=== PATIENT | male | born 1990 | race Caucasian/White ===

== ENCOUNTER 2018-10-11 08:44 | Emergency (ER) | payer SELFPAY ==
[2018-10-11] MEDS ORDERED: IBUPROFEN 400 MG TAB ONE (09:34)
[2018-10-11 09:42] LABS: Absolute Lymphocytes (CBC) 1.1 K/uL (0.7-4.9); Basophils % 0.8 % (0-1.3); Hematocrit 43.2 % (39.6-49.0); Lymphocytes % 25.7 % (15.3-44.8); MPV 8.7 fL (7.6-11.3); RBC Red Blood Cell Count 4.98 M/uL (4.33-5.43)
[2018-10-11 09:57] LABS: Potassium 3.8 mmol/L (3.5-5.1)
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
[2018-10-11] MEDS ORDERED: TETANUS & DIPHTHERIA TOX,ADULT 0.5 ML VIAL ONE (10:55)
== END 2018-10-11 10:58 | disposition home or self-care (01) ==
LOC: ER 08:44
DX: S00.91XA Abrasion of unspecified part of head, initial encounter (principal); S00.93XA Contusion of unspecified part of head, initial encounter; V43.52XA Car driver injured in collision with other type car in traffic accident, initial encounter; M79.602 Pain in left arm; Z23 Encounter for immunization
CPT/HCPCS: 36415; 70450; 71260; 72125; 74177; 80048; 85025; 86850; 86900; 86901; 90471; 90714; 99285; Q9967

== ENCOUNTER 2019-02-11 08:46 | Emergency (ER) | payer SELFPAY ==
--- NOTE | 2019-02-11 09:31 | ER ---
Nurse's Notes [facility] Name: Heriberto Duke Age: 29 yrs Sex: Male : 1990 Arrival Date: 02/11/2019 Time: 08:48 Bed 5 Private MD: None, None Diagnosis: Schizophrenia Presentation: 02/11 09:03 Presenting complaint: Patient states: "I woke up to two law enforcement officers at my ss door when I was asleep. My mom is taking prescription Xanax and she has been a little erratic . The supersonic engineer asked if I would come down to talk to the mental health deputy." Pt denies SI/HI. Transition of care: patient was not received from another setting of care. Onset of symptoms is unknown. Risk Assessment: Do you want to hurt yourself or someone else? Patient reports no desire to harm self or others. Initial Sepsis Screen: Does the patient meet any 2 criteria? HR > 90 bpm. Does the patient have a suspected source of infection? No. Patient's initial sepsis screen is negative. Care prior to arrival: None. 09:03 Method Of Arrival: Ambulatory ss 09:03 Acuity: JOSEFA 4 ss 10:13 Acuity: JOSEFA 2 ss Triage Assessment: 09:35 General: Appears in no apparent distress. Behavior is calm, cooperative, appropriate tw2 for age. Pain: Denies pain. EENT: No signs and/or symptoms were reported regarding the EENT system. Neuro: Level of Consciousness is awake, alert, obeys commands, Oriented to person, place, time, situation. Cardiovascular: Denies chest pain, shortness of breath, Patient's skin is warm and dry. Respiratory: Airway is patent Respiratory effort is even, unlabored, Respiratory pattern is regular, symmetrical. GI: No signs and/or symptoms were reported involving the gastrointestinal system. : No signs and/or symptoms were reported regarding the genitourinary system. Derm: No signs and/or symptoms reported regarding the dermatologic system. Musculoskeletal: No signs and/or symptoms reported regarding the musculoskeletal system. Musculoskeletal: Range of motion: intact in all extremities. Historical: - Allergies: 09:09 No Known Allergies; ss - Home Meds: 09:09 None [Active]; ss - PMHx: 09: None; ss - PSHx: 09:09 L forearm; ss - Immunization history:: Adult Immunizations up to date. - Social history:: Smoking status: Patient/guardian denies using tobacco, Patient/guardian denies using street drugs. - Ebola Screening: : Patient denies exposure to infectious person Patient denies travel to an Ebola-affected area in the 21 days before illness onset. Screenin:14 Abuse screen: Denies threats or abuse. Nutritional screening: No deficits noted. tw2 Tuberculosis screening: No symptoms or risk factors identified. Fall Risk None identified. Assessment: 09:13 Reassessment: provider at bedside at this time. tw2 09:15 Reassessment: see triage assessment. tw2 09:54 Reassessment: mother at bedside at this time, refusing discharge, requesting provider tw speak to Dr. Mckeon prior to discharge. 09:54 Reassessment: attempted to dc patient at this time. Mother is requesting to speak with FREDDIE Cisse prior to discharge. FREDDIE Morrison notified. 10:05 Reassessment: FREDDIE Morrison spoke with Dr. Mckeon. Now awaiting for psychiatrist, Dr. leigh Melara for consult. 11:34 Reassessment: Patient appears in no apparent distress at this time. No changes from tw2 previously documented assessment. Patient and/or family updated on plan of care and expected duration. Pain level reassessed. Patient is alert, oriented x 3, equal unlabored respirations, skin warm/dry/pink. 12:45 Reassessment: Patient appears in no apparent distress at this time. No changes from tw2 previously documented assessment. Patient and/or family updated on plan of care and expected duration. Pain level reassessed. Patient is alert, oriented x 3, equal unlabored respirations, skin warm/dry/pink. psychiatrist at bedside at this time. 13:44 Reassessment: Patient appears in no apparent distress at this time. No changes from tw2 previously documented assessment. Patient and/or family updated on plan of care and expected duration. Pain level reassessed. Patient is alert, oriented x 3, equal unlabored respirations, skin warm/dry/pink. 14:53 Reassessment: Patient appears in no apparent distress at this time. No changes from tw2 previously documented assessment. Patient and/or family updated on plan of care and expected duration. Pain level reassessed. Patient is alert, oriented x 3, equal unlabored respirations, skin warm/dry/pink. 15:53 Reassessment: Patient appears in no apparent distress at this time. No changes from tw2 previously documented assessment. Patient and/or family updated on plan of care and expected duration. Pain level reassessed. Patient is alert, oriented x 3, equal unlabored respirations, skin warm/dry/pink. 18:46 Reassessment: Patient appears in no apparent distress at this time. Patient and/or rv family updated on plan of care and expected duration. Pain level reassessed. Patient is alert, oriented x 3, equal unlabored respirations, skin warm/dry/pink. TALKED TO TRENTON AND GAVE REPORT. AWAITING ACCEPTANCE. 19:00 Reassessment: Mom reports pt is confused thinking the psychiatrist said that he is good jl7 and nothing is wrong with him. 19:09 Reassessment: Charge nurse notified pt is confused and wanting to go home and not be jl7 transferred. Charge nurse to call pt's mother. pt seen and assessed by [facility] and local Psychiatrist with both stating pt needs inpatient care. Vital Signs: 09:02 BP 145 / 97; Pulse 102; Resp 18; Temp 98.3(TE); Pulse Ox 98% on R/A; Weight 81.65 kg; ss Height 5 ft. 10 in. (177.80 cm); Pain 0/10; 10:16 BP 123 / 87; Pulse 87; Resp 17; Pulse Ox 95% on R/A; tw2 11:34 BP 124 / 86; Pulse 90; Resp 16; Pulse Ox 95% on R/A; tw2 12:45 BP 115 / 88; Pulse 89; Resp 17; Pulse Ox 100% on R/A; tw2 13:44 BP 118 / 88; Pulse 89; Resp 17; Pulse Ox 96% on R/A; tw2 14:53 BP 114 / 78; Pulse 87; Resp 17; Pulse Ox 95% on R/A; tw2 15:53 BP 114 / 93; Pulse 104; Resp 17; Pulse Ox 96% on R/A; tw2 16:30 BP 164 / 116; Pulse 100; Resp 17; Pulse Ox 100% on R/A; rv 17:00 BP 122 / 94; Pulse 97; Resp 16; Pulse Ox 96% on R/A; rv 18:00 BP 126 / 95; Pulse 93; Resp 16; Pulse Ox 97% on R/A; rv 18:30 BP 130 / 89; Pulse 97; Resp 17; Pulse Ox 97% on R/A; rv 09:02 Body Mass Index 25.83 (81.65 kg, 177.80 cm) ED Course: 08:48 Patient arrived in ED. ag5 08:48 None, None is Private Physician. ag5 09:08 Triage completed. ss 09:09 Arm band placed on left wrist. ss 09:12 Pedrito Castañeda PA is PHCP. jr8 09:12 Lance Hager MD is Attending Physician. jr8 09:14 Lida Higuera, ALYSSA is Primary Nurse. tw2 09:14 Bed in low position. Call light in reach. tw2 09:35 No provider procedures requiring assistance completed. Patient did not have IV access tw2 during this emergency room visit. 11:00 Initial lab(s) drawn, by me, sent to lab. Inserted saline lock: 20 gauge in right jl7 antecubital area, using aseptic technique. Blood collected. 11:11 Urine collected: clean catch specimen, clear. ms 11:16 EKG done, by inventory technician. reviewed by Pedrito FRAZIER. 3 14:21 contacted [facility] crisis line. screener will come evaluate pt. bd 16:02 faxed chart to [facility] psych, [facility], [facility], [facility], [facility]. 16:03 pt denied at [facility] due to no beds at this time, pt will be put on wait list. bd 16:17 Report given to ALYSSA Fish. tw2 17:49 refaxed copy of physician notes as requested by [facility]. bd 19:39 IV discontinued, intact, bleeding controlled, Pressure dressing applied. ds4 Administered Medications: No medications were administered Outcome: 09:30 Discharge ordered by . nancy 18:51 ER care complete, transfer ordered by . jr8 19:44 Patient left the ED. ak1 Signatures: Lachelle Alberto Maria ms Smirch, Shelby, ALYSSA SHAH Pedrito Castañeda PA PA jr8 Marlon Land ds4 Lea Davis RN RN ak1 Lida Higuera RN RN tw2 Polina Rhodes, RN RN jl7 Raiza Wells 3 Krzysztof Delarosa, RN RN Edilberto Anderson 5 Corrections: (The following items were deleted from the chart) 09:35 Discharge instructions given to patient, Instructed on discharge instructions, tw follow up and referral plans. Demonstrated understanding of instructions, follow-up care, 09:35 Condition: stable 09:35 Discharged to home ambulatory,
--- NOTE | 2019-02-11 09:31 | EDPHYS ---
Physician Documentation [facility] Name: Heriberto Duke Age: 29 yrs Sex: Male : 1990 Arrival Date: 02/11/2019 Time: 08:48 Bed 5 Private MD: None, None ED Physician Lance Hager HPI: 02/11 09:23 This 29 yrs old Male presents to ER via Ambulatory with complaints of Mental jr8 Health Evaluation. 09:23 Patient brought in by SARAH for mental health evaluation. Patient stated that his mother nancy has been on xanax and thought that he was hallucinating. LE wanted him to be evaluated to make sure he was ok. Patient denies SI/HI, hallucinations, flight of ideas, paranoia. Severity of symptoms: At their worst the symptoms were very mild in the emergency department the symptoms are unchanged. It is unknown whether or not the patient has had similar symptoms in the past. The patient has not recently seen a physician. Historical: - Allergies: 09:09 No Known Allergies; ss - Home Meds: 09:09 None [Active]; ss - PMHx: 09: None; ss - PSHx: 09:09 L forearm; ss - Immunization history:: Adult Immunizations up to date. - Social history:: Smoking status: Patient/guardian denies using tobacco, Patient/guardian denies using street drugs. - Ebola Screening: : Patient denies exposure to infectious person Patient denies travel to an Ebola-affected area in the 21 days before illness onset. ROS: 09:23 Eyes: Negative for injury, pain, redness, and discharge, ENT: Negative for injury, jr8 pain, and discharge, Neck: Negative for injury, pain, and swelling, Cardiovascular: Negative for chest pain, palpitations, and edema, Respiratory: Negative for shortness of breath, cough, wheezing, and pleuritic chest pain, Abdomen/GI: Negative for abdominal pain, nausea, vomiting, diarrhea, and constipation, Back: Negative for injury and pain, MS/Extremity: Negative for injury and deformity, Skin: Negative for injury, rash, and discoloration, Neuro: Negative for headache, weakness, numbness, tingling, and seizure, Psych: Negative for depression, anxiety, suicide ideation, homicidal ideation, and hallucinations. Exam: 09:23 Constitutional: This is a well developed, well nourished patient who is awake, alert, jr8 and in no acute distress. Eyes: Pupils equal round and reactive to light, extra-ocular motions intact. Lids and lashes normal. Conjunctiva and sclera are non-icteric and not injected. Cornea within normal limits. Periorbital areas with no swelling, redness, or edema. ENT: Nares patent. No nasal discharge, no septal abnormalities noted. Tympanic membranes are normal and external auditory canals are clear. Oropharynx with no redness, swelling, or masses, exudates, or evidence of obstruction, uvula midline. Mucous membranes moist. Neck: Trachea midline, no thyromegaly or masses palpated, and no cervical lymphadenopathy. Supple, full range of motion without nuchal rigidity, or vertebral point tenderness. No Meningismus. Cardiovascular: Regular rate and rhythm with a normal S1 and S2. No gallops, murmurs, or rubs. Normal PMI, no JVD. No pulse deficits. Respiratory: Lungs have equal breath sounds bilaterally, clear to auscultation and percussion. No rales, rhonchi or wheezes noted. No increased work of breathing, no retractions or nasal flaring. Abdomen/GI: Soft, non-tender, with normal bowel sounds. No distension or tympany. No guarding or rebound. No evidence of tenderness throughout. Back: No spinal tenderness. No costovertebral tenderness. Full range of motion. Skin: Warm, dry with normal turgor. Normal color with no rashes, no lesions, and no evidence of cellulitis. MS/ Extremity: Pulses equal, no cyanosis. Neurovascular intact. Full, normal range of motion. Neuro: Awake and alert, GCS 15, oriented to person, place, time, and situation. Cranial nerves II-XII grossly intact. Motor strength 5/5 in all extremities. Sensory grossly intact. Cerebellar exam normal. Normal gait. Psych: Awake, alert, with orientation to person, place and time. Behavior, mood, and affect are within normal limits. Vital Signs: 09:02 BP 145 / 97; Pulse 102; Resp 18; Temp 98.3(TE); Pulse Ox 98% on R/A; Weight 81.65 kg; ss Height 5 ft. 10 in. (177.80 cm); Pain 0/10; 10:16 BP 123 / 87; Pulse 87; Resp 17; Pulse Ox 95% on R/A; tw2 11:34 BP 124 / 86; Pulse 90; Resp 16; Pulse Ox 95% on R/A; tw2 12:45 BP 115 / 88; Pulse 89; Resp 17; Pulse Ox 100% on R/A; tw2 13:44 BP 118 / 88; Pulse 89; Resp 17; Pulse Ox 96% on R/A; tw2 14:53 BP 114 / 78; Pulse 87; Resp 17; Pulse Ox 95% on R/A; tw2 15:53 BP 114 / 93; Pulse 104; Resp 17; Pulse Ox 96% on R/A; tw2 16:30 BP 164 / 116; Pulse 100; Resp 17; Pulse Ox 100% on R/A; rv 17:00 BP 122 / 94; Pulse 97; Resp 16; Pulse Ox 96% on R/A; rv 18:00 BP 126 / 95; Pulse 93; Resp 16; Pulse Ox 97% on R/A; rv 18:30 BP 130 / 89; Pulse 97; Resp 17; Pulse Ox 97% on R/A; rv 09:02 Body Mass Index 25.83 (81.65 kg, 177.80 cm) ss MDM: 09:12 Patient medically screened. jr8 09:23 Data reviewed: vital signs, nurses notes, and as a result, I will discharge patient. jr8 Data interpreted: Pulse oximetry: on room air is 98 %. Interpretation: normal. Counseling: I had a detailed discussion with the patient and/or guardian regarding: the historical points, exam findings, and any diagnostic results supporting the discharge/admit diagnosis, the need for outpatient follow up, a family practitioner, to return to the emergency department if symptoms worsen or persist or if there are any questions or concerns that arise at home. ED course: Mother arrived shortly after talking with patient. Long discussion with mother about patient denies HI/SI or psychotic ideations. Mother stated that he has been manipulating the system. Stated that he has been having hallucinations for some time. Walks around talking to people that are not there. Starring over her in the middle of the night. Stated that he randomly prays for hours in one position. Hysterically laughs out of normal context. Stated that his younger brother had the same problems and had schizophrenia. Eventually led to his . Stated that the patient knows that he is having the same problems but denies it because he is afraid that he could go down same path as brother. We had psychiatrist on site see patient and agrees patient needs to be admitted to inpatient psych . 02/11 10:47 Order name: Acetaminophen; Complete Time: 11:38 ss 02/11 10:47 Order name: Basic Metabolic Panel; Complete Time: 11:38 ss 02/11 10:47 Order name: CBC with Diff; Complete Time: 11:10 ss 02/11 10:47 Order name: ETOH Level; Complete Time: 11:38 ss 02/11 10:47 Order name: Hepatic Function; Complete Time: 11:38 ss 02/11 10:47 Order name: PT-INR; Complete Time: 11:38 ss 02/11 10:47 Order name: Ptt, Activated; Complete Time: 11:38 ss 02/11 10:47 Order name: Salicylate; Complete Time: 12:01 ss 02/11 10:47 Order name: Urine Drug Screen; Complete Time: 12:20 ss 02/11 10:47 Order name: EKG; Complete Time: 10:49 ss 02/11 10:47 Order name: EKG - Nurse/Tech; Complete Time: 10:58 ss 02/11 10:47 Order name: IV Saline Lock; Complete Time: 10:57 ss 02/11 11:10 Order name: Urine Dipstick--Ancillary (enter results); Complete Time: 11:38 bd 02/11 14:27 Order name: Diet Regular; Complete Time: 14:27 tw2 02/11 10:47 Order name: Labs collected and sent; Complete Time: 10:58 ss 02/11 10:47 Order name: Urine Dipstick-Ancillary (obtain specimen); Complete Time: 11:09 ss Administered Medications: No medications were administered Disposition: 18:40 Co-signature as Attending Physician, Lance Hager MD I agree with the assessment and mauro plan of care. Disposition: 02/11/19 18:51 Transfer ordered to Psych Facility. Diagnosis is Schizophrenia. - Reason for transfer: Higher level of care. - Accepting physician is Psych. - Condition is Stable. - Problem is new. - Symptoms have improved. Signatures: Dispatcher [employer] Romel Rees MD MD cha Smirch, Shelby, RN RN Pedrito Motley PA PA jr8 Lea Davis, RN RN ak1 Corrections: (The following items were deleted from the chart) 09:59 09:30 02/11/2019 09:30 Discharged to Home. Impression: Encounter for general adult jr8 medical examination without abnormal findings. Condition is Stable. Forms are Medication Reconciliation Form, Thank You Letter, Antibiotic Education, Prescription Opioid Use. Follow up: Private Physician; When: As needed; Reason: Recheck today's complaints, Continuance of care, Re-evaluation by your physician. Problem is new. Symptoms have improved. jr8 15:56 09:23 ED course: Patient with no apparent acute psychiatric complaint or findings. Will jr8 d/c home. jr8 19:44 18:51 02/11/2019 18:51 Transfer ordered to Psych Facility. Diagnosis is Schizophrenia. ak1 Reason for transfer: Higher level of care. Accepting physician is Psych. Condition is Stable. Problem is new. Symptoms have improved. jr8
[2019-02-11 11:07] LABS: Absolute Lymphocytes (CBC) 1.4 K/uL (0.7-4.9); Basophils % 0.6 % (0-1.3); Hematocrit 47.1 % (39.6-49.0); Lymphocytes % 18.2 % (15.3-44.8); MPV 8.4 fL (7.6-11.3); RBC Red Blood Cell Count 5.35 M/uL (4.33-5.43)
[2019-02-11 11:13] LABS: Protime INR 1.02
[2019-02-11 11:31] LABS: ALT/SGPT 38 U/L (12-78); AST/SGOT 22 U/L (15-37); Albumin 4.6 g/dL (3.4-5.0); Alkaline Phosphatase 126 U/L (45-117); BUN Blood Urea Nitrogen 17 mg/dL (7-18); Bicarbonate 26 mmol/L (21-32); Bilirubin Direct 0.2 mg/dL (0-0.2); Glucose Level 84 mg/dL (74-106); Potassium 3.7 mmol/L (3.5-5.1); Protein, Total 8.1 g/dL (6.4-8.2); Sodium Level 139 mmol/L (136-145)
[2019-02-11 11:33] LABS: Urine Blood NEGATIVE (NEG); Urine Glucose NEGATIVE (NEG); Urine Protein TRACE (NEG); Urine Specific Gravity 1.025 (1.005-1.030); Urine pH 5.5 (5.0-7.0)
--- NOTE | 2019-02-11 11:58 | EKG ---
Test Date: 2019-02-11 Test Time: 11:04:41 Electrical Panel Builder: ADELINA MEASUREMENT RESULTS: Intervals: Rate: 77 LA: 138 QRSD: 86 QT: 364 QTc: 411 [place]: P: 50 LA: 138 QRS: 89 T: 19 INTERPRETIVE STATEMENTS: Sinus rhythm with marked sinus arrhythmia Otherwise normal ECG Compared to ECG 10/05/2013 20:15:49 Sinus bradycardia no longer present Electronically Signed On 02-11-19 11:57:48 FORESTRY TREE PRUNER by Korey Acosta
[2019-02-11 12:07] LABS: Barbiturates NEGATIVE (NEGATIVE); Benzodiazepines NEGATIVE (NEGATIVE); Cocaine NEGATIVE (NEGATIVE); METHAMPHETAM NEGATIVE (NEGATIVE); Methadone NEGATIVE (NEGATIVE); Opiates NEGATIVE (NEGATIVE); Phencyclidine NEGATIVE (NEGATIVE); THC Cannibis NEGATIVE (NEGATIVE)
[2019-02-11 19:51] VITALS: TEMP 98.3
[2019-02-11 20:02] VITALS: O2SAT 97
[2019-02-11 20:03] VITALS: BP 130/89
== END 2019-02-11 19:44 ==
LOC: ER 08:46
DX: F20.9 Schizophrenia, unspecified (principal)
CPT/HCPCS: 36415; 80048; 80076; 80307; 80320; 80329; 81003; 85025; 85610; 85730; 93005; 99284

== ENCOUNTER 2019-06-14 23:08 | Emergency (ER) | payer SELFPAY ==
--- OUTSIDE RECORDS SUMMARY | 2019-06-14 23:11 | XMS REPORT ---
:1990 [facility] Address [address] [place] [address] Care Team Providers Name Role Phone Unavailable Unavailable Unavailable Problems This patient has no known problems. Allergies, Adverse Reactions, Alerts This patient has no known allergies or adverse reactions. Medications This patient has no known medications. Results Test Description Test Time Test Comments Text Results Atomic Results Result Comments RPR Qualitative 2019-02-12 13:47:36 Test Item Value Reference Range Comments RPR Qual (test code=RPR Qual) Non-Reactive Non-Reactive Reactive Control (test code=Reactive Control) Reactive Weak Reactive Control (test code=Weak Reactive Control) Weak Reactive Non-Reactive Control (test code=Non-Reactive Control) Non-Reactive Lot # (test code=Lot #) [id number] Expiration Dt (test code=Expiration Dt) 01-18-20 Thyroid Stimulating [id number] 08:21:50 Test Item Value Reference Range Comments TSH (test code=TSH) 2.100 mIU/mL 0.270-4.200 Lipid [id number] 07:23:30 Test Item Value Reference Range Comments Cholesterol Total (test 179 mg/dL 0-200 RISK OF HEART DISEASEPublished code=Cholesterol Total) by [place] [employer] Analyte Optimal Borderline Increased RiskCHOL <200 200-239 >240TRIG <150 150-199 >200HDL Male >60 <40HDL Female >60 <50LDL <100 130-159 >160LDL Near optimal is 100-129 Triglycerides (test 108 mg/dL 9-200 code=Triglycerides) HDL (test code=HDL) 41 mg/dL 40-60 LDL (test code=LDL) 117 mg/dL 0-130 The equation being used in this calculation is LDL=(Chol - HDL) - (Trig / 5) VLDL (test code=VLDL) 22 mg/dL 5-40 The equation being used in this calculation is VLDL=Trig / 5 Chol/HDL (test 4.4 ratio 0.0-5.0 code=Chol/HDL) LDL/HDL Ratio (test 3 The equation being used in this code=LDL/HDL Ratio) calculation is LDL/HDL Ratio=LDL Calc/HDL Chol Comprehensive Metabolic [id number] 07:00:35 Test Item Value Reference Range Comments Sodium Level (test code=Sodium Level) 142.0 mmol/L 135.0-145.0 Potassium Level (test code=Potassium Level) 4.3 mmol/L 3.5-5.1 Chloride Level (test code=Chloride Level) 101 mmol/L 98-105 CO2 (test code=CO2) 28 mmol/L 22-29 Anion Gap (test code=Anion Gap) 13 mmol/L 7-16 BUN (test code=BUN) 19.30 mg/dL 6.00-20.00 Creatinine Level (test code=Creatinine Level) 0.90 mg/dL 0.70-1.20 BUN/Creat Ratio (test code=BUN/Creat Ratio) 21 Glucose Level (test code=Glucose Level) 89 mg/dL 70-115 Calcium Level (test code=Calcium Level) 10.4 mg/dL 8.3-10.5 Alk Phos (test code=Alk Phos) 124 U/L 40-129 Bilirubin Total (test code=Bilirubin Total) 1.1 mg/dL 0.1-0.9 Albumin Level (test code=Albumin Level) 5.1 g/dL 3.5-5.2 Protein Total (test code=Protein Total) 7.9 g/dL 6.4-8.3 ALT (test code=ALT) 25 U/L 1-41 AST (test code=AST) 23 U/L 1-40 Globulin (test code=Globulin) 2.8 g/dL 2.9-3.1 A/G Ratio (test code=A/G Ratio) 1.8 ratio Comprehensive Metabolic [id number] 07:00:35 Test Item Value Reference Range Comments Sodium Level (test 142.0 mmol/L 135.0-145.0 code=Sodium Level) Potassium Level (test 4.3 mmol/L 3.5-5.1 code=Potassium Level) Chloride Level (test 101 mmol/L 98-105 code=Chloride Level) CO2 (test code=CO2) 28 mmol/L 22-29 Anion Gap (test 13 mmol/L 7-16 code=Anion Gap) BUN (test code=BUN) 19.30 mg/dL 6.00-20.00 Creatinine Level (test 0.90 mg/dL 0.70-1.20 code=Creatinine Level) BUN/Creat Ratio (test 21 code=BUN/Creat Ratio) Glucose Level (test 89 mg/dL 70-115 code=Glucose Level) Calcium Level (test 10.4 mg/dL 8.3-10.5 code=Calcium Level) Alk Phos (test code=Alk 124 U/L 40-129 Phos) Bilirubin Total (test 1.1 mg/dL 0.1-0.9 code=Bilirubin Total) Albumin Level (test 5.1 g/dL 3.5-5.2 code=Albumin Level) Protein Total (test 7.9 g/dL 6.4-8.3 code=Protein Total) ALT (test code=ALT) 25 U/L 1-41 AST (test code=AST) 23 U/L 1-40 Globulin (test 2.8 g/dL 2.9-3.1 code=Globulin) A/G Ratio (test code=A/G 1.8 ratio Ratio) eGFR AA (test code=eGFR >60 mL/min/1.73 m2 eGFR (estimated AA) Glomerular Filtration Rate) is an estimated value, calculated from the patient's serum creatinine using the MDRD equation. It is NOT the patient's actual GFR. The eGFR provides a more clinically useful measure of kidney disease than serum creatinine alone.This calculation takes sex and race into account, if the information is provided. If the race is not provided, and the patient is -[place], multiply by 1.212. If sex is not provided, and the patient is female, multiply by 0.742. Results for patients <18 years of age have not been validated by the MDRD study and should be interpreted with caution. eGFR Result Interpretation:eGFR > or=60 is in the Normal RangeeGFR < 60 may mean kidney diseaseeGFR < 15 may mean kidney failure Ranges recommended by the National Kidney Foundation, http://nkdep.nih.gov Comprehensive Metabolic [id number] 07:00:35 Test Item Value Reference Range Comments Sodium Level (test 142.0 mmol/L 135.0-145.0 code=Sodium Level) Potassium Level (test 4.3 mmol/L 3.5-5.1 code=Potassium Level) Chloride Level (test 101 mmol/L 98-105 code=Chloride Level) CO2 (test code=CO2) 28 mmol/L 22-29 Anion Gap (test 13 mmol/L 7-16 code=Anion Gap) BUN (test code=BUN) 19.30 mg/dL 6.00-20.00 Creatinine Level (test 0.90 mg/dL 0.70-1.20 code=Creatinine Level) BUN/Creat Ratio (test 21 code=BUN/Creat Ratio) Glucose Level (test 89 mg/dL 70-115 code=Glucose Level) Calcium Level (test 10.4 mg/dL 8.3-10.5 code=Calcium Level) Alk Phos (test code=Alk 124 U/L 40-129 Phos) Bilirubin Total (test 1.1 mg/dL 0.1-0.9 code=Bilirubin Total) Albumin Level (test 5.1 g/dL 3.5-5.2 code=Albumin Level) Protein Total (test 7.9 g/dL 6.4-8.3 code=Protein Total) ALT (test code=ALT) 25 U/L 1-41 AST (test code=AST) 23 U/L 1-40 Globulin (test 2.8 g/dL 2.9-3.1 code=Globulin) A/G Ratio (test code=A/G 1.8 ratio Ratio) eGFR AA (test code=eGFR >60 mL/min/1.73 m2 eGFR (estimated AA) Glomerular Filtration Rate) is an estimated value, calculated from the patient's serum creatinine using the MDRD equation. It is NOT the patient's actual GFR. The eGFR provides a more clinically useful measure of kidney disease than serum creatinine alone.This calculation takes sex and race into account, if the information is provided. If the race is not provided, and the patient is -[place], multiply by 1.212. If sex is not provided, and the patient is female, multiply by 0.742. Results for patients <18 years of age have not been validated by the MDRD study and should be interpreted with caution. eGFR Result Interpretation:eGFR > or=60 is in the Normal RangeeGFR < 60 may mean kidney diseaseeGFR < 15 may mean kidney failure Ranges recommended by the National Kidney Foundation, http://nkdep.nih.gov eGFR Non-AA (test >60.00 mL/min/1.73 eGFR (estimated code=eGFR Non-AA) m2 Glomerular Filtration Rate) is an estimated value, calculated from the patient's serum creatinine using the MDRD equation. It is NOT the patient's actual GFR. The eGFR provides a more clinically useful measure of kidney disease than serum creatinine alone.This calculation takes sex and race into account, if the information is provided. If the race is not provided, and the patient is -[place], multiply by 1.212. If sex is not provided, and the patient is female, multiply by 0.742. Results for patients <18 years of age have not been validated by the MDRD study and should be interpreted with caution. eGFR Result Interpretation:eGFR > or=60 is in the Normal RangeeGFR < 60 may mean kidney diseaseeGFR < 15 may mean kidney failure Ranges recommended by the National Kidney Foundation, http://nkdep.nih.gov Complete Blood Count with [id number] 06:45:37 Test Item Value Reference Range Comments WBC (test code=WBC) 5.9 x10 4.4-10.5 RBC (test code=RBC) 5.58 x10 4.10-5.70 Hgb (test code=Hgb) 17.0 g/dL 13.4-17.4 Hct (test code=Hct) 49.1 % 38.7-52.0 MCV (test code=MCV) 88.00 fL 80.00-100.00 MCHC (test code=MCHC) 34.60 g/dL 32.00-37.50 RDW CV (test code=RDW CV) 12.2 % 11.5-14.5 MCH (test code=MCH) 30.5 pg 27.0-32.5 Platelets (test 292.0 x10 140.0-440.0 code=Platelets) MPV (test code=MPV) 9.9 fL Slide Review (test code=Slide Auto Auto Result created by Review) [id number]_[id number]_AUTO nRBC (test code=nRBC) 0 NRBC Abs (test code=NRBC Abs) 0.00 x10 IPF (test code=IPF) 0 % Automated [id number] 06:45:37 Test Item Value Reference Range Comments Neutro Auto (test code=Neutro Auto) 55.6 % 36.0-70.0 Lymph Auto (test code=Lymph Auto) 29.0 % 12.0-44.0 [place] Auto (test code=[place] Auto) 11.8 % 0.0-11.0 Eos, Auto (test code=Eos, Auto) 2.7 % 0.0-7.0 Basophil Auto (test code=Basophil Auto) 0.7 % 0.0-2.0 Neutro Absolute (test code=Neutro Absolute) 3.3 x10 1.6-7.4 Lymph Absolute (test code=Lymph Absolute) 1.70 x10 .50-4.60 [place] Absolute (test code=[place] Absolute) .69 x10 .00-1.20 Eos Absolute (test code=Eos Absolute) 0.16 x10 0.00-0.74 Baso Absolute (test code=Baso Absolute) 0.04 x10 0.00-0.21 IG [id number] 06:45:37 Test Item Value Reference Range Comments IG (test code=IG) 0.2 % 0.0-5.0 IG Abs (test code=IG Abs) 0 x10
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
[2019-06-15 00:56] VITALS: BP 134/99; O2SAT 96
[2019-06-15 00:59] VITALS: TEMP 98.8
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
== END 2019-06-15 00:17 | disposition home or self-care (01) ==
LOC: ER 23:08
DX: S00.90XA Unspecified superficial injury of unspecified part of head, initial encounter (principal); Y04.2XXA Assault by strike against or bumped into by another person, initial encounter; Y93.9 Activity, unspecified; Y92.89 Other specified places as the place of occurrence of the external cause; F20.9 Schizophrenia, unspecified
CPT/HCPCS: 70450; 99284

== ENCOUNTER 2019-07-23 20:35 | Emergency (ER) | payer SELFPAY ==
--- OUTSIDE RECORDS SUMMARY | 2019-07-23 20:37 | XMS REPORT ---
:1990 Author Organization [facility] t Address [facility] [place] [address] Care Team Providers Name Role Phone Unavailable Unavailable Unavailable Problems This patient has no known problems. Allergies, Adverse Reactions, Alerts This patient has no known allergies or adverse reactions. Medications This patient has no known medications. Results Test Description Test Time Test Comments Text Results Atomic Results Result Comments RPR Qualitative 2019-02-12 13:47:36 Test Item Value Reference Range Comments RPR Qual (test code = RPR Qual) Non-Reactive Non-Reactive Reactive Control (test code = Reactive Control) Reactive Weak Reactive Control (test code = Weak Reactive Weak Reactive Control) Non-Reactive Control (test code = Non-Reactive Control) Non-Reac tive Lot # (test code = Lot #) [id number] Expiration Dt (test code = Expiration Dt) 01-18-20 Thyroid Stimulating [id number] 08:21:50 Test Item Value Reference Range Comments TSH (test code = TSH) 2.100 mIU/mL 0.270-4.200 Lipid [id number] 07:23:30 Test Item Value Reference Range Comments Cholesterol Total (test code 179 mg/dL 0-200 RIS K OF HEART DISEASEPublished = Cholesterol Total) by [employer] Analyte Optimal Borderline Increased RiskCH OL <200 200-239 >240TRIG <150 150-199 >200HDL Male >6 0 <40HDL Female >60 <50 LDL <100 130-159 >160LDL Near optimal is 100-129 Triglycerides (test code = 108 mg/dL 9-200 Triglycerides) HDL (test code = HDL) 41 mg/dL 40-60 LDL (test code = LDL) 117 mg/dL 0-130 The equati on being used in this calculation is LDL = (Chol - HDL) - (Trig / 5 ) VLDL (test code = VLDL) 22 mg/dL 5-40 The equa tion being used in this calculation is VLDL = Trig / 5 Chol/HDL (test code = 4.4 ratio 0.0-5.0 Chol/HDL) LDL/HDL Ratio (test code = 3 The e quation being used in this LDL/HDL Ratio) calculation is LDL/HDL Ratio=LDL Calc/H DL Chol Comprehensive Metabolic [id number] 07:00:35 Test Item Value Reference Range Comments Sodium Level (test code = Sodium Level) 142.0 mmol/L 135.0-14 5.0 Potassium Level (test code = Potassium Level) 4.3 mmol/L 3. 5-5.1 Chloride Level (test code = Chloride Level) 101 mmol/L 98-1 05 CO2 (test code = CO2) 28 mmol/L 22-29 Anion Gap (test code = Anion Gap) 13 mmol/L 7-16 BUN (test code = BUN) 19.30 mg/dL 6.00-20.00 Creatinine Level (test code = Creatinine Level) 0.90 mg/dL 0.70-1.20 BUN/Creat Ratio (test code = BUN/Creat Ratio) 21 Glucose Level (test code = Glucose Level) 89 mg/dL 70-115 Calcium Level (test code = Calcium Level) 10.4 mg/dL 8.3-10 .5 Alk Phos (test code = Alk Phos) 124 U/L 40-129 Bilirubin Total (test code = Bilirubin Total) 1.1 mg/dL 0. 1-0.9 Albumin Level (test code = Albumin Level) 5.1 g/dL 3.5-5. 2 Protein Total (test code = Protein Total) 7.9 g/dL 6.4-8. 3 ALT (test code = ALT) 25 U/L 1-41 AST (test code = AST) 23 U/L 1-40 Globulin (test code = Globulin) 2.8 g/dL 2.9-3.1 A/G Ratio (test code = A/G Ratio) 1.8 ratio Comprehensive Metabolic [id number] 07:00:35 Test Item Value Reference Range Comments Sodium Level (test code = 142.0 mmol/L 135.0-145.0 Sodium Level) Potassium Level (test 4.3 mmol/L 3.5-5.1 code = Potassium Level) Chloride Level (test code 101 mmol/L 98-105 = Chloride Level) CO2 (test code = CO2) 28 mmol/L 22-29 Anion Gap (test code = 13 mmol/L 7-16 Anion Gap) BUN (test code = BUN) 19.30 mg/dL 6.00-20.00 Creatinine Level (test 0.90 mg/dL 0.70-1.20 code = Creatinine Level) BUN/Creat Ratio (test 21 code = BUN/Creat Ratio) Glucose Level (test code 89 mg/dL 70-115 = Glucose Level) Calcium Level (test code 10.4 mg/dL 8.3-10.5 = Calcium Level) Alk Phos (test code = Alk 124 U/L 40-129 Phos) Bilirubin Total (test 1.1 mg/dL 0.1-0.9 code = Bilirubin Total) Albumin Level (test code 5.1 g/dL 3.5-5.2 = Albumin Level) Protein Total (test code 7.9 g/dL 6.4-8.3 = Protein Total) ALT (test code = ALT) 25 U/L 1-41 AST (test code = AST) 23 U/L 1-40 Globulin (test code = 2.8 g/dL 2.9-3.1 Globulin) A/G Ratio (test code = 1.8 ratio A/G Ratio) eGFR AA (test code = eGFR >60 mL/min/1.73 m2 eGF R (estimated AA) Glomerular Filtr ation Rate) is an margie mated value, calculate d from the patient's se rum creatinine using the MDRD equation. It is NOT the patient's actual GFR. The eGFR provides a more clinically usefu l measure of kidney diseas e than serum creatinine alone.This ca lculation takes sex and ra ce into account, if the information is p rovided. If the race is n ot provided, and th e patient is -Ameri can, multiply by 1.21 2. If sex is not provided, and the patient is femal e, multiply by 0.74 2. Results for ian ents <18 years of age hav e not been validated b y the MDRD study and velia trejo be interpreted with caution. eGFR Result Interpretation:e GFR > or = 60 is in the N ormal RangeeGFR < 60 m ay mean kidney diseaseeG FR < 15 may mean kidney failure Range s recommended by tracy castillo [employer], http://nkdep.nih .gov Comprehensive Metabolic [id number] 07:00:35 Test Item Value Reference Range Comments Sodium Level (test code = 142.0 mmol/L 135.0-145.0 Sodium Level) Potassium Level (test 4.3 mmol/L 3.5-5.1 code = Potassium Level) Chloride Level (test code 101 mmol/L 98-105 = Chloride Level) CO2 (test code = CO2) 28 mmol/L 22-29 Anion Gap (test code = 13 mmol/L 7-16 Anion Gap) BUN (test code = BUN) 19.30 mg/dL 6.00-20.00 Creatinine Level (test 0.90 mg/dL 0.70-1.20 code = Creatinine Level) BUN/Creat Ratio (test 21 code = BUN/Creat Ratio) Glucose Level (test code 89 mg/dL 70-115 = Glucose Level) Calcium Level (test code 10.4 mg/dL 8.3-10.5 = Calcium Level) Alk Phos (test code = Alk 124 U/L 40-129 Phos) Bilirubin Total (test 1.1 mg/dL 0.1-0.9 code = Bilirubin Total) Albumin Level (test code 5.1 g/dL 3.5-5.2 = Albumin Level) Protein Total (test code 7.9 g/dL 6.4-8.3 = Protein Total) ALT (test code = ALT) 25 U/L 1-41 AST (test code = AST) 23 U/L 1-40 Globulin (test code = 2.8 g/dL 2.9-3.1 Globulin) A/G Ratio (test code = 1.8 ratio A/G Ratio) eGFR AA (test code = eGFR >60 mL/min/1.73 m2 eGF R (estimated AA) Glomerular Filtr ation Rate) is an margie mated value, calculate d from the patient's se rum creatinine using the MDRD equation. It is NOT the patient's actual GFR. The eGFR provides a more clinically usefu l measure of kidney diseas e than serum creatinine alone.This ca lculation takes sex and ra ce into account, if the information is p rovided. If the race is n ot provided, and th e patient is -Ameri can, multiply by 1.21 2. If sex is not provided, and the patient is femal e, multiply by 0.74 2. Results for ian ents <18 years of age hav e not been validated b y the MDRD study and velia trejo be interpreted with caution. eGFR Result Interpretation:e GFR > or = 60 is in the N ormal RangeeGFR < 60 m ay mean kidney diseaseeG FR < 15 may mean kidney failure Range s recommended by t [employer] Foundation, http://nkdep.nih .gov eGFR Non-AA (test code = >60.00 mL/min/1.73 eGFR (estimated eGFR Non-AA) m2 Glomerular Filtr ation Rate) is an mragie mated value, calculate d from the patient's se rum creatinine using the MDRD equation. It is NOT the patient's actual GFR. The eGFR provides a more clinically usefu l measure of kidney diseas e than serum creatinine alone.This ca lculation takes sex and ra ce into account, if the information is p rovided. If the race is n ot provided, and th e patient is -Ameri can, multiply by 1.21 2. If sex is not provided, and the patient is femal e, multiply by 0.74 2. Results for ian ents <18 years of age hav e not been validated b y the MDRD study and velia trejo be interpreted with caution. eGFR Result Interpretation:e GFR > or = 60 is in the N ormal RangeeGFR < 60 m ay mean kidney diseaseeG FR < 15 may mean kidney failure Range s recommended by t National [employer] Foundation, http://nkdep.nih .gov Complete Blood Count with [id number] 06:45:37 Test Item Value Reference Range Comments WBC (test code = WBC) 5.9 x10 4.4-10.5 RBC (test code = RBC) 5.58 x10 4.10-5.70 Hgb (test code = Hgb) 17.0 g/dL 13.4-17.4 Hct (test code = Hct) 49.1 % 38.7-52.0 MCV (test code = MCV) 88.00 fL 80.00-100.00 MCHC (test code = MCHC) 34.60 g/dL 32.00-37.50 RDW CV (test code = RDW CV) 12.2 % 11.5-14.5 MCH (test code = MCH) 30.5 pg 27.0-32.5 Platelets (test code = 292.0 x10 140.0-440.0 Platelets) MPV (test code = MPV) 9.9 fL Slide Review (test code = Auto Auto Result created by Slide Review) [id number] _AUTO nRBC (test code = nRBC) 0 NRBC Abs (test code = NRBC 0.00 x10 Abs) IPF (test code = IPF) 0 % Automated [id number] 06:45:37 Test Item Value Reference Range Comments Neutro Auto (test code = Neutro Auto) 55.6 % 36.0-70.0 Lymph Auto (test code = Lymph Auto) 29.0 % 12.0-44.0 Gentry Auto (test code = Gentry Auto) 11.8 % 0.0-11.0 Eos, Auto (test code = Eos, Auto) 2.7 % 0.0-7.0 Basophil Auto (test code = Basophil Auto) 0.7 % 0.0-2. 0 Neutro Absolute (test code = Neutro Absolute) 3.3 x10 1. 6-7.4 Lymph Absolute (test code = Lymph Absolute) 1.70 x10 .50- 4.60 Gentry Absolute (test code = Gentry Absolute) .69 x10 .00-1. 20 Eos Absolute (test code = Eos Absolute) 0.16 x10 0.00-0.7 4 Baso Absolute (test code = Baso Absolute) 0.04 x10 0.00-0 .21 IG [id number] 06:45:37 Test Item Value Reference Range Comments IG (test code = IG) 0.2 % 0.0-5.0 IG Abs (test code = IG Abs) 0 x10
[2019-07-23 21:39] LABS: Absolute Lymphocytes (CBC) 2.4 K/uL (0.7-4.9); Basophils % 1.3 % (0-1.3); Hematocrit 45.8 % (39.6-49.0); Lymphocytes % 41.6 % (15.3-44.8); MPV 8.8 fL (7.6-11.3); RBC Red Blood Cell Count 5.29 M/uL (4.33-5.43)
[2019-07-23 21:45] LABS: Protime INR 1.13
[2019-07-23 22:05] LABS: ALT/SGPT 22 U/L (12-78); AST/SGOT 19 U/L (15-37); Albumin 4.7 g/dL (3.4-5.0); Alkaline Phosphatase 99 U/L (45-117); BUN Blood Urea Nitrogen 10 mg/dL (7-18); Bicarbonate 24 mmol/L (21-32); Bilirubin Direct 0.4 mg/dL (0-0.2); Bilirubin Total 1.9 mg/dL (0.2-1.0); Glucose Level 70 mg/dL (74-106); Potassium 3.7 mmol/L (3.5-5.1); Protein, Total 7.9 g/dL (6.4-8.2); Sodium Level 135 mmol/L (136-145)
[2019-07-23] MEDS ORDERED: Ringers Lactate 1,000 ML IV ONE (22:19)
[2019-07-23 23:31] LABS: Barbiturates NEGATIVE (NEGATIVE); Benzodiazepines NEGATIVE (NEGATIVE); Cocaine NEGATIVE (NEGATIVE); METHAMPHETAM NEGATIVE (NEGATIVE); Methadone NEGATIVE (NEGATIVE); Opiates NEGATIVE (NEGATIVE); Phencyclidine NEGATIVE (NEGATIVE); THC Cannibis NEGATIVE (NEGATIVE)
[2019-07-23 23:52] LABS: Urine Blood NEGATIVE (NEG); Urine Glucose NEGATIVE (NEG); Urine Protein NEGATIVE (NEG); Urine Specific Gravity <1.005 (1.005-1.030)
--- NOTE | 2019-07-24 00:53 | ER ---
Nurse's Notes [facility] Name: Heriberto Duke Age: 29 yrs Sex: Male : 1990 Arrival Date: 07/23/2019 Time: 20:38 Bed 17 Private MD: Diagnosis: Unspecified psychosis not due to a substance or known physiological condition Presentation: 07/22 21:01 Chief complaint: Parent and/or Guardian states: Psychosis for 1 year. Talks to himself, ll1 hits himself, bangs head on rodrigues. Has been here 2 times in the past 3 months. Coronavirus screen: Proceed with normal triage. Patient denies a cough. Patient denies shortness of breath or difficulty breathing. Patient denies measured and/or subjective temperature greater than 100.4F prior to today's visit. Patient denies travel on a cruise ship or to a country the [facility] currently lists as an affected area. Patient denies contact with known and/or suspected case of COVID-19. Ebola Screen: Patient denies travel to an Ebola-affected area in the 21 days before illness onset. Initial Sepsis Screen: Does the patient meet any 2 criteria? HR > 90 bpm. No. Patient's initial sepsis screen is negative. Does the patient have a suspected source of infection? No. Patient's initial sepsis screen is negative. Risk Assessment: Do you want to hurt yourself or someone else? Patient reports desire/thoughts of hurting themselves or someone else. Provider notified. Onset of symptoms is unknown. 21:01 Method Of Arrival: Wheelchair ll1 21:01 Acuity: JOSEFA 2 ll1 Historical: - Allergies: 21:05 No Known Allergies; ll1 - PMHx: 21:05 Schizophrenia; ll1 - PSHx: 21:05 Tonsillectomy; Adenoids; ORIF left arm; ll1 - Immunization history:: Flu vaccine status is unknown. - Social history:: Smoking status: Patient/guardian denies using tobacco, the patient reports quitting approximately 1 years ago, Patient/guardian denies using alcohol, street drugs. Screenin:47 Abuse screen: Denies threats or abuse. Denies injuries from another. Nutritional mg2 screening: loss of appetite. Tuberculosis screening: No symptoms or risk factors identified. Fall Risk IV access (20 points). Assessment: 21:44 General: Appears in no apparent distress. comfortable, Behavior is flat. Pain: Denies mg2 pain. Neuro: Level of Consciousness is awake, alert, Oriented to person. Cardiovascular: Capillary refill < 3 seconds Patient's skin is warm and dry. Respiratory: Airway is patent Respiratory effort is even, unlabored, Respiratory pattern is regular, symmetrical. GI: Parent/caregiver reports the patient having loss of appetite. : No signs and/or symptoms were reported regarding the genitourinary system. EENT: No signs and/or symptoms were reported regarding the EENT system. Derm: Skin is intact, is healthy with good turgor, Skin is pink, warm \\T\\ dry. normal. Musculoskeletal: Circulation, motion, and sensation intact. Capillary refill < 3 seconds. 23:10 Reassessment: Patient appears in no apparent distress at this time. Patient and/or mg2 family updated on plan of care and expected duration. Pain level reassessed. sitter at bedside. 23:50 Reassessment: belongings forwarded to [facility] on duty. mg2 07/23 00:04 Reassessment: sitter at bedside. mother updated about the patient- Elaine Jamil- mg2 [phone]. 02:19 Reassessment: [facility] called and asked to forward covid mg2 screening and exclusionary doc. 03:15 General: Appears in no apparent distress. comfortable, Behavior is flat, quiet. Pain: jd3 Denies pain. Neuro: Level of Consciousness is awake, alert, Oriented to person. Cardiovascular: Capillary refill < 3 seconds Patient's skin is warm and dry. Respiratory: Airway is patent Respiratory effort is even, unlabored, Respiratory pattern is regular, symmetrical. GI: Parent/caregiver reports the patient having having loss of appetite. : No signs and/or symptoms were reported regarding the genitourinary system. EENT: No signs and/or symptoms were reported regarding the EENT system. Derm: Skin is intact, Skin is dry, Skin is normal, Skin temperature is warm. Musculoskeletal: Circulation, motion, and sensation intact. Range of motion: intact in all extremities. 04:00 Reassessment: Patient and/or family updated on plan of care and expected duration. Pain jd3 level reassessed. pt resting with eyes closed in bed, even and unlabored respirations. sitter at bedside. awaiting disposition. 05:00 Reassessment: Patient appears in no apparent distress at this time. No changes from jd3 previously documented assessment. Patient and/or family updated on plan of care and expected duration. Pain level reassessed. 06:00 Reassessment: Patient appears in no apparent distress at this time. No changes from jd3 previously documented assessment. Patient and/or family updated on plan of care and expected duration. Pain level reassessed. 08:25 General: Appears in no apparent distress. comfortable, Behavior is cooperative, sv appropriate for age, flat, quiet. Pain: Denies pain. Neuro: Level of Consciousness is awake, alert, obeys commands, Oriented to person, place, Moves all extremities. Full function. Respiratory: Airway is patent Respiratory effort is even, unlabored, Respiratory pattern is regular, symmetrical. Derm: Skin is normal. 08:25 Reassessment: Pt given breakfast tray but refuses to eat at this time. Offered fluids sv but refused.Pt noted to have his hands in the praying position, looking up at the ceiling at times and moving his lips but unsure of what he is saying. 11:32 Reassessment: Patient appears in no apparent distress at this time. No changes from sv previously documented assessment. Patient and/or family updated on plan of care and expected duration. Pain level reassessed. Patient is alert, oriented x 3, equal unlabored respirations, skin warm/dry/pink. 12:39 Reassessment: Patient appears in no apparent distress at this time. No changes from sv previously documented assessment. Pt offered lunch tray but refuses to eat at this time. 14:00 Reassessment: Patient appears in no apparent distress at this time. No changes from sv previously documented assessment. Patient and/or family updated on plan of care and expected duration. Pain level reassessed. 15:25 Reassessment: Facetime screening done with [facility]). They recommend inpatient sv care. He spoke with Dr Guallpa as well. 17:28 Reassessment: Patient appears in no apparent distress at this time. No changes from sv previously documented assessment. Patient and/or family updated on plan of care and expected duration. Pain level reassessed. 18:20 Reassessment: Patient appears in no apparent distress at this time. No changes from sv previously documented assessment. Patient and/or family updated on plan of care and expected duration. Pain level reassessed. Patient is alert, oriented x 3, equal unlabored respirations, skin warm/dry/pink. 19:30 General: Appears in no apparent distress. comfortable, Behavior is calm, cooperative, wh appropriate for age, flat, quiet. Pain: Denies pain. Neuro: Level of Consciousness is awake, alert, obeys commands, Oriented to person, place. Cardiovascular: Capillary refill < 3 seconds Patient's skin is warm and dry. Respiratory: Airway is patent Respiratory effort is even, unlabored, Respiratory pattern is regular, symmetrical. GI: Abdomen is flat, non-distended. : No signs and/or symptoms were reported regarding the genitourinary system. EENT: No signs and/or symptoms were reported regarding the EENT system. Derm: Skin is intact, is healthy with good turgor, Skin is pink, warm \\T\\ dry. normal. Musculoskeletal: Circulation, motion, and sensation intact. 21:00 Reassessment: Patient appears in no apparent distress at this time. No changes from previously documented assessment. Patient and/or family updated on plan of care and expected duration. Pain level reassessed. Sitter at bedside. 22:30 Reassessment: Patient appears in no apparent distress at this time. No changes from wh previously documented assessment. Patient and/or family updated on plan of care and expected duration. Pain level reassessed. Sitter at bedside. 07/24 00:00 Reassessment: Patient appears in no apparent distress at this time. No changes from wh previously documented assessment. Patient and/or family updated on plan of care and expected duration. Pain level reassessed. Sitter at bedside. 01:30 Reassessment: Patient appears in no apparent distress at this time. No changes from wh previously documented assessment. Patient and/or family updated on plan of care and expected duration. Pain level reassessed. Sitter at bedside. 04:58 Reassessment: Patient appears in no apparent distress at this time. Patient sleeping ao with no SS of distress. Sitter at bedside. 07:10 General: Appears in no apparent distress. comfortable, Pt. is resting with eyes closed, rb1 respirations even, unlabored. Sitter at the bedside.. 08:10 Reassessment: Patient appears in no apparent distress at this time. No changes from [facility] previously documented assessment. 09:05 Reassessment: Pt refused his breakfast tray. rb1 09:11 Reassessment: Dr. Guallpa is at the bedside. rb1 09:36 Reassessment: I tried to call [phone] but it is not a working number. MAKENNA Winston rb1 and Dr. Guallpa notified. 09:38 Reassessment: Spoke with the pt to see if he knew any other numbers. Pt. stated, "I rb1 don't know any numbers and I don't have my phone." I asked if he brought a phone with him to the hospital and he shook his head No. Dr. Guallpa notified that we do not have a contact number for the pt. 10:30 Reassessment: Patient appears in no apparent distress at this time. pt. is kneeling on rb1 the floor praying. 11:28 Reassessment: Patient appears in no apparent distress at this time. Patient and/or rb1 family updated on plan of care and expected duration. Pain level reassessed. Patient is alert, oriented x 3, equal unlabored respirations, skin warm/dry/pink. Pt. is sitting at the foot of his bed. Patient denies pain at this time. 12:30 Reassessment: Patient appears in no apparent distress at this time. Patient and/or rb1 family updated on plan of care and expected duration. Pain level reassessed. Patient is alert, oriented x 3, equal unlabored respirations, skin warm/dry/pink. Patient denies pain at this time. 13:30 Reassessment: Patient appears in no apparent distress at this time. No changes from rb1 previously documented assessment. Pt. refuses to eat. 14:30 Reassessment: Patient appears in no apparent distress at this time. Patient and/or rb1 family updated on plan of care and expected duration. Pain level reassessed. Patient is alert, oriented x 3, equal unlabored respirations, skin warm/dry/pink. 15:35 Reassessment: Spoke with pt. mother Elaine via telephone, updated her on the POC. Pt. rb1 refused to speak with her at this time. She is going to deliver food here for him to see if he will eat any of it, because the pt. refuses to eat the hospital food. Elaine can be reached at [phone]. 16:30 Reassessment: Patient appears in no apparent distress at this time. No changes from rb1 previously documented assessment. Pt. continues to eat or drink anything. Dr. Guallpa notified. 17:30 Reassessment: Patient appears in no apparent distress at this time. Pt. is on the floor rb1 praying. Continues to refuse to eat. 18:30 Reassessment: Patient appears in no apparent distress at this time. Patient and/or rb1 family updated on plan of care and expected duration. Pain level reassessed. Patient is alert, oriented x 3, equal unlabored respirations, skin warm/dry/pink. Pt. does not want anything to eat or drink at this time. Patient denies pain at this time. 19:30 General: Appears in no apparent distress. Behavior is calm, cooperative, flat, quiet. wh Pain: Denies pain. Neuro: Level of Consciousness is awake, alert, obeys commands, Oriented to person, place. Cardiovascular: Capillary refill < 3 seconds. Respiratory: Airway is patent Respiratory effort is even, unlabored, Respiratory pattern is regular, symmetrical. GI: Abdomen is flat, non-distended. : No signs and/or symptoms were reported regarding the genitourinary system. EENT: No signs and/or symptoms were reported regarding the EENT system. Derm: Skin is intact, is healthy with good turgor, Skin is dry, Skin is pink, warm \\T\\ dry. normal. 21:00 Reassessment: Patient appears in no apparent distress at this time. No changes from previously documented assessment. Patient and/or family updated on plan of care and expected duration. Pain level reassessed. Sitter at bedside, was notified Pt hasn't ate all day and that Mother is planning on getting him pizza so he can eat, tried to persuade Pt to eat something with negative result. 22:27 Reassessment: Spoke with patient's mother, Elaine, updated on plan of care; Aware of lp1 waiting for approval to facility; Mother states to call if patient needs anything. 22:30 Reassessment: Patient appears in no apparent distress at this time. No changes from previously documented assessment. Patient and/or family updated on plan of care and expected duration. Pain level reassessed. Sitter at bedside, still awaiting food from mother, pt still not eating. 07/25 00:00 Reassessment: Patient appears in no apparent distress at this time. No changes from previously documented assessment. Patient and/or family updated on plan of care and expected duration. Pain level reassessed. Pt still not eating, charge nurse and provider notified. 00:57 Reassessment: BS check is at 58 notified Provider with orders made and carried out. wh 03:42 Reassessment: patient sleeping. sitter at bedside. mg2 04:35 Reassessment: patient sleeping. sitter at bedside. mg2 05:30 Reassessment: Patient appears in no apparent distress at this time. mg2 06:15 Reassessment: Patient appears in no apparent distress at this time. patient's blood mg2 sugar was checked after completing the ivfluid. 08:30 Reassessment: pt denies SI/HI at this time, also denies auditory/visual hallucinations. em 08:45 Reassessment: Patient appears in no apparent distress at this time. pt states he does em not want to eat, breakfast tray at bedside. 09:44 Reassessment: Patient appears in no apparent distress at this time. Patient and/or em family updated on plan of care and expected duration. Pain level reassessed. Patient is alert, oriented x 3, equal unlabored respirations, skin warm/dry/pink. 11:00 Reassessment: Patient appears in no apparent distress at this time. Patient and/or em family updated on plan of care and expected duration. Pain level reassessed. Patient is alert, oriented x 3, equal unlabored respirations, skin warm/dry/pink. 12:50 Reassessment: pt given lunch tray, currently states he does not want to eat. em 13:12 Reassessment: Patient appears in no apparent distress at this time. report given to em EMS, belongings given to EMS. Psych: 07/22 21:30 Subjective: Patient's mood is flat. Objective: Patient is using poor eye contact, mg2 Speech is normal, Affect is flat, Patient has mutilated themselves by banging his head on the wall as reported by the mother. Safety Checks: Personal items have been removed. Door is open. No visitors are present at this time. 21:30 Interventions: Removed personal items and placed in bag. Patient placed in hospital mg2 gown. Urine collected and sent for urine drug test. Belonging list filled out. Suicide Risk Assessment: Sad Person Scale: Sex of patient: Male: Score 1 point. Age of patient: Score 1 point if patient 15-34. Depression: Score 1 point if signs of depression are present. Previous Attempt: Score 1 point if patient has previously attempted suicide. Substance Abuse: Score 0 point if patient does not abuse alcohol or drugs. Rational Thinking: Score 1 point if patient is lacking rational thinking. Social Support: Score 0 if social support is present/available. Chronic Sickness: Score 1 point if patient has illness, chronic, debilitating, or severe. mother denies. Vital Signs: 21:01 BP 126 / 83; Pulse 99; Resp 16; Temp 98.0; Pulse Ox 100% ; Pain 0/10; ll1 07/23 02:13 BP 137 / 72; Pulse 82; Resp 18; Temp 98; Pulse Ox 99% on R/A; mg2 08:38 BP 106 / 74; Pulse 76; Resp 16; Temp 97.5; Pulse Ox 100% on R/A; sv 11:27 BP 113 / 64; Pulse 66; Resp 16; Temp 97.8; Pulse Ox 100% ; sv 16:08 BP 128 / 78; Pulse 65; Resp 18; Temp 97.6; Pulse Ox 100% ; sv 22:06 BP 116 / 76; Pulse 68; Resp 16; Temp 98.2; Pulse Ox 100% ; sg 05/07 06:25 BP 131 / 73; Pulse 72; Resp 16; Pulse Ox 97% ; ds4 23:01 BP 113 / 78; Pulse 89; Resp 16; Temp 97.9(TE); Pulse Ox 98% ; lt1 07/25 11:11 BP 116 / 75; Pulse 77; Resp 16; Temp 97.7(O); Pulse Ox 100% on R/A; dh3 ED Course: 07/22 20:38 Patient arrived in ED. cl3 20:56 Ben Brand, ALYSSA is Primary Nurse. mg2 21:02 Radames Orellana PA is PHCP. jmm 21:02 Chito Gatica MD is Attending Physician. jmm 21:04 Triage completed. ll1 21:06 Arm band placed on Patient placed in an exam room, on a stretcher. ll1 21:09 EKG done, by ED staff, reviewed by Radames FRAZIER. sg 21:25 Inserted saline lock: 20 gauge in right antecubital area, using aseptic technique. mg2 Blood collected. 21:47 No provider procedures requiring assistance completed. mg2 21:48 Patient has correct armband on for positive identification. mg2 23:15 Urine collected: clean catch specimen, clear, alexey colored, Legal drug screen obtained jp3 per protocol. 07/23 03:00 Report received from Ben SHAH. jd3 07:30 Report given to Tish SHAH. jd3 08:02 Attending Physician role handed off by Chito Gatica MD kdr 08:02 Stone Guallpa MD is Attending Physician. kdr 08:07 Primary Nurse role handed off by Ben Brand RN bd 08:14 Mable Yepez RN is Primary Nurse. sv 10:40 refaxed chart to [facility], talked to [facility] beds at this time,pt will be bd put on waiting list for a [facility] bed. 14:36 talked to [facility] at [phone]. screener will be notified. bd 18:57 Attending Physician role handed off by Stone Guallpa MD rn 18:57 Adonis De Paz MD is Attending Physician. rn 19:04 Primary Nurse role handed off by Mable Yepez RN sv 19:07 Report given to Jace SHAH. sv 19:41 Jace Pal is Primary Nurse. 07/24 07:20 Attending Physician role handed off by Adonis De Paz MD kdr 07:20 Stone Guallpa MD is Attending Physician. kdr 19:09 Attending Physician role handed off by Stone Guallpa MD rn 19:09 Adonis De Paz MD is Attending Physician. rn 07/25 10:43 Primary Nurse role handed off by Jace Pal eb 11:04 Repeat lab(s) drawn. by or, sent to lab. by venipuncture 23G to left ac. dh3 11:05 Christopher Morrissey RN is Primary Nurse. em 11:13 BMP Sent. dh3 11:48 Attending Physician role handed off by Adonis De Paz MD mauro 11:48 Romel Castro MD is Attending Physician. mauro 11:[address] Kerline Zuniga from [facility] with Dr. Castro for patient transfer eb consultation. 12:13 administrative approval givjonh by Alecia Cox from [facility]. eb 12:49 IV discontinued, intact, bleeding controlled, No redness/swelling at site. Pressure em dressing applied. Administered Medications: 07/22 22:17 Drug: Lactated Ringers Solution 1000 ml Route: IV; Rate: bolus; Site: right antecubital;mg2 23:52 Follow up: Response: No adverse reaction; IV Status: Completed infusion; IV Intake: sg 1000ml 07/25 00:55 Drug: D5-LR 1000 ml Route: IV; Rate: 150 ml/hr; Site: right antecubital; wh 06:30 Follow up: Response: No adverse reaction; IV Status: Completed infusion; IV Intake: mg2 1000ml 07:24 CANCELLED (Duplicate Order): Lactated Ringers Solution 1000 ml IV at [address] [facility] continuous Intake: 07/22 23:52 IV: 1000ml; Total: 1000ml. sg 07/25 06:30 IV: 1000ml; Total: 2000ml. mg2 Outcome: 07/23 00:53 ER care complete, transfer ordered by . [facility] 07/25 13:13 Transferred by ground EMS Transfer form completed. Note: [facility] em Condition: good Instructed on the need for transfer, Demonstrated understanding of instructions. 13:14 Patient left the ED. em Signatures: Lachelle Alberto Stephanie, RN Nate Nolasco RN RN sg Anderson, Corey, MD MD cha Rittger, Kevin, MD MD kdr Mickail, Joel, FREDDIE PA [facility] Christopher Morrissey RN RN em Adonis De Paz MD MD rn Pena, Laura, RN RN lp1 Marlon Land ds4 Meme Cabello, RN RN rb1 Ariel Jackson RN Maci Garcia 3 Jace Pal Jonathon, RN RN taed3 Paulina Cole Michele, ALYSSA RN mg2 Angelo Reed jp3 Mary Jane Donohue lt1 Eliseo Razo cl3 Lisa Razo RN RN ll1 Corrections: (The following items were deleted from the chart) 07/23 04:10 04:08 Reassessment: Patient and/or family updated on plan of care and expected jd3 duration. Pain level reassessed. pt resting with eyes closed in bed, even and unlabored respirations. sitter at bedside. awaiting disposition. jd3 16:02 08:25 Reassessment: Pt given breakfast tray but refuses to eat at this time. Offered sv fluids but refused. sv 18:20 15:25 Reassessment: Facetime screening done with [facility]. They recommend inpatient sv care. sv 23:43 22:06 BP 116 / 76; Pulse 68bpm; Resp 6bpm; Pulse Ox 100%; Temp 98.2F; ds4 sg 07/24 09:13 09:00 Reassessment: Patient appears in no apparent distress at this time. Patient rb1 and/or family updated on plan of care and expected duration. Pain level reassessed. Patient is alert, oriented x 3, equal unlabored respirations, skin warm/dry/pink. Pt. is currently watching TV rb1 08:10 Reassessment: Pt. is watching TV. No complaints at this time rb1 rb1 19:12 15:35 Reassessment: Spoke with pt. mother Elaine via telephone, updated her on the POC. rb1 Pt. refused to speak with her at this time. She is going to deliver food here for him to see if he will eat any of it, because the pt. refuses to eat the hospital food. Elaine can be reached at [phone]. rb1 07/25 00:57 00:00 Reassessment: Patient appears in no apparent distress at this time. No changes wh from previously documented assessment. Patient and/or family updated on plan of care and expected duration. Pain level reassessed. wh
--- NOTE | 2019-07-24 00:54 | EDPHYS ---
Physician Documentation [facility] Name: Heriberto Duke Age: 29 yrs Sex: Male : 1990 Arrival Date: 07/23/2019 Time: 20:38 Bed 17 Private MD: ED Physician Romel Castro HPI: 07/22 21:00 This 29 yrs old Male presents to ER via Wheelchair with complaints of jmm Suicidal Ideation. 21:00 The patient presents to the emergency department with psychosis. Onset: The jmm symptoms/episode began/occurred acutely, 1 day(s) ago. Past psychiatric history: the patient has had a prior suicide gesture. Associated signs and symptoms: Pertinent positives; substance abuse, Pertinent negatives: fever, shortness of breath. This is a 29 year old male with a history of schizophrenia that presents to the ED with self harm beginning yesterday. Mother states the patient was screaming at himself all night long while hitting his head against the wall. Mother states the patient is unable to perform ADL. Mother states they found the patient in the bathtub with running water. Patient defecates on himself. Younger brother 2 years prior with similar episodes. . Historical: - Allergies: 21:05 No Known Allergies; ll1 - PMHx: 21:05 Schizophrenia; ll1 - PSHx: 21:05 Tonsillectomy; Adenoids; ORIF left arm; ll1 - Immunization history:: Flu vaccine status is unknown. - Social history:: Smoking status: Patient/guardian denies using tobacco, the patient reports quitting approximately 1 years ago, Patient/guardian denies using alcohol, street drugs. ROS: 21:00 Constitutional: Negative for fever, chills, and weight loss, Cardiovascular: Negative jmm for chest pain, palpitations, and edema, Respiratory: Negative for shortness of breath, cough, wheezing, and pleuritic chest pain. 21:00 Psych: Positive for 21:00 All other systems are negative. Exam: 21:00 Eyes: EOMI, no conjunctival erythema appreciated jmm 21:00 Neck: Trachea midline, Supple Chest/axilla: Normal chest wall appearance and motion. Cardiovascular: Regular rate and rhythm. No edema appreciated Respiratory: Normal respirations, no respiratory distress appreciated Abdomen/GI: Non distended, soft Back: Normal ROM 21:00 Constitutional: The patient appears alert, awake. 21:00 Head/face: abrasions noted to the frontal scalp. 21:00 Skin: abrasions noted to the frontal scalp. 21:00 Psych: Affect is flat, Judgement / Insight is impaired. Vital Signs: 21:01 BP 126 / 83; Pulse 99; Resp 16; Temp 98.0; Pulse Ox 100% ; Pain 0/10; ll1 07/23 02:13 BP 137 / 72; Pulse 82; Resp 18; Temp 98; Pulse Ox 99% on R/A; mg2 08:38 BP 106 / 74; Pulse 76; Resp 16; Temp 97.5; Pulse Ox 100% on R/A; sv 11:27 BP 113 / 64; Pulse 66; Resp 16; Temp 97.8; Pulse Ox 100% ; sv 16:08 BP 128 / 78; Pulse 65; Resp 18; Temp 97.6; Pulse Ox 100% ; sv 22:06 BP 116 / 76; Pulse 68; Resp 16; Temp 98.2; Pulse Ox 100% ; sg 07/24 06:25 BP 131 / 73; Pulse 72; Resp 16; Pulse Ox 97% ; ds4 23:01 BP 113 / 78; Pulse 89; Resp 16; Temp 97.9(TE); Pulse Ox 98% ; lt1 07/25 11:11 BP 116 / 75; Pulse 77; Resp 16; Temp 97.7(O); Pulse Ox 100% on R/A; dh3 MDM: 07/22 21:25 Patient medically screened. [facility] 07/23 19:16 ED course: Patient reevaluated. Appears non toxic and in no distress.. Will greet me [facility] pleasantly but when asked other questions will stare forward and bow his head. . 07/24 09:21 Data reviewed: vital signs, nurses notes. Counseling: I had a detailed discussion with kdr the patient and/or guardian regarding: the historical points, exam findings, and any diagnostic results supporting the discharge/admit diagnosis. ED course: The patient has been stable in the ED since admission. He has not required any medical intervention/medication. He denies taking any medications at home(gabapentin/mitrazine). He also denies hearing voices at this time (no audio/visual hallucinations). 07/25 11:50 Differential diagnosis: drug withdrawal. acute psychotic break, depression, psychosis mauro secondary to non-compliance. 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 Pulse oximetry: on room air is 100 %. Test interpretation: by ED physician or midlevel provider: ECG. ED course: [facility] pt stable and remains voluntary. 07/22 21:02 Order name: Acetaminophen; Complete Time: 22:42 [facility] 07/22 21:02 Order name: Basic Metabolic Panel; Complete Time: 22:42 [facility] 07/22 21:02 Order name: CBC with Diff; Complete Time: 22:03 [facility] 07/22 21:02 Order name: ETOH Level; Complete Time: 22:03 [facility] 07/22 21:02 Order name: Hepatic Function; Complete Time: 22:42 [facility] 07/22 21:02 Order name: PT-INR; Complete Time: 22:03 [facility] 07/22 21:02 Order name: Ptt, Activated; Complete Time: 22:03 [facility] 07/22 21:02 Order name: Salicylate; Complete Time: 22:03 [facility] 07/22 21:02 Order name: Urine Drug Screen; Complete Time: 23:41 [facility] 07/22 21:41 Order name: Glucose, Ancillary Testing; Complete Time: 22:03 [facility] 07/22 23:25 Order name: Urine Dipstick--Ancillary (enter results); Complete Time: 23:54 [facility] 07/25 00:59 Order name: Glucose, Ancillary Testing; Complete Time: 07:04 [facility] 07/25 06:04 Order name: Glucose, Ancillary Testing; Complete Time: 07:04 [facility] 07/25 10:49 Order name: BMP; Complete Time: 11:25 [facility] 07/22 21:02 Order name: EKG; Complete Time: 21:03 [facility] 07/22 21:02 Order name: EKG - Nurse/Tech; Complete Time: 21:09 [facility] 07/22 21:02 Order name: IV Saline Lock; Complete Time: 21:43 [facility] 07/22 21:02 Order name: Labs collected and sent; Complete Time: 21:43 [facility] 07/22 21:02 Order name: Urine Dipstick-Ancillary (obtain specimen); Complete Time: 23:10 [facility] 07/23 07:51 Order name: Diet Finger Food; Complete Time: 07:51 bd 07/23 11:42 Order name: Diet Finger Food; Complete Time: 11:42 bd 07/23 16:07 Order name: Diet Finger Food; Complete Time: 03:51 sv 07/24 07:10 Order name: Diet Finger Food; Complete Time: 07:11 3 07/24 08:56 Order name: Diet Finger Food; Complete Time: 08:56 rb1 07/25 07:14 Order name: Diet Finger Food; Complete Time: 07:14 3 07/25 11:13 Order name: Diet Finger Food; Complete Time: 11:14 dh3 Administered Medications: 07/22 22:17 Drug: Lactated Ringers Solution 1000 ml Route: IV; Rate: bolus; Site: right antecubital;mg2 23:52 Follow up: Response: No adverse reaction; IV Status: Completed infusion; IV Intake: sg 1000ml 07/25 00:55 Drug: D5-LR 1000 ml Route: IV; Rate: 150 ml/hr; Site: right antecubital; wh 06:30 Follow up: Response: No adverse reaction; IV Status: Completed infusion; IV Intake: mg2 1000ml 07:24 CANCELLED (Duplicate Order): Lactated Ringers Solution 1000 ml IV at 1000 bolus [facility] continuous Disposition: 16:05 Co-signature as Attending Physician, Romel Castro MD I agree with the assessment and [facility] plan of care. Disposition: 07/24/19 00:53 Transfer ordered to Psych Facility. Diagnosis is Unspecified psychosis not due to a substance or known physiological condition. - Reason for transfer: Higher level of care. - Accepting physician is Psychiatry. - Condition is Stable. - Problem is an acute exacerbation. - Symptoms are unchanged. Signatures: Dispatcher [employer] Romel Rees MD MD cha Rittger, Kevin, MD MD kdr Mickail, Joel, PA PA Christopher Cristina, RN RN Adonis Morrell MD MD rn Habalo, Winsy Ben Brand RN RN mg2 Lisa Razo RN RN ll1 Nate Ridley RN sg Corrections: (The following items were deleted from the chart) 07:24 07:23 Lactated Ringers Solution 1000 ml IV at 1000 bolus continuous ordered. jg gregorio 13:14 07/23 00:53 07/24/2019 00:53 Transfer ordered to Psych Facility. Diagnosis is em Unspecified psychosis not due to a substance or known physiological condition. Reason for transfer: Higher level of care. Accepting physician is Psychiatry. Condition is Stable. Problem is an acute exacerbation. Symptoms are unchanged. jg
--- NOTE | 2019-07-24 16:19 | EKG ---
Test Date: 2019-07-23 Test Time: 21:08:29 [employer]: SWG MEASUREMENT RESULTS: Intervals: Rate: 102 HI: 130 QRSD: 80 QT: 324 QTc: 422 [employer]: P: 71 HI: 130 QRS: 75 T: 46 INTERPRETIVE STATEMENTS: Sinus tachycardia Otherwise normal ECG Compared to ECG 02/11/2019 11:04:41 Sinus rhythm no longer present Sinus arrhythmia no longer present Electronically Signed On 07-24-19 16:17:05 CDT by Devin Hui
--- NOTE | 2019-07-25 18:06 | P.CNS ---
Date of Consult: 07/23/19 CHIEF COMPLAINT: Acute psychosis HISTORY OF PRESENT ILLNESS: Patient is a 29-year-old gentleman who presented to the hospital with psychosis. He was brought to the emergency room for evaluation by his mother. He has been soiling his pants and not caring for himself. He has been banging his head on the wall repetitively. He has episodes of catatonia. Patient does not leave his room. He talks to himself, and he eats in his room. His room is very messy, and he is no longer able to care for himself. Patient is medically stable for inpatient psychiatric care. Will start him on antipsychotics. PAST MEDICAL HISTORY: Psychosis PAST SURGICAL HISTORY: arm injury FAMILY HISTORY: Brother with schizophrenia SOCIAL HISTORY: No alcohol, tobacco or drug use. ALLERGIES: NKDA MEDICATIONS: none PHYSICAL EXAMINATION: VITAL SIGNS: reviewed GENERAL: No acute distress. HEENT: WNL HEART: Regular rate and rhythm. No murmurs, rubs or gallops. LUNGS: Clear to auscultation bilaterally. ABDOMEN: Soft, nontender and nondistended. Positive bowel sounds times four. EXTREMITIES: No significant edema. NEURO: Acute psychosis LABORATORY DATA: reviewed ASSESSMENT: 1. Acute psychosis PLAN: 1. Transfer to inpatient psychiatry
[2019-07-26] MEDS ORDERED: D50W 25 GM/50 ML SYRINGE/VIAL IV ONE (00:56)
[2019-07-26] MEDS ORDERED: D5LR 1,000 ML IV ONE (00:58)
[2019-07-26 11:24] LABS: BUN Blood Urea Nitrogen 11 mg/dL (7-18); Bicarbonate 24 mmol/L (21-32); Glucose Level 79 mg/dL (74-106); Potassium 4.3 mmol/L (3.5-5.1); Sodium Level 140 mmol/L (136-145)
[2019-07-26 13:39] VITALS: BP 116/75; TEMP 97.7; O2SAT 100
== END 2019-07-26 13:14 ==
LOC: ER 20:35
DX: F29 Unspecified psychosis not due to a substance or known physiological condition (principal); F20.9 Schizophrenia, unspecified
CPT/HCPCS: 36415; 80048; 80076; 80307; 80320; 80329; 81003; 82947; 85025; 85610; 85730; 93005; 96360; 96361; 99285; J7120; J7121

== ENCOUNTER 2019-09-14 11:45 | Emergency (ER) | payer SELFPAY ==
--- OUTSIDE RECORDS SUMMARY | 2019-09-14 11:48 | XMS REPORT | Continuity of Care Document ---
:1990 Author Organization [facility] t Address [address] [place] [address] [address] [place] [address] Care Team Providers Name Role Phone Unavailable Unavailable Unavailable Problems This patient has no known problems. Allergies, Adverse Reactions, Alerts This patient has no known allergies or adverse reactions. Medications This patient has no known medications. Procedures This patient has no known procedures. Results Test Description Test Time Test Comments Results Result Comments Source RPR Qualitative 2019-02-12 13:47:36 Test Item Value Reference Range Interpretation Comme nts RPR Qual (test code = RPR Qual) Non-Reactive Non-Reactive Reactive Control (test code = Reactive Control) Reactive Weak Reactive Control (test code = Weak Reactive Weak Reactive Control) Non-Reactive Control (test code = Non-Reactive Non-Reactive Control) Lot # (test code = Lot #) [id number] Expiration Dt (test code = Expiration Dt) 01-18-20 N Thyroid Stimulating [id number] 08:21:50 Test Item Value Reference Range Interpretation Comments TSH (test code = TSH) 2.100 mIU/mL 0.270-4.200 Lipid [id number] 07:23:30 Test Item Value Reference Range Interpretation Comments Cholesterol Total 179 mg/dL 0-200 RISK OF HE ART (test code = DISEASEPublishe d by Cholesterol Total) [place] [employer] Jacqueline lyte Optimal Borderl ine Increased RiskC HOL <200 200-239 >2 40TRIG <150 150-199 >2 00HDL Male >60 <40H DL Female >60 <5 0LDL <100 130-159 >1 60LDL Near optimal is 100-129 Triglycerides (test 108 mg/dL 9-200 code = Triglycerides) HDL (test code = HDL) 41 mg/dL 40-60 LDL (test code = LDL) 117 mg/dL 0-130 The eq uation being used in this calcula tion is LDL = (Chol - H DL) - (Trig / 5) VLDL (test code = 22 mg/dL 5-40 The equati on being used VLDL) in this calcula tion is VLDL = Trig / 5 Chol/HDL (test code = 4.4 ratio 0.0-5.0 Chol/HDL) LDL/HDL Ratio (test 3 N The equa tion being used code = LDL/HDL Ratio) in thi s calculation is LDL/HDL Ratio=L DL Calc/HDL Chol Comprehensive Metabolic [id number] 07:00:35 Test Item Value Reference Range Interpretation Comments Sodium Level (test code = Sodium 142.0 mmol/L 135.0-145.0 Level) Potassium Level (test code = 4.3 mmol/L 3.5-5.1 Potassium Level) Chloride Level (test code = 101 mmol/L 98-105 Chloride Level) CO2 (test code = CO2) 28 mmol/L 22-29 Anion Gap (test code = Anion 13 mmol/L 7-16 Gap) BUN (test code = BUN) 19.30 mg/dL 6.00-20.00 Creatinine Level (test code = 0.90 mg/dL 0.70-1.20 Creatinine Level) BUN/Creat Ratio (test code = 21 N BUN/Creat Ratio) Glucose Level (test code = 89 mg/dL 70-115 Glucose Level) Calcium Level (test code = 10.4 mg/dL 8.3-10.5 Calcium Level) Alk Phos (test code = Alk Phos) 124 U/L 40-129 Bilirubin Total (test code = 1.1 mg/dL 0.1-0.9 H Bilirubin Total) Albumin Level (test code = 5.1 g/dL 3.5-5.2 Albumin Level) Protein Total (test code = 7.9 g/dL 6.4-8.3 Protein Total) ALT (test code = ALT) 25 U/L 1-41 AST (test code = AST) 23 U/L 1-40 Globulin (test code = Globulin) 2.8 g/dL 2.9-3.1 L A/G Ratio (test code = A/G 1.8 ratio N Ratio) Comprehensive Metabolic [id number] 07:00:35 Test Item Value Reference Range Interpretation Comments Sodium Level (test 142.0 mmol/L 135.0-145.0 code = Sodium Level) Potassium Level 4.3 mmol/L 3.5-5.1 (test code = Potassium Level) Chloride Level (test 101 mmol/L 98-105 code = Chloride Level) CO2 (test code = 28 mmol/L 22-29 CO2) Anion Gap (test code 13 mmol/L 7-16 = Anion Gap) BUN (test code = 19.30 mg/dL 6.00-20.00 BUN) Creatinine Level 0.90 mg/dL 0.70-1.20 (test code = Creatinine Level) BUN/Creat Ratio 21 N (test code = BUN/Creat Ratio) Glucose Level (test 89 mg/dL 70-115 code = Glucose Level) Calcium Level (test 10.4 mg/dL 8.3-10.5 code = Calcium Level) Alk Phos (test code 124 U/L 40-129 = Alk Phos) Bilirubin Total 1.1 mg/dL 0.1-0.9 H (test code = Bilirubin Total) Albumin Level (test 5.1 g/dL 3.5-5.2 code = Albumin Level) Protein Total (test 7.9 g/dL 6.4-8.3 code = Protein Total) ALT (test code = 25 U/L 1-41 ALT) AST (test code = 23 U/L 1-40 AST) Globulin (test code 2.8 g/dL 2.9-3.1 L = Globulin) A/G Ratio (test code 1.8 ratio N = A/G Ratio) eGFR AA (test code = >60 N eGFR (e stimated eGFR AA) mL/min/1.73 m2 Glomerular Filtration Rate ) is an estimated va lue, calculated from the patient's serum creatinine usin g the MDRD equation. It is NOT the patient 's actual GFR. The eGFR provides a more clinically usef ul measure of kidn ey disease than se rum creatinine alone.This calculation eulogio es sex and race in to account, if the information is provided. If th e race is not provided, and t he patient is -Keira n, multiply by 1.2 12. If sex is not provided, and t he patient is fema le, multiply by 0.7 42. Results for pat ients <18 years of ag e have not been validated by th e MDRD study and should be interpreted wit h caution. eGFR R esult Interpretation: eGFR > or = 60 is in the Normal RangeeGF R < 60 may mean kid zach diseaseeGFR < 1 5 may mean kidney failure Rang es recommended by the National Kidney Foundation, http://nkdep.ni h.gov Comprehensive Metabolic [id number] 07:00:35 Test Item Value Reference Range Interpretation Comments Sodium Level (test 142.0 mmol/L 135.0-145.0 code = Sodium Level) Potassium Level 4.3 mmol/L 3.5-5.1 (test code = Potassium Level) Chloride Level (test 101 mmol/L 98-105 code = Chloride Level) CO2 (test code = 28 mmol/L 22-29 CO2) Anion Gap (test code 13 mmol/L 7-16 = Anion Gap) BUN (test code = 19.30 mg/dL 6.00-20.00 BUN) Creatinine Level 0.90 mg/dL 0.70-1.20 (test code = Creatinine Level) BUN/Creat Ratio 21 N (test code = BUN/Creat Ratio) Glucose Level (test 89 mg/dL 70-115 code = Glucose Level) Calcium Level (test 10.4 mg/dL 8.3-10.5 code = Calcium Level) Alk Phos (test code 124 U/L 40-129 = Alk Phos) Bilirubin Total 1.1 mg/dL 0.1-0.9 H (test code = Bilirubin Total) Albumin Level (test 5.1 g/dL 3.5-5.2 code = Albumin Level) Protein Total (test 7.9 g/dL 6.4-8.3 code = Protein Total) ALT (test code = 25 U/L 1-41 ALT) AST (test code = 23 U/L 1-40 AST) Globulin (test code 2.8 g/dL 2.9-3.1 L = Globulin) A/G Ratio (test code 1.8 ratio N = A/G Ratio) eGFR AA (test code = >60 N eGFR (e stimated eGFR AA) mL/min/1.73 m2 Glomerular Filtration Rate ) is an estimated va lue, calculated from the patient's serum creatinine usin g the MDRD equation. It is NOT the patient 's actual GFR. The eGFR provides a more clinically usef ul measure of kidn ey disease than se rum creatinine alone.This calculation eulogio es sex and race in to account, if the information is provided. If th e race is not provided, and t he patient is -Keira n, multiply by 1.2 12. If sex is not provided, and t he patient is fema le, multiply by 0.7 42. Results for pat ients <18 years of ag e have not been validated by [facility] MDRD study and should be interpreted wit h caution. eGFR R esult Interpretation: eGFR > or = 60 is in the Normal RangeeGF R < 60 may mean kid zach diseaseeGFR < 1 5 may mean kidney failure Rang es recommended by the National Kidney Foundation, http://nkdep.ni h.gov eGFR Non-AA (test >60.00 N eGFR (margie mated code = eGFR Non-AA) mL/min/1.73 m2 Glomer ular Filtration Rate ) is an estimated va lue, calculated from the patient's serum creatinine usin g the MDRD equation. It is NOT the patient 's actual GFR. The eGFR provides a more clinically usef ul measure of kidn ey disease than se rum creatinine alone.This calculation eulogio es sex and race in to account, if the information is provided. If th e race is not provided, and t he patient is -Keira n, multiply by 1.2 12. If sex is not provided, and t he patient is fema le, multiply by 0.7 42. Results for pat ients <18 years of ag e have not been validated by [facility] MDRD study and should be interpreted wit h caution. eGFR R esult Interpretation: eGFR > or = 60 is in the Normal RangeeGF R < 60 may mean kid zach diseaseeGFR < 1 5 may mean kidney failure Rang es recommended by the National Kidney Foundation, http://nkdep.ni h.gov Complete Blood Count with [id number] 06:45:37 Test Item Value Reference Range Interpretation Comments WBC (test code = WBC) 5.9 x10 4.4-10.5 RBC (test code = RBC) 5.58 x10 4.10-5.70 Hgb (test code = Hgb) 17.0 g/dL 13.4-17.4 Hct (test code = Hct) 49.1 % 38.7-52.0 MCV (test code = MCV) 88.00 fL 80.00-100.00 MCHC (test code = 34.60 g/dL 32.00-37.50 MCHC) RDW CV (test code = 12.2 % 11.5-14.5 RDW CV) MCH (test code = MCH) 30.5 pg 27.0-32.5 Platelets (test code = 292.0 x10 140.0-440.0 Platelets) MPV (test code = MPV) 9.9 fL N Slide Review (test Auto Auto Result cr eated by code = Slide Review) GL_SJM_ SLIDE_REV_AUTO nRBC (test code = 0 N nRBC) NRBC Abs (test code = 0.00 x10 N NRBC Abs) IPF (test code = IPF) 0 % N Automated [id number] 06:45:37 Test Item Value Reference Range Interpretation Comments Neutro Auto (test code = Neutro 55.6 % 36.0-70.0 Auto) Lymph Auto (test code = Lymph Auto) 29.0 % 12.0-44.0 Nobles Auto (test code = Nobles Auto) 11.8 % 0.0-11.0 H Eos, Auto (test code = Eos, Auto) 2.7 % 0.0-7.0 Basophil Auto (test code = Basophil 0.7 % 0.0-2.0 Auto) Neutro Absolute (test code = Neutro 3.3 x10 1.6-7.4 Absolute) Lymph Absolute (test code = Lymph 1.70 x10 .50-4.60 Absolute) Nobles Absolute (test code = Nobles .69 x10 .00-1.20 Absolute) Eos Absolute (test code = Eos 0.16 x10 0.00-0.74 Absolute) Baso Absolute (test code = Baso 0.04 x10 0.00-0.21 Absolute) IG [id number] 06:45:37 Test Item Value Reference Range Interpretation Comments IG (test code = IG) 0.2 % 0.0-5.0 IG Abs (test code = IG Abs) 0 x10 N
== END 2019-09-14 11:56 | disposition left against medical advice (07) ==
LOC: ER 11:45
DX: Z02.9 Encounter for administrative examinations, unspecified (principal)

== ENCOUNTER 2019-09-15 09:02 | Emergency (ER) | payer SELFPAY ==
--- OUTSIDE RECORDS SUMMARY | 2019-09-15 09:05 | XMS REPORT | Continuity of Care Document ---
:1990 Author Organization [facility] t Address [facility] [place] [address] Care Team Providers Name Role Phone Unavailable [...] = Expiration Dt) 01-18-20 N Thyroid Stimulating [id number] 08:21:50 Test Item Value Reference Range Interpretation Comments TSH (test code = TSH) 2.100 mIU/mL 0.270-4.200 Lipid [id number] 07:23:30 Test Item Value Reference Range Interpretation Comments Cholesterol Total 179 mg/dL 0-200 RISK OF HE ART (test code = DISEASEPublishe d by Cholesterol Total) [place] [employer] Jacqueline lyte Optimal Borderl ine [...] LDL/HDL Ratio=L DL Calc/HDL Chol Comprehensive Metabolic [id number] 07:00:35 Test Item Value Reference Range Interpretation [...] A/G 1.8 ratio N Ratio) Comprehensive Metabolic [id number] 07:00:35 Test Item Value Reference Range Interpretation [...] National Kidney Foundation, http://nkdep.ni h.gov Comprehensive Metabolic [id number] 07:00:35 Test Item Value Reference Range Interpretation [...] ag e have not been validated by [facility] MDRD study and should be interpreted wit [...] ag e have not been validated by [facility] MDRD study and should be interpreted wit h caution. eGFR R esult Interpretation: eGFR > or = 60 is in the Normal RangeeGF R < 60 may mean kid zach diseaseeGFR < 1 5 may mean kidney failure Rang es recommended by the National Kidney Foundation, http://nkdep.ni h.gov Complete Blood Count with [id number] 06:45:37 Test Item Value Reference Range Interpretation [...] code = IPF) 0 % N Automated [id number] 06:45:37 Test Item Value Reference Range Interpretation Comments Neutro Auto (test code = Neutro 55.6 % 36.0-70.0 Auto) Lymph Auto (test code = Lymph Auto) 29.0 % 12.0-44.0 [place] Auto (test code = [place] Auto) 11.8 % 0.0-11.0 H Eos, Auto (test code = Eos, Auto) 2.7 % 0.0-7.0 Basophil Auto (test code = Basophil 0.7 % 0.0-2.0 Auto) Neutro Absolute (test code = Neutro 3.3 x10 1.6-7.4 Absolute) Lymph Absolute (test code = Lymph 1.70 x10 .50-4.60 Absolute) [place] Absolute (test code = [place] .69 x10 .00-1.20 Absolute) Eos Absolute (test code = Eos 0.16 x10 0.00-0.74 Absolute) Baso Absolute (test code = Baso 0.04 x10 0.00-0.21 Absolute) IG [id number] 06:45:37 Test Item Value Reference Range Interpretation Comments IG (test code = IG) 0.2 % 0.0-5.0 IG Abs (test code = IG Abs) 0 x10 N
--- NOTE | 2019-09-15 09:16 | EDPHYS ---
Physician Documentation [facility] Name: Heriberto Duke Age: 29 yrs Sex: Male : 1990 Arrival Date: 09/15/2019 Time: 09:03 Bed 7 Private MD: ED Physician Adonis De Paz HPI: 09/14 09:10 This 29 yrs old Male presents to ER via EMS with complaints of restless legs. rn 09:10 Reports restless legs, feels like has to constantly be walking around. Denies suicidal rn or homicidal ideation. No hallucinations. Reports shot of haldol has helped before. No medical complaints today. . Onset: The symptoms/episode began/occurred at an unknown time. Severity of symptoms: At their worst the symptoms were mild in the emergency department the symptoms are unchanged. The patient has experienced similar episodes in the past. The patient has not recently seen a physician. Historical: - Allergies: 09:06 No Known Allergies; bp - Home Meds: 09:06 HALDOL IM MONTHLY [Active]; bp - PMHx: 09:06 Schizophrenia; bp - Immunization history:: Adult Immunizations unknown. - Social history:: Smoking status: unknown. - Family history:: not pertinent. - Hospitalizations: : No recent hospitalization is reported. ROS: 09:10 Constitutional: Negative for fever, chills, and weight loss, Eyes: Negative for injury, rn pain, redness, and discharge, Neck: Negative for injury, pain, and swelling, Cardiovascular: Negative for chest pain, palpitations, and edema, Respiratory: Negative for shortness of breath, cough, wheezing, and pleuritic chest pain, Abdomen/GI: Negative for abdominal pain, nausea, vomiting, diarrhea, and constipation, MS/Extremity: Negative for injury and deformity, Skin: Negative for injury, rash, and discoloration, Neuro: Negative for headache, weakness, numbness, tingling, and seizure, Psych: Negative for suicide ideation, homicidal ideation, and hallucinations. Exam: 09:10 Constitutional: This is a well developed, well nourished patient who is awake, alert, rn and in no acute distress. Head/Face: Normocephalic, atraumatic. Cardiovascular: Regular rate and rhythm. No pulse deficits. Respiratory: No increased work of breathing, no retractions or nasal flaring. Skin: Warm, dry MS/ Extremity: Pulses equal, no cyanosis. Neurovascular intact. Full, normal range of motion. Equal circumference. Neuro: Awake and alert, GCS 15, oriented to person, place, time, and situation. Cranial nerves II-XII grossly intact. Motor strength 5/5 in all extremities. Sensory grossly intact. Cerebellar exam normal. Normal gait. Psych: Awake, alert, with orientation to person, place and time. Behavior, mood, and affect are within normal limits. Vital Signs: 09:03 BP 144 / 86; Pulse 100; Resp 16; Temp 98; Pulse Ox 100% ; bp MDM: 09:03 Patient medically screened. rn 09:10 Differential Diagnosis undiagnosed psychiatric problem, psychomotor agitation, anxiety. rn Data reviewed: vital signs, nurses notes, and as a result, I will discharge patient. Counseling: I had a detailed discussion with the patient and/or guardian regarding: the historical points, exam findings, and any diagnostic results supporting the discharge/admit diagnosis, the need for outpatient follow up, to return to the emergency department if symptoms worsen or persist or if there are any questions or concerns that arise at home. Special discussion: I discussed with the patient/guardian in detail that at this point there is no indication for admission to the hospital. It is understood, however, that if the symptoms persist or worsen the patient needs to return immediately for re-evaluation. Based on the history and exam findings, there is no indication for further emergent testing or inpatient evaluation. I discussed with the patient/guardian the need to see the psychiatrist for further evaluation of the symptoms. ED course: Pt called mom to pick him up. No suicidal/homicidal ideation. Pt declines haldol medication here. . Administered Medications: No medications were administered Disposition: 09/15/19 09:15 Discharged to Home. Impression: Psychomotor deficit. - Condition is Stable. - Medication Reconciliation Form, Thank You Letter, Antibiotic Education, Prescription Opioid Use form. - Follow up: Private Physician; When: As needed; Reason: Recheck today's complaints, Re-evaluation by your physician. - Problem is an ongoing problem. - Symptoms are unchanged. Signatures: Adonis De Paz MD MD rn CaseWayne RN RN bp Corrections: (The following items were deleted from the chart) 09:25 09:15 09/15/2019 09:15 Discharged to Home. Impression: Psychomotor deficit. Condition bp is Stable. Forms are Medication Reconciliation Form, Thank You Letter, Antibiotic Education, Prescription Opioid Use. Follow up: Private Physician; When: As needed; Reason: Recheck today's complaints, Re-evaluation by your physician. Problem is an ongoing problem. Symptoms are unchanged. rn
--- NOTE | 2019-09-15 09:16 | ER ---
Nurse's Notes [facility] Name: Heriberto Duke Age: 29 yrs Sex: Male : 1990 Arrival Date: 09/15/2019 Time: 09:03 Bed 7 Private MD: Diagnosis: Psychomotor deficit Presentation: 09/14 09:03 Chief complaint: EMS states: TRANSFER TO PSYCH FACILITY. Coronavirus screen: Proceed bp with normal triage. Ebola Screen: No symptoms or risks identified at this time. Initial Sepsis Screen: Does the patient meet any 2 criteria? HR > 90 bpm. No. Patient's initial sepsis screen is negative. Does the patient have a suspected source of infection? No. Patient's initial sepsis screen is negative. Risk Assessment: Do you want to hurt yourself or someone else? Patient reports no desire to harm self or others. Onset of symptoms was September 15, 2019. 09:03 Method Of Arrival: EMS: [facility] bp 09:03 Acuity: JOSEFA 3 bp Triage Assessment: 09:06 General: Appears in no apparent distress. comfortable, Behavior is cooperative, bp anxious. Pain: Denies pain. EENT: No deficits noted. Neuro: Level of Consciousness is awake, alert, obeys commands, Oriented to person, place, time, situation, Appropriate for age. Cardiovascular: No deficits noted. Respiratory: No deficits noted. GI: No signs and/or symptoms were reported involving the gastrointestinal system. : No signs and/or symptoms were reported regarding the genitourinary system. Derm: No deficits noted. Musculoskeletal: No deficits noted. Historical: - Allergies: 09:06 No Known Allergies; bp - Home Meds: 09:06 HALDOL IM MONTHLY [Active]; bp - PMHx: 09:06 Schizophrenia; bp - Immunization history:: Adult Immunizations unknown. - Social history:: Smoking status: unknown. - Family history:: not pertinent. - Hospitalizations: : No recent hospitalization is reported. Screenin:07 Abuse screen: Denies threats or abuse. Denies injuries from another. Nutritional bp screening: No deficits noted. Tuberculosis screening: No symptoms or risk factors identified. Fall Risk None identified. Assessment: 09:07 General: SEE TRIAGE NOTE. 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 CONTINUES TO DENY SI/HI. Vital Signs: 09:03 BP 144 / 86; Pulse 100; Resp 16; Temp 98; Pulse Ox 100% ; bp ED Course: : Patient arrived in ED. rb1 09:03 Wayne Willoughby, RN is Primary Nurse. bp 09:03 Adonis De Paz MD is Attending Physician. rn 09:05 Triage completed. bp 09:06 Arm band placed on. bp 09:07 Patient has correct armband on for positive identification. Bed in low position. Call bp light in reach. Side rails up X2. 09:23 No provider procedures requiring assistance completed. Patient did not have IV access bp during this emergency room visit. Administered Medications: No medications were administered Outcome: :15 Discharge ordered by . rn : Discharged to home ambulatory. bp : Condition: stable :23 Discharge instructions given to patient, Instructed on discharge instructions, follow up and referral plans. Demonstrated understanding of instructions, follow-up care. 09:25 Patient left the ED. bp Signatures: Adonis De Paz MD MD rn Barber, Rebecca RN RN rb1 Wayne Willoughby, RN RN bp
[2019-09-15 09:31] VITALS: BP 144/86; TEMP 98; O2SAT 100
== END 2019-09-15 09:25 | disposition home or self-care (01) ==
LOC: ER 09:02
DX: R41.843 Psychomotor deficit (principal); F20.9 Schizophrenia, unspecified
CPT/HCPCS: 99283

== ENCOUNTER 2019-09-16 10:49 | Emergency (ER) | payer SELFPAY ==
[2019-09-16] MEDS ORDERED: NA CHLORIDE 0.9% 1,000 ML ONE (11:33)
--- NOTE | 2019-09-16 11:36 | ER ---
Nurse's Notes [facility] Name: Heriberto Duke Age: 29 yrs Sex: Male : 1990 Arrival Date: 09/16/2019 Time: 10:51 Bed 17 Private MD: Diagnosis: Depression, Suidical Ideation Presentation: 09/15 10:50 Chief complaint: EMS states: patient was lying on sidewalk and someone called EMS, he states that he has left knee pain and is currently having suicidal thoughts. Pt denies attempt. Coronavirus screen: Proceed with normal triage. Ebola Screen: No symptoms or risks identified at this time. Initial Sepsis Screen: Does the patient meet any 2 criteria? No. Patient's initial sepsis screen is negative. Does the patient have a suspected source of infection? No. Patient's initial sepsis screen is negative. Risk Assessment: Do you want to hurt yourself or someone else? Patient reports desire/thoughts of hurting themselves or someone else. Provider notified. Onset of symptoms was September 16, 2019. 10:50 Method Of Arrival: EMS: [facility] 10:50 Acuity: JOSEFA 2 09/16 04:45 Coronavirus screen: Proceed with normal triage. Patient denies a cough. Patient denies wh shortness of breath or difficulty breathing. Patient denies measured and/or subjective temperature greater than 100.4F prior to today's visit. Patient denies travel on a cruise ship or to a country the [facility] currently lists as an affected area. Patient denies contact with known and/or suspected case of COVID-19. Historical: - Allergies: 09/15 11:07 No Known Allergies; - PMHx: 11:07 Schizophrenia; - PSHx: 11:07 left arm surgery; - Immunization history:: Adult Immunizations up to date. - Social history:: Smoking status: Patient denies any tobacco usage or history of. Patient/guardian denies using alcohol, street drugs. - Family history:: not pertinent. Screenin:07 Abuse screen: Denies threats or abuse. Nutritional screening: No deficits noted. Tuberculosis screening: No symptoms or risk factors identified. Fall Risk None identified. Assessment: 11:07 General: Appears in no apparent distress. Behavior is cooperative, anxious. Pain: Denies pain. Neuro: Level of Consciousness is awake, alert, obeys commands, Oriented to person, place, time, situation. Cardiovascular: Heart tones S1 S2 present Capillary refill < 3 seconds Patient's skin is warm and dry. Cardiovascular: Rhythm is sinus rhythm. Respiratory: Airway is patent Respiratory effort is even, unlabored. Derm: Skin is intact, is healthy with good turgor. 12:35 Reassessment: Peggy mcconnell) [phone]. 12:35 Reassessment: Mom called and updated on current status Per Pt consent. 12:37 Reassessment: Mom states that she gave him one of her xanax and hydrocodone yesterday. 13:00 Reassessment: Pt tolerated medications well with no adverse side effects. 14:40 Reassessment: [facility] recommends inpatient treatment. 14:44 Reassessment: Pt currently lying on left side in bed resting. No needs voiced at this ah time. Pt has sitter outside of door. 15:32 Reassessment: Pt laying on right side in room. No needs voiced at this time. Awaiting transfer. 16:30 Reassessment: Patient and/or family updated on plan of care and expected duration. Pain ah level reassessed. Patient is alert, oriented x 3, equal unlabored respirations, skin warm/dry/pink. No needs voiced. 17:30 Reassessment: Patient and/or family updated on plan of care and expected duration. Pain ah level reassessed. Patient is alert, oriented x 3, equal unlabored respirations, skin warm/dry/pink. 18:15 Reassessment: Pt sitting up in bed eating dinner. No needs voiced. 19:15 Reassessment: Patient and/or family updated on plan of care and expected duration. Pain ah level reassessed. Patient is alert, oriented x 3, equal unlabored respirations, skin warm/dry/pink. 20:32 Reassessment: Patient and/or family updated on plan of care and expected duration. Pain ah level reassessed. Patient is alert, oriented x 3, equal unlabored respirations, skin warm/dry/pink. No needs voiced at this time. 21:30 Reassessment: Patient and/or family updated on plan of care and expected duration. Pain ah level reassessed. Patient is alert, oriented x 3, equal unlabored respirations, skin warm/dry/pink. NO needs voiced at this time. 22:15 General: Appears in no apparent distress. Behavior is cooperative. Pain: Denies pain. Neuro: Level of Consciousness is awake, alert, obeys commands, Oriented to person, place, time, situation. Cardiovascular: Capillary refill < 3 seconds. Respiratory: Airway is patent Respiratory effort is even, unlabored, Respiratory pattern is regular, symmetrical. GI: Abdomen is flat, non-distended. : No signs and/or symptoms were reported regarding the genitourinary system. EENT: No signs and/or symptoms were reported regarding the EENT system. Derm: Skin is intact, is healthy with good turgor, Skin is pink, warm \\T\\ dry. normal. Musculoskeletal: Circulation, motion, and sensation intact. 09/16 01:00 Reassessment: Patient appears in no apparent distress at this time. No changes from previously documented assessment. Patient and/or family updated on plan of care and expected duration. Pain level reassessed. Pt sleeping well no signs of distress noted, sitter at bedside. 03:00 Reassessment: Patient appears in no apparent distress at this time. No changes from previously documented assessment. Patient and/or family updated on plan of care and expected duration. Pain level reassessed. Pt sleeping well no signs of distress noted, sitter at bedside. 05:00 Reassessment: Patient appears in no apparent distress at this time. No changes from previously documented assessment. Patient and/or family updated on plan of care and expected duration. Pain level reassessed. Pt sleeping well no signs of distress noted, sitter at bedside. 06:30 Reassessment: Patient appears in no apparent distress at this time. No changes from previously documented assessment. Patient and/or family updated on plan of care and expected duration. Pain level reassessed. 07:00 Reassessment: RECD REPORT FROM NORIS SHAH. 29YO WM P/W PSYCH D/O AND SI. TRANSFER TO PSYCH INPATIENT RECOMMENDED BY [facility] AND [facility], NO AVAILABLE PLACEMENT AT THIS TIME. PT SLEEPING QUIETLY AT THIS TIME. 09:30 Reassessment: PT STATING HE DOES NOT WISH TO WAIT FOR PSYCH TRANSFER AND DESIRES TO LEAVE. DENIES SI AT THIS TIME. AT B/S FOR RE-EVAL. 09:49 Reassessment: Spoke with [facility] rep who states that the patient is set up to have ss the soonest outpatient appointment available at [facility], September [address] Guallpa notified and states okay to continue with discharge. 09:54 Reassessment: D/C IN PROCESS. PT CONTINUES TO DENY SI. [facility] APPOINTMENT SET FOR bp 10. 10:14 Reassessment: BELONGINGS RETURNED TO PT. PT D/C HOME AMBULATORY, CONTINUES TO DENY SI, bp DX WITH DEPRESSION. Vital Signs: 09/15 10:50 BP 141 / 87; Pulse 98; Resp 17; Temp 97.5; Pulse Ox 98% ; Weight 79.38 kg; Height 5 ft. ah 10 in. (177.80 cm); Pain 0/10; 19:15 BP 125 / 92; Pulse 72; Resp 18; Pulse Ox 100% ; ah 09/16 08:32 BP 134 / 85; Pulse 72; Resp 17; Temp 98.0(O); Pulse Ox 100% on R/A; mh5 09/15 10:50 Body Mass Index 25.11 (79.38 kg, 177.80 cm) ED Course: 09/15 10:51 Patient arrived in ED. mauro 10:51 Romel Castro MD is Attending Physician. [facility] 10:54 Theresa Acosta, RN is Primary Nurse. 11:05 Triage completed. 11:32 Initial lab(s) drawn, by nd, sent to lab. Inserted saline lock: 20 gauge in right dh3 antecubital area, using aseptic technique. Blood collected. 12:14 Patient has correct armband on for positive identification. Bed in low position. 12:38 Patient notified of wait time. 13:19 called the [facility] Crisis line at [phone]/ Jackelyn will give the information eb to the screener irrigation tax assessor collector and someone will call us back. 13:20 Diet tray ordered. jp3 13:50 Diet tray given. jp3 14:15 Patient had teleconference with [facility] rep. jp3 15:49 faxed the patient records to [facility] and [facility] in the attempt eb to transfer. 17:45 per Denita from [facility] they have no adult male beds at this time. eb 18:05 per intake at [facility] they are still reviewing the chart. eb 18:10 initiated a transfer with Kristin from the [facility] transfer center/ faxed over hospital eb exclusionary's and patient record as requested. 22:04 Followed up with Tomasz at [facility] regarding pt transfer. Waiting for the tt3 physician at [facility] to review the chart. 23:33 [facility] called to do Doc to Doc with [facility] regarding pt transfer. Pt was handed tt3 to Garry from [facility]. 23:58 [facility] declined pt transfer stating that "the patient does not meet the criteria.". tt3 09/16 00:03 Followed up with [facility] and they stated they never received any information on tt3 the pt so I faxed info over. 02:00 Followed up with Denzel at [facility]. He stated that the patients information tt3 regarding transfer was in review. 03:09 Faxed patient info to the following facilities: [address], [facility], [facility]. 03:46 Swetha at [facility] called and requested a covid screening on the pt. Will fax the results to tt3 per her directions. 07:12 Attending Physician role handed off by Romel Castro MD kdr 07:12 Stone Guallpa MD is Attending Physician. kdr 08:35 Primary Nurse role handed off by Theresa Acosta, RN bp 08:35 Wayne Willoughby, RN is Primary Nurse. bp 08:35 Diet: Patient given a regular meal tray. mh5 09:54 No provider procedures requiring assistance completed. IV discontinued, intact, bp bleeding controlled, No redness/swelling at site. Pressure dressing applied. Administered Medications: 09/15 11:30 Drug: NS 0.9% 1000 ml Route: IV; Rate: 1 bolus; Site: right antecubital; 22:24 Follow up: Response: No adverse reaction; IV Status: Completed infusion 12:00 Drug: Ativan 2 mg Route: IVP; Site: right antecubital; ah 14:45 Follow up: Response: No adverse reaction 12:05 Drug: Geodon 20 mg Route: IM; Site: right ventrogluteal; 14:45 Follow up: Response: No adverse reaction 09/16 08:35 Drug: Ativan 1 mg Route: PO; bp 09:53 Follow up: Response: Anxiety decreased bp Outcome: 09/15 11:36 ER care complete, transfer ordered by . [facility] 09/16 10:01 Discharge ordered by . kdr 10:14 Discharged to home ambulatory. bp 10:14 Condition: stable 10:14 Discharge instructions given to patient, Instructed on discharge instructions, follow up and referral plans. medication usage, Demonstrated understanding of instructions, follow-up care, medications, Prescriptions given X 1. 10:16 Patient left the ED. bp Signatures: Romel Castro MD MD cha Rittger, Kevin, MD MD kdr Smirch, Shelby, RN RN Grace Lund Vivi Moffett, Maci 3 Noris Pal Brian, RN RN Paulina Cole Jacob jp3 Theresa Acosta RN RN Red Salas tt3 Corrections: (The following items were deleted from the chart) 03:47 03:46 [facility] called and requested a covid screening on the pt. tt3 tt3 09:58 09:54 Discharged to home ambulatory, with family, bp bp 09:58 09:54 Condition: stable bp bp 09:58 09:54 Discharge instructions given to patient, Instructed on discharge instructions, bp follow up and referral plans. medication usage, Demonstrated understanding of instructions, follow-up care, medications, Prescriptions given X 1, bp
--- NOTE | 2019-09-16 11:37 | EDPHYS ---
Physician Documentation [facility] Name: Heriberto Duke Age: 29 yrs Sex: Male : 1990 Arrival Date: 09/16/2019 Time: 10:51 Bed 17 Private MD: ED Physician Stone Guallpa HPI: 09/15 11:29 This 29 yrs old Male presents to ER via EMS with complaints of suicidal mauro ideation. 11:29 The patient presents to the emergency department with depression, suicide ideation. mauro Onset: The symptoms/episode began/occurred 2 day(s) ago. Past psychiatric history: Prior diagnosis: schizophrenia. Associated signs and symptoms: The patient has no apparent associated signs or symptoms. Severity of symptoms: At their worst the symptoms were mild moderate in the emergency department the symptoms are unchanged. The patient has not experienced similar symptoms in the past. Historical: - Allergies: 11:07 No Known Allergies; ah - PMHx: 11:07 Schizophrenia; ah - PSHx: 11:07 left arm surgery; ah - Immunization history:: Adult Immunizations up to date. - Social history:: Smoking status: Patient denies any tobacco usage or history of. Patient/guardian denies using alcohol, street drugs. - Family history:: not pertinent. ROS: 11:29 Constitutional: Negative for fever, chills, and weight loss, Eyes: Negative for injury, mauro pain, redness, and discharge, ENT: Negative for injury, pain, and discharge, Neck: Negative for injury, pain, and swelling, Cardiovascular: Negative for chest pain, palpitations, and edema, Respiratory: Negative for shortness of breath, cough, wheezing, and pleuritic chest pain, Abdomen/GI: Negative for abdominal pain, nausea, vomiting, diarrhea, and constipation, Back: Negative for injury and pain, : Negative for injury, bleeding, discharge, and swelling, MS/Extremity: Negative for injury and deformity, Skin: Negative for injury, rash, and discoloration, Neuro: Negative for headache, weakness, numbness, tingling, and seizure, Allergy/Immunology: Negative for hives, rash, and allergies, Endocrine: Negative for neck swelling, polydipsia, polyuria, polyphagia, and marked weight changes, Hematologic/Lymphatic: Negative for swollen nodes, abnormal bleeding, and unusual bruising. 11:29 Psych: Positive for depression, suicidal ideation. Exam: 11:29 Constitutional: This is a well developed, well nourished patient who is awake, alert, mauro and in no acute distress. Head/Face: Normocephalic, atraumatic. Eyes: Pupils equal round and reactive to light, extra-ocular motions intact. Lids and lashes normal. Conjunctiva and sclera are non-icteric and not injected. Cornea within normal limits. Periorbital areas with no swelling, redness, or edema. ENT: Nares patent. No nasal discharge, no septal abnormalities noted. Tympanic membranes are normal and external auditory canals are clear. Oropharynx with no redness, swelling, or masses, exudates, or evidence of obstruction, uvula midline. Mucous membranes moist. Neck: Trachea midline, no thyromegaly or masses palpated, and no cervical lymphadenopathy. Supple, full range of motion without nuchal rigidity, or vertebral point tenderness. No Meningismus. Chest/axilla: Normal chest wall appearance and motion. Nontender with no deformity. No lesions are appreciated. Cardiovascular: Regular rate and rhythm with a normal S1 and S2. No gallops, murmurs, or rubs. Normal PMI, no JVD. No pulse deficits. Respiratory: Lungs have equal breath sounds bilaterally, clear to auscultation and percussion. No rales, rhonchi or wheezes noted. No increased work of breathing, no retractions or nasal flaring. Abdomen/GI: Soft, non-tender, with normal bowel sounds. No distension or tympany. No guarding or rebound. No evidence of tenderness throughout. Back: No spinal tenderness. No costovertebral tenderness. Full range of motion. Male : Normal genitalia with no discharge or lesions. Skin: Warm, dry with normal turgor. Normal color with no rashes, no lesions, and no evidence of cellulitis. MS/ Extremity: Pulses equal, no cyanosis. Neurovascular intact. Full, normal range of motion. Neuro: Awake and alert, GCS 15, oriented to person, place, time, and situation. Cranial nerves II-XII grossly intact. Motor strength 5/5 in all extremities. Sensory grossly intact. Cerebellar exam normal. Normal gait. 11:29 Psych: Behavior/mood is pleasant, Affect is calm, Oriented to Patient has no thoughts/intents to harm self or others. Judgement / Insight is normal. Delusions/hallucinations are not present. 11:39 ECG was reviewed by the Attending Physician. [facility] Vital Signs: 10:50 BP 141 / 87; Pulse 98; Resp 17; Temp 97.5; Pulse Ox 98% ; Weight 79.38 kg; Height 5 ft. 10 in. (177.80 cm); Pain 0/10; 19:15 BP 125 / 92; Pulse 72; Resp 18; Pulse Ox 100% ; 09/16 08:32 BP 134 / 85; Pulse 72; Resp 17; Temp 98.0(O); Pulse Ox 100% on R/A; mh5 09/15 10:50 Body Mass Index 25.11 (79.38 kg, 177.80 cm) MDM: 09/15 10:51 Patient medically screened. [facility] 11:32 Differential diagnosis: drug withdrawal. acute psychotic break, depression, psychosis mauro secondary to non-compliance. Data reviewed: vital signs, nurses notes, lab test result(s), EKG. Data interpreted: telemetry monitor: not applicable for this patient encounter. rate is 98 beats/min, rhythm is normal sinus rhythm, Pulse oximetry: on room air is 98 %. Test interpretation: by ED physician or midlevel provider: ECG. Counseling: I had a detailed discussion with the patient and/or guardian regarding: the historical points, exam findings, and any diagnostic results supporting the discharge/admit diagnosis, lab results. 15:53 Medication response: geodon and ativan good results, pt voluntary wants to be mauro transfered. 23:52 ED course: Tenriism declined because he was given geodon and ativan within 24 hours . jr8 09/16 09:48 ED course: The patient remains pleasant and cooperative. He is not currently suicidal kdr and denies being overtly suicidal at the time of admission . 10:01 ED course: Re-evaluated patient. He denies SI/HI and is awake and appropriate and kdr wanting to leave. He states that the Ativan helps with his anxiety and feels that it is the anxiety that make him SI. We called [facility] and arranged for a September 26 apppointment.. 09/15 11:22 Order name: Acetaminophen; Complete Time: 13:16 mauro 09/15 11:22 Order name: Basic Metabolic Panel; Complete Time: 13:16 [facility] 09/15 11:22 Order name: CBC with Diff; Complete Time: 13:16 [facility] 09/15 11:22 Order name: ETOH Level; Complete Time: 13:16 [facility] 09/15 11:22 Order name: Hepatic Function; Complete Time: 13:16 [facility] 09/15 11:22 Order name: PT-INR; Complete Time: 13:16 [facility] 09/15 11:22 Order name: Ptt, Activated; Complete Time: 13:16 [facility] 09/15 11:22 Order name: Salicylate; Complete Time: 13:16 [facility] 09/15 11:22 Order name: Urine Drug Screen; Complete Time: 13:16 [facility] 09/15 11:33 Order name: Urine Dipstick--Ancillary (enter results); Complete Time: 13:16 09/15 11:22 Order name: EKG; Complete Time: 11:23 [facility] 09/15 11:22 Order name: EKG - Nurse/Tech; Complete Time: 11:37 [facility] 09/15 11:22 Order name: IV Saline Lock; Complete Time: 11:37 [facility] 09/15 11:22 Order name: Labs collected and sent; Complete Time: 11:37 [facility] 09/15 11:22 Order name: Urine Dipstick-Ancillary (obtain specimen); Complete Time: 11:33 [facility] 09/15 13:17 Order name: Diet Regular; Complete Time: 13:18 09/15 17:24 Order name: Diet Finger Food; Complete Time: 17:25 [facility] 09/16 07:25 Order name: Diet Finger Food; Complete Time: 07:26 mh5 EC/29 11:39 Rate is 77 beats/min. Rhythm is regular. QRS [place] is Normal. MN interval is normal. QRS mauro interval is normal. QT interval is normal. No Q waves. T waves are Normal. No ST changes noted. Clinical impression: Normal ECG and No evidence of ischemia. Interpreted by me. Reviewed by me. Administered Medications: 11:30 Drug: NS 0.9% 1000 ml Route: IV; Rate: 1 bolus; Site: right antecubital; 22:24 Follow up: Response: No adverse reaction; IV Status: Completed infusion 12:00 Drug: Ativan 2 mg Route: IVP; Site: right antecubital; 14:45 Follow up: Response: No adverse reaction 12:05 Drug: Geodon 20 mg Route: IM; Site: right ventrogluteal; 14:45 Follow up: Response: No adverse reaction 09/16 08:35 Drug: Ativan 1 mg Route: PO; bp 09:53 Follow up: Response: Anxiety decreased bp Disposition: 12:36 Co-signature as Attending Physician, Stone Guallpa MD I agree with the assessment and kdr plan of care. Disposition: 09/17/19 10:01 Discharged to Home. Impression: Depression, Suidical Ideation. - Condition is Stable. - Discharge Instructions: Suicidal Feelings: How to Help Yourself, Major Depressive Disorder, [id number]. - Prescriptions for Ativan 1 mg Oral Tablet - take 1 tablet by ORAL route every 8 hours As needed; 10 tablet. - Medication Reconciliation Form, Thank You Letter form. - Follow up: Private Physician; When: 2 - 3 days; Reason: If symptoms return, Further diagnostic work-up, Recheck today's complaints, Continuance of care, Re-evaluation by your physician. - Problem is an acute exacerbation. - Symptoms have improved. - Notes: We have scheduled an appointment for you on September 26 with [facility] please call to confirm this appointment date and times Signatures: Dispatcher [employer] EDRomel Dickson MD MD cha Rittger, Kevin, MD MD kdr Roszak, Josh, PA PA jr8 Wayne Willoughby, Theresa Thomas RN, RN RN Corrections: (The following items were deleted from the chart) 09:59 09/15 11:36 09/16/2019 11:36 Transfer ordered to Psych Facility. Diagnosis is Suicidal kdr ideations; Schizophrenia. Reason for transfer: Higher level of care. Accepting physician is to psych. Condition is Stable. Problem is new. Symptoms have improved. [facility] 09/16 10:16 10:01 09/17/2019 10:01 Discharged to Home. Impression: Depression, Suidical Ideation. bp Condition is Stable. Forms are Medication Reconciliation Form, Thank You Letter, Antibiotic Education, Prescription Opioid Use. Follow up: Private Physician; When: 2 - 3 days; Reason: If symptoms return, Further diagnostic work-up, Recheck today's complaints, Continuance of care, Re-evaluation by your physician. Problem is an acute exacerbation. Symptoms have improved. kdr
[2019-09-16 11:47] LABS: Urine Blood NEGATIVE (NEG); Urine Glucose NEGATIVE (NEG); Urine Protein NEGATIVE (NEG)
[2019-09-16 11:47] LABS: Absolute Lymphocytes (CBC) 1.2 K/uL (0.7-4.9); Basophils % 1.3 % (0-1.3); Hematocrit 42.1 % (39.6-49.0); Lymphocytes % 23.9 % (15.3-44.8); MPV 8.4 fL (7.6-11.3); RBC Red Blood Cell Count 4.83 M/uL (4.33-5.43)
[2019-09-16 11:53] LABS: Barbiturates NEGATIVE (NEGATIVE); Benzodiazepines NEGATIVE (NEGATIVE); Cocaine NEGATIVE (NEGATIVE); METHAMPHETAM NEGATIVE (NEGATIVE); Methadone NEGATIVE (NEGATIVE); Opiates POSITIVE (NEGATIVE); Phencyclidine NEGATIVE (NEGATIVE); THC Cannibis NEGATIVE (NEGATIVE)
[2019-09-16 11:53] LABS: Protime INR 0.97
[2019-09-16] MEDS ORDERED: ZIPRASIDONE MESYLA 20 MG/VIAL IM ONE (12:05)
[2019-09-16] MEDS ORDERED: LORazepam 2 MG/ML VIAL ONE (12:05)
[2019-09-16] MEDS ORDERED: WATER FOR INJ,STERILE 10 ML ONE (12:06)
[2019-09-16 12:30] LABS: ALT/SGPT 57 U/L (12-78); AST/SGOT 21 U/L (15-37); Albumin 4.4 g/dL (3.4-5.0); Alkaline Phosphatase 138 U/L (45-117); BUN Blood Urea Nitrogen 7 mg/dL (7-18); Bicarbonate 28 mmol/L (21-32); Bilirubin Direct 0.1 mg/dL (0-0.2); Bilirubin Total 0.5 mg/dL (0.2-1.0); Glucose Level 100 mg/dL (74-106); Protein, Total 7.9 g/dL (6.4-8.2); Sodium Level 139 mmol/L (136-145)
--- OUTSIDE RECORDS SUMMARY | 2019-09-16 14:12 | XMS REPORT | Continuity of Care Document ---
:1990 Author Organization [facility] t Address [address] [place] [address] [address] [place] [address] Care Team Providers Name Role Phone Unavailable [...] = Expiration Dt) 01-18-20 N Thyroid Stimulating [id number] 08:21:50 Test Item Value Reference Range Interpretation Comments TSH (test code = TSH) 2.100 mIU/mL 0.270-4.200 Lipid [id number] 07:23:30 Test Item Value Reference Range Interpretation Comments Cholesterol Total 179 mg/dL 0-200 RISK OF HE ART (test code = DISEASEPublishe d by Cholesterol Total) [place] [employer] Jacqueline lyte Optimal Borderl ine [...] LDL/HDL Ratio=L DL Calc/HDL Chol Comprehensive Metabolic [id number] 07:00:35 Test Item Value Reference Range Interpretation [...] A/G 1.8 ratio N Ratio) Comprehensive Metabolic [id number] 07:00:35 Test Item Value Reference Range Interpretation [...] National Kidney Foundation, http://nkdep.ni h.gov Comprehensive Metabolic [id number] 07:00:35 Test Item Value Reference Range Interpretation [...] ag e have not been validated by [facility] MDRD study and should be interpreted [...] ag e have not been validated by [facility] MDRD study and should be interpreted wit h caution. eGFR R esult Interpretation: eGFR > or = 60 is in the Normal RangeeGF R < 60 may mean kid zach diseaseeGFR < 1 5 may mean kidney failure Rang es recommended by the National Kidney Foundation, http://nkdep.ni h.gov Complete Blood Count with [id number] 06:45:37 Test Item Value Reference Range Interpretation [...] code = IPF) 0 % N Automated [id number] 06:45:37 Test Item Value Reference Range Interpretation Comments Neutro Auto (test code = Neutro 55.6 % 36.0-70.0 Auto) Lymph Auto (test code = Lymph Auto) 29.0 % 12.0-44.0 Elmore Auto (test code = Elmore Auto) 11.8 % 0.0-11.0 H Eos, Auto (test code = Eos, Auto) 2.7 % 0.0-7.0 Basophil Auto (test code = Basophil 0.7 % 0.0-2.0 Auto) Neutro Absolute (test code = Neutro 3.3 x10 1.6-7.4 Absolute) Lymph Absolute (test code = Lymph 1.70 x10 .50-4.60 Absolute) Elmore Absolute (test code = Elmore .69 x10 .00-1.20 Absolute) Eos Absolute (test code = Eos 0.16 x10 0.00-0.74 Absolute) Baso Absolute (test code = Baso 0.04 x10 0.00-0.21 Absolute) IG [id number] 06:45:37 Test Item Value Reference Range Interpretation Comments IG (test code = IG) 0.2 % 0.0-5.0 IG Abs (test code = IG Abs) 0 x10 N
[2019-09-17] MEDS ORDERED: LORAZEPAM 1 MG TABLET ONE (08:43)
[2019-09-17 10:24] VITALS: O2SAT 100
[2019-09-17 10:25] VITALS: BP 134/85; TEMP 98
== END 2019-09-17 10:16 | disposition home or self-care (01) ==
LOC: ER 10:49
DX: R45.851 Suicidal ideations (principal); F20.9 Schizophrenia, unspecified
CPT/HCPCS: 36415; 80048; 80076; 80307; 80320; 80329; 81003; 85025; 85610; 85730; 93005; 96361; 96372; 96374; 99284; J3486; J7030

== ENCOUNTER 2019-09-23 11:49 | Emergency (ER) | payer SELFPAY ==
[2019-09-23 13:53] LABS: Absolute Lymphocytes (CBC) 1.5 K/uL (0.7-4.9); Basophils % 1.1 % (0-1.3); Hematocrit 43.3 % (39.6-49.0); Lymphocytes % 20.9 % (15.3-44.8); MPV 8.1 fL (7.6-11.3); RBC Red Blood Cell Count 4.89 M/uL (4.33-5.43)
[2019-09-23 13:54] LABS: Urine Blood NEGATIVE (NEG); Urine Glucose NEGATIVE (NEG); Urine Protein NEGATIVE (NEG); Urine Specific Gravity 1.015 (1.005-1.030)
[2019-09-23 13:58] LABS: Protime INR 0.93
[2019-09-23 14:06] LABS: Barbiturates NEGATIVE (NEGATIVE); Benzodiazepines NEGATIVE (NEGATIVE); Cocaine NEGATIVE (NEGATIVE); METHAMPHETAM NEGATIVE (NEGATIVE); Methadone NEGATIVE (NEGATIVE); Opiates NEGATIVE (NEGATIVE); Phencyclidine NEGATIVE (NEGATIVE); THC Cannibis NEGATIVE (NEGATIVE)
[2019-09-23] MEDS ORDERED: LORazepam 2 MG/ML VIAL ONE (14:07)
--- OUTSIDE RECORDS SUMMARY | 2019-09-23 14:16 | XMS REPORT | Continuity of Care Document ---
:1990 Author Organization [facility] t Address [address] [place] [address] [address]. [address] [place] [address] Care Team Providers Name Role Phone Unavailable [...] = Expiration Dt) 01-18-20 N Thyroid Stimulating [id number] 08:21:50 Test Item Value Reference Range Interpretation Comments TSH (test code = TSH) 2.100 mIU/mL 0.270-4.200 Lipid [id number] 07:23:30 Test Item Value Reference Range Interpretation Comments Cholesterol Total 179 mg/dL 0-200 RISK OF HE ART (test code = DISEASEPublishe d by Cholesterol Total) [place] [employer] Jacqueline lyte Optimal Borderl ine [...] LDL/HDL Ratio=L DL Calc/HDL Chol Comprehensive Metabolic [id number] 07:00:35 Test Item Value Reference Range Interpretation [...] A/G 1.8 ratio N Ratio) Comprehensive Metabolic [id number] 07:00:35 Test Item Value Reference Range Interpretation [...] National Kidney Foundation, http://nkdep.ni h.gov Comprehensive Metabolic [id number] 07:00:35 Test Item Value Reference Range Interpretation [...] ag e have not been validated by [facility] MDRD study and should be interpreted [...] ag e have not been validated by [facility] MDRD study and should be interpreted wit h caution. eGFR R esult Interpretation: eGFR > or = 60 is in the Normal RangeeGF R < 60 may mean kid zach diseaseeGFR < 1 5 may mean kidney failure Rang es recommended by the National Kidney Foundation, http://nkdep.ni h.gov Complete Blood Count with [id number] 06:45:37 Test Item Value Reference Range Interpretation [...] code = IPF) 0 % N Automated [id number] 06:45:37 Test Item Value Reference Range Interpretation Comments Neutro Auto (test code = Neutro 55.6 % 36.0-70.0 Auto) Lymph Auto (test code = Lymph Auto) 29.0 % 12.0-44.0 Edmonson Auto (test code = Edmonson Auto) 11.8 % 0.0-11.0 H Eos, Auto (test code = Eos, Auto) 2.7 % 0.0-7.0 Basophil Auto (test code = Basophil 0.7 % 0.0-2.0 Auto) Neutro Absolute (test code = Neutro 3.3 x10 1.6-7.4 Absolute) Lymph Absolute (test code = Lymph 1.70 x10 .50-4.60 Absolute) Edmonson Absolute (test code = Edmonson .69 x10 .00-1.20 Absolute) Eos Absolute (test code = Eos 0.16 x10 0.00-0.74 Absolute) Baso Absolute (test code = Baso 0.04 x10 0.00-0.21 Absolute) IG [id number] 06:45:37 Test Item Value Reference Range Interpretation Comments IG (test code = IG) 0.2 % 0.0-5.0 IG Abs (test code = IG Abs) 0 x10 N
[2019-09-23 14:46] LABS: ALT/SGPT 90 U/L (12-78); AST/SGOT 47 U/L (15-37); Albumin 4.3 g/dL (3.4-5.0); Alkaline Phosphatase 135 U/L (45-117); BUN Blood Urea Nitrogen 5 mg/dL (7-18); Bicarbonate 30 mmol/L (21-32); Bilirubin Direct < 0.1 mg/dL (0-0.2); Bilirubin Total 0.4 mg/dL (0.2-1.0); Glucose Level 101 mg/dL (74-106); Potassium 4.1 mmol/L (3.5-5.1); Sodium Level 142 mmol/L (136-145)
--- NOTE | 2019-09-23 21:54 | EDPHYS ---
Physician Documentation [facility] Name: Heriberto Duke Age: 29 yrs Sex: Male : 1990 Arrival Date: 09/23/2019 Time: 12:10 Bed 13 Private MD: ED Physician Romel Castro HPI: 09/22 16:42 This 29 yrs old Male presents to ER via Law [employer] with complaints of pm1 Psych Problem. 16:42 The patient presents to the emergency department with suicide ideation, but the patient pm1 has no formulated plan. Onset: The symptoms/episode began/occurred 3 day(s) ago. Past psychiatric history: Prior diagnosis: schizophrenia. 16:42 Past psychiatric history: Psychiatric medications include: none, Primary psychiatric pm1 physician: the patient does not have a primary psychiatric physician, the patient has not had a prior suicide gesture, the patient has a previous inpatient psychiatric history, at [facility] 1 month ago for the same complaint. Associated signs and symptoms: Pertinent positives; anxiety, depression, Pertinent negatives: chest pain, hallucinations, homicidal ideation, paranoia, shortness of breath, substance abuse. Severity of symptoms: Pain is currently a 0 / 10. The patient has experienced similar episodes in the past, multiple times. The patient has been recently seen at the [facility] Emergency Department, last week, for similar complaints Was given an appointment for follow up with Fely Schultz on September 26 . Historical: - Allergies: 12:12 No Known Allergies; dm5 - Home Meds: 12:12 HALDOL IM MONTHLY [Active]; dm5 - PMHx: 12:12 Schizophrenia; dm5 - Immunization history:: Adult Immunizations unknown. - Social history:: Smoking status: unknown. ROS: 16:42 Constitutional: Negative for fever, chills, and weight loss. pm1 16:42 Eyes: Negative for injury, pain, redness, and discharge, ENT: Negative for injury, pm1 pain, and discharge, Neck: Negative for injury, pain, and swelling, Cardiovascular: Negative for chest pain, palpitations, and edema. 16:42 Respiratory: Negative for shortness of breath, cough, wheezing, and pleuritic chest pm1 pain, Abdomen/GI: Negative for abdominal pain, nausea, vomiting, diarrhea, and constipation, Back: Negative for injury and pain, : Negative for injury, bleeding, discharge, and swelling, MS/Extremity: Negative for injury and deformity, Skin: Negative for injury, rash, and discoloration, Neuro: Negative for headache, weakness, numbness, tingling, and seizure. 16:42 Psych: Positive for anxiety, depression, suicidal ideation, Negative for drug dependence, alcohol dependence, auditory hallucinations, visual hallucinations, homicidal ideation. Exam: 16:42 Constitutional: This is a well developed, well nourished patient who is awake, alert, pm1 and in no acute distress. Head/Face: Normocephalic, atraumatic. Neck: Trachea midline, no thyromegaly or masses palpated, and no cervical lymphadenopathy. Supple, full range of motion without nuchal rigidity, or vertebral point tenderness. No Meningismus. Chest/axilla: Normal chest wall appearance and motion. Nontender with no deformity. No lesions are appreciated. 16:42 Back: No spinal tenderness. No costovertebral tenderness. Full range of motion. Skin: Warm, dry with normal turgor. Normal color with no rashes, no lesions, and no evidence of cellulitis. MS/ Extremity: Pulses equal, no cyanosis. Neurovascular intact. Full, normal range of motion. 16:42 Cardiovascular: Exam negative for acute changes, Rate: normal, Rhythm: regular, Pulses: no pulse deficits are appreciated. 16:42 Respiratory: Exam negative for acute changes, respiratory distress, shortness of breath. 16:42 Abdomen/GI: Exam negative for acute changes, Inspection: abdomen appears normal, Palpation: abdomen is soft and non-tender, in all quadrants. 16:42 Neuro: Exam negative for acute changes, Orientation: is normal, Mentation: is normal, Motor: is normal, moves all fours, Gait: is steady, at a normal pace, without difficulty. 16:42 Psych: Behavior/mood is cooperative, anxious, Affect is calm, Oriented to person, place, time, Delusions/hallucinations are not present. Vital Signs: 14:20 BP 144 / 87; Pulse 67; Resp 18 S; Temp 98.1(TE); Pulse Ox 100% on R/A; Weight 79.38 kg ca1 (R); Height 5 ft. 10 in. (177.80 cm) (R); Pain 0/10; 16:36 BP 142 / 76; Pulse 76; Resp 18; Temp 98.0; Pulse Ox 98% on R/A; dh4 19:53 BP 149 / 85; Pulse 86; Resp 17 S; Pulse Ox 100% on R/A; ca1 21:59 BP 128 / 62; Pulse 68; Resp 16; Temp 98; Pulse Ox 100% on R/A; rv 14:20 Body Mass Index 25.11 (79.38 kg, 177.80 cm) ca1 MDM: 12:12 Patient medically screened. pm1 16:35 ED course: Pending [facility] evalution. pm1 18:19 Data reviewed: vital signs. Data interpreted: Pulse oximetry: on room air is 98 %. pm1 Interpretation: normal. 21:52 Counseling: I had a detailed discussion with the patient and/or guardian regarding: the jr8 historical points, exam findings, and any diagnostic results supporting the discharge/admit diagnosis, lab results, the need for outpatient follow up, a psychiatrist, to return to the emergency department if symptoms worsen or persist or if there are any questions or concerns that arise at home. ED course: Fely Schultz and I have talked to patient. Both in agreement that he can f/u with [facility] for outpatient therapy. Knows to come back if worse . 09/22 12:14 Order name: Acetaminophen; Complete Time: 14:57 pm09/22 12:14 Order name: Basic Metabolic Panel; Complete Time: 14:57 pm09/22 12:14 Order name: CBC with Diff; Complete Time: 13:59 pm09/22 12:14 Order name: ETOH Level; Complete Time: 14:11 pm09/22 12:14 Order name: Hepatic Function; Complete Time: 14:57 pm09/22 12:14 Order name: PT-INR; Complete Time: 14:11 pm09/22 12:14 Order name: Ptt, Activated; Complete Time: 14:11 pm09/22 12:14 Order name: Salicylate; Complete Time: 14:32 pm09/22 12:14 Order name: Urine Drug Screen; Complete Time: 14:11 pm09/22 12:14 Order name: EKG; Complete Time: 12:15 pm09/22 12:14 Order name: EKG - Nurse/Tech; Complete Time: 13:56 pm09/22 12:14 Order name: IV Saline Lock; Complete Time: 13:52 pm1 09/22 13:52 Order name: Urine Dipstick--Ancillary (enter results) mt 09/22 12:14 Order name: Labs collected and sent; Complete Time: 13:52 pm1 09/22 12:14 Order name: Urine Dipstick-Ancillary (obtain specimen); Complete Time: 13:52 pm1 Administered Medications: 14:04 Drug: Ativan 1 mg Route: IVP; Site: right antecubital; ca1 16:24 Follow up: Response: No adverse reaction; Marked relief of symptoms; Anxiety decreased ca1 Disposition: 09/23/19 21:53 Discharged to Home. Impression: Schizophrenia. - Condition is Stable. - Discharge Instructions: Schizophrenia. - Medication Reconciliation Form, Thank You Letter, Antibiotic Education, Prescription Opioid Use form. - Follow up: Private Physician; When: 1 - 2 days; Reason: Recheck today's complaints, Continuance of care, Re-evaluation by your physician. - Problem is new. - Symptoms have improved. Addendum: 09/26/2019 06:01 Co-signature as Attending Physician, Romel Castro MD I agree with the assessment and c purcell plan of care. Signatures: Dispatcher [employer] Edith Pimentel, RN RN dm5 Romel Castro MD MD cha Roszak, Josh, PA PA jr8 Marito Yin, HEARING SCREEN COORDINATOR HEARING SCREEN COORDINATOR pm1 Krzysztof Delarosa RN RN rv Acob, Fallon RN RN ca1 Corrections: (The following items were deleted from the chart) 09/22 22:00 21:53 09/23/2019 21:53 Discharged to Home. Impression: Schizophrenia. Condition is rv Stable. Forms are Medication Reconciliation Form, Thank You Letter, Antibiotic Education, Prescription Opioid Use. Follow up: Private Physician; When: 1 - 2 days; Reason: Recheck today's complaints, Continuance of care, Re-evaluation by your physician. Problem is new. Symptoms have improved. jr8
--- NOTE | 2019-09-23 21:54 | ER ---
Nurse's Notes [facility] Name: Heriberto Duke Age: 29 yrs Sex: Male : 1990 Arrival Date: 09/23/2019 Time: 12:10 Bed 13 Private MD: Diagnosis: Schizophrenia Presentation: 09/22 12:11 Chief complaint: [facility] PD: CALLED TO HOME FOR PSYCH DISTURBANCE. FREQUENT H/O SAME. dm5 Coronavirus screen: Proceed with normal triage. Ebola Screen: No symptoms or risks identified at this time. Initial Sepsis Screen: Does the patient meet any 2 criteria? No. Patient's initial sepsis screen is negative. Does the patient have a suspected source of infection? No. Patient's initial sepsis screen is negative. Risk Assessment:. Onset of symptoms is unknown. 12:11 Method Of Arrival: Law Enforcement: [facility] dm5 12:11 Acuity: JOSEFA 2 dm5 12:20 Risk Assessment: Do you want to hurt yourself or someone else? Patient reports ca1 desire/thoughts of hurting themselves or someone else. Provider notified. Triage Assessment: 12:12 General: Appears in no apparent distress. comfortable, Behavior is cooperative, dm5 appropriate for age, anxious. Pain: Denies pain. EENT: No deficits noted. Neuro: Level of Consciousness is awake, alert, obeys commands, Oriented to person, place, time, situation, Appropriate for age. Cardiovascular: No deficits noted. Respiratory: No deficits noted. GI: No signs and/or symptoms were reported involving the gastrointestinal system. : No signs and/or symptoms were reported regarding the genitourinary system. Derm: No deficits noted. Musculoskeletal: No deficits noted. Historical: - Allergies: 12:12 No Known Allergies; dm5 - Home Meds: 12:12 HALDOL IM MONTHLY [Active]; dm5 - PMHx: 12:12 Schizophrenia; dm5 - Immunization history:: Adult Immunizations unknown. - Social history:: Smoking status: unknown. Screenin:20 Abuse screen: Denies threats or abuse. Denies injuries from another. Nutritional ca1 screening: No deficits noted. Tuberculosis screening: No symptoms or risk factors identified. Fall Risk IV access (20 points). Assessment: 12:20 General: Appears in no apparent distress. comfortable, Behavior is cooperative, ca1 appropriate for age, anxious. Pain: Denies pain. Neuro: Level of Consciousness is awake, alert, obeys commands, Oriented to person, place, time, situation, Appropriate for age. Cardiovascular: Heart tones S1 S2 present Capillary refill < 3 seconds Patient's skin is warm and dry. Pulses are all present. Rhythm is sinus rhythm. Respiratory: Airway is patent Respiratory effort is even, unlabored, Respiratory pattern is regular, symmetrical, Breath sounds are clear bilaterally. GI: Abdomen is flat, non-distended, Bowel sounds present X 4 quads. Abd is soft and non tender X 4 quads. : No signs and/or symptoms were reported regarding the genitourinary system. EENT: No signs and/or symptoms were reported regarding the EENT system. Derm: Skin is intact, is healthy with good turgor, Skin is pink, warm \\T\\ dry. Musculoskeletal: Circulation, motion, and sensation intact. Capillary refill < 3 seconds. 13:30 Reassessment: Patient appears in no apparent distress at this time. No changes from ca1 previously documented assessment. Patient and/or family updated on plan of care and expected duration. Pain level reassessed. Patient is alert, oriented x 3, equal unlabored respirations, skin warm/dry/pink. 14:15 Reassessment: Patient appears in no apparent distress at this time. No changes from ca1 previously documented assessment. Patient and/or family updated on plan of care and expected duration. Pain level reassessed. Patient is alert, oriented x 3, equal unlabored respirations, skin warm/dry/pink. 15:15 Reassessment: Patient appears in no apparent distress at this time. Patient is alert, ca1 oriented x 3, equal unlabored respirations, skin warm/dry/pink. Sitter at bedside. 16:23 Reassessment: Patient appears in no apparent distress at this time. Patient is alert, ca1 oriented x 3, equal unlabored respirations, skin warm/dry/pink. Sitter at bedside. 17:32 Reassessment: Patient appears in no apparent distress at this time. Patient is alert, ca1 oriented x 3, equal unlabored respirations, skin warm/dry/pink. 18:30 Reassessment: Patient appears in no apparent distress at this time. Patient is alert, ca1 oriented x 3, equal unlabored respirations, skin warm/dry/pink. 19:33 Reassessment: Patient appears in no apparent distress at this time. Patient is alert, ca1 oriented x 3, equal unlabored respirations, skin warm/dry/pink. 21:13 Reassessment: Patient appears in no apparent distress at this time. Patient is alert, ca1 oriented x 3, equal unlabored respirations, skin warm/dry/pink. Pt talked with Martha Birmingham of [facility]. Martha states, "I recommend out pt treatment". Notified CN. 21:25 Reassessment: spoke with Martha Lane, [facility]- via facetime per hospital protocol, sg Martha has emailed me her recommendations of discharge for outpatient follow up with the [facility], Pedrito FRAZIER notified and shown a printout of her recommendations. 21:59 Reassessment: [facility] recommends out patient consultation. FREDDIE Castañeda talked to the rv patient and explained the plan of care. 22:00 General: Appears comfortable, Behavior is calm, cooperative. Neuro: Level of Consciousness is awake, alert, obeys commands, Oriented to person, place, time, situation. Psych: 12:20 Safety Checks: Personal items have been removed. Door is open. No visitors are present ca1 at this time. 12:20 Subjective: Patient's mood is elevated, Delusions are denied, Hallucinations are denied ca1 Having thoughts of suicide. Denies suicidal plan. Objective: Patient is cooperative, Speech is normal, Affect is appropriate, Patient has mutilated themselves by denied. Interventions: Removed personal items and placed in bag. Patient placed in hospital gown. Searched person for dangerous items. Urine collected and sent for urine drug test. Belonging list filled out. Suicide Risk Assessment: Sad Person Scale: Sex of patient: Male: Score 1 point. Age of patient: Score 1 point if patient 15-34. Depression: Score 0 point if signs of depression are not present. Previous Attempt: Score 0 point if patient has not previously attempted suicide. Substance Abuse: Score 0 point if patient does not abuse alcohol or drugs. Rational Thinking: Score 0 point if patient has rational thinking. Social Support: Score 0 if social support is present/available. Organized Plan: Score 0 if patient did not have an organized plan in place. Relationship: Score 1 point if patient is , , , or for a single male Chronic Sickness: Score 0 point if patient does not have a chronic illness, debilitating, or severe disorder. TOTAL POINTS: If total points are 3-4, proposed clinical action is close follow-up/consider hospitalization. Pt denies substance abuse. 22:00 Commitment:. rv Vital Signs: 14:20 BP 144 / 87; Pulse 67; Resp 18 S; Temp 98.1(TE); Pulse Ox 100% on R/A; Weight 79.38 kg ca1 (R); Height 5 ft. 10 in. (177.80 cm) (R); Pain 0/10; 16:36 BP 142 / 76; Pulse 76; Resp 18; Temp 98.0; Pulse Ox 98% on R/A; dh4 19:53 BP 149 / 85; Pulse 86; Resp 17 S; Pulse Ox 100% on R/A; ca1 21:59 BP 128 / 62; Pulse 68; Resp 16; Temp 98; Pulse Ox 100% on R/A; rv 14:20 Body Mass Index 25.11 (79.38 kg, 177.80 cm) ca1 ED Course: 12:10 Patient arrived in ED. iw 12:11 Marito Yin NP is PHCP. pm1 12:11 Romel Castro MD is Attending Physician. pm1 12:12 Triage completed. dm5 12:12 Arm band placed on. dm5 12:20 Patient has correct armband on for positive identification. Placed in gown. Bed in low ca1 position. Call light in reach. Side rails up X 1. Valuables inventory done. Left with patient. See valuables checklist. Sitter at bedside. Patient is placed in psych hold. 12:48 Fallon Fry, ALYSSA is Primary Nurse. ca1 13:44 No provider procedures requiring assistance completed. Initial lab(s) drawn, by oh, ca1 sent to lab. Inserted saline lock: 20 gauge in right antecubital area, using aseptic technique. Blood collected. 16:24 IV discontinued, intact, bleeding controlled, No redness/swelling at site. Pressure ca1 dressing applied. 20:50 Called [facility] to get update about screener calling us. ar5 21:00 [facility] screener called to speak with pt. ar5 21:52 PHCP role handed off by Marito Yin NP jr8 21:52 Pedrito Castañeda PA is PHCP. jr8 21:53 Report given to ALYSSA Ayers. ca1 Administered Medications: 14:04 Drug: Ativan 1 mg Route: IVP; Site: right antecubital; ca1 16:24 Follow up: Response: No adverse reaction; Marked relief of symptoms; Anxiety decreased ca1 Outcome: :53 Discharge ordered by MD. cruz 22:00 Discharged to home ambulatory. rv 22:00 Condition: good 22:00 Discharge instructions given to patient, Instructed on discharge instructions, follow up and referral plans. Demonstrated understanding of instructions, follow-up care. 22:00 Patient left the ED. rv Signatures: Edith Travis, RN RN dm5 Nate Ridley RN RN sg Tish Monet RN Pedrito Wang PA PA jr8 Marito Yin, COSMETIC MANAGER COSMETIC MANAGER pm1 Krzysztof Delarosa, RN RN rv Aby Rayo ar5 Fallon Fry RN RN ca1 Estrada Brooks 4 Corrections: (The following items were deleted from the chart) 14:16 14:15 Safety Checks: Personal items have been removed. ca1 ca1 21:54 21:13 Reassessment: Patient appears in no apparent distress at this time. Patient is ca1 alert, oriented x 3, equal unlabored respirations, skin warm/dry/pink. Pt talked with Martha Birmingham of [facility]. Martha states, "I recommend out pt treatment" ca1
[2019-09-23 22:34] VITALS: O2SAT 100
[2019-09-23 22:35] VITALS: BP 128/62; TEMP 98
--- NOTE | 2019-09-24 06:40 | EKG ---
Test Date: 2019-09-23 Test Time: 14:00:41 Report Analyst: GARY MEASUREMENT RESULTS: Intervals: Rate: 66 FL: 150 QRSD: 86 QT: 388 QTc: 406 [place]: P: 35 FL: 150 QRS: 60 T: 37 INTERPRETIVE STATEMENTS: Normal sinus rhythm Normal ECG Compared to ECG 09/16/2019 11:34:05 No significant changes Electronically Signed On 09-24-19 06:39:30 CDT by Devin Hui
== END 2019-09-23 22:00 | disposition home or self-care (01) ==
LOC: ER 11:49
DX: F20.9 Schizophrenia, unspecified (principal)
CPT/HCPCS: 36415; 80048; 80076; 80307; 80320; 80329; 81003; 85025; 85610; 85730; 93005; 96374; 99285

== ENCOUNTER 2019-09-25 12:34 | Emergency (ER) | payer SELFPAY ==
--- OUTSIDE RECORDS SUMMARY | 2019-09-25 13:05 | XMS REPORT | Continuity of Care Document ---
:1990 Author Organization [facility] t Address [facility] [place] [address] Care Team Providers Name Role Phone Unavailable [...] = Expiration Dt) 01-18-20 N Thyroid Stimulating [id number] 08:21:50 Test Item Value Reference Range Interpretation Comments TSH (test code = TSH) 2.100 mIU/mL 0.270-4.200 Lipid [id number] 07:23:30 Test Item Value Reference Range Interpretation Comments Cholesterol Total 179 mg/dL 0-200 RISK OF HE ART (test code = DISEASEPublishe d by Cholesterol Total) [place] [employer] Jacqueline lyte Optimal Borderl ine [...] LDL/HDL Ratio=L DL Calc/HDL Chol Comprehensive Metabolic [id number] 07:00:35 Test Item Value Reference Range Interpretation [...] A/G 1.8 ratio N Ratio) Comprehensive Metabolic [id number] 07:00:35 Test Item Value Reference Range Interpretation [...] National Kidney Foundation, http://nkdep.ni h.gov Comprehensive Metabolic [id number] 07:00:35 Test Item Value Reference Range Interpretation [...] ag e have not been validated by [facility] MDRD study and should be interpreted [...] ag e have not been validated by [facility] MDRD study and should be interpreted wit h caution. eGFR R esult Interpretation: eGFR > or = 60 is in the Normal RangeeGF R < 60 may mean kid zach diseaseeGFR < 1 5 may mean kidney failure Rang es recommended by the National Kidney Foundation, http://nkdep.ni h.gov Complete Blood Count with [id number] 06:45:37 Test Item Value Reference Range Interpretation [...] code = IPF) 0 % N Automated [id number] 06:45:37 Test Item Value Reference Range Interpretation Comments Neutro Auto (test code = Neutro 55.6 % 36.0-70.0 Auto) Lymph Auto (test code = Lymph Auto) 29.0 % 12.0-44.0 [place] Auto (test code = [place] Auto) 11.8 % 0.0-11.0 H Eos, Auto (test code = Eos, Auto) 2.7 % 0.0-7.0 Basophil Auto (test code = Basophil 0.7 % 0.0-2.0 Auto) Neutro Absolute (test code = Neutro 3.3 x10 1.6-7.4 Absolute) Lymph Absolute (test code = Lymph 1.70 x10 .50-4.60 Absolute) [place] Absolute (test code = [place] .69 x10 .00-1.20 Absolute) Eos Absolute (test code = Eos 0.16 x10 0.00-0.74 Absolute) Baso Absolute (test code = Baso 0.04 x10 0.00-0.21 Absolute) IG [id number] 06:45:37 Test Item Value Reference Range Interpretation Comments IG (test code = IG) 0.2 % 0.0-5.0 IG Abs (test code = IG Abs) 0 x10 N
[2019-09-25 13:27] LABS: Absolute Lymphocytes (CBC) 1.6 K/uL (0.7-4.9); Basophils % 1.2 % (0-1.3); Hematocrit 45.5 % (39.6-49.0); Lymphocytes % 18.2 % (15.3-44.8); MPV 8.5 fL (7.6-11.3); RBC Red Blood Cell Count 5.18 M/uL (4.33-5.43)
[2019-09-25 13:35] LABS: Protime INR 0.98
[2019-09-25 13:36] LABS: Barbiturates NEGATIVE (NEGATIVE); Benzodiazepines NEGATIVE (NEGATIVE); Cocaine NEGATIVE (NEGATIVE); METHAMPHETAM NEGATIVE (NEGATIVE); Methadone NEGATIVE (NEGATIVE); Opiates NEGATIVE (NEGATIVE); Phencyclidine NEGATIVE (NEGATIVE); THC Cannibis NEGATIVE (NEGATIVE)
[2019-09-25 13:52] LABS: Urine Blood NEGATIVE (NEG); Urine Glucose NEGATIVE (NEG); Urine Protein NEGATIVE (NEG)
[2019-09-25 14:04] LABS: ALT/SGPT 74 U/L (12-78); AST/SGOT 32 U/L (15-37); Albumin 4.2 g/dL (3.4-5.0); Alkaline Phosphatase 150 U/L (45-117); BUN Blood Urea Nitrogen 16 mg/dL (7-18); Bicarbonate 28 mmol/L (21-32); Bilirubin Direct 0.1 mg/dL (0-0.2); Bilirubin Total 0.6 mg/dL (0.2-1.0); Glucose Level 88 mg/dL (74-106); Potassium 4.2 mmol/L (3.5-5.1); Protein, Total 8.1 g/dL (6.4-8.2); Sodium Level 139 mmol/L (136-145)
[2019-09-25] MEDS ORDERED: LORAZEPAM 1 MG TABLET ONE (14:12)
--- NOTE | 2019-09-25 16:08 | ER ---
Nurse's Notes [facility] Name: Heriberto Duke Age: 29 yrs Sex: Male : 1990 Arrival Date: 09/25/2019 Time: 12:39 Bed 25 Private MD: Diagnosis: Anxiety disorder, unspecified;Depression;Suicidal ideations Presentation: 09/24 12:43 Chief complaint: EMS states: Pt called EMS for SOB, upon arrival pt reported chest ph tightness and anxiety, also stated that he was having suicidal thoughts, denies plan or previous attempt, has been to a mental health facility before and dx w/ schizophrenia, does not take medications, VSS, no cough or fever reported. Coronavirus screen: Proceed with normal triage. Patient denies a cough. Patient reports shortness of breath or difficulty breathing. Patient denies measured and/or subjective temperature greater than 100.4F prior to today's visit. Patient denies travel on a cruise ship or to a country the [facility] currently lists as an affected area. Patient denies contact with known and/or suspected case of COVID-19. Ebola Screen: No symptoms or risks identified at this time. Initial Sepsis Screen: Does the patient meet any 2 criteria?. Initial Sepsis Screen: Does the patient have a suspected source of infection? No. Patient's initial sepsis screen is negative. Risk Assessment: Do you want to hurt yourself or someone else? Patient reports desire/thoughts of hurting themselves or someone else. Provider notified. Onset of symptoms was September 25, 2019. 12:43 Method Of Arrival: EMS: [facility] ph 12:43 Acuity: JOSEFA 2 ph Historical: - Allergies: 12:47 No Known Allergies; ph - Home Meds: 12:47 HALDOL IM MONTHLY [Active]; ph - PMHx: 12:47 Schizophrenia; ph - Immunization history:: Adult Immunizations unknown. - Social history:: Smoking status: Patient reports the use of cigarette tobacco products, denies chronic smoking, but will smoke occasionally, Patient uses street drugs, marijuana, reports smoking on 09/20, denies using since that time, Patient/guardian denies using alcohol. Screenin:48 Abuse screen: Denies threats or abuse. Denies injuries from another. Nutritional ph screening: No deficits noted. Tuberculosis screening: No symptoms or risk factors identified. Fall Risk None identified. Assessment: 13:40 General: Appears in no apparent distress. comfortable, well groomed, Behavior is calm, ph cooperative, appropriate for age, Denies fever, feeling ill. Pain: Complains of pain in chest Pain does not radiate. Quality of pain is described as pressure, sharp. Neuro: Level of Consciousness is awake, alert, obeys commands, Oriented to person, place, time, situation. Cardiovascular: Reports chest pain, shortness of breath, Denies nausea, palpitations, shortness of breath, vomiting, Capillary refill < 3 seconds in bilateral fingers Patient's skin is warm and dry. Chest pain quality is pressure, sharp, is located in substernal area. Respiratory: Airway is patent Respiratory effort is even, unlabored, Respiratory pattern is regular, symmetrical, Denies cough. GI: No signs and/or symptoms were reported involving the gastrointestinal system. Patient currently denies abdominal pain, diarrhea, nausea, vomiting. Derm: Skin is intact, is healthy with good turgor, Skin is pink, warm \T\ dry. Musculoskeletal: Circulation, motion, and sensation intact. Range of motion: intact in all extremities. 14:05 Reassessment: Patient appears in no apparent distress at this time. Patient and/or vc family updated on plan of care and expected duration. Pain level reassessed. Patient is alert, oriented x 3, equal unlabored respirations, skin warm/dry/pink. Patient laying in bed with eyes closed, chest rising and falling equally. Patient denies pain at this time. 16:45 Reassessment: hSerry palomino called to request demographics sheet on patient, unit vc voucher clerk to send. 09/25 10:59 Reassessment: Patient and/or family updated on plan of care and expected duration. Pain dm5 level reassessed. pt is video chatting with Mable with [facility] to discuss a plan of care. Psych: 09/24 13:43 Subjective: Patient's mood is hopeless, Delusions are denied, Hallucinations are denied ph Having thoughts of suicide. Denies suicidal plan. Objective: Patient is cooperative, Speech is normal, Affect is appropriate. Interventions: Removed personal items and placed in bag. Patient placed in hospital gown. Searched person for dangerous items. Belonging list filled out. Suicide Risk Assessment: Sad Person Scale: Sex of patient: Male: Score 1 point. Age of patient: Score 1 point if patient 15-34. Depression: Score 1 point if signs of depression are present. Previous Attempt: Score 0 point if patient has not previously attempted suicide. Substance Abuse: Score 0 point if patient does not abuse alcohol or drugs. Rational Thinking: Score 0 point if patient has rational thinking. Social Support: Score 0 if social support is present/available. Organized Plan: Score 0 if patient did not have an organized plan in place. Relationship: Score 1 point if patient is , , , or for a single male Chronic Sickness: Score 0 point if patient does not have a chronic illness, debilitating, or severe disorder. TOTAL POINTS: If total points are 3-4, proposed clinical action is close follow-up/consider hospitalization. Safety Checks: Personal items have been removed. Door is open. No visitors are present at this time. Patient uses marijuana Last use was 09/20. Commitment: Patient will be a voluntary commitment. Vital Signs: 12:43 BP 125 / 84; Pulse 87; Resp 18; Temp 98.2; Pulse Ox 99% on R/A; Weight 74.84 kg; Height ph 5 ft. 9 in. (175.26 cm); 09/25 08:30 BP 114 / 71; Pulse 86; Resp 18; Temp 97.7; Pulse Ox 98% on R/A; kj1 09/24 12:43 Body Mass Index 24.37 (74.84 kg, 175.26 cm) ph ED Course: 09/24 12:39 Patient arrived in ED. em1 12:43 Hamida Corral, RN is Primary Nurse. ph 12:47 Triage completed. ph 12:48 Arm band placed on Patient placed in an exam room, on a stretcher, on pulse oximetry. ph 12:59 Stone Guallpa MD is Attending Physician. kdr 13:00 Sitter at bedside. jp3 13:00 Safety checks: Items removed: yes. Door open/sign placed on door: yes. Family/friend jp3 present: no. Sitter present: Yes. Placed in gown. Bed in low position. Valuables inventory done. Locked in safe. Warm blanket given. Verbal reassurance given. 13:00 Urine collected: clean catch specimen, clear, alexey colored, Legal drug screen obtained jp3 per protocol. Patient maintains SpO2 saturation greater than 95% on room air. 13:05 Initial lab(s) drawn, by me, sent to lab. Inserted saline lock: 20 gauge in right jp3 antecubital area, using aseptic technique. Blood collected. 13:06 EKG done, by charge preparation technician. reviewed by Stone Guallpa MD. at1 13:13 Diet tray ordered. hb 13:45 Diet tray given. jp3 14:55 Diet tray ordered. jp3 16:00 pt clinical information and demographics sent to [facility], [place] [address] [place] [address], [facility], [facility], [facility], [facility] and [facility]. 16:42 [facility] called for Nurse to Nurse conference. em1 17:17 Diet tray given. jp3 17:20 [facility] Patient Intake called to advise that pt will be place on their wait list em1 for a bed. 19:13 Attending Physician role handed off by Stone Guallpa MD mauro 19:13 Romel Castro MD is Attending Physician. mauro 19:25 Spoke with Gina Albarran\ Humberto. They are at capacity for psych beds. ar5 09/25 07:00 Report received from Abigail Prieto RN. dm5 07:10 Attending Physician role handed off by Romel Castro MD kdr 07:10 Stone Guallpa MD is Attending Physician. kdr 07:14 faxed patient records to the following facilities in the attempt to transfer/ [facility], [facility], [facility], [facility], [facility], [facility], [facility], [facility], [facility], [facility], [facility], [facility], and [facility]. 08:45 Diet: Patient given a regular meal tray. kj1 10:11 called the [facility] crisis line to page out a screener for an evaluation. eb 11:13 Social work SPOKE WITH [facility] COUNSELOR ON IPAD 11AM. kj1 Administered Medications: 09/24 14:04 Drug: Ativan 1 mg Route: PO; vc 09/25 08:15 Drug: Ativan 1 mg Route: PO; dm5 Outcome: 09/24 16:07 ER care complete, transfer ordered by MD. kdr 07/09 11:20 Discharge ordered by . kdr 11:50 Patient left the ED. dm5 Signatures: Edith Travis, RN RN dm5 Romel Castro MD MD cha Rittger, Kevin, MD MD kdr Martinez, Eric em1 Teresa Poole, research laboratory technician EKG Tat1 Hamida Corral, RN ALYSSA Mattie De La Torre, RN RN Paulina Gibson Jacob jp3 Aby Rayo ar5 Maria Dolores Gama kj1 Lyssa Hdez RN RN vc
--- NOTE | 2019-09-25 16:08 | EDPHYS ---
Physician Documentation [facility] Name: Heriberto Duke Age: 29 yrs Sex: Male : 1990 Arrival Date: 09/25/2019 Time: 12:39 Bed 25 Private MD: ED Physician Stone Guallpa HPI: 09/24 14:35 This 29 yrs old Male presents to ER via EMS with complaints of Suicidal kdr Ideation. 14:35 The patient presents to the emergency department with anxiety, depression, States that kdr he can not "function" he denies specific plan but thinks he needs an inpatient stay to get stabilized back on his medications. Onset: The symptoms/episode began/occurred gradually, This is a chronic problem that is not becoming better and states that he needs inpatient therapy and monitoring or he may harm himself.. Past psychiatric history: Prior diagnosis: depression, schizophrenia, Psychiatric medications include: none, Primary psychiatric physician: the patient does not have a primary psychiatric physician, Has an appointment with [facility] on the . Associated signs and symptoms: The patient has no apparent associated signs or symptoms. Severity of symptoms: At their worst the symptoms were moderate in the emergency department the symptoms are unchanged. The patient has experienced similar episodes in the past, chronically. The patient has been recently seen by a physician: The patient has been recently seen at the [facility] Emergency Department, a couple of weeks ago. Historical: - Allergies: 12:47 No Known Allergies; ph - Home Meds: 12:47 HALDOL IM MONTHLY [Active]; ph - PMHx: 12:47 Schizophrenia; ph - Immunization history:: Adult Immunizations unknown. - Social history:: Smoking status: Patient reports the use of cigarette tobacco products, denies chronic smoking, but will smoke occasionally, Patient uses street drugs, marijuana, reports smoking on 09/20, denies using since that time, Patient/guardian denies using alcohol. ROS: 14:35 Constitutional: Negative for fever, chills, and weight loss, Eyes: Negative for injury, kdr pain, redness, and discharge, ENT: Negative for injury, pain, and discharge, Neck: Negative for injury, pain, and swelling, Cardiovascular: Negative for chest pain, palpitations, and edema, Respiratory: Negative for shortness of breath, cough, wheezing, and pleuritic chest pain, Abdomen/GI: Negative for abdominal pain, nausea, vomiting, diarrhea, and constipation, Back: Negative for injury and pain, : Negative for injury, bleeding, discharge, and swelling, MS/Extremity: Negative for injury and deformity, Skin: Negative for injury, rash, and discoloration, Neuro: Negative for headache, weakness, numbness, tingling, and seizure activity. Allergy/Immunology: Negative for hives, rash, and allergies, Endocrine: Negative for neck swelling, polydipsia, polyuria, polyphagia, and marked weight changes, Hematologic/Lymphatic: Negative for swollen nodes, abnormal bleeding, and unusual bruising. 14:35 Psych: Positive for anxiety, depression, suicidal ideation. Exam: 14:35 Constitutional: This is a well developed, well nourished patient who is awake, alert, kdr and in no acute distress. Head/Face: Normocephalic, atraumatic. Eyes: Pupils equal round and reactive to light, extra-ocular motions intact. Lids and lashes normal. Conjunctiva and sclera are non-icteric and not injected. Cornea within normal limits. Periorbital areas with no swelling, redness, or edema. Neck: Trachea midline, no thyromegaly or masses palpated, and no cervical lymphadenopathy. Supple, full range of motion without nuchal rigidity, or vertebral point tenderness. No Meningismus. Chest/axilla: Normal chest wall appearance and motion. Nontender with no deformity. No lesions are appreciated. Cardiovascular: Regular rate and rhythm with a normal S1 and S2. No gallops, murmurs, or rubs. Normal PMI, no JVD. No pulse deficits. Respiratory: Lungs have equal breath sounds bilaterally, clear to auscultation and percussion. No rales, rhonchi or wheezes noted. No increased work of breathing, no retractions or nasal flaring. Abdomen/GI: Soft, non-tender, with normal bowel sounds. No distension or tympany. No guarding or rebound. No evidence of tenderness throughout. Back: No spinal tenderness. No costovertebral tenderness. Full range of motion. Skin: Warm, dry with normal turgor. Normal color with no rashes, no lesions, and no evidence of cellulitis. MS/ Extremity: Pulses equal, no cyanosis. Neurovascular intact. Full, normal range of motion. Neuro: Awake and alert, GCS 15, oriented to person, place, time, and situation. Cranial nerves II-XII grossly intact. Motor strength 5/5 in all extremities. Sensory grossly intact. Cerebellar exam normal. Normal gait. 14:35 Psych: Behavior/mood is pleasant, cooperative, anxious, depressed, Affect is animated, Oriented to person, place, time, Patient having thoughts of suicide. Denies suicidal plan. Delusions/hallucinations are not present. 18:49 ECG was reviewed by the Attending Physician. kdr Vital Signs: 12:43 BP 125 / 84; Pulse 87; Resp 18; Temp 98.2; Pulse Ox 99% on R/A; Weight 74.84 kg; Height ph 5 ft. 9 in. (175.26 cm); 09/25 08:30 BP 114 / 71; Pulse 86; Resp 18; Temp 97.7; Pulse Ox 98% on R/A; kj1 09/24 12:43 Body Mass Index 24.37 (74.84 kg, 175.26 cm) ph MDM: 09/24 14:35 Data reviewed: vital signs, nurses notes, lab test result(s). Counseling: I had a kdr detailed discussion with the patient and/or guardian regarding: the historical points, exam findings, and any diagnostic results supporting the discharge/admit diagnosis, lab results, the need to transfer to another facility. 16:07 Patient medically screened. kdr 19:13 Patient medically screened. mauro 19:14 Differential diagnosis: drug withdrawal. acute psychotic break, depression, psychosis mauro secondary to non-compliance. Data interpreted: monitoring analyst: not applicable for this patient encounter. rate is 87 beats/min, rhythm is normal sinus rhythm, Pulse oximetry: is not applicable for this patient encounter. Test interpretation: by ED physician or midlevel provider: ECG. 09/25 07:22 ED course: The patient is resting quietly over the evening without need for any kdr intervention. He was updated on the likelihood of transfer. Will call at 8:00 to see if there is any other options at this time.. 09/24 12:53 Order name: Acetaminophen; Complete Time: 16: ph 09/24 12:53 Order name: Basic Metabolic Panel; Complete Time: 16: ph 09/24 12:53 Order name: CBC with Diff; Complete Time: 16: ph 09/24 12:53 Order name: ETOH Level; Complete Time: 16:06 ph 09/24 12:53 Order name: Hepatic Function; Complete Time: 16:06 ph 09/24 12:53 Order name: PT-INR; Complete Time: 16:06 ph 09/24 12:53 Order name: Ptt, Activated; Complete Time: 16:06 ph 09/24 12:53 Order name: Salicylate; Complete Time: 16:06 ph 09/24 12:53 Order name: Urine Drug Screen; Complete Time: 16:06 ph 09/24 12:53 Order name: EKG; Complete Time: 12:54 ph 09/24 13:16 Order name: Glucose, Ancillary Testing; Complete Time: 16:06 EDMS 09/24 13:30 Order name: Urine Dipstick--Ancillary (enter results); Complete Time: 16:06 em1 09/24 12:53 Order name: EKG - Nurse/Tech; Complete Time: 13:23 ph 09/24 12:53 Order name: IV Saline Lock; Complete Time: 13:13 ph 09/24 12:53 Order name: Labs collected and sent; Complete Time: 13:13 ph 09/24 12:53 Order name: Urine Dipstick-Ancillary (obtain specimen); Complete Time: 13:23 ph 09/24 13:12 Order name: Diet Regular; Complete Time: 13:12 hb 09/24 16:58 Order name: Diet Finger Food; Complete Time: 16:59 em1 09/24 17:02 Order name: Diet Regular; Complete Time: 17:03 hb EC/08 18:49 Rate is 92 beats/min. Rhythm is regular, Normal Sinus Rhythm with No ectopy. QRS [place] kdr is Normal. NM interval is normal. QRS interval is normal. QT interval is normal. No Q waves. T waves are Normal. Clinical impression: Normal ECG and NSR w/ Non-specific ST/T Changes. Administered Medications: 14:04 Drug: Ativan 1 mg Route: PO; vc 09/25 08:15 Drug: Ativan 1 mg Route: PO; dm5 Disposition: 09/26/19 11:20 Discharged to Home. Impression: Anxiety disorder, unspecified, Depression, Suicidal ideations. - Condition is Stable. - Discharge Instructions: Suicidal Feelings: How to Help Yourself, Stress and Stress Management, Panic Attacks, [id number], Generalized Anxiety Disorder. - Prescriptions for Ativan 1 mg Oral Tablet - take 1 tablet by ORAL route every 8 hours As needed; 2 tablet. - Medication Reconciliation Form, Thank You Letter form. - Follow up: Private Physician; When: Tomorrow; Reason: If symptoms return, Further diagnostic work-up, Recheck today's complaints, Continuance of care, Re-evaluation by your physician. - Problem is an acute exacerbation. - Symptoms have improved. - Notes: Please keep your appointment tomorrow at 12:30 Signatures: Dispatcher [employer] Edith Pimentel, RN RN dm5 Romel Castro MD MD cha Rittger, Kevin, MD MD kdr Hall, Patricia, RN RN Lyssa Hdez RN RN vc Corrections: (The following items were deleted from the chart) 11:19 0708 16:07 09/25/2019 16:07 Transfer ordered to Psych Facility. Diagnosis is Anxiety kdr disorder, unspecified; Major depressive disorder, recurrent, mild; Suicidal ideations. Reason for transfer: Higher level of care. Accepting physician is Psych MD. Condition is Stable. Problem is an ongoing problem. Symptoms have improved. kdr 09/25 11:50 11:20 09/26/2019 11:20 Discharged to Home. Impression: Anxiety disorder, unspecified; dm5 Depression; Suicidal ideations. Condition is Stable. Forms are Medication Reconciliation Form, Thank You Letter, Antibiotic Education, Prescription Opioid Use. Follow up: Private Physician; When: Tomorrow; Reason: If symptoms return, Further diagnostic work-up, Recheck today's complaints, Continuance of care, Re-evaluation by your physician. Problem is an acute exacerbation. Symptoms have improved. kdr
[2019-09-26] MEDS ORDERED: LORAZEPAM 1 MG TABLET ONE (08:18)
[2019-09-26 12:00] VITALS: BP 114/71; TEMP 97.7; O2SAT 98
== END 2019-09-26 11:50 | disposition home or self-care (01) ==
LOC: ER 12:34
DX: R45.851 Suicidal ideations (principal); F41.8 Other specified anxiety disorders; F17.210 Nicotine dependence, cigarettes, uncomplicated; F12.90 Cannabis use, unspecified, uncomplicated
CPT/HCPCS: 36415; 80048; 80076; 80307; 80320; 80329; 81003; 82947; 85025; 85610; 85730; 93005; 99285

== ENCOUNTER 2019-09-27 16:01 | Emergency (ER) | payer SELFPAY ==
--- OUTSIDE RECORDS SUMMARY | 2019-09-27 16:04 | XMS REPORT | Continuity of Care Document ---
:1990 Author Organization [facility] t Address [facility] [place] [address] Care Team Providers Name Role Phone Unavailable [...] = Expiration Dt) 01-18-20 N Thyroid Stimulating [id number] 08:21:50 Test Item Value Reference Range Interpretation Comments TSH (test code = TSH) 2.100 mIU/mL 0.270-4.200 Lipid [id number] 07:23:30 Test Item Value Reference Range Interpretation Comments Cholesterol Total 179 mg/dL 0-200 RISK OF HE ART (test code = DISEASEPublishe d by Cholesterol Total) [place] [employer] Jacqueline lyte Optimal Borderl ine [...] LDL/HDL Ratio=L DL Calc/HDL Chol Comprehensive Metabolic [id number] 07:00:35 Test Item Value Reference Range Interpretation [...] A/G 1.8 ratio N Ratio) Comprehensive Metabolic [id number] 07:00:35 Test Item Value Reference Range Interpretation [...] National Kidney Foundation, http://nkdep.ni h.gov Comprehensive Metabolic [id number] 07:00:35 Test Item Value Reference Range Interpretation [...] ag e have not been validated by [facility] MDRD study and should be interpreted [...] ag e have not been validated by [facility] MDRD study and should be interpreted wit h caution. eGFR R esult Interpretation: eGFR > or = 60 is in the Normal RangeeGF R < 60 may mean kid zach diseaseeGFR < 1 5 may mean kidney failure Rang es recommended by the National Kidney Foundation, http://nkdep.ni h.gov Complete Blood Count with [id number] 06:45:37 Test Item Value Reference Range Interpretation [...] code = IPF) 0 % N Automated [id number] 06:45:37 Test Item Value Reference Range Interpretation Comments Neutro Auto (test code = Neutro 55.6 % 36.0-70.0 Auto) Lymph Auto (test code = Lymph Auto) 29.0 % 12.0-44.0 Dewey Auto (test code = Dewey Auto) 11.8 % 0.0-11.0 H Eos, Auto (test code = Eos, Auto) 2.7 % 0.0-7.0 Basophil Auto (test code = Basophil 0.7 % 0.0-2.0 Auto) Neutro Absolute (test code = Neutro 3.3 x10 1.6-7.4 Absolute) Lymph Absolute (test code = Lymph 1.70 x10 .50-4.60 Absolute) Dewey Absolute (test code = Dewey .69 x10 .00-1.20 Absolute) Eos Absolute (test code = Eos 0.16 x10 0.00-0.74 Absolute) Baso Absolute (test code = Baso 0.04 x10 0.00-0.21 Absolute) IG [id number] 06:45:37 Test Item Value Reference Range Interpretation Comments IG (test code = IG) 0.2 % 0.0-5.0 IG Abs (test code = IG Abs) 0 x10 N
[2019-09-27 17:39] LABS: Absolute Lymphocytes (CBC) 2.2 K/uL (0.7-4.9); Basophils % 0.9 % (0-1.3); Hematocrit 41.9 % (39.6-49.0); Lymphocytes % 25.6 % (15.3-44.8); MPV 8.3 fL (7.6-11.3); RBC Red Blood Cell Count 4.77 M/uL (4.33-5.43)
[2019-09-27 18:14] LABS: BUN Blood Urea Nitrogen 16 mg/dL (7-18); Bicarbonate 27 mmol/L (21-32); Glucose Level 100 mg/dL (74-106); Potassium 3.8 mmol/L (3.5-5.1); Sodium Level 137 mmol/L (136-145)
--- NOTE | 2019-09-27 18:42 | EDPHYS ---
Physician Documentation [facility] Name: Heriberto Duke Age: 29 yrs Sex: Male : 1990 Arrival Date: 09/27/2019 Time: 16:06 Bed 14 Private MD: ED Physician Stone Guallpa HPI: 09/26 18:43 This 29 yrs old Male presents to ER via Law [employer] with complaints of kdr Psych Problem. 18:43 The patient presents to the emergency department with anxiety, over unknown kdr circumstances. Onset: The symptoms/episode began/occurred at an unknown time. Past psychiatric history: Prior diagnosis: depression, Anxiety. Associated signs and symptoms: The patient has no apparent associated signs or symptoms. Severity of symptoms: At their worst the symptoms were mild in the emergency department the symptoms are unchanged. The patient has experienced similar episodes in the past, chronically. The patient has been recently seen at the [facility] Emergency Department, yesterday. The patient has been here multiple times for the same issue and was seen for an approximate three conference call/counseling session today with Fely Schultz. Shortly after that session, he called 911 stating he "couldn't handle it." He continues to have no specific plan to harm himself and has been seen here for psych issues since January of last year. I discussed the case with Martha Lane from ([phone]). It was agreed the the patient could be safely discharged and follow-up as prior scheduled. He will be able to pick up man his medications from on Monday. Mom indicated in conversation with the nursing staff that if she had his Haldol, 20 mg PO BID, that she would give it to him and she felt she would be able to keep him out of the ED until his other medications were available . Historical: - Allergies: 16:21 No Known Allergies; bp - PMHx: 16:10 Schizophrenia; ss - Immunization history:: Adult Immunizations up to date. - Social history:: Smoking status: Patient denies any tobacco usage or history of. ROS: 18:43 Constitutional: Negative for fever, chills, and weight loss, Eyes: Negative for injury, kdr pain, redness, and discharge, ENT: Negative for injury, pain, and discharge, Neck: Negative for injury, pain, and swelling, Cardiovascular: Negative for chest pain, palpitations, and edema, Respiratory: Negative for shortness of breath, cough, wheezing, and pleuritic chest pain, Abdomen/GI: Negative for abdominal pain, nausea, vomiting, diarrhea, and constipation, Back: Negative for injury and pain, : Negative for injury, bleeding, discharge, and swelling, MS/Extremity: Negative for injury and deformity, Skin: Negative for injury, rash, and discoloration, Neuro: Negative for headache, weakness, numbness, tingling, and seizure activity. Allergy/Immunology: Negative for hives, rash, and allergies, Endocrine: Negative for neck swelling, polydipsia, polyuria, polyphagia, and marked weight changes, Hematologic/Lymphatic: Negative for swollen nodes, abnormal bleeding, and unusual bruising. 18:43 Psych: Positive for anxiety, Negative for depression, drug dependence, alcohol dependence, auditory hallucinations, visual hallucinations, homicidal ideation, insomnia, suicide gesture, suicidal ideation, acute changes. Exam: 18:43 Constitutional: This is a well developed, well nourished patient who is awake, alert, kdr and in no acute distress. 18:43 Psych: Behavior/mood is pleasant, cooperative, anxious, appropriate for age. Vital Signs: 16:21 BP 137 / 85; Pulse 89; Resp 19; Temp 97.9; Pulse Ox 99% ; bp MDM: 18:40 Patient medically screened. kdr 18:43 Data reviewed: vital signs, nurses notes. Counseling: I had a detailed discussion with kdr the patient and/or guardian regarding: the historical points, exam findings, and any diagnostic results supporting the discharge/admit diagnosis, the need for outpatient follow up. 09/26 16:14 Order name: Acetaminophen [facility] 09/26 16:14 Order name: Basic Metabolic Panel [facility] 09/26 16:14 Order name: CBC with Diff; Complete Time: 18:00 [facility] 09/26 16:14 Order name: ETOH Level [facility] 09/26 16:14 Order name: Salicylate [facility] 09/26 16:14 Order name: Urine Drug Screen [facility] 09/26 16:14 Order name: IV Saline Lock; Complete Time: 17:35 [facility] 09/26 16:14 Order name: Labs collected and sent; Complete Time: 17:35 kdr Administered Medications: No medications were administered Disposition: 09/27/19 18:40 Discharged to Home. Impression: Anxiety disorder, unspecified. - Condition is Stable. - Discharge Instructions: Panic Attacks, Wryi-wh-Rudd, Generalized Anxiety Disorder. - Prescriptions for Haloperidol 5 mg Oral Tablet - take 1 tablet by ORAL route every 12 hours; 6 tablet. - Medication Reconciliation Form, Thank You Letter form. - Follow up: Private Physician; When: 2 - 3 days; Reason: If symptoms return, Further diagnostic work-up, Recheck today's complaints, Continuance of care, Re-evaluation by your physician. - Problem is an ongoing problem. - Symptoms are unchanged. - Notes: Follow-up directly with the psychiatry facilities on the list we have given you. Signatures: Dispatcher [employer] EDDC Stone Guallpa MD MD [facility] Sherrill Schmidt RN RN Wayne Willoughby RN RN bp Corrections: (The following items were deleted from the chart) 19:00 18:40 09/27/2019 18:40 Discharged to Home. Impression: Anxiety disorder, unspecified. bp Condition is Stable. Forms are Medication Reconciliation Form, Thank You Letter, Antibiotic Education, Prescription Opioid Use. Follow up: Private Physician; When: 2 - 3 days; Reason: If symptoms return, Further diagnostic work-up, Recheck today's complaints, Continuance of care, Re-evaluation by your physician. Problem is an ongoing problem. Symptoms are unchanged. kdr
--- NOTE | 2019-09-27 18:42 | ER ---
Nurse's Notes [facility] Name: Heriberto Duke Age: 29 yrs Sex: Male : 1990 Arrival Date: 09/27/2019 Time: 16:06 Bed 14 Private MD: Diagnosis: Anxiety disorder, unspecified Presentation: 09/26 16:07 Chief complaint: Patient states: "I just want some Geodon. I don't know what's going ss on." Pt reports he went to his [facility] appointment today with [facility] which they got his medication squared away, but has not picked it up from the pharmacy yet. Pt reports his Mom may have gone to get pick it up. Coronavirus screen: Proceed with normal triage. Patient denies a cough. Patient denies shortness of breath or difficulty breathing. Patient denies measured and/or subjective temperature greater than 100.4F prior to today's visit. Patient denies travel on a cruise ship or to a country the [facility] currently lists as an affected area. Patient denies contact with known and/or suspected case of COVID-19. Ebola Screen: Patient denies exposure to infectious person. Patient denies travel to an Ebola-affected area in the 21 days before illness onset. 16:07 Acuity: JOSEFA 3 ss 16:21 Initial Sepsis Screen: Does the patient meet any 2 criteria? No. Patient's initial bp sepsis screen is negative. Does the patient have a suspected source of infection? No. Patient's initial sepsis screen is negative. Risk Assessment: Do you want to hurt yourself or someone else? Patient reports no desire to harm self or others. Onset of symptoms is unknown. 16:21 Method Of Arrival: [employer] bp Triage Assessment: 16:10 General: Appears in no apparent distress. comfortable, Behavior is cooperative, bp appropriate for age, anxious. Pain: Denies pain. EENT: No deficits noted. Neuro: Level of Consciousness is awake, alert, obeys commands, Oriented to person, place, time, situation, Appropriate for age. Cardiovascular: No deficits noted. Respiratory: No deficits noted. GI: No signs and/or symptoms were reported involving the gastrointestinal system. : No signs and/or symptoms were reported regarding the genitourinary system. Derm: No deficits noted. Musculoskeletal: No deficits noted. Historical: - Allergies: 16:21 No Known Allergies; bp - PMHx: 16:10 Schizophrenia; ss - Immunization history:: Adult Immunizations up to date. - Social history:: Smoking status: Patient denies any tobacco usage or history of. Screenin:17 Abuse screen: Denies threats or abuse. Denies injuries from another. Nutritional bp screening: No deficits noted. Tuberculosis screening: No symptoms or risk factors identified. Fall Risk None identified. Assessment: 16:10 General: SEE TRIAGE NOTE. bp 17:34 Reassessment: BLOOD DRAWN AND SENT, PT GIVEN URINAL FOR UOP. bp 18:28 General: AWAITING RESPONSE FROM [facility]. bp 18:58 Reassessment: PT D/C HOME AMBULATORY, DX WITH ANXIETY D/O. bp Psych: 18:59 Subjective:. Commitment: NO COMMITMENT. bp Vital Signs: 16:21 BP 137 / 85; Pulse 89; Resp 19; Temp 97.9; Pulse Ox 99% ; bp ED Course: 16:06 Patient arrived in ED. ss 16:10 Triage completed. ss 16:10 Arm band placed on right wrist. ss 16:14 Stone Guallpa MD is Attending Physician. kdr 16:16 Wayne Willoughby, ALYSSA is Primary Nurse. bp 16:17 Patient has correct armband on for positive identification. Bed in low position. Call bp light in reach. Side rails up X2. 17:32 Inserted saline lock: 20 gauge in right antecubital area, using aseptic technique. dh4 18:12 called the [facility] Crisis line and spoke with Phani/ He will page the production machine operator eb screener to give up a call back. 18:[address] Guallpa with the screener from [facility] for patient consultation. eb 18:58 No provider procedures requiring assistance completed. IV discontinued, intact, bp bleeding controlled, No redness/swelling at site. Pressure dressing applied. Administered Medications: No medications were administered Outcome: 18:40 Discharge ordered by . kdr 18:58 Discharged to home ambulatory. bp 18:58 Condition: stable 18:58 Discharge instructions given to patient, Instructed on discharge instructions, follow up and referral plans. medication usage, Demonstrated understanding of instructions, follow-up care, medications, Prescriptions given X 1. 19:00 Patient left the ED. bp Signatures: Stone Guallpa MD MD kdr Sherrill Schmidt RN RN Wayne Willoughby RN RN bp Paulina Cole Donald [facility]
[2019-09-27 19:20] LABS: Barbiturates NEGATIVE (NEGATIVE); Benzodiazepines NEGATIVE (NEGATIVE); Cocaine NEGATIVE (NEGATIVE); METHAMPHETAM NEGATIVE (NEGATIVE); Methadone NEGATIVE (NEGATIVE); Opiates POSITIVE (NEGATIVE); Phencyclidine NEGATIVE (NEGATIVE); THC Cannibis NEGATIVE (NEGATIVE)
[2019-09-27 19:22] VITALS: BP 137/85; TEMP 97.9; O2SAT 99
== END 2019-09-27 19:00 | disposition home or self-care (01) ==
LOC: ER 16:01
DX: F41.9 Anxiety disorder, unspecified (principal)
CPT/HCPCS: 36415; 80048; 80307; 80320; 80329; 85025; 99283

== ENCOUNTER 2021-03-29 16:41 | Emergency (ER) | payer OTHER ==
--- OUTSIDE RECORDS SUMMARY | 2021-03-29 16:45 | XMS REPORT | Continuity of Care Document ---
:1990 Author Organization [facility] t Address [address] [place] [address] Care Team Providers Name Role Phone Manfred Lewis Attending Clinician Unavailable Manfred Lewis Attending Clinician Unavailable Manfred Lewis Admitting Clinician Unavailable Problems This patient has no known problems. Allergies, Adverse Reactions, Alerts Allergy Allergy Status Severity Reaction(s) Onset Inactive Treating Comm ents Source Name Type Date Date Clinician No Known DA Active U 2019-03 [facility] Drug 05-16 Allergie 00:00: s 00 Medications This patient has no known medications. Vital Signs Vital Name Observation Time Observation Value Comments Source 02 Sat by Pulse Oximetry 2020-03-16 16:15:27 96 /min Body Mass Index 2020-03-16 16:15:27 26.5 Height 2020-03-16 16:15:27 177.8\\S\\70 Pulse Rate 2020-03-16 16:15:27 85 /min Respiratory Rate 2020-03-16 16:15:27 18 /min Temperature 2020-03-16 16:15:27 36.8\\S\\98.2 Weight 2020-03-16 16:15:27 25335.588\\S\\2960 Weight Measurement Method 2020-03-16 16:15:27 Estimated by Patient Respiratory 2020-03-16 16:15:27 No respiratory distress /min Respiratory 2020-03-16 16:09:15 No respiratory distress /min 02 Sat by Pulse Oximetry 2020-03-16 16:09:15 96 /min Body Mass Index 2020-03-16 16:09:15 26.5 Height 2020-03-16 16:09:15 177.8\\S\\70 Pulse Rate 2020-03-16 16:09:15 85 /min Respiratory Rate 2020-03-16 16:09:15 18 /min Temperature 2020-03-16 16:09:15 36.8\\S\\98.2 Weight 2020-03-16 16:09:15 82657.588\\S\\2960 Weight Measurement Method 2020-03-16 16:09:15 Estimated by Patient Respiratory 2020-03-16 16:09:14 No respiratory distress /min 02 Sat by Pulse Oximetry 2020-03-16 16:09:14 96 /min Body Mass Index 2020-03-16 16:09:14 26.5 Height 2020-03-16 16:09:14 177.8\\S\\70 Pulse Rate 2020-03-16 16:09:14 85 /min Respiratory Rate 2020-03-16 16:09:14 18 /min Temperature 2020-03-16 16:09:14 36.8\\S\\98.2 Weight 2020-03-16 16:09:14 26445.588\\S\\2960 Weight Measurement Method 2020-03-16 16:09:14 Estimated by Patient Respiratory 2020-03-16 14:02:46 No respiratory distress /min 02 Sat by Pulse Oximetry 2020-03-16 14:02:46 96 /min Body Mass Index 2020-03-16 14:02:46 26.5 Height 2020-03-16 14:02:46 177.8\\S\\70 Pulse Rate 2020-03-16 14:02:46 85 /min Respiratory Rate 2020-03-16 14:02:46 18 /min Temperature 2020-03-16 14:02:46 36.8\\S\\98.2 Weight 2020-03-16 14:02:46 63390.588\\S\\2960 Weight Measurement Method 2020-03-16 14:02:46 Estimated by Patient Respiratory 2020-03-16 14:02:15 No respiratory distress /min 02 Sat by Pulse Oximetry 2020-03-16 14:02:15 96 /min Body Mass Index 2020-03-16 14:02:15 26.5 Height 2020-03-16 14:02:15 177.8\\S\\70 Pulse Rate 2020-03-16 14:02:15 85 /min Respiratory Rate 2020-03-16 14:02:15 18 /min Temperature 2020-03-16 14:02:15 36.8\\S\\98.2 Weight 2020-03-16 14:02:15 80640.588\\S\\2960 Weight Measurement Method 2020-03-16 14:02:15 Estimated by Patient 02 Sat by Pulse Oximetry 2020-03-16 14:01:43 96 /min Body Mass Index 2020-03-16 14:01:43 26.5 Height 2020-03-16 14:01:43 177.8\\S\\70 Pulse Rate 2020-03-16 14:01:43 85 /min Respiratory Rate 2020-03-16 14:01:43 18 /min Temperature 2020-03-16 14:01:43 36.8\\S\\98.2 Weight 2020-03-16 14:01:43 97254.588\\S\\2960 Weight Measurement Method 2020-03-16 14:01:43 Estimated by Patient Respiratory 2020-03-16 14:01:43 No respiratory distress /min Respiratory 2020-03-16 14:01:12 No respiratory distress /min 02 Sat by Pulse Oximetry 2020-03-16 14:01:12 96 /min Body Mass Index 2020-03-16 14:01:12 26.5 Height 2020-03-16 14:01:12 177.8\\S\\70 Pulse Rate 2020-03-16 14:01:12 85 /min Respiratory Rate 2020-03-16 14:01:12 18 /min Temperature 2020-03-16 14:01:12 36.8\\S\\98.2 Weight 2020-03-16 14:01:12 92318.588\\S\\2960 Weight Measurement Method 2020-03-16 14:01:12 Estimated by Patient Respiratory 2020-03-15 16:13:25 No respiratory distress /min 02 Sat by Pulse Oximetry 2020-03-15 16:13:25 98 /min Body Mass Index 2020-03-15 16:13:25 26.5 Height 2020-03-15 16:13:25 177.8\\S\\70 Pulse Rate 2020-03-15 16:13:25 87 /min Respiratory Rate 2020-03-15 16:13:25 18 /min Temperature 2020-03-15 16:13:25 36.5\\S\\97.7 Weight 2020-03-15 16:13:25 97638.588\\S\\2960 Weight Measurement Method 2020-03-15 16:13:25 Estimated by Patient Respiratory 2020-03-15 15:57:27 No respiratory distress /min 02 Sat by Pulse Oximetry 2020-03-15 15:57:27 98 /min Body Mass Index 2020-03-15 15:57:27 26.5 Height 2020-03-15 15:57:27 177.8\\S\\70 Pulse Rate 2020-03-15 15:57:27 87 /min Respiratory Rate 2020-03-15 15:57:27 18 /min Temperature 2020-03-15 15:57:27 36.5\\S\\97.7 Weight 2020-03-15 15:57:27 79906.588\\S\\2960 Weight Measurement Method 2020-03-15 15:57:27 Estimated by Patient Respiratory 2020-03-15 14:35:13 No respiratory distress /min 02 Sat by Pulse Oximetry 2020-03-15 14:35:13 98 /min Body Mass Index 2020-03-15 14:35:13 26.5 Height 2020-03-15 14:35:13 177.8\\S\\70 Pulse Rate 2020-03-15 14:35:13 87 /min Respiratory Rate 2020-03-15 14:35:13 18 /min Temperature 2020-03-15 14:35:13 36.5\\S\\97.7 Weight 2020-03-15 14:35:13 99291.588\\S\\2960 Weight Measurement Method 2020-03-15 14:35:13 Estimated by Patient Respiratory 2020-03-15 14:28:03 No respiratory distress /min 02 Sat by Pulse Oximetry 2020-03-15 14:28:03 98 /min Body Mass Index 2020-03-15 14:28:03 26.5 Height 2020-03-15 14:28:03 177.8\\S\\70 Pulse Rate 2020-03-15 14:28:03 87 /min Respiratory Rate 2020-03-15 14:28:03 18 /min Temperature 2020-03-15 14:28:03 36.5\\S\\97.7 Weight 2020-03-15 14:28:03 61493.588\\S\\2960 Weight Measurement Method 2020-03-15 14:28:03 Estimated by Patient Respiratory 2020-03-15 14:27:02 No respiratory distress /min 02 Sat by Pulse Oximetry 2020-03-15 14:27:02 98 /min Body Mass Index 2020-03-15 14:27:02 26.5 Height 2020-03-15 14:27:02 177.8\\S\\70 Pulse Rate 2020-03-15 14:27:02 87 /min Respiratory Rate 2020-03-15 14:27:02 18 /min Temperature 2020-03-15 14:27:02 36.5\\S\\97.7 Weight 2020-03-15 14:27:02 33721.588\\S\\2960 Weight Measurement Method 2020-03-15 14:27:02 Estimated by Patient Respiratory 2020-03-15 10:42:59 No respiratory distress /min 02 Sat by Pulse Oximetry 2020-03-15 10:42:59 100 /min Body Mass Index 2020-03-15 10:42:59 26.5 Height 2020-03-15 10:42:59 177.8\\S\\70 Pulse Rate 2020-03-15 10:42:59 92 /min Respiratory Rate 2020-03-15 10:42:59 18 /min Temperature 2020-03-15 10:42:59 36.8\\S\\98.2 Weight 2020-03-15 10:42:59 70929.588\\S\\2960 Weight Measurement Method 2020-03-15 10:42:59 Estimated by Patient 02 Sat by Pulse Oximetry 2020-03-15 10:16:27 100 /min Body Mass Index 2020-03-15 10:16:27 26.5 Height 2020-03-15 10:16:27 177.8\\S\\70 Pulse Rate 2020-03-15 10:16:27 92 /min Respiratory Rate 2020-03-15 10:16:27 18 /min Temperature 2020-03-15 10:16:27 36.8\\S\\98.2 Weight 2020-03-15 10:16:27 82736.588\\S\\2960 Weight Measurement Method 2020-03-15 10:16:27 Estimated by Patient 02 Sat by Pulse Oximetry 2020-03-15 10:14:24 100 /min Body Mass Index 2020-03-15 10:14:24 26.5 Height 2020-03-15 10:14:24 177.8\\S\\70 Pulse Rate 2020-03-15 10:14:24 92 /min Respiratory Rate 2020-03-15 10:14:24 18 /min Temperature 2020-03-15 10:14:24 36.8\\S\\98.2 Weight 2020-03-15 10:14:24 39038.588\\S\\2960 Weight Measurement Method 2020-03-15 10:14:24 Estimated by Patient 02 Sat by Pulse Oximetry 2020-03-15 10:13:53 100 /min Body Mass Index 2020-03-15 10:13:53 26.5 Height 2020-03-15 10:13:53 177.8\\S\\70 Pulse Rate 2020-03-15 10:13:53 92 /min Respiratory Rate 2020-03-15 10:13:53 18 /min Temperature 2020-03-15 10:13:53 36.8\\S\\98.2 Weight 2020-03-15 10:13:53 38385.588\\S\\2960 Weight Measurement Method 2020-03-15 10:13:53 Estimated by Patient WEIGHT 2020-03-15 10:08:00 83.246045 kg HEIGHT 2020-03-15 10:08:00 177.8 cm Procedures This patient has no known procedures. Encounters Start End Encounter Admission Attending Care Care Encounter Source Date/Time Date/Time Type Type Clinicians Facility Department ID 2019-09-28 2019-10-30 Inpatient 1 Wellington Lewis [facility] [id number] 09:54:00 13:45:00 Wellington Lewis [facility] Results Test Description Test Time Test Comments Results Result Comments Source Novel Coronavirus SARS-CoV-2, PCR 2019-10-08 23:02:04 Test Item Value Reference Range Interpretation Comme nts SARS-CoV-2 PCR (test code = NEGATIVE Negative Test performed by Baker SARS-CoV-2 PCR) Yazidism.Po sitive results are indicative of a ctive infection with SARS-CoV-2; cli nical correlation with patient hi story and other diagnostic info rmation is necessary to determine pa tient infection status.Presumpt ajit positive results -INTERPRET WITH CAUTION: Result may not reflect if patient is actually positi ve. Patient should be treated based o n clinical suspicions. Neg ative results do not preclude SARS-C oV-2 infection and should not be u sed as the sole basis for treatment o r other patient management deci sions. Negative results must be combined with clinical observ ations, patient history, and ep idemiological information.The Xpert Xpress SARS-CoV-2 test is only for use under the Food and Drug Administration s Emergency Use Authorization." RPR [id number] 13:55:26 Test Item Value Reference Range Interpretation Comments RPR Qual (test code = RPR Qual) Non-Reactive Non-Reactive Reactive Control (test code = Reactive Reactive Control) Weak Reactive Control (test Weak Reactive code = Weak Reactive Control) Non-Reactive Control (test code Non-Reactive = Non-Reactive Control) Lot # (test code = Lot #) [id number] Expiration Dt (test code = 9.30.21 N Expiration Dt) Hemoglobin [id number] 11:44:22 Test Item Value Reference Range Interpretation Comments Hemoglobin A1c (test code 4.9 % 4.0-5.8 Di abetic >=6.5 = Hemoglobin A1c) %Prediabet es 5.7-6.4 %Normal <5.7 % Lipid [id number] 11:38:42 Test Item Value Reference Range Interpretation Comments Cholesterol Total 199 mg/dL N Low-risk l evel (test code = (desirable) - < 200 Cholesterol Total) mg/dlMode rate-risk level (borderli ne) - 200-239 mg/dlHigh-risk level - ?240 mg/dl Triglycerides (test 154 mg/dL N Normal - <150 code = Triglycerides) mg/dlB orderline high - 150-199 mg/dl High - 200-499 mg/dl Very high - ?500 mg/ dl HDL (test code = HDL) 40.90 mg/dL N Low-ri sk level (desirable) - ? 60 mg/dlHigh-risk level (undesirable) - <40 mg/dl LDL (test code = LDL) 127 mg/dL N The eq uation being used in this calculation is LDL = (Chol - HDL) - (Trig / 5) VLDL (test code = 31 mg/dL 5-40 The equati on being VLDL) used in this calculation is VLDL = Trig / 5 Chol/HDL (test code = 4.9 ratio <=5.0 Chol/HDL) LDL/HDL Ratio (test 5 N The equa tion being code = LDL/HDL Ratio) used i n this calculation is LDL/HDL Ratio=L DL Calc/HDL Chol Thyroid Stimulating [id number] 11:38:42 Test Item Value Reference Range Interpretation Comments TSH (test code = TSH) 2.039 mcIU/mL 0.550-4.780 Urine DOA [id number] 14:30:34 Test Item Value Reference Range Interpretation Comments Amphetamine Screen Ur Negative Negative The sp ecimen is (test code = presumptive pos itive Amphetamine Screen Ur) if th e analyte concentration i s equal to or greater t urias 1000 ng/ml.If confirmation of positive result is desired, please order Amphetamine Confirmation, U rine within 7 days. Barbiturate Screen Ur Negative Negative The sp ecimen is (test code = presumptive pos itive Barbiturate Screen Ur) if th e analyte concentration i s equal to or greater t urias 200 ng/ml.If confir mation of positive res ult is desired, please order Barbiturate Confirmation, U rine within 7 days. Benzodiazepines Ur Negative Negative The speci men is (test code = presumptive pos itive Benzodiazepines Ur) if the a nalyte concentration i s equal to or greater t urias 200 ng/ml.If confir mation of positive res ult is desired, please order Benzodiazephine Confirmation, U rine within 7 days. Cocaine Screen Ur (test Negative Negative The specimen is code = Cocaine Screen presum ptive positive Ur) if the analyte concentration i s equal to or greater t urias 300 ng/ml.If confir mation of positive res ult is desired, please order Cocaine Metabol ite Confirmation, U rine within 7 days. Opiate Screen Ur (test Positive Negative A The s pecimen is code = Opiate Screen presump tive positive Ur) if the analyte concentration i s equal to or greater t urias 2000 ng/ml.If confirmation of positive result is desired, please order Opiate Confirm ation, Urine within 7 days. U PCP Scrn (test code = Negative Negative The specimen is U PCP Scrn) presumptive pos itive if the analyte concentration i s equal to or greater t urias 25 ng/ml.If confir mation of positive res ult is desired, please order Phencyclidine Confirmation, U rine within 7 days. Cannabinoid Screen Ur Negative Negative The sp ecimen is (test code = presumptive pos itive Cannabinoid Screen Ur) if th e analyte concentration i s equal to or greater t urias 50 ng/ml.If confir mation of positive res ult is desired, please order Cannabinoid (TH C) Confirmation, U rine within 7 days. U Methadone Scr (test Negative Negative The sp ecimen is code = U Methadone Scr) pres umptive positive if the analyte concentration i s equal to or greater t urias 300 ng/ml.If confir mation of positive res ult is desired, please order Methadone Confirmation, U rine within 7 days. U Propoxyphene (test Negative Negative The spe cimen is code = U Propoxyphene) presu mptive positive if the analyte concentration i s equal to or greater t urias 300 ng/ml.If confir mation of positive res ult is desired, please order Propoxyphene Confirmation wi thin 7 days. Comprehensive Metabolic [id number] 11:37:31 Test Item Value Reference Range Interpretation Comments Sodium Level (test code = Sodium 139.0 mmol/L 136.0-145.0 Level) Potassium Level (test code = 4.90 mmol/L 3.50-5.10 Potassium Level) Chloride Level (test code = 103.0 mmol/L 98.0-107.0 Chloride Level) CO2 (test code = CO2) 27 mmol/L 20-31 Anion Gap (test code = Anion 8.9 mmol/L 5.0-15.0 Gap) BUN (test code = BUN) 13 mg/dL 9-23 Creatinine Level (test code = 0.85 mg/dL 0.70-1.30 Creatinine Level) BUN/Creat Ratio (test code = 15.3 ratio 10.0-20.0 BUN/Creat Ratio) Glucose Level (test code = 88 mg/dL 74-106 Glucose Level) Calcium Level (test code = 9.7 mg/dL 8.3-10.6 Calcium Level) Alk Phos (test code = Alk Phos) 159 U/L 46-116 H Bilirubin Total (test code = 0.6 mg/dL 0.2-1.1 Bilirubin Total) Albumin Level (test code = 5.5 g/dL 3.2-4.8 H Albumin Level) Protein Total (test code = 7.9 g/dL 5.7-8.2 Protein Total) ALT (test code = ALT) 41 U/L 10-49 AST (test code = AST) 24 U/L <=34 Globulin (test code = Globulin) 2.4 g/dL 2.3-3.5 A/G Ratio (test code = A/G 2.3 g/dL 0.8-2.0 H Ratio) Hemolysis (test code = 0 g/dL 1-2 H Hemolysis) Icterus (test code = Icterus) 0 g/dL 1-2 H Lipemia (test code = Lipemia) 0 g/dL 1-2 H Alcohol [id number] 11:37:31 Test Item Value Reference Range Interpretation Comments Ethanol Level 3.8 mg/dL N The pharmacolo gical (test code = response to blo od alcohol Ethanol Level) levels may va ry from individual to i ndividual. The fatal kashif ntration has been report ed to be >400 mg/dl. Comprehensive Metabolic [id number] 11:37:31 Test Item Value Reference Range Interpretation Comments Sodium Level (test 139.0 mmol/L 136.0-145.0 code = Sodium Level) Potassium Level 4.90 mmol/L 3.50-5.10 (test code = Potassium Level) Chloride Level (test 103.0 mmol/L 98.0-107.0 code = Chloride Level) CO2 (test code = 27 mmol/L 20-31 CO2) Anion Gap (test code 8.9 mmol/L 5.0-15.0 = Anion Gap) BUN (test code = 13 mg/dL 9-23 BUN) Creatinine Level 0.85 mg/dL 0.70-1.30 (test code = Creatinine Level) BUN/Creat Ratio 15.3 ratio 10.0-20.0 (test code = BUN/Creat Ratio) Glucose Level (test 88 mg/dL 74-106 code = Glucose Level) Calcium Level (test 9.7 mg/dL 8.3-10.6 code = Calcium Level) Alk Phos (test code 159 U/L 46-116 H = Alk Phos) Bilirubin Total 0.6 mg/dL 0.2-1.1 (test code = Bilirubin Total) Albumin Level (test 5.5 g/dL 3.2-4.8 H code = Albumin Level) Protein Total (test 7.9 g/dL 5.7-8.2 code = Protein Total) ALT (test code = 41 U/L 10-49 ALT) AST (test code = 24 U/L <=34 AST) Globulin (test code 2.4 g/dL 2.3-3.5 = Globulin) A/G Ratio (test code 2.3 g/dL 0.8-2.0 H = A/G Ratio) eGFR AA (test code = >60 >=60 eGFR (e stimated eGFR AA) mL/min/1.73 m2 [...] by the National Kid[employer] Foundation, http://nkdep.ni h.gov Hemolysis (test code 0 g/dL 1-2 H = Hemolysis) Icterus (test code = 0 g/dL 1-2 H Icterus) Lipemia (test code = 0 g/dL 1-2 H Lipemia) Comprehensive Metabolic [id number] 11:37:31 Test Item Value Reference Range Interpretation Comments Sodium Level (test 139.0 mmol/L 136.0-145.0 code = Sodium Level) Potassium Level 4.90 mmol/L 3.50-5.10 (test code = Potassium Level) Chloride Level (test 103.0 mmol/L 98.0-107.0 code = Chloride Level) CO2 (test code = 27 mmol/L 20-31 CO2) Anion Gap (test code 8.9 mmol/L 5.0-15.0 = Anion Gap) BUN (test code = 13 mg/dL 9-23 BUN) Creatinine Level 0.85 mg/dL 0.70-1.30 (test code = Creatinine Level) BUN/Creat Ratio 15.3 ratio 10.0-20.0 (test code = BUN/Creat Ratio) Glucose Level (test 88 mg/dL 74-106 code = Glucose Level) Calcium Level (test 9.7 mg/dL 8.3-10.6 code = Calcium Level) Alk Phos (test code 159 U/L 46-116 H = Alk Phos) Bilirubin Total 0.6 mg/dL 0.2-1.1 (test code = Bilirubin Total) Albumin Level (test 5.5 g/dL 3.2-4.8 H code = Albumin Level) Protein Total (test 7.9 g/dL 5.7-8.2 code = Protein Total) ALT (test code = 41 U/L 10-49 ALT) AST (test code = 24 U/L <=34 AST) Globulin (test code 2.4 g/dL 2.3-3.5 = Globulin) A/G Ratio (test code 2.3 g/dL 0.8-2.0 H = A/G Ratio) eGFR AA (test code = >60 >=60 eGFR (e stimated eGFR AA) mL/min/1.73 m2 [...] Foundation, http://nkdep.ni h.gov eGFR Non-AA (test >60.00 >=60.00 eGFR (mragie mated code = eGFR Non-AA) mL/min/1.73 m2 [...] by the National Kid[employer] Foundation, http://nkdep.ni h.gov Hemolysis (test code 0 g/dL 1-2 H = Hemolysis) Icterus (test code = 0 g/dL 1-2 H Icterus) Lipemia (test code = 0 g/dL 1-2 H Lipemia) Urinalysis with Culture, if [id number] 11:23:08 Test Item Value Reference Range Interpretation Comments UA Color (test code = UA Color) YELLO Yellow UA Appear (test code = UA CLEAR Clear Appear) UA pH (test code = UA pH) 6.0 UA Spec Grav (test code = UA 1.010 1.001-1.035 Spec Grav) UA Glucose (test code = UA NEG Negative Glucose) UA Bili (test code = UA Bili) NEG Negative UA Ketones (test code = UA NEG Negative Ketones) UA Blood (test code = UA Blood) NEG Negative UA Protein (test code = UA NEG Negative Protein) UA Urobilinogen (test code = UA .2 mg/dL >0.2 Urobilinogen) UA Nitrite (test code = UA NEG Negative Nitrite) UA Leuk Est (test code = UA NEG Negative Leuk Est) UA Micro Ind? (test code = UA Not Indicated Not Indicated Micro Ind?) Automated [id number] 11:14:51 Test Item Value Reference Range Interpretation Comments Neutro Auto (test code = Neutro 59.5 % 36.0-70.0 Auto) Lymph Auto (test code = Lymph Auto) 26.2 % 12.0-44.0 Cherry Auto (test code = Cherry Auto) 10.2 % 0.0-11.0 Eos, Auto (test code = Eos, Auto) 2.6 % 0.0-7.0 Basophil Auto (test code = Basophil 1.0 % 0.0-2.0 Auto) Neutro Absolute (test code = Neutro 4.5 x10 1.6-7.4 Absolute) Lymph Absolute (test code = Lymph 2.00 x10 .50-4.60 Absolute) Cherry Absolute (test code = Cherry .78 x10 .00-1.20 Absolute) Eos Absolute (test code = Eos 0.20 x10 0.00-0.74 Absolute) Baso Absolute (test code = Baso 0.08 x10 0.00-0.21 Absolute) IG [id number] 11:14:51 Test Item Value Reference Range Interpretation Comments IG (test code = IG) 0.5 % 0.0-5.0 IG Abs (test code = IG Abs) 0 x10 N Complete Blood Count with [id number] 11:14:50 Test Item Value Reference Range Interpretation Comments WBC (test code = WBC) 7.6 x10 4.4-10.5 RBC (test code = RBC) 5.18 x10 4.10-5.70 Hgb (test code = Hgb) 14.8 g/dL 13.4-17.4 Hct (test code = Hct) 48.1 % 38.7-52.0 MCV (test code = MCV) 92.90 fL 80.00-100.00 MCHC (test code = 30.80 g/dL 32.00-37.50 L MCHC) RDW CV (test code = 13.3 % 11.5-14.5 RDW CV) MCH (test code = MCH) 28.6 pg 27.0-32.5 Platelets (test code = 363.0 x10 140.0-440.0 Platelets) MPV (test code = MPV) 10.2 fL N Slide Review (test Auto Auto Result cr eated by code = Slide Review) GL_SJM_ SLIDE_REV_AUTO nRBC (test code = 0 N nRBC) NRBC Abs (test code = 0.00 x10 N NRBC Abs) IPF (test code = IPF) 0 % N RPR [id number] 13:47:36 Test Item Value Reference Range Interpretation Comments RPR Qual (test code = RPR Qual) Non-Reactive Non-Reactive Reactive Control (test code = Reactive Reactive Control) Weak Reactive Control (test Weak Reactive code = Weak Reactive Control) Non-Reactive Control (test code Non-Reactive = Non-Reactive Control) Lot # (test code = Lot #) [id number] N Expiration Dt (test code = 01-18-20 N Expiration Dt) Thyroid Stimulating [id number] 08:21:50 Test Item Value Reference Range Interpretation Comments TSH (test code = TSH) 2.100 mIU/mL 0.270-4.200 Lipid [id number] 07:23:30 Test Item Value Reference Range Interpretation [...] LDL/HDL Ratio=L DL Calc/HDL Chol Comprehensive Metabolic [id number] 07:00:35 Test Item Value Reference Range Interpretation [...] A/G 1.8 ratio N Ratio) Comprehensive Metabolic [id number] 07:00:35 Test Item Value Reference Range Interpretation [...] National Kidney Foundation, [email or web address].ni h.gov Comprehensive Metabolic [id number] 07:00:35 Test Item Value Reference Range Interpretation [...] Foundation, [email or web address].ni h.gov Complete Blood Count with [id number] 06:45:37 Test Item Value Reference Range Interpretation [...] code = IPF) 0 % N Automated [id number] 06:45:37 Test Item Value Reference Range Interpretation Comments Neutro Auto (test code = Neutro 55.6 % 36.0-70.0 Auto) Lymph Auto (test code = Lymph Auto) 29.0 % 12.0-44.0 Cherry Auto (test code = Cherry Auto) 11.8 % 0.0-11.0 H Eos, Auto (test code = Eos, Auto) 2.7 % 0.0-7.0 Basophil Auto (test code = Basophil 0.7 % 0.0-2.0 Auto) Neutro Absolute (test code = Neutro 3.3 x10 1.6-7.4 Absolute) Lymph Absolute (test code = Lymph 1.70 x10 .50-4.60 Absolute) Cherry Absolute (test code = Cherry .69 x10 .00-1.20 Absolute) Eos Absolute (test code = Eos 0.16 x10 0.00-0.74 Absolute) Baso Absolute (test code = Baso 0.04 x10 0.00-0.21 Absolute) IG [id number] 06:45:37 Test Item Value Reference Range Interpretation Comments IG (test code = IG) 0.2 % 0.0-5.0 IG Abs (test code = IG Abs) 0 x10 N
[2021-03-29 18:34] LABS: Hematocrit 41.9 % (39.6-49.0); Lymphocytes % 33.5 % (15.3-44.8); RBC Red Blood Cell Count 5.11 M/uL (4.33-5.43)
[2021-03-29 18:49] LABS: ALT/SGPT 25 U/L (12-78); AST/SGOT 16 U/L (15-37); Albumin 3.6 g/dL (3.4-5.0); Alkaline Phosphatase 173 U/L (45-117); BUN Blood Urea Nitrogen 7 mg/dL (7-18); Bicarbonate 24 mmol/L (21-32); Bilirubin Direct < 0.1 mg/dL (0-0.2); Bilirubin Total 0.3 mg/dL (0.2-1.0); Glucose Level 86 mg/dL (74-106); Potassium 3.5 mmol/L (3.5-5.1); Protein, Total 7.3 g/dL (6.4-8.2); Sodium Level 141 mmol/L (136-145)
[2021-03-29 18:54] LABS: Protime INR 0.95
[2021-03-29 19:08] LABS: Urine Blood Negative (Negative); Urine Glucose Negative (Negative); Urine Protein 1+ (Negative); Urine Specific Gravity >=1.030 (1.005-1.030)
[2021-03-29 19:52] LABS: Barbiturates NEGATIVE (NEGATIVE); Benzodiazepines NEGATIVE (NEGATIVE); Cocaine NEGATIVE (NEGATIVE); METHAMPHETAM POSITIVE (NEGATIVE); Methadone NEGATIVE (NEGATIVE); Opiates NEGATIVE (NEGATIVE); Phencyclidine NEGATIVE (NEGATIVE); THC Cannibis POSITIVE (NEGATIVE)
--- NOTE | 2021-03-29 23:06 | ER ---
Nurse's Notes [facility] Name: Heriberto Duke Age: 31 yrs Sex: Male : 1990 Arrival Date: 03/29/2021 Time: 16:43 Bed 15 Private MD: Diagnosis: Suicidal ideations Presentation: 03/29 17:09 Chief complaint: Patient states: SI for 2 days. Was going to take prescription pills to ll1 OD. Wants to go to a psych facility. Coronavirus screen: Vaccine status: Patient reports being unvaccinated. Client denies travel out of the [place] in the last 14 days. At this time, the client does not indicate any symptoms associated with coronavirus-19. Ebola Screen: Patient denies travel to an Ebola-affected area in the 21 days before illness onset. Initial Sepsis Screen: Does the patient meet any 2 criteria? No. Patient's initial sepsis screen is negative. Does the patient have a suspected source of infection? No. Patient's initial sepsis screen is negative. Risk Assessment: Do you want to hurt yourself or someone else? Patient reports no desire to harm self or others. Onset of symptoms was March 28, 2021. 17:09 Method Of Arrival: Ambulatory ll1 17:09 Acuity: JOSEFA 3 ll1 Triage Assessment: 17:10 General: Appears in no apparent distress. Behavior is calm, cooperative, appropriate ll1 for age. Pain: Denies pain. Historical: - Allergies: 17:10 No Known Allergies; ll1 - PMHx: 17:10 Schizophrenia; suicidal thoughts; ll1 - PSHx: 17:10 L arm SX; ll1 - Immunization history:: Client reports having NOT received the Covid vaccine. Flu vaccine status is unknown. - Social history:: Smoking status: Patient reports the use of cigarette tobacco products, smokes one pack cigarettes per day. Screenin:35 Abuse screen: Denies threats or abuse. Denies injuries from another. Nutritional kd3 screening: No deficits noted. Tuberculosis screening: No symptoms or risk factors identified. Fall Risk IV access (20 points). Vital Signs: 17:09 BP 131 / 86; Pulse 64; Resp 17; Temp 96.6; Pulse Ox 100% ; Weight 96.62 kg; Height 5 ll1 ft. 10 in. (177.80 cm); Pain 0/10; 17:09 Body Mass Index 30.56 (96.62 kg, 177.80 cm) ll1 ED Course: 16:43 Patient arrived in ED. mr 17:10 Triage completed. ll1 17:11 Arm band placed on. ll1 17:14 Helen Gama FNP-C is PHCP. kb 17:14 Adonis De Paz MD is Attending Physician. kb 20:32 Jazmin Cleaning, RN is Primary Nurse. kd3 20:51 PHCP role handed off by Helen Gama FNP-C pm1 20:51 Marito Yin, EVAN is PHCP. pm1 22:28 faxed patient clinicals to all available psych facilities. mw2 22:43 nurse to nurse from [facility]. mw2 22:53 nurse to nurse from [facility]. mw2 23:03 administrative approval given by Isaac Cruz/ patient has been accepted to [address]/ Dr. Morrison accepted the patient in transfer. 23:35 No provider procedures requiring assistance completed. IV discontinued, intact, kd3 bleeding controlled, No redness/swelling at site. 23:37 Patient has correct armband on for positive identification. Bed in low position. Call kd3 light in reach. Side rails up X 1. Administered Medications: No medications were administered Outcome: 23:06 ER care complete, transfer ordered by . pm1 23:36 Condition: stable kd3 23:36 Discharge instructions given to EMS, Instructed on discharge instructions, follow up and referral plans. transfer Demonstrated understanding of instructions, follow-up care. 23:36 Discharged to psych facility kd3 23:37 Patient left the ED. kd3 Signatures: Helen Gama FNP-C FNP-Diego Altagracia Galindo Marito Yin, EVAN MEDICAL SCREENER pm1 Elian Rodriugez mw2 Lisa Razo RN RN ll1 Jazmin Cleaning, ALYSSA RN kd3
--- NOTE | 2021-03-29 23:07 | EDPHYS ---
Physician Documentation [facility] Name: Heriberto Duke Age: 31 yrs Sex: Male : 1990 Arrival Date: 03/29/2021 Time: 16:43 Bed 15 Private MD: ED Physician Adonis De Paz HPI: 03/29 18:49 This 31 yrs old Male presents to ER via Ambulatory with complaints of Mental Evaluation.kb 18:49 The patient presents to the emergency department with depression, over unknown kb circumstances, suicide ideation, and the patient has a plan, to overdose with medications. Onset: The symptoms/episode began/occurred 2 day(s) ago. Past psychiatric history: Prior diagnosis: depression, schizophrenia. Associated signs and symptoms: Pertinent positives; depression, suicide ideation. Severity of symptoms: At their worst the symptoms were moderate in the emergency department the symptoms are unchanged. The patient has experienced similar episodes in the past. The patient has not recently seen a physician. Pt states he has been depressed all week and having suicidal thoughts for 2 days. States he normally gets monthly haldol injections, but missed this month. Pt's plan is to overdose on medication. Pt states he wants to be transferred to an inpatient facility for help. Has been to [facility] in the past . Historical: - Allergies: 17:10 No Known Allergies; ll1 - PMHx: 17:10 Schizophrenia; suicidal thoughts; ll1 - PSHx: 17:10 L arm SX; ll1 - Immunization history:: Client reports having NOT received the Covid vaccine. Flu vaccine status is unknown. - Social history:: Smoking status: Patient reports the use of cigarette tobacco products, smokes one pack cigarettes per day. ROS: 18:49 Constitutional: Negative for fever, chills, and weight loss. kb 18:49 Psych: Positive for depression, suicidal ideation. 18:49 All other systems are negative. Exam: 18:49 Constitutional: This is a well developed, well nourished patient who is awake, alert, kb and in no acute distress. Head/Face: Normocephalic, atraumatic. ENT: Moist Mucous membranes Cardiovascular: Regular rate and rhythm with a normal S1 and S2. No gallops, murmurs, or rubs. No pulse deficits. Respiratory: Respirations even and unlabored. No increased work of breathing. Talking in full sentences Skin: Warm, dry with normal turgor. Normal color. MS/ Extremity: Pulses equal, no cyanosis. Neurovascular intact. Full, normal range of motion. Neuro: Awake and alert, GCS 15, oriented to person, place, time, and situation. Moves all extremities. Normal gait. 18:49 Psych: Behavior/mood is pleasant, cooperative, Affect is calm, Oriented to person, place, time, Patient having thoughts of suicide. Plan for suicide is overdose Judgement / Insight is normal. Memory is normal. Delusions/hallucinations are not present. Vital Signs: 17:09 BP 131 / 86; Pulse 64; Resp 17; Temp 96.6; Pulse Ox 100% ; Weight 96.62 kg; Height 5 ll1 ft. 10 in. (177.80 cm); Pain 0/10; 17:09 Body Mass Index 30.56 (96.62 kg, 177.80 cm) ll1 MDM: 17:44 Patient medically screened. kb 18:48 Data reviewed: vital signs, nurses notes. Data interpreted: Pulse oximetry: on room air kb is 100 %. Interpretation: normal. 23:04 Physician consultation: MD Morrison Accepted without MD to MD report. pm1 03/29 17:15 Order name: Acetaminophen kb 03/29 17:15 Order name: Basic Metabolic Panel kb 03/29 17:15 Order name: CBC with Diff; Complete Time: 18:51 kb 03/29 17:15 Order name: ETOH Level; Complete Time: 18:48 kb 03/29 17:15 Order name: Hepatic Function; Complete Time: 18:51 kb 03/29 17:15 Order name: PT-INR; Complete Time: 18:55 kb 03/29 17:15 Order name: Ptt, Activated; Complete Time: 18:55 kb 03/29 17:15 Order name: Salicylate; Complete Time: 18:48 kb 03/29 17:15 Order name: Urine Drug Screen; Complete Time: 19:55 kb 03/29 17:15 Order name: Acetaminophen Level; Complete Time: 18:51 EDMS 03/29 17:15 Order name: Basic Metabolic Panel; Complete Time: 18:51 EDMS 03/29 17:25 Order name: COVID-19 (Coronavirus) Document "Date of Onset" if Symptomatic kb 03/29 19:08 Order name: Urine Dipstick-Ancillary EDMS 03/29 17:15 Order name: EKG - Nurse/Tech; Complete Time: 17:49 kb 03/29 17:15 Order name: IV Saline Lock; Complete Time: 21:10 kb 03/29 17:15 Order name: Labs collected and sent; Complete Time: 17:50 kb 03/29 17:15 Order name: Suicide Precautions; Complete Time: 17:50 kb 03/29 17:15 Order name: Suicide Screening ([place]) kb 03/29 17:15 Order name: Urine Dipstick-Ancillary (obtain specimen); Complete Time: 19:16 kb 03/29 19:08 Order name: Urine Dipstick-Ancillary; Complete Time: 19:09 EDMS 03/29 19:58 Order name: SARS-COV-2 RT PCR; Complete Time: 21:06 EDMS Administered Medications: No medications were administered Disposition: 03/30 07:09 Co-signature as Attending Physician, Adonis De Paz MD I agree with the assessment and rn plan of care. Attestation: The patient's history, exam findings, diagnostics, and a summary of any interventions or procedures was reviewed in detail with Marito Yin NP. Disposition Summary: 03/29/21 23:06 Transfer [facility] pm1 Reason: Higher level of care pm1 Condition: Stable pm1 Problem: new pm1 Symptoms: are unchanged pm1 Accepting Physician: Prince(03/29/21 23:37) kd3 Diagnosis - Suicidal ideations pm1 Forms: - Medication Reconciliation Form pm1 - SBAR form pm1 Signatures: Dispatcher [employer] EDAZ Helen Gama, RFID SYSTEMS ENGINEER-C RFID SYSTEMS ENGINEER-Ckb Adonis De Paz MD MD rn Marinas, Patrick, NP MEDICAL EDUCATION MANAGER pm1 Lisa Razo RN RN ll1 Jazmin Cleaning RN RN kd3 Corrections: (The following items were deleted from the chart) 03/29 19:58 17:26 CORONAVIRUS ordered. EDMS EDMS 20:49 18:49 Pt states he has been depressed all week and having suicidal thoughts for 2 days. kb States he normally gets monthly haldol injections, but missed this month. Pt's plan is to overdose on medication. kb 23:37 23:06 Prince pm1 kd3
[2021-03-29 23:48] VITALS: BP 131/86; TEMP 96.6; O2SAT 100
--- NOTE | 2021-03-31 07:51 | EKG ---
Test Date: 2021-03-29 Test Time: 17:49:56 Mechanical Adjuster: NELLIE MEASUREMENT RESULTS: Intervals: Rate: 64 IN: 140 QRSD: 94 QT: 404 QTc: 416 [place]: P: 19 IN: 140 QRS: 79 T: 47 INTERPRETIVE STATEMENTS: Normal sinus rhythm with sinus arrhythmia Normal ECG Compared to ECG 09/25/2019 13:03:12 ST (T wave) deviation no longer present Electronically Signed On 03-31-21 07:46:03 SCRAP HOIST OPERATOR by Devin Hui
== END 2021-03-29 23:37 ==
LOC: ER 16:41
DX: R45.851 Suicidal ideations (principal); Z20.822 Contact with and (suspected) exposure to COVID-19
CPT/HCPCS: 93005; 85025; 80048; 36415; 80320; 80329 ×2; 85610; 80076; 85730; 81003; 80307; 99281; U0003

== ENCOUNTER 2021-08-03 18:55 | Emergency (ER) | payer OTHER ==
--- OUTSIDE RECORDS SUMMARY | 2021-08-03 18:59 | XMS REPORT | Continuity of Care Document ---
:1990 Author Organization [facility] t Address [address] [phone] Care Team Providers Name Role Phone Manfred Lewis Attending Clinician Unavailable Manfred Lewis Attending Clinician Unavailable Carlos Horowitz Attending Clinician Unavailable Carlos Horowitz Attending Clinician Unavailable Manfred Lewis Admitting Clinician Unavailable Problems This patient has no known problems. Allergies, Adverse Reactions, Alerts Allergy Allergy Status Severity Reaction(s) Onset Inactive Treating Comm ents Source Name Type Date Date Clinician No Known DA Active U 2019-03 [facility] Drug 05-16 Allergie 00:00: s 00 No Known Drug [facility] No Known Drug [facility] No [facility] No Known Drug [facility] Medications This patient has no known medications. Vital Signs Vital Name Observation Time Observation Value Comments Source Height/Length Measured 2021-04-06 11:57:37 180.3 cm Weight Dosing 2021-04-06 11:57:37 79.40 kg Height/Length Measured 2021-04-06 11:49:50 180.3 cm Weight Dosing 2021-04-06 11:49:50 79.40 kg Height/Length Measured 2021-04-06 11:44:48 180.3 cm Weight Dosing 2021-04-06 11:44:48 79.40 kg Height/Length Measured 2021-04-06 11:34:15 180.3 cm Weight Dosing 2021-04-06 11:34:15 79.40 kg Height/Length Measured 2021-04-06 11:20:47 180.3 cm Weight Dosing 2021-04-06 11:20:47 79.40 kg Height/Length Measured 2021-04-06 11:20:21 180.3 cm Weight Dosing 2021-04-06 11:20:21 79.40 kg Height/Length Measured 2021-04-06 11:20:20 180.3 cm Weight Dosing 2021-04-06 11:20:20 79.40 kg Height/Length Measured 2021-04-06 11:20:06 180.3 cm Weight Dosing 2021-04-06 11:20:06 79.40 kg Height/Length Measured 2021-04-06 11:18:42 180.3 cm Weight Dosing 2021-04-06 11:18:42 79.40 kg Height/Length Measured 2019-09-28 14:32:57 Respiratory 2020-03-16 16:15:27 No respiratory distress /min 02 Sat by Pulse Oximetry 2020-03-16 16:15:27 96 /min Body Mass Index 2020-03-16 16:15:27 26.5 Height 2020-03-16 16:15:27 177.8\\S\\70 Pulse Rate 2020-03-16 16:15:27 85 /min Respiratory Rate 2020-03-16 16:15:27 18 /min Temperature 2020-03-16 16:15:27 36.8\\S\\98.2 Weight 2020-03-16 16:15:27 40423.588\\S\\2960 Weight Measurement Method 2020-03-16 16:15:27 Estimated by Patient Respiratory 2020-03-16 16:09:15 No respiratory distress /min 02 Sat by Pulse Oximetry 2020-03-16 16:09:15 96 /min Body Mass Index 2020-03-16 16:09:15 26.5 Height 2020-03-16 16:09:15 177.8\\S\\70 Pulse Rate 2020-03-16 16:09:15 85 /min Respiratory Rate 2020-03-16 16:09:15 18 /min Temperature 2020-03-16 16:09:15 36.8\\S\\98.2 Weight 2020-03-16 16:09:15 00472.588\\S\\2960 Weight Measurement Method 2020-03-16 16:09:15 Estimated by Patient 02 Sat by Pulse Oximetry 2020-03-16 16:09:14 96 /min Body Mass Index 2020-03-16 16:09:14 26.5 Height 2020-03-16 16:09:14 177.8\\S\\70 Pulse Rate 2020-03-16 16:09:14 85 /min Respiratory Rate 2020-03-16 16:09:14 18 /min Temperature 2020-03-16 16:09:14 36.8\\S\\98.2 Weight 2020-03-16 16:09:14 83491.588\\S\\2960 Weight Measurement Method 2020-03-16 16:09:14 Estimated by Patient Respiratory 2020-03-16 16:09:14 No respiratory distress /min Respiratory 2020-03-16 14:02:46 No respiratory distress /min 02 Sat by Pulse Oximetry 2020-03-16 14:02:46 96 /min Body Mass Index 2020-03-16 14:02:46 26.5 Height 2020-03-16 14:02:46 177.8\\S\\70 Pulse Rate 2020-03-16 14:02:46 85 /min Respiratory Rate 2020-03-16 14:02:46 18 /min Temperature 2020-03-16 14:02:46 36.8\\S\\98.2 Weight 2020-03-16 14:02:46 38305.588\\S\\2960 Weight Measurement Method 2020-03-16 14:02:46 Estimated by Patient Respiratory 2020-03-16 14:02:15 No respiratory distress /min 02 Sat by Pulse Oximetry 2020-03-16 14:02:15 96 /min Body Mass Index 2020-03-16 14:02:15 26.5 Height 2020-03-16 14:02:15 177.8\\S\\70 Pulse Rate 2020-03-16 14:02:15 85 /min Respiratory Rate 2020-03-16 14:02:15 18 /min Temperature 2020-03-16 14:02:15 36.8\\S\\98.2 Weight 2020-03-16 14:02:15 53366.588\\S\\2960 Weight Measurement Method 2020-03-16 14:02:15 Estimated by Patient Respiratory 2020-03-16 14:01:43 No respiratory distress /min 02 Sat by Pulse Oximetry 2020-03-16 14:01:43 96 /min Body Mass Index 2020-03-16 14:01:43 26.5 Height 2020-03-16 14:01:43 177.8\\S\\70 Pulse Rate 2020-03-16 14:01:43 85 /min Respiratory Rate 2020-03-16 14:01:43 18 /min Temperature 2020-03-16 14:01:43 36.8\\S\\98.2 Weight 2020-03-16 14:01:43 13035.588\\S\\2960 Weight Measurement Method 2020-03-16 14:01:43 Estimated by Patient Respiratory 2020-03-16 14:01:12 No respiratory distress /min 02 Sat by Pulse Oximetry 2020-03-16 14:01:12 96 /min Body Mass Index 2020-03-16 14:01:12 26.5 Height 2020-03-16 14:01:12 177.8\\S\\70 Pulse Rate 2020-03-16 14:01:12 85 /min Respiratory Rate 2020-03-16 14:01:12 18 /min Temperature 2020-03-16 14:01:12 36.8\\S\\98.2 Weight 2020-03-16 14:01:12 54043.588\\S\\2960 Weight Measurement Method 2020-03-16 14:01:12 Estimated by Patient Respiratory 2020-03-15 16:13:25 No respiratory distress /min 02 Sat by Pulse Oximetry 2020-03-15 16:13:25 98 /min Body Mass Index 2020-03-15 16:13:25 26.5 Height 2020-03-15 16:13:25 177.8\\S\\70 Pulse Rate 2020-03-15 16:13:25 87 /min Respiratory Rate 2020-03-15 16:13:25 18 /min Temperature 2020-03-15 16:13:25 36.5\\S\\97.7 Weight 2020-03-15 16:13:25 58339.588\\S\\2960 Weight Measurement Method 2020-03-15 16:13:25 Estimated by Patient Respiratory 2020-03-15 15:57:27 No respiratory distress /min 02 Sat by Pulse Oximetry 2020-03-15 15:57:27 98 /min Body Mass Index 2020-03-15 15:57:27 26.5 Height 2020-03-15 15:57:27 177.8\\S\\70 Pulse Rate 2020-03-15 15:57:27 87 /min Respiratory Rate 2020-03-15 15:57:27 18 /min Temperature 2020-03-15 15:57:27 36.5\\S\\97.7 Weight 2020-03-15 15:57:27 95591.588\\S\\2960 Weight Measurement Method 2020-03-15 15:57:27 Estimated by Patient Respiratory 2020-03-15 14:35:13 No respiratory distress /min 02 Sat by Pulse Oximetry 2020-03-15 14:35:13 98 /min Body Mass Index 2020-03-15 14:35:13 26.5 Height 2020-03-15 14:35:13 177.8\\S\\70 Pulse Rate 2020-03-15 14:35:13 87 /min Respiratory Rate 2020-03-15 14:35:13 18 /min Temperature 2020-03-15 14:35:13 36.5\\S\\97.7 Weight 2020-03-15 14:35:13 59155.588\\S\\2960 Weight Measurement Method 2020-03-15 14:35:13 Estimated by Patient Respiratory 2020-03-15 14:28:03 No respiratory distress /min 02 Sat by Pulse Oximetry 2020-03-15 14:28:03 98 /min Body Mass Index 2020-03-15 14:28:03 26.5 Height 2020-03-15 14:28:03 177.8\\S\\70 Pulse Rate 2020-03-15 14:28:03 87 /min Respiratory Rate 2020-03-15 14:28:03 18 /min Temperature 2020-03-15 14:28:03 36.5\\S\\97.7 Weight 2020-03-15 14:28:03 77689.588\\S\\2960 Weight Measurement Method 2020-03-15 14:28:03 Estimated by Patient Respiratory 2020-03-15 14:27:02 No respiratory distress /min 02 Sat by Pulse Oximetry 2020-03-15 14:27:02 98 /min Body Mass Index 2020-03-15 14:27:02 26.5 Height 2020-03-15 14:27:02 177.8\\S\\70 Pulse Rate 2020-03-15 14:27:02 87 /min Respiratory Rate 2020-03-15 14:27:02 18 /min Temperature 2020-03-15 14:27:02 36.5\\S\\97.7 Weight 2020-03-15 14:27:02 01824.588\\S\\2960 Weight Measurement Method 2020-03-15 14:27:02 Estimated by Patient Respiratory 2020-03-15 10:42:59 No respiratory distress /min 02 Sat by Pulse Oximetry 2020-03-15 10:42:59 100 /min Body Mass Index 2020-03-15 10:42:59 26.5 Height 2020-03-15 10:42:59 177.8\\S\\70 Pulse Rate 2020-03-15 10:42:59 92 /min Respiratory Rate 2020-03-15 10:42:59 18 /min Temperature 2020-03-15 10:42:59 36.8\\S\\98.2 Weight 2020-03-15 10:42:59 53627.588\\S\\2960 Weight Measurement Method 2020-03-15 10:42:59 Estimated by Patient 02 Sat by Pulse Oximetry 2020-03-15 10:16:27 100 /min Body Mass Index 2020-03-15 10:16:27 26.5 Height 2020-03-15 10:16:27 177.8\\S\\70 Pulse Rate 2020-03-15 10:16:27 92 /min Respiratory Rate 2020-03-15 10:16:27 18 /min Temperature 2020-03-15 10:16:27 36.8\\S\\98.2 Weight 2020-03-15 10:16:27 50337.588\\S\\2960 Weight Measurement Method 2020-03-15 10:16:27 Estimated by Patient 02 Sat by Pulse Oximetry 2020-03-15 10:14:24 100 /min Body Mass Index 2020-03-15 10:14:24 26.5 Height 2020-03-15 10:14:24 177.8\\S\\70 Pulse Rate 2020-03-15 10:14:24 92 /min Respiratory Rate 2020-03-15 10:14:24 18 /min Temperature 2020-03-15 10:14:24 36.8\\S\\98.2 Weight 2020-03-15 10:14:24 72497.588\\S\\2960 Weight Measurement Method 2020-03-15 10:14:24 Estimated by Patient 02 Sat by Pulse Oximetry 2020-03-15 10:13:53 100 /min Body Mass Index 2020-03-15 10:13:53 26.5 Height 2020-03-15 10:13:53 177.8\\S\\70 Pulse Rate 2020-03-15 10:13:53 92 /min Respiratory Rate 2020-03-15 10:13:53 18 /min Temperature 2020-03-15 10:13:53 36.8\\S\\98.2 Weight 2020-03-15 10:13:53 68771.588\\S\\2960 Weight Measurement Method 2020-03-15 10:13:53 Estimated by Patient WEIGHT 2020-03-15 10:08:00 83.434115 kg HEIGHT 2020-03-15 10:08:00 177.8 cm Procedures This patient has no known procedures. Encounters Start End Encounter Admission Attending Care Care Encounter Source Date/Time Date/Time Type Type Clinicians Facility Department ID 2019-09-28 2019-10-30 Inpatient 1 Wellington Lewis [facility] PSY [id number] 09:54:00 13:45:00 Joshua Wellington [facility] 2019-09-28 2019-09-28 Emergency 1 Ron Horowitz [facility] [id number] 09:54:00 09:54:00 Ron Horowitz -[id number] [facility] Results Test Description Test Time Test Comments Results Result Comments Source Novel Coronavirus SARS-CoV-2, PCR 2019-10-08 23:02:04 Test Item Value Reference Range Interpretation Comme nts SARS-CoV-2 PCR (test code = NEGATIVE Negative Test performed by [place] SARS-CoV-2 PCR) Jewish.Po sitive results are indicative of a ctive [...] Drug Administration s Emergency Use Authorization." RPR [id number] 13:55:26 Test Item Value Reference Range Interpretation Comments RPR Qual (test code = RPR Qual) Non-Reactive Non-Reactive Reactive Control (test code = Reactive Reactive Control) Weak Reactive Control (test Weak Reactive code = Weak Reactive Control) Non-Reactive Control (test code Non-Reactive = Non-Reactive Control) Lot # (test code = Lot #) [id number] N Expiration Dt (test code = 9.30.21 N Expiration Dt) Hemoglobin [id number] 11:44:22 Test Item Value Reference Range Interpretation Comments Hemoglobin A1c (test code 4.9 % 4.0-5.8 Di abetic >=6.5 = Hemoglobin A1c) %Prediabet es 5.7-6.4 %Normal <5.7 % Lipid [id number] 11:38:42 Test Item Value Reference Range Interpretation [...] LDL/HDL Ratio=L DL Calc/HDL Chol Thyroid Stimulating [id number] 11:38:42 Test Item Value Reference Range Interpretation Comments TSH (test code = TSH) 2.039 mcIU/mL 0.550-4.780 Urine [id number] 14:30:34 Test Item Value Reference Range Interpretation [...] Confirmation wi thin 7 days. Comprehensive Metabolic [id number] 11:37:31 Test Item Value Reference Range Interpretation [...] = Lipemia) 0 g/dL 1-2 H Alcohol [id number] 11:37:31 Test Item Value Reference Range Interpretation Comments Ethanol Level 3.8 mg/dL N The pharmacolo gical (test code = response to blo od alcohol Ethanol Level) levels may va ry from individual to i ndividual. The fatal kashif ntration has been report ed to be >400 mg/dl. Comprehensive Metabolic [id number] 11:37:31 Test Item Value Reference Range Interpretation [...] 0 g/dL 1-2 H Lipemia) Comprehensive Metabolic [id number] 11:37:31 Test Item Value Reference Range Interpretation [...] ag e have not been validated by [facility] MDRD study and should be interpreted wit h caution. eGFR R esult Interpretation: eGFR > or = 60 is in the Normal RangeeGF R < 60 may mean kid zach diseaseeGFR < 1 5 may mean kidney failure Rang es recommended by the National Kidney Foundation, http://nkdep.ni h.gov eGFR Non-AA (test >60.00 >=60.00 eGFR (margie mated code = eGFR Non-AA) [...] ag e have not been validated by [facility] MDRD study and should be [...] 1-2 H Lipemia) Urinalysis with Culture, if [id number] 11:23:08 Test Item Value Reference Range Interpretation [...] Not Indicated Not Indicated Micro Ind?) Automated [id number] 11:14:51 Test Item Value Reference Range Interpretation Comments Neutro Auto (test code = Neutro 59.5 % 36.0-70.0 Auto) Lymph Auto (test code = Lymph Auto) 26.2 % 12.0-44.0 Coryell Auto (test code = Coryell Auto) 10.2 % 0.0-11.0 Eos, Auto (test code = Eos, Auto) 2.6 % 0.0-7.0 Basophil Auto (test code = Basophil 1.0 % 0.0-2.0 Auto) Neutro Absolute (test code = Neutro 4.5 x10 1.6-7.4 Absolute) Lymph Absolute (test code = Lymph 2.00 x10 .50-4.60 Absolute) Coryell Absolute (test code = Coryell .78 x10 .00-1.20 Absolute) Eos Absolute (test code = Eos 0.20 x10 0.00-0.74 Absolute) Baso Absolute (test code = Baso 0.08 x10 0.00-0.21 Absolute) IG [id number] 11:14:51 Test Item Value Reference Range Interpretation Comments IG (test code = IG) 0.5 % 0.0-5.0 IG Abs (test code = IG Abs) 0 x10 N Complete Blood Count with [id number] 11:14:50 Test Item Value Reference Range Interpretation [...] code = IPF) 0 % N RPR [id number] 13:47:36 Test Item Value Reference Range Interpretation [...] = 01-18-20 N Expiration Dt) Thyroid Stimulating [id number] 08:21:50 Test Item Value Reference Range Interpretation Comments TSH (test code = TSH) 2.100 mIU/mL 0.270-4.200 Lipid [id number] 07:23:30 Test Item Value Reference Range Interpretation Comments Cholesterol Total 179 mg/dL 0-200 RISK OF HE ART (test code = DISEASEPublishe d by Cholesterol Total) [place] [employer] Jacqueline lyte Optimal Borderl ine [...] LDL/HDL Ratio=L DL Calc/HDL Chol Comprehensive Metabolic [id number] 07:00:35 Test Item Value Reference Range Interpretation [...] A/G 1.8 ratio N Ratio) Comprehensive Metabolic [id number] 07:00:35 Test Item Value Reference Range Interpretation [...] ag e have not been validated by [facility] MDRD study and should be interpreted wit h caution. eGFR R esult Interpretation: eGFR > or = 60 is in the Normal RangeeGF R < 60 may mean kid zach diseaseeGFR < 1 5 may mean kidney failure Rang es recommended by the National Kidney Foundation, http://nkdep.ni h.gov Comprehensive Metabolic [id number] 07:00:35 Test Item Value Reference Range Interpretation [...] ag e have not been validated by [facility] MDRD study and should be [...] ag e have not been validated by [facility] MDRD study and should be interpreted wit h caution. eGFR R esult Interpretation: eGFR > or = 60 is in the Normal RangeeGF R < 60 may mean kid zach diseaseeGFR < 1 5 may mean kidney failure Rang es recommended by the National Kidney Foundation, http://nkdep.ni h.gov Complete Blood Count with [id number] 06:45:37 Test Item Value Reference Range Interpretation [...] code = IPF) 0 % N Automated [id number] 06:45:37 Test Item Value Reference Range Interpretation Comments Neutro Auto (test code = Neutro 55.6 % 36.0-70.0 Auto) Lymph Auto (test code = Lymph Auto) 29.0 % 12.0-44.0 Coryell Auto (test code = Coryell Auto) 11.8 % 0.0-11.0 H Eos, Auto (test code = Eos, Auto) 2.7 % 0.0-7.0 Basophil Auto (test code = Basophil 0.7 % 0.0-2.0 Auto) Neutro Absolute (test code = Neutro 3.3 x10 1.6-7.4 Absolute) Lymph Absolute (test code = Lymph 1.70 x10 .50-4.60 Absolute) Coryell Absolute (test code = Coryell .69 x10 .00-1.20 Absolute) Eos Absolute (test code = Eos 0.16 x10 0.00-0.74 Absolute) Baso Absolute (test code = Baso 0.04 x10 0.00-0.21 Absolute) IG [id number] 06:45:37 Test Item Value Reference Range Interpretation Comments IG (test code = IG) 0.2 % 0.0-5.0 IG Abs (test code = IG Abs) 0 x10 N
[2021-08-03 21:00] LABS: Urine Blood Negative (Negative); Urine Glucose Negative (Negative); Urine Protein 1+ (Negative); Urine Specific Gravity 1.025 (1.005-1.030)
[2021-08-03 21:06] LABS: Absolute Lymphocytes (CBC) 3.4 K/uL (0.7-4.9); Hematocrit 42.8 % (39.6-49.0); Lymphocytes % 33.8 % (15.3-44.8); MPV 7.9 fL (7.6-11.3); RBC Red Blood Cell Count 5.41 M/uL (4.33-5.43)
[2021-08-03 21:34] LABS: ALT/SGPT 30 U/L (12-78); AST/SGOT 18 U/L (15-37); Albumin 3.9 g/dL (3.4-5.0); Alkaline Phosphatase 182 U/L (45-117); BUN Blood Urea Nitrogen 6 mg/dL (7-18); Bicarbonate 28 mmol/L (21-32); Bilirubin Direct 0.1 mg/dL (0-0.2); Bilirubin Total 0.4 mg/dL (0.2-1.0); Glomerular Filtration Rate 111 ml/min (=/>90); Glucose Level 76 mg/dL (74-106); Potassium 3.2 mmol/L (3.5-5.1); Protein, Total 7.7 g/dL (6.4-8.2); Protime INR 1.02; Sodium Level 139 mmol/L (136-145)
[2021-08-03] MEDS ORDERED: LORazepam 2 MG/ML VIAL ONE (22:00)
[2021-08-03 22:29] LABS: Barbiturates NEGATIVE (NEGATIVE); Benzodiazepines NEGATIVE (NEGATIVE); Cocaine NEGATIVE (NEGATIVE); METHAMPHETAM POSITIVE (NEGATIVE); Methadone NEGATIVE (NEGATIVE); Opiates NEGATIVE (NEGATIVE); Phencyclidine NEGATIVE (NEGATIVE); THC Cannibis POSITIVE (NEGATIVE)
--- NOTE | 2021-08-03 23:42 | EDPHYS ---
Physician Documentation [facility] Name: Heriberto Duke Age: 31 yrs Sex: Male : 1990 Arrival Date: 08/03/2021 Time: 18:58 Bed 15 Private MD: ED Physician Greyson Teran HPI: 08/03 20:14 This 31 yrs old Male presents to ER via Ambulatory with complaints of Suicidal Ideation.jmm 20:14 The patient presents to the emergency department with suicide ideation, and the patient jmm has a plan, to cut oneself and bleed, to overdose with medications. Onset: The symptoms/episode began/occurred 1 week(s) ago. Associated signs and symptoms: Pertinent negatives: abdominal pain, chest pain. Is a 31-year-old male with history of schizophrenia the presents emerged department with complaints of suicidal ideations beginning approximately a week ago. Patient has had similar episodes in the past and needed inpatient psychiatry. Patient states his plan would be to either overdose on pills or to cut his wrist. Patient denies homicidal ideation.. Historical: - Allergies: 19:16 No Known Allergies; ld1 - Home Meds: 19:16 Haldol Oral [Active]; ld1 22:20 gabapentin oral [Active]; Effexor Oral [Active]; Propranolol Oral [Active]; ke1 - PMHx: 19:16 Schizophrenia; suicidal thoughts; ld1 - PSHx: 19:16 L arm SX; ld1 - Immunization history:: Adult Immunizations up to date, Client reports receiving the 2nd dose of the Covid vaccine. - Social history:: Smoking status: Patient reports the use of cigarette tobacco products, smokes one pack cigarettes per day. Patient/guardian denies using alcohol. ROS: 20:14 Constitutional: Negative for fever, chills, and weight loss, Cardiovascular: Negative jmm for chest pain, palpitations, and edema, Respiratory: Negative for shortness of breath, cough, wheezing, and pleuritic chest pain. 20:14 Psych: Positive for suicidal ideation. 20:14 All other systems are negative. Exam: 20:14 Head/Face: atraumatic. Eyes: EOMI, no conjunctival erythema appreciated ENT: Moist jmm Mucus Membranes Neck: Trachea midline, Supple Chest/axilla: Normal chest wall appearance and motion. Cardiovascular: Regular rate and rhythm. No edema appreciated Respiratory: Normal respirations, no respiratory distress appreciated Abdomen/GI: Non distended, soft Back: Normal ROM Skin: General appearance color normal MS/ Extremity: Moves all extremities, no obvious deformities appreciated, no edema noted to the lower extremities Neuro: Awake and alert 20:14 Constitutional: The patient appears alert, awake, anxious. 20:14 Psych: Behavior/mood is pleasant, cooperative, anxious, Affect is Patient having thoughts of suicide. Plan for suicide is Cut his wrists or overdose on pills Vital Signs: 19:15 BP 154 / 92; Pulse 111; Resp 18; Temp 97.9(O); Pulse Ox 97% on R/A; Weight 95.25 kg; ld1 Height 5 ft. 10 in. (177.80 cm); Pain 0/10; 20:14 BP 141 / 81; Pulse 85; Resp 18; Temp 97.3; Pulse Ox 98% ; Weight 95.25 kg; Height 5 ft. ke1 10 in. (177.80 cm); 08/04 04:54 BP 142 / 88; Pulse 95; Resp 16; Pulse Ox 98% on R/A; ke1 08/03 20:14 Body Mass Index 30.13 (95.25 kg, 177.80 cm) ke1 MDM: 08/03 20:14 Patient medically screened. [facility] 23:40 Data reviewed: vital signs, nurses notes. Counseling: I had a detailed discussion with jg the patient and/or guardian regarding: the historical points, exam findings, and any diagnostic results supporting the discharge/admit diagnosis, lab results. ED course: I discussed the patient with Psychiatry at [facility] whom accepted the patient. . 08/03 20:15 Order name: Acetaminophen; Complete Time: 22:03 [facility] 08/03 20:15 Order name: Basic Metabolic Panel; Complete Time: 22:03 [facility] 08/03 20:15 Order name: CBC with Diff; Complete Time: 21:11 [facility] 08/03 20:15 Order name: ETOH Level; Complete Time: 22:03 [facility] 08/03 20:15 Order name: Hepatic Function; Complete Time: 22:03 [facility] 08/03 20:15 Order name: PT-INR; Complete Time: 21:40 [facility] 08/03 20:15 Order name: Ptt, Activated; Complete Time: 21:40 [facility] 08/03 20:15 Order name: Salicylate; Complete Time: 22:03 [facility] 08/03 20:15 Order name: Urine Drug Screen; Complete Time: 22:31 [facility] 08/03 20:37 Order name: SARS-COV-2 RT PCR (Document "Date of Onset" if Symptomatic); Complete Time: [facility] 22:26 08/03 21:00 Order name: Urine Dipstick-Ancillary; Complete Time: 21:11 [facility] 08/03 20:15 Order name: EKG; Complete Time: 20:15 [facility] 08/03 20:15 Order name: EKG - Nurse/Tech; Complete Time: 22:17 [facility] 08/03 20:15 Order name: IV Saline Lock; Complete Time: 20:51 [facility] 08/03 20:15 Order name: Labs collected and sent; Complete Time: 20:51 [facility] 08/03 20:15 Order name: Suicide Screening ([place]); Complete Time: 21:46 [facility] 08/03 20:15 Order name: Urine Dipstick-Ancillary (obtain specimen); Complete Time: 20:51 [facility] Administered Medications: 22:00 Drug: Ativan (LORazepam) 1 mg Route: IVP; Site: right antecubital; ke1 22:30 Follow up: Response: No adverse reaction; Marked relief of symptoms ke1 08/04 00:26 Drug: K-Lyte (potassium) Effervescent Tablet 50 mEq Route: PO; ke1 03:00 Follow up: Response: No adverse reaction ke1 00:34 Drug: Ativan (LORazepam) 1 mg Route: IVP; Site: right antecubital; ke1 01:00 Follow up: Response: Marked relief of symptoms ke1 02:23 Drug: Pepcid (famotidine) 20 mg Route: IVP; Site: right antecubital; ke1 03:00 Follow up: Response: Marked relief of symptoms ke1 Disposition: 08:19 Co-signature as Attending Physician, Greyson Teran MD. [email or web address] Disposition Summary: 08/03/21 23:42 Transfer Ordered Transfer Location: Psych Facility [facility] Reason: Higher level of care jm Condition: Stable jmm Problem: new jmm Symptoms: are unchanged jm Accepting Physician: Psychiatry(08/04/21 04:55) ke1 Diagnosis - Suicidal ideations [facility] Forms: - Medication Reconciliation Form [facility] - SBAR form [facility] Signatures: Dispatcher [employer] EDRadames Ariza PA PA jmm Holmes, Maurice, MD MD [id number] Nita Valerio RN RN ld1 Liz Campbell RN RN ke1 Corrections: (The following items were deleted from the chart) 04:55 08/03 23:42 Psychiatry jg ke1
--- NOTE | 2021-08-03 23:42 | ER ---
Nurse's Notes [facility] Name: Heriberto Duke Age: 31 yrs Sex: Male : 1990 Arrival Date: 08/03/2021 Time: 18:58 Bed 15 Private MD: Diagnosis: Suicidal ideations Presentation: 08/03 19:15 Chief complaint: Patient states: "I am feeling very suicidal and depressed. It has ld1 gotten worse over the past five days." Pt reports severe depression - requesting to speak to a psychiatrist. Coronavirus screen: At this time, the client does not indicate any symptoms associated with coronavirus-19. Ebola Screen: No symptoms or risks identified at this time. Initial Sepsis Screen: Does the patient meet any 2 criteria? No. Patient's initial sepsis screen is negative. Does the patient have a suspected source of infection? No. Patient's initial sepsis screen is negative. Risk Assessment: Do you want to hurt yourself or someone else? Patient reports no desire to harm self or others. Onset of symptoms was August 03, 2021. 19:15 Method Of Arrival: Ambulatory ld1 19:15 Acuity: JOSEFA 2 ld1 Triage Assessment: 19:16 General: Appears in no apparent distress. comfortable, Behavior is cooperative, ld1 anxious. Pain: Denies pain. EENT: No signs and/or symptoms were reported regarding the EENT system. Neuro: Level of Consciousness is awake, alert, obeys commands, Oriented to person, place, time, situation, Appropriate for age. Cardiovascular: Capillary refill < 3 seconds Patient's skin is warm and dry. Rhythm is sinus tachycardia. Respiratory: Airway is patent Respiratory effort is even, unlabored. GI: Abdomen is round non-distended. : No signs and/or symptoms were reported regarding the genitourinary system. Derm: No signs and/or symptoms reported regarding the dermatologic system. Musculoskeletal: No signs and/or symptoms reported regarding the musculoskeletal system. Historical: - Allergies: 19:16 No Known Allergies; ld1 - Home Meds: 19:16 Haldol Oral [Active]; ld1 22:20 gabapentin oral [Active]; Effexor Oral [Active]; Propranolol Oral [Active]; ke1 - PMHx: 19:16 Schizophrenia; suicidal thoughts; ld1 - PSHx: 19:16 L arm SX; ld1 - Immunization history:: Adult Immunizations up to date, Client reports receiving the 2nd dose of the Covid vaccine. - Social history:: Smoking status: Patient reports the use of cigarette tobacco products, smokes one pack cigarettes per day. Patient/guardian denies using alcohol. Screenin:15 Abuse screen: Denies threats or abuse. Nutritional screening: No deficits noted. ke1 Tuberculosis screening: No symptoms or risk factors identified. Fall Risk None identified. Assessment: 20:16 Reassessment: Patient mother contact: [phone]. ke1 Psych: 20:25 [facility] Suicide Severity Screening: In the past month, have you wished you were ke1 or wished you could go to sleep and not wake up? Patient responds "yes." "In the past month, have you actually had any thoughts of killing yourself?" Patient responds "yes." "In your lifetime, have you ever done anything, started to do anything, or prepared to do anything to end your life?" Patient responds "no.". Subjective: Having thoughts of suicide. Plan for suicide is taking pills. Objective: Patient is cooperative, Speech is normal, Affect is appropriate. Interventions: Removed personal items and placed in bag. Belonging list filled out. Safety Checks: Personal items have been removed. Pt denies substance abuse. Commitment: Patient will be a voluntary commitment. Vital Signs: 19:15 BP 154 / 92; Pulse 111; Resp 18; Temp 97.9(O); Pulse Ox 97% on R/A; Weight 95.25 kg; ld1 Height 5 ft. 10 in. (177.80 cm); Pain 0/10; 20:14 BP 141 / 81; Pulse 85; Resp 18; Temp 97.3; Pulse Ox 98% ; Weight 95.25 kg; Height 5 ft. ke1 10 in. (177.80 cm); 08/04 04:54 BP 142 / 88; Pulse 95; Resp 16; Pulse Ox 98% on R/A; ke1 08/03 20:14 Body Mass Index 30.13 (95.25 kg, 177.80 cm) ke1 ED Course: 08/03 18:58 Patient arrived in ED. kz 19:16 Triage completed. ld1 19:16 Arm band placed on right wrist. ld1 19:42 Mickail, Radames, PA is PHCP. [facility] 19:42 Greyson Teran MD is Attending Physician. [facility] 20:14 Liz Campbell, ALYSSA is Primary Nurse. ke1 20:15 Safety Checks: Personal items have been removed. The door is open or patient has been ke1 placed in a hallway bed/chair. Sitter present at this time. 20:15 Bed in low position. sitter to monitor patient. Suicide risk precautions. ke1 20:50 Inserted saline lock: 20 gauge in right antecubital area, using aseptic technique. zm Blood collected. 20:51 Acetaminophen Sent. zm 20:51 Basic Metabolic Panel Sent. zm 20:51 CBC with Diff Sent. zm 20:51 ETOH Level Sent. zm 20:51 Hepatic Function Sent. zm 20:51 PT-INR Sent. zm 20:51 Ptt, Activated Sent. zm 20:51 Salicylate Sent. zm 20:51 Urine Drug Screen Sent. zm 21:05 SARS-COV-2 RT PCR (Document "Date of Onset" if Symptomatic) Sent. zm 22:52 Nurse to Nurse from [facility]. mw2 23:17 Nurse [address] Nurse from [facility]. mw2 23:48 administrative approval given by Alecia Razo/ patient has been accepted to [address]/ Dr. Renate Calhoun accepted the patient in transfer. 08/04 00:33 [facility] ETA 3 hours. mw2 03:41 [facility] upable to transport patient. [facility] ETA 45 minutes to 1 hour. mw2 04:52 No provider procedures requiring assistance completed. IV discontinued. ke1 Administered Medications: 08/03 22:00 Drug: Ativan (LORazepam) 1 mg Route: IVP; Site: right antecubital; ke1 22:30 Follow up: Response: No adverse reaction; Marked relief of symptoms ke1 08/04 00:26 Drug: K-Lyte (potassium) Effervescent Tablet 50 mEq Route: PO; ke1 03:00 Follow up: Response: No adverse reaction ke1 00:34 Drug: Ativan (LORazepam) 1 mg Route: IVP; Site: right antecubital; ke1 01:00 Follow up: Response: Marked relief of symptoms ke1 02:23 Drug: Pepcid (famotidine) 20 mg Route: IVP; Site: right antecubital; ke1 03:00 Follow up: Response: Marked relief of symptoms ke1 Medication: 08/03 23:25 VIS not applicable for this client. ke1 Outcome: 23:42 ER care complete, transfer ordered by MD. gregorio 08/04 04:53 Transferred Note: [facility] ke1 Condition: stable Instructed on the need for transfer. 04:55 Patient left the ED. ke1 Signatures: Radames Orellana PA PA jmm [place]brook, MyKena 2 Nita Valerio RN RN ld1 Liz Campbell RN RN ke1 Gilma Campos Zaina zm
[2021-08-04] MEDS ORDERED: LORazepam 2 MG/ML VIAL ONE (00:37)
[2021-08-04] MEDS ORDERED: FAMOTIDINE 20 MG/2 ML VIAL IV ONE (02:23)
[2021-08-04 05:04] VITALS: TEMP 97.3; O2SAT 98
[2021-08-04 05:06] VITALS: BP 142/88
--- NOTE | 2021-08-05 07:42 | EKG ---
Test Date: 2021-08-03 Test Time: 22:11:16 [place]: JOCELYNE MEASUREMENT RESULTS: Intervals: Rate: 97 OH: 142 QRSD: 90 QT: 382 QTc: 485 [place]: P: 33 OH: 142 QRS: 62 T: 50 INTERPRETIVE STATEMENTS: Normal sinus rhythm Prolonged QT Abnormal ECG Compared to ECG 03/29/2021 17:49:56 Prolonged QT interval now present Sinus arrhythmia no longer present Electronically Signed On 08-05-21 07:37:33 CDT by Devin Hui
== END 2021-08-04 04:55 ==
LOC: ER 18:55
DX: R45.851 Suicidal ideations (principal); F20.9 Schizophrenia, unspecified; F17.210 Nicotine dependence, cigarettes, uncomplicated; Z20.822 Contact with and (suspected) exposure to COVID-19
CPT/HCPCS: 93005; 85025; 80048; 36415; 80320; 80329 ×2; 85610; 80076; 85730; 81003; 80307; 96375; 96374; 99285; U0003; J3490

== ENCOUNTER 2021-09-30 18:53 | Emergency (ER) | payer OTHER ==
[2021-09-30 19:56] LABS: Urine Blood Negative (Negative); Urine Glucose Negative (Negative); Urine Protein 1+ (Negative); Urine Specific Gravity >=1.030 (1.005-1.030)
[2021-09-30 20:06] LABS: Absolute Lymphocytes (CBC) 2.4 K/uL (0.7-4.9); Hematocrit 41.9 % (39.6-49.0); Lymphocytes % 25.4 % (15.3-44.8); MCV 81.6 fL (80-100); MPV 7.6 fL (7.6-11.3); RBC Red Blood Cell Count 5.13 M/uL (4.33-5.43)
[2021-09-30 20:14] LABS: Protime INR 0.96
[2021-09-30 20:16] LABS: Barbiturates NEGATIVE (NEGATIVE); Benzodiazepines NEGATIVE (NEGATIVE); Cocaine NEGATIVE (NEGATIVE); METHAMPHETAM POSITIVE (NEGATIVE); Methadone NEGATIVE (NEGATIVE); Opiates NEGATIVE (NEGATIVE); Phencyclidine NEGATIVE (NEGATIVE); THC Cannibis POSITIVE (NEGATIVE)
[2021-09-30 20:39] LABS: ALT/SGPT 29 U/L (12-78); AST/SGOT 15 U/L (15-37); Alkaline Phosphatase 173 U/L (45-117); BUN Blood Urea Nitrogen 9 mg/dL (7-18); Bicarbonate 25 mmol/L (21-32); Bilirubin Total 0.3 mg/dL (0.2-1.0); Glomerular Filtration Rate 89 ml/min (=/>90); Glucose Level 105 mg/dL (74-106); Potassium 3.3 mmol/L (3.5-5.1); Protein, Total 7.3 g/dL (6.4-8.2); Sodium Level 139 mmol/L (136-145)
[2021-09-30 20:40] LABS: Bilirubin Direct < 0.1 mg/dL (0-0.2)
--- NOTE | 2021-09-30 20:46 | RAD REPORT ---
EXAM DESCRIPTION: RAD - Forearm Left - 09/30/2021 8:40 pm CLINICAL HISTORY: trauma Pain, trauma COMPARISON: Forearm Left dated 07/24/2013 FINDINGS: Hardware plates are present in the distal shaft of the radius and ulna. No hardware loosen ing or infection findings. No acute fracture.
[2021-09-30] MEDS ORDERED: IBUPROFEN 400 MG TAB ONE (21:41)
--- NOTE | 2021-09-30 23:29 | ER ---
Nurse's Notes [facility] Name: Heriberto Duke Age: 31 yrs Sex: Male : 1990 Arrival Date: 09/30/2021 Time: 18:55 Bed 18 Private MD: Diagnosis: Suicidal ideations;Psychosis Presentation: 09/30 19:19 Chief complaint: Patient states: I have been having suicidal thoughts for the last few lg3 days and it is getting worse. I planned on swallowing an entire bottle of pills tonight to kill myself once my mom went to sleep. denies homicidal thoughts/tendencies. Coronavirus screen: Client denies travel out of the [place] in the last 14 days. At this time, the client does not indicate any symptoms associated with coronavirus-19. Ebola Screen: No symptoms or risks identified at this time. Initial Sepsis Screen: Does the patient meet any 2 criteria? No. Patient's initial sepsis screen is negative. Does the patient have a suspected source of infection? No. Patient's initial sepsis screen is negative. Risk Assessment: Do you want to hurt yourself or someone else? Patient reports desire/thoughts of hurting themselves or someone else. Provider notified. Onset of symptoms is unknown. 19:19 Method Of Arrival: Law Enforcement: [place] [employer] lg3 19:19 Acuity: JOSEFA 3 lg3 Triage Assessment: 19:23 General: Appears in no apparent distress. comfortable, Behavior is calm, cooperative. lg3 Pain: Complains of pain in left arm. EENT: No deficits noted. No signs and/or symptoms were reported regarding the EENT system. Neuro: No deficits noted. Level of Consciousness is awake, alert, obeys commands, Oriented to person, place, time, situation. Cardiovascular: No deficits noted. Denies chest pain, shortness of breath, Capillary refill < 3 seconds Clubbing of nail beds is absent JVD is absent Patient's skin is warm and dry. Respiratory: No deficits noted. Airway is patent Trachea midline Respiratory effort is even, unlabored, Respiratory pattern is regular, symmetrical, Breath sounds are clear bilaterally. GI: No deficits noted. Abdomen is round non-distended, Bowel sounds present X 4 quads. Abd is soft and non tender X 4 quads. : No deficits noted. No signs and/or symptoms were reported regarding the genitourinary system. Derm: No deficits noted. No signs and/or symptoms reported regarding the dermatologic system. Skin is intact, is healthy with good turgor, Skin is dry, Skin temperature is warm. Musculoskeletal: No deficits noted. No signs and/or symptoms reported regarding the musculoskeletal system. Circulation, motion, and sensation intact. Capillary refill < 3 seconds, Range of motion: intact in all extremities. Historical: - Allergies: 19:23 No Known Allergies; lg3 - Home Meds: 19:23 Effexor Oral [Active]; gabapentin Oral [Active]; Haldol Oral [Active]; Propranolol Oral lg3 [Active]; - PMHx: 19:23 Schizophrenia; suicidal thoughts; depression; lg3 - PSHx: 19:23 L arm SX; lg3 - Immunization history:: Adult Immunizations up to date, Client reports receiving the 2nd dose of the Covid vaccine. - Social history:: Smoking status: Patient reports the use of cigarette tobacco products, smokes one-half pack cigarettes per day, Patient/guardian denies using alcohol, street drugs. Screenin:27 Abuse screen: Denies threats or abuse. Denies injuries from another. Nutritional lg3 screening: No deficits noted. Tuberculosis screening: No symptoms or risk factors identified. Fall Risk None identified. Assessment: 19:27 General: see triage assessment . lg3 20:37 Reassessment: Patient appears in no apparent distress at this time. No changes from lg3 previously documented assessment. Patient and/or family updated on plan of care and expected duration. Pain level reassessed. Patient is alert, oriented x 3, equal unlabored respirations, skin warm/dry/pink. 21:36 Reassessment: Patient appears in no apparent distress at this time. No changes from lg3 previously documented assessment. Patient and/or family updated on plan of care and expected duration. Pain level reassessed. Patient is alert, oriented x 3, equal unlabored respirations, skin warm/dry/pink. 22:31 General: [facility] pattern and chain maker at bedside . lg3 23:00 General: Patient requested [facility] . tw5 23:41 General: nurse to nurse report given to Maliha Cortez RN with [facility]. lg3 23:53 General: nurse to nurse report given to ALYSSA Wong with [facility] . lg3 10/01 03:34 Reassessment: Patient appears in no apparent distress at this time. No changes from lg3 previously documented assessment. Patient and/or family updated on plan of care and expected duration. Pain level reassessed. Patient is alert, oriented x 3, equal unlabored respirations, skin warm/dry/pink. Psych: 09/30 19:28 [place] Suicide Severity Screening: In the past month, have you wished you were lg3 or wished you could go to sleep and not wake up? Patient responds "yes." Based off the client's responses additional C-SSRS screening is required. "In the past month, have you actually had any thoughts of killing yourself?" Patient responds "yes." Based off the client's response additional [place] suicide severity screening questions to be further documented on paper forms. "In your lifetime, have you ever done anything, started to do anything, or prepared to do anything to end your life?" Patient responds "yes." Patient reports suicidal intent within 3 past months. Subjective: Patient's mood is elevated, Delusions are denied, Hallucinations are auditory, Having thoughts of suicide. Plan for suicide is taking an entire bottle of pills. Objective: Patient is cooperative, Speech is normal, Affect is appropriate. Interventions: Removed personal items and placed in bag. Patient placed in hospital gown. Urine collected and sent for urine drug test. Belonging list filled out. Safety Checks: Personal items have been removed. Pt has been placed in a hallway bed/chair. Pt denies substance abuse. Commitment: Patient will be an involuntary commitment. Commitment papers completed. Vital Signs: 19:19 BP 147 / 100; Pulse 95; Resp 17; Temp 98.3(O); Pulse Ox 98% on R/A; Weight 95.25 kg lg3 (R); Height 5 ft. 10 in. (177.80 cm) (R); 10/01 06:02 BP 134 / 80; Pulse 68; Resp 17 S; Pulse Ox 98% on R/A; lg3 09/30 19:19 Body Mass Index 30.13 (95.25 kg, 177.80 cm) lg3 ED Course: 09/30 18:55 Patient arrived in ED. bp 19:00 Greyson Teran MD is Attending Physician. 7 19:18 Lynda Sweet, RN is Primary Nurse. lg3 19:23 Triage completed. lg3 19:23 Arm band placed on right wrist. lg3 19:27 Patient has correct armband on for positive identification. Placed in gown. Bed in low lg3 position. Side rails up X 1. Valuables inventory done. Locked in safe. See valuables checklist. Warm blanket given. Patient is placed in psych hold. 19:52 COVID-19 SARS RT PCR (Document "Date of Onset" if Symptomatic) Sent. lg3 19:52 Acetaminophen Sent. lg3 19:52 Basic Metabolic Panel Sent. lg3 19:52 CBC with Diff Sent. lg3 19:52 ETOH Level Sent. lg3 19:52 Hepatic Function Sent. lg3 19:52 PT-INR Sent. lg3 19:52 Ptt, Activated Sent. lg3 19:52 Salicylate Sent. lg3 19:52 Urine Drug Screen Sent. lg3 20:42 Forearm Left XRAY In Process Unspecified. [facility] 10/01 07:20 Attending Physician role handed off by Greyson Teran MD [facility] 07:20 Romel Castro MD is Attending Physician. [facility] 08:30 No provider procedures requiring assistance completed. IV discontinued, intact, [place] Pressure dressing applied. Administered Medications: 09/30 21:36 Drug: Ibuprofen 800 mg Route: PO; lg3 21:36 Follow up: Response: No adverse reaction [facility] 10/01 01:15 Drug: Potassium Effervescent Tablet 25 mEq Route: PO; lg3 01:16 Follow up: Response: No adverse reaction 3 07:31 Drug: Tylenol 1000 mg Route: PO; 07:32 Follow up: Response: No adverse reaction [place] Medication: 08:36 VIS not applicable for this client. [place] Outcome: 09/30 23:29 ER care complete, transfer ordered by . [facility] 10/01 08:30 Transferred by ground EMS [place] Condition: good Instructed on the need for transfer. 08:36 Patient left the ED. [place] Signatures: Dispatcher [employer] EDTN Romel Castro MD MD cha Peltier, Brian RN Lynda Akers RN RN 3 Greyson Teran MD MD [facility] Mary Ellen Moreau tw5 Au-StagerMattie RN RN [place] Corrections: (The following items were deleted from the chart) 09/30 23:51 23:50 General: nurse to nurse report given to Maliha Cortez RN with [facility] lg3 [place]. 3
--- NOTE | 2021-09-30 23:29 | EDPHYS ---
Physician Documentation [facility] Name: Heriberto Duke Age: 31 yrs Sex: Male : 1990 Arrival Date: 09/30/2021 Time: 18:55 Bed 18 Private MD: ADRIANA Physician Romel Castro HPI: 09/30 19:14 This 31 yrs old Male presents to ER via Unassigned with complaints of Suicidal thoughts.mh7 19:14 The patient presents to the emergency department with depression, over unknown mh7 circumstances, suicide ideation, and the patient has a plan, to overdose with medications. The patient presents to the emergency department with psychosis, has experienced auditory hallucinations, voices are telling patient to commit sucide. Onset: The symptoms/episode began/occurred 3 day(s) ago. Past psychiatric history: Prior diagnosis: depression, schizophrenia, Psychiatric medications include: Sophia, Primary psychiatric physician: [facility], the patient has had a prior suicide gesture, where the patient took pills/meds, the patient has a previous inpatient psychiatric history, 2 month(s) ago, the patient's last psychiatric treatment was 2 month(s) ago. Associated signs and symptoms: Pertinent positives; hallucinations, Auditory, Pertinent negatives: abdominal pain, anxiety, chest pain, chills, delusions, fever, headache, homicidal ideation, nausea, night sweats, palpitations, paranoia, shortness of breath, substance abuse, tremor, vomiting. Severity of symptoms: At their worst the symptoms were moderate 3 day(s) ago, in the emergency department the symptoms are unchanged. The patient has experienced similar episodes in the past, multiple times. 19:14 Also states that he hit his left forearm area against a wall when he was upset 2 days mh7 ago.. Historical: - Allergies: 19:23 No Known Allergies; lg3 - Home Meds: 19:23 Effexor Oral [Active]; gabapentin Oral [Active]; Haldol Oral [Active]; Propranolol Oral lg3 [Active]; - PMHx: 19:23 Schizophrenia; suicidal thoughts; depression; lg3 - PSHx: 19:23 L arm SX; lg3 - Immunization history:: Adult Immunizations up to date, Client reports receiving the 2nd dose of the Covid vaccine. - Social history:: Smoking status: Patient reports the use of cigarette tobacco products, smokes one-half pack cigarettes per day, Patient/guardian denies using alcohol, street drugs. ROS: 19:14 Constitutional: Negative for fever, chills, and weight loss, Eyes: Negative for injury, mh7 pain, redness, and discharge, ENT: Negative for injury, pain, and discharge, Neck: Negative for injury, pain, and swelling, Cardiovascular: Negative for chest pain, palpitations, and edema, Respiratory: Negative for shortness of breath, cough, wheezing, and pleuritic chest pain, Abdomen/GI: Negative for abdominal pain, nausea, vomiting, diarrhea, and constipation, Back: Negative for injury and pain, : Negative for injury, bleeding, discharge, and swelling, MS/Extremity: Negative for injury and deformity, Skin: Negative for injury, rash, and discoloration, Neuro: Negative for headache, weakness, numbness, tingling, and seizure, Allergy/Immunology: Negative for hives, rash, and allergies, Endocrine: Negative for neck swelling, polydipsia, polyuria, polyphagia, and marked weight changes, Hematologic/Lymphatic: Negative for swollen nodes, abnormal bleeding, and unusual bruising. 19:14 MS/extremity: Positive for injury or acute deformity, hit left forearm against a wall mh7 when angry 2 days ago. Exam: 19:14 Constitutional: This is a well developed, well nourished patient who is awake, alert, mh7 and in no acute distress. Head/Face: Normocephalic, atraumatic. Eyes: Pupils equal round and reactive to light, extra-ocular motions intact. Lids and lashes normal. Conjunctiva and sclera are non-icteric and not injected. Cornea within normal limits. Periorbital areas with no swelling, redness, or edema. Neck: Trachea midline, no thyromegaly or masses palpated, and no cervical lymphadenopathy. Supple, full range of motion without nuchal rigidity, or vertebral point tenderness. No Meningismus. Chest/axilla: Normal chest wall appearance and motion. Nontender with no deformity. No lesions are appreciated. Cardiovascular: Regular rate and rhythm with a normal S1 and S2. No gallops, murmurs, or rubs. Normal PMI, no JVD. No pulse deficits. Respiratory: Lungs have equal breath sounds bilaterally, clear to auscultation and percussion. No rales, rhonchi or wheezes noted. No increased work of breathing, no retractions or nasal flaring. Abdomen/GI: Soft, non-tender, with normal bowel sounds. No distension or tympany. No guarding or rebound. No evidence of tenderness throughout. Back: No spinal tenderness. No costovertebral tenderness. Full range of motion. Skin: Warm, dry with normal turgor. Normal color with no rashes, no lesions, and no evidence of cellulitis. 19:14 Neuro: Awake and alert, GCS 15, oriented to person, place, time, and situation. Cranial nerves II-XII grossly intact. Motor strength 5/5 in all extremities. Sensory grossly intact. Cerebellar exam normal. Normal gait. 19:14 Musculoskeletal/extremity: Extremities: noted in the left forearm: pain, tenderness, ROM: intact in all extremities, Circulation is intact in all extremities. Sensation intact. Compartment Syndrome exam of affected extremity: is normal. no numbness, no tingling, no sensation deficit, no palor, no weak pulses, Joints: All joints appear normal with full range of motion. Weight bearing: able to fully bear weight, without difficulty, Tendon exam: specific tendon testing normal through active and passive range of motion 19:14 Psych: Behavior/mood is cooperative, Affect is calm, Oriented to person, place, time, Patient having thoughts of suicide. Plan for suicide is take pills Judgement / Insight is normal. Memory is normal. Delusions/hallucinations are present and described as hearing voices telling him to kill himself. 19:33 ECG was reviewed by the Attending Physician. health system Vital Signs: 19:19 BP 147 / 100; Pulse 95; Resp 17; Temp 98.3(O); Pulse Ox 98% on R/A; Weight 95.25 kg lg3 (R); Height 5 ft. 10 in. (177.80 cm) (R); 10/01 06:02 BP 134 / 80; Pulse 68; Resp 17 S; Pulse Ox 98% on R/A; lg3 09/30 19:19 Body Mass Index 30.13 (95.25 kg, 177.80 cm) lg3 MDM: 09/30 23:27 Differential diagnosis: drug withdrawal. acute psychotic break, depression, psychosis mh7 secondary to non-compliance. Data reviewed: vital signs, nurses notes, old medical records, lab test result(s), CBC, drug level(s), acetaminophen, alcohol, salicylate, electrolytes, urine drug screen, EKG, radiologic studies, plain films. Data interpreted: Pulse oximetry: on room air is 98 %. Interpretation: normal. Counseling: I had a detailed discussion with the patient and/or guardian regarding: the historical points, exam findings, and any diagnostic results supporting the discharge/admit diagnosis, the presence of at least one elevated blood pressure reading (>120/80) during this emergency department visit, lab results, radiology results, the need to transfer to another facility, [facility] does not immediately have the required specialist. Response to treatment: the patient's symptoms have mildly improved after treatment. 23:29 Patient medically screened. 09/30 19:14 Order name: Acetaminophen; Complete Time: 20:49 health system 09/30 19:14 Order name: Basic Metabolic Panel; Complete Time: 20:49 health system 09/30 19:14 Order name: CBC with Diff; Complete Time: 20:40 health system 09/30 19:14 Order name: ETOH Level; Complete Time: 20:40 09/30 19:14 Order name: Hepatic Function; Complete Time: 20:49 health system 09/30 19:14 Order name: PT-INR; Complete Time: 20:40 09/30 19:14 Order name: Ptt, Activated; Complete Time: 20:40 09/30 19:14 Order name: Salicylate; Complete Time: 20:40 health system 09/30 19:14 Order name: Urine Drug Screen; Complete Time: 20:40 health system 09/30 19:14 Order name: COVID-19 SARS RT PCR (Document "Date of Onset" if Symptomatic); Complete health system Time: 21:25 09/30 19:14 Order name: Forearm Left XRAY; Complete Time: 20:49 health system 09/30 19:57 Order name: Urine Dipstick-Ancillary; Complete Time: 20:06 EDMS 09/30 19:14 Order name: EKG; Complete Time: 19:15 health system 09/30 19:14 Order name: EKG - Nurse/Tech; Complete Time: 19:31 health system 09/30 19:14 Order name: IV Saline Lock; Complete Time: 19:52 health system 09/30 19:14 Order name: Labs collected and sent; Complete Time: 19:52 health system 09/30 19:14 Order name: Suicide Precautions; Complete Time: 19:52 health system 09/30 19:14 Order name: Suicide Screening ([place]); Complete Time: 19:52 health system 09/30 19:14 Order name: Urine Dipstick-Ancillary (obtain specimen); Complete Time: 19:52 health system 09/30 19:50 Order name: Diet Finger Food; Complete Time: 19:50 [facility] 10/01 07:33 Order name: Diet Finger Food; Complete Time: 07:33 [facility] EC:33 Rate is 91 beats/min. Rhythm is regular, Normal Sinus Rhythm with No ectopy. QRS [facility] is Normal. MO interval is normal. QRS interval is normal. QT interval is normal. No Q waves. T waves are Normal. No ST changes noted. Clinical impression: Normal ECG. Administered Medications: 21:36 Drug: Ibuprofen 800 mg Route: PO; 3 21:36 Follow up: Response: No adverse reaction [facility] 10/01 01:15 Drug: Potassium Effervescent Tablet 25 mEq Route: PO; lg3 01:16 Follow up: Response: No adverse reaction 3 07:31 Drug: Tylenol 1000 mg Route: PO; 07:32 Follow up: Response: No adverse reaction [facility] Disposition Summary: 09/30/21 23:29 Transfer Ordered Transfer Location: Psych Facility health system Reason: Higher level of care 7 Condition: Stable mh7 Problem: an acute exacerbation mh7 Symptoms: have improved mh7 Accepting Physician: Dr. Bertha Uriostegui(10/01/21 08:36) [facility] Diagnosis - Suicidal ideations mh7 - Psychosis mh Forms: - Medication Reconciliation Form mh7 - SBAR form 7 Signatures: Dispatcher [employer] Lynda Chandler RN RN lg3 Greyson Teran MD MD 7 Mattie Garnett RN RN [facility] Corrections: (The following items were deleted from the chart) 09/30 23:29 23:29 Psych [email or web address] 10/01 00:33 09/30 23:29 Psych [email or web address] 7 10/01 08:36 00:33 Dr. Bertha Uriostegui Henry [facility]
[2021-10-01] MEDS ORDERED: POTASSIUM 25 MEQ EFFERV TAB ONE (01:19)
[2021-10-01] MEDS ORDERED: ACETAMINOPHEN 500 MG TAB ONE (07:33)
[2021-10-01 08:45] VITALS: TEMP 98.3; O2SAT 98
[2021-10-01 08:46] VITALS: BP 134/80
--- NOTE | 2021-10-02 09:04 | EKG ---
Test Date: 2021-09-30 Test Time: 19:29:07 [place]: SUMAYA MEASUREMENT RESULTS: Intervals: Rate: 91 [place]: 142 QRSD: 82 QT: 342 QTc: 420 [place]: P: 35 [place]: 142 QRS: 71 T: 48 INTERPRETIVE STATEMENTS: Normal sinus rhythm Normal ECG Compared to ECG 08/03/2021 22:11:16 Prolonged QT interval no longer present Electronically Signed On 10-02-21 09:02:56 CDT by Devin Hui
== END 2021-10-01 08:36 ==
LOC: ER 18:53
DX: R45.851 Suicidal ideations (principal); F20.9 Schizophrenia, unspecified; F17.210 Nicotine dependence, cigarettes, uncomplicated; Z20.822 Contact with and (suspected) exposure to COVID-19
CPT/HCPCS: 93005; 85025; 80048; 36415; 80320; 80329 ×2; 85610; 80076; 85730; 81003; 80307; 73090; 99285; U0003

== ENCOUNTER 2021-10-25 17:23 | Emergency (ER) | payer OTHER ==
--- OUTSIDE RECORDS SUMMARY | 2021-10-25 17:27 | XMS REPORT | Continuity of Care Document ---
:1990 Author Organization [facility] t Address [address] [place] [address] Care Team Providers Name Role Phone Yanni Pavon Attending Clinician Unavailable Wellington Lewis Attending Clinician Unavailable Wellington Lewis Attending Clinician Unavailable Ron Horowitz Attending Clinician Unavailable Ron Horowitz Attending Clinician Unavailable Wellington Lewis Admitting Clinician Unavailable Payers Payer Name Policy Type Policy Number Effective Date Expiration Date S ource Problems This patient has no known problems. Allergies, Adverse Reactions, Alerts Allergy Allergy Status Severity Reaction(s) Onset Inactive Treating Comm ents Source Name Type Date Date Clinician No Known DA Active U 2019-03 [facility] 05-16 Allergie 00:00: s [address] No Known Drug [facility] No Known Drug [facility] No Known Drug [facility] No Known Drug [facility] No [facility] No [facility] No [facility] No [facility] No [facility] No Known [facility] No [facility] No [facility] No Known Drug Active [facility] No Known Drug Active . [facility] Medications This patient has no known medications. [...] Temperature 2020-03-16 16:15:27 36.8\\S\\98.2 Weight 2020-03-16 16:15:27 37125.588\\S\\2960 Weight Measurement Method 2020-03-16 16:15:27 Estimated by Patient Respiratory 2020-03-16 16:09:15 No respiratory distress /min 02 Sat by Pulse Oximetry 2020-03-16 16:09:15 96 /min Body Mass Index 2020-03-16 16:09:15 26.5 Height 2020-03-16 16:09:15 177.8\\S\\70 Pulse Rate 2020-03-16 16:09:15 85 /min Respiratory Rate 2020-03-16 16:09:15 18 /min Temperature 2020-03-16 16:09:15 36.8\\S\\98.2 Weight 2020-03-16 16:09:15 37388.588\\S\\2960 Weight Measurement Method 2020-03-16 16:09:15 Estimated by Patient 02 Sat by Pulse Oximetry 2020-03-16 16:09:14 96 /min Body Mass Index 2020-03-16 16:09:14 26.5 Height 2020-03-16 16:09:14 177.8\\S\\70 Pulse Rate 2020-03-16 16:09:14 85 /min Respiratory Rate 2020-03-16 16:09:14 18 /min Temperature 2020-03-16 16:09:14 36.8\\S\\98.2 Weight 2020-03-16 16:09:14 64435.588\\S\\2960 Weight Measurement Method 2020-03-16 16:09:14 Estimated by Patient Respiratory 2020-03-16 16:09:14 No respiratory distress /min Respiratory 2020-03-16 14:02:46 No respiratory distress /min 02 Sat by Pulse Oximetry 2020-03-16 14:02:46 96 /min Body Mass Index 2020-03-16 14:02:46 26.5 Height 2020-03-16 14:02:46 177.8\\S\\70 Pulse Rate 2020-03-16 14:02:46 85 /min Respiratory Rate 2020-03-16 14:02:46 18 /min Temperature 2020-03-16 14:02:46 36.8\\S\\98.2 Weight 2020-03-16 14:02:46 56999.588\\S\\2960 Weight Measurement Method 2020-03-16 14:02:46 Estimated by Patient Respiratory 2020-03-16 14:02:15 No respiratory distress /min 02 Sat by Pulse Oximetry 2020-03-16 14:02:15 96 /min Body Mass Index 2020-03-16 14:02:15 26.5 Height 2020-03-16 14:02:15 177.8\\S\\70 Pulse Rate 2020-03-16 14:02:15 85 /min Respiratory Rate 2020-03-16 14:02:15 18 /min Temperature 2020-03-16 14:02:15 36.8\\S\\98.2 Weight 2020-03-16 14:02:15 31485.588\\S\\2960 Weight Measurement Method 2020-03-16 14:02:15 Estimated by Patient Respiratory 2020-03-16 14:01:43 No respiratory distress /min 02 Sat by Pulse Oximetry 2020-03-16 14:01:43 96 /min Body Mass Index 2020-03-16 14:01:43 26.5 Height 2020-03-16 14:01:43 177.8\\S\\70 Pulse Rate 2020-03-16 14:01:43 85 /min Respiratory Rate 2020-03-16 14:01:43 18 /min Temperature 2020-03-16 14:01:43 36.8\\S\\98.2 Weight 2020-03-16 14:01:43 48854.588\\S\\2960 Weight Measurement Method 2020-03-16 14:01:43 Estimated by Patient Respiratory 2020-03-16 14:01:12 No respiratory distress /min 02 Sat by Pulse Oximetry 2020-03-16 14:01:12 96 /min Body Mass Index 2020-03-16 14:01:12 26.5 Height 2020-03-16 14:01:12 177.8\\S\\70 Pulse Rate 2020-03-16 14:01:12 85 /min Respiratory Rate 2020-03-16 14:01:12 18 /min Temperature 2020-03-16 14:01:12 36.8\\S\\98.2 Weight 2020-03-16 14:01:12 77168.588\\S\\2960 Weight Measurement Method 2020-03-16 14:01:12 Estimated by Patient Respiratory 2020-03-15 16:13:25 No respiratory distress /min 02 Sat by Pulse Oximetry 2020-03-15 16:13:25 98 /min Body Mass Index 2020-03-15 16:13:25 26.5 Height 2020-03-15 16:13:25 177.8\\S\\70 Pulse Rate 2020-03-15 16:13:25 87 /min Respiratory Rate 2020-03-15 16:13:25 18 /min Temperature 2020-03-15 16:13:25 36.5\\S\\97.7 Weight 2020-03-15 16:13:25 58773.588\\S\\2960 Weight Measurement Method 2020-03-15 16:13:25 Estimated by Patient Respiratory 2020-03-15 15:57:27 No respiratory distress /min 02 Sat by Pulse Oximetry 2020-03-15 15:57:27 98 /min Body Mass Index 2020-03-15 15:57:27 26.5 Height 2020-03-15 15:57:27 177.8\\S\\70 Pulse Rate 2020-03-15 15:57:27 87 /min Respiratory Rate 2020-03-15 15:57:27 18 /min Temperature 2020-03-15 15:57:27 36.5\\S\\97.7 Weight 2020-03-15 15:57:27 75333.588\\S\\2960 Weight Measurement Method 2020-03-15 15:57:27 Estimated by Patient Respiratory 2020-03-15 14:35:13 No respiratory distress /min 02 Sat by Pulse Oximetry 2020-03-15 14:35:13 98 /min Body Mass Index 2020-03-15 14:35:13 26.5 Height 2020-03-15 14:35:13 177.8\\S\\70 Pulse Rate 2020-03-15 14:35:13 87 /min Respiratory Rate 2020-03-15 14:35:13 18 /min Temperature 2020-03-15 14:35:13 36.5\\S\\97.7 Weight 2020-03-15 14:35:13 02453.588\\S\\2960 Weight Measurement Method 2020-03-15 14:35:13 Estimated by Patient Respiratory 2020-03-15 14:28:03 No respiratory distress /min 02 Sat by Pulse Oximetry 2020-03-15 14:28:03 98 /min Body Mass Index 2020-03-15 14:28:03 26.5 Height 2020-03-15 14:28:03 177.8\\S\\70 Pulse Rate 2020-03-15 14:28:03 87 /min Respiratory Rate 2020-03-15 14:28:03 18 /min Temperature 2020-03-15 14:28:03 36.5\\S\\97.7 Weight 2020-03-15 14:28:03 18965.588\\S\\2960 Weight Measurement Method 2020-03-15 14:28:03 Estimated by Patient Respiratory 2020-03-15 14:27:02 No respiratory distress /min 02 Sat by Pulse Oximetry 2020-03-15 14:27:02 98 /min Body Mass Index 2020-03-15 14:27:02 26.5 Height 2020-03-15 14:27:02 177.8\\S\\70 Pulse Rate 2020-03-15 14:27:02 87 /min Respiratory Rate 2020-03-15 14:27:02 18 /min Temperature 2020-03-15 14:27:02 36.5\\S\\97.7 Weight 2020-03-15 14:27:02 78221.588\\S\\2960 Weight Measurement Method 2020-03-15 14:27:02 Estimated by Patient Respiratory 2020-03-15 10:42:59 No respiratory distress /min 02 Sat by Pulse Oximetry 2020-03-15 10:42:59 100 /min Body Mass Index 2020-03-15 10:42:59 26.5 Height 2020-03-15 10:42:59 177.8\\S\\70 Pulse Rate 2020-03-15 10:42:59 92 /min Respiratory Rate 2020-03-15 10:42:59 18 /min Temperature 2020-03-15 10:42:59 36.8\\S\\98.2 Weight 2020-03-15 10:42:59 52719.588\\S\\2960 Weight Measurement Method 2020-03-15 10:42:59 Estimated by Patient 02 Sat by Pulse Oximetry 2020-03-15 10:16:27 100 /min Body Mass Index 2020-03-15 10:16:27 26.5 Height 2020-03-15 10:16:27 177.8\\S\\70 Pulse Rate 2020-03-15 10:16:27 92 /min Respiratory Rate 2020-03-15 10:16:27 18 /min Temperature 2020-03-15 10:16:27 36.8\\S\\98.2 Weight 2020-03-15 10:16:27 97142.588\\S\\2960 Weight Measurement Method 2020-03-15 10:16:27 Estimated by Patient 02 Sat by Pulse Oximetry 2020-03-15 10:14:24 100 /min Body Mass Index 2020-03-15 10:14:24 26.5 Height 2020-03-15 10:14:24 177.8\\S\\70 Pulse Rate 2020-03-15 10:14:24 92 /min Respiratory Rate 2020-03-15 10:14:24 18 /min Temperature 2020-03-15 10:14:24 36.8\\S\\98.2 Weight 2020-03-15 10:14:24 95580.588\\S\\2960 Weight Measurement Method 2020-03-15 10:14:24 Estimated by Patient 02 Sat by Pulse Oximetry 2020-03-15 10:13:53 100 /min Body Mass Index 2020-03-15 10:13:53 26.5 Height 2020-03-15 10:13:53 177.8\\S\\70 Pulse Rate 2020-03-15 10:13:53 92 /min Respiratory Rate 2020-03-15 10:13:53 18 /min Temperature 2020-03-15 10:13:53 36.8\\S\\98.2 Weight 2020-03-15 10:13:53 34911.588\\S\\2960 Weight Measurement Method 2020-03-15 10:13:53 Estimated by Patient WEIGHT 2020-03-15 10:08:00 83.464341 kg HEIGHT 2020-03-15 10:08:00 177.8 cm Procedures This patient has no known procedures. Encounters Start End Encounter Admission Attending Care Care Encounter Source Date/Time Date/Time Type Type Clinicians Facility Department ID 2021-10-01 Outpatient [facility] [id number] [place] 00:32:38 [id number] [facility] 2021-08-03 Outpatient [facility] [id number] [place] 23:15:31 [id number] [facility] 2020-03-15 2020-03-15 Emergency Emergency [facility], [facility] [id number] [facility] 09:59:00 09:59:00 Chrystan 80 2019-09-28 2019-10-30 Inpatient 1 Wellington Lewis [facility] PSY [id number] 09:54:00 13:45:00 Wellington Lewis [facility] 2019-09-28 2019-09-28 Emergency 1 Ron Horowitz [facility] [place] [id number] 09:54:00 09:54:00 Ron Horowitz -[id number] [facility] Results Test Description Test Time Test Comments Results Result Comments Source Novel Coronavirus SARS-CoV-2, PCR 2019-10-08 23:02:04 Test Item Value Reference Range Interpretation Comme nts SARS-CoV-2 PCR (test code = NEGATIVE Negative Test performed by [place] SARS-CoV-2 PCR) Sabianism.Po sitive results are indicative of a ctive [...] Drug Administration s Emergency Use Authorization." RPR [id number] 13:55:26 Test Item Value Reference Range Interpretation Comments RPR Qual (test code = RPR Qual) Non-Reactive Non-Reactive Reactive Control (test code = Reactive Reactive Control) Weak Reactive Control (test Weak Reactive code = Weak Reactive Control) Non-Reactive Control (test code Non-Reactive = Non-Reactive Control) Lot # (test code = Lot #) [id number] N Expiration Dt (test code = 9.30.21 N Expiration Dt) Hemoglobin [id number] 11:44:22 Test Item Value Reference Range Interpretation Comments Hemoglobin A1c (test code 4.9 % 4.0-5.8 Di abetic >=6.5 = Hemoglobin A1c) %Prediabet es 5.7-6.4 %Normal <5.7 % Lipid [id number] 11:38:42 Test Item Value Reference Range Interpretation [...] LDL/HDL Ratio=L DL Calc/HDL Chol Thyroid Stimulating [id number] 11:38:42 Test Item Value Reference Range Interpretation Comments TSH (test code = TSH) 2.039 mcIU/mL 0.550-4.780 Urine DOA [id number] 14:30:34 Test Item Value Reference Range Interpretation [...] positive result is desired, please order Opiate Confirma tion, Urine within 7 days. U PCP Scrn [...] Confirmation wi thin 7 days. Comprehensive Metabolic [id number] 11:37:31 Test Item Value Reference Range Interpretation [...] = Lipemia) 0 g/dL 1-2 H Alcohol [id number] 11:37:31 Test Item Value Reference Range Interpretation Comments Ethanol Level 3.8 mg/dL N The pharmacolo gical (test code = response to blo od alcohol Ethanol Level) levels may va ry from individual to i ndividual. The fatal kashif ntration has been report ed to be >400 mg/dl. Comprehensive Metabolic [id number] 11:37:31 Test Item Value Reference Range Interpretation [...] ag e have not been validated by e MDRD study and should be interpreted [...] 0 g/dL 1-2 H Lipemia) Comprehensive Metabolic [id number] 11:37:31 Test Item Value Reference Range Interpretation [...] ag e have not been validated by [facility] MDRD study and should be interpreted [...] ag e have not been validated by [facility] MDRD study and should be interpreted [...] 1-2 H Lipemia) Urinalysis with Culture, if [id number] 11:23:08 Test Item Value Reference Range Interpretation [...] Not Indicated Not Indicated Micro Ind?) Automated [id number] 11:14:51 Test Item Value Reference Range Interpretation Comments Neutro Auto (test code = Neutro 59.5 % 36.0-70.0 Auto) Lymph Auto (test code = Lymph Auto) 26.2 % 12.0-44.0 [place] Auto (test code = [place] Auto) 10.2 % 0.0-11.0 Eos, Auto (test code = Eos, Auto) 2.6 % 0.0-7.0 Basophil Auto (test code = Basophil 1.0 % 0.0-2.0 Auto) Neutro Absolute (test code = Neutro 4.5 x10 1.6-7.4 Absolute) Lymph Absolute (test code = Lymph 2.00 x10 .50-4.60 Absolute) [place] Absolute (test code = [place] .78 x10 .00-1.20 Absolute) Eos Absolute (test code = Eos 0.20 x10 0.00-0.74 Absolute) Baso Absolute (test code = Baso 0.08 x10 0.00-0.21 Absolute) IG [id number] 11:14:51 Test Item Value Reference Range Interpretation Comments IG (test code = IG) 0.5 % 0.0-5.0 IG Abs (test code = IG Abs) 0 x10 N Complete Blood Count with [id number] 11:14:50 Test Item Value Reference Range Interpretation [...] code = IPF) 0 % N RPR [id number] 13:47:36 Test Item Value Reference Range Interpretation [...] = 01-18-20 N Expiration Dt) Thyroid Stimulating [id number] 08:21:50 Test Item Value Reference Range Interpretation Comments TSH (test code = TSH) 2.100 mIU/mL 0.270-4.200 Lipid [id number] 07:23:30 Test Item Value Reference Range Interpretation Comments Cholesterol Total 179 mg/dL 0-200 RISK OF HE ART (test code = DISEASEPublishe d by Cholesterol Total) [employer] Jacqueline lyte Optimal Borderl ine Increased RiskC HOL <200 200-239 >240TRI G <150 150-199 >200HDL Male >60 <40HDL Fema le >60 <50LDL <100 130 -159 >160LDL [facility]129 Triglycerides (test 108 mg/dL 9-200 [...] LDL/HDL Ratio=L DL Calc/HDL Chol Comprehensive Metabolic [id number] 07:00:35 Test Item Value Reference Range Interpretation [...] A/G 1.8 ratio N Ratio) Comprehensive Metabolic [id number] 07:00:35 Test Item Value Reference Range Interpretation [...] National Kidney Foundation, http://nkdep.ni h.gov Comprehensive Metabolic [id number] 07:00:35 Test Item Value Reference Range Interpretation [...] ag e have not been validated by e MDRD study and should be interpreted [...] ag e have not been validated by e MDRD study and should be interpreted wit h caution. eGFR R esult Interpretation: eGFR > or = 60 is in the Normal RangeeGF R < 60 may mean kid zach diseaseeGFR < 1 5 may mean kidney failure Rang es recommended by the National Kidney Foundation, http://nkdep.ni h.gov Complete Blood Count with [id number] 06:45:37 Test Item Value Reference Range Interpretation [...] code = IPF) 0 % N Automated [id number] 06:45:37 Test Item Value Reference Range Interpretation Comments Neutro Auto (test code = Neutro 55.6 % 36.0-70.0 Auto) Lymph Auto (test code = Lymph Auto) 29.0 % 12.0-44.0 [place] Auto (test code = [place] Auto) 11.8 % 0.0-11.0 H Eos, Auto (test code = Eos, Auto) 2.7 % 0.0-7.0 Basophil Auto (test code = Basophil 0.7 % 0.0-2.0 Auto) Neutro Absolute (test code = Neutro 3.3 x10 1.6-7.4 Absolute) Lymph Absolute (test code = Lymph 1.70 x10 .50-4.60 Absolute) [place] Absolute (test code = [place] .69 x10 .00-1.20 Absolute) Eos Absolute (test code = Eos 0.16 x10 0.00-0.74 Absolute) Baso Absolute (test code = Baso 0.04 x10 0.00-0.21 Absolute) IG [id number] 06:45:37 Test Item Value Reference Range Interpretation Comments IG (test code = IG) 0.2 % 0.0-5.0 IG Abs (test code = IG Abs) 0 x10 N
[2021-10-25 18:16] LABS: SARS-CoV-2 Antigen Rapid Res Negative (Negative)
[2021-10-25] MEDS ORDERED: NA CHLORIDE 0.9% 1,000 ML ONE ×2 (18:17→18:46)
[2021-10-25 18:19] LABS: Absolute Lymphocytes (CBC) 2.7 K/uL (0.7-4.9); Hematocrit 38.8 % (39.6-49.0); Lymphocytes % 19.2 % (15.3-44.8); MCV 81.4 fL (80-100); MPV 7.7 fL (7.6-11.3); RBC Red Blood Cell Count 4.76 M/uL (4.33-5.43)
[2021-10-25 18:27] LABS: Protime INR 0.97
[2021-10-25 18:44] LABS: Urine Blood Negative (Negative); Urine Glucose Negative (Negative); Urine Protein 1+ (Negative); Urine Specific Gravity >=1.030 (1.005-1.030)
[2021-10-25] MEDS ORDERED: GLUCAGON 1 MG/VIAL ONE (18:46)
[2021-10-25] MEDS ORDERED: ONDANSETRON 4 MG/2 ML VIAL ONE (18:47)
[2021-10-25 18:48] LABS: ALT/SGPT 32 U/L (12-78); AST/SGOT 24 U/L (15-37); Albumin 3.6 g/dL (3.4-5.0); Alkaline Phosphatase 151 U/L (45-117); BUN Blood Urea Nitrogen 6 mg/dL (7-18); Bicarbonate 26 mmol/L (21-32); Bilirubin Direct < 0.1 mg/dL (0-0.2); Bilirubin Total 0.3 mg/dL (0.2-1.0); Glomerular Filtration Rate 78 ml/min (=/>90); Glucose Level 79 mg/dL (74-106); Potassium 3.6 mmol/L (3.5-5.1); Sodium Level 140 mmol/L (136-145)
[2021-10-25 19:08] LABS: Barbiturates NEGATIVE (NEGATIVE); Benzodiazepines NEGATIVE (NEGATIVE); Cocaine NEGATIVE (NEGATIVE); METHAMPHETAM POSITIVE (NEGATIVE); Methadone NEGATIVE (NEGATIVE); Opiates NEGATIVE (NEGATIVE); Phencyclidine NEGATIVE (NEGATIVE); THC Cannibis POSITIVE (NEGATIVE)
[2021-10-25] MEDS ORDERED: hydrOXYzine HCL 25 MG TAB ONE (23:27)
[2021-10-26] MEDS ORDERED: GABAPENTIN 300 MG CAP ONE ×2 (01:44→10:21)
--- NOTE | 2021-10-26 03:38 | EDPHYS ---
Physician Documentation [facility] Name: Heriberto Duke Age: 31 yrs Sex: Male : 1990 Arrival Date: 10/25/2021 Time: 17:28 Bed 17 Private MD: ED Physician Mable Ceron HPI: 10/25 17:56 This 31 yrs old Male presents to ER via EMS with complaints of Psych Problem. rn 17:56 The patient presents to the emergency department with. Onset: The symptoms/episode rn began/occurred at an unknown time. Severity of symptoms:. EMS reports that this is second time called out to his residence today. First time refused transport, second time police filled out BEATRICE because mother stated he took 20 of her metoprolol pills today as suicidal gesture. Pt with hx of suicidal gestures with pills in past. Patient denies taking any pills. Officer states BEATRICE filed because patient seemed to get more slurred and slower as she continued to talk with him. EMS states that mother not at scene. . Historical: - Allergies: 18:05 No Known Allergies; jl7 - Home Meds: 17:40 Effexor 50 mg oral tab 1 tab 2 times per day [Active]; gabapentin 300 mg oral cap 1 cap purcell 3 times per day [Active]; Haldol Oral [Active]; propranolol 10 mg oral tab 1 tab BID [Active]; - PMHx: 17:40 Depression; Schizophrenia; suicidal thoughts; purcell - PSHx: 17:40 L arm SX; purcell - Immunization history:: Adult Immunizations up to date. - Social history:: Smoking status: Patient reports the use of cigarette tobacco products, smokes one pack cigarettes per day. - Family history:: not pertinent. - Hospitalizations: : No recent hospitalization is reported. ROS: 17:56 Constitutional: Negative for fever, chills, and weight loss, Eyes: Negative for injury, rn pain, redness, and discharge, Neck: Negative for injury, pain, and swelling, Cardiovascular: Negative for chest pain, palpitations, and edema, Respiratory: Negative for shortness of breath, cough, wheezing, and pleuritic chest pain, Abdomen/GI: Negative for abdominal pain, nausea, vomiting, diarrhea, and constipation, Back: Negative for injury and pain, MS/Extremity: Negative for injury and deformity, Skin: Negative for injury, rash, and discoloration, Neuro: Negative for headache, weakness, numbness, tingling, and seizure. Exam: 17:56 Constitutional: This is a well developed, well nourished patient who is awake, alert, rn and in no acute distress. Head/Face: Normocephalic, atraumatic. Eyes: Periorbital areas with no swelling, redness, or edema. Cardiovascular: Regular rate and rhythm. No pulse deficits. Respiratory: No increased work of breathing, no retractions or nasal flaring. Abdomen/GI: Soft, non-tender Skin: Warm, dry MS/ Extremity: Pulses equal, no cyanosis Neuro: Awake and alert, GCS 15, oriented to person, place, time, and situation. Cranial nerves II-XII grossly intact. Motor strength 5/5 in all extremities. Sensory grossly intact. Cerebellar exam normal. Normal gait. 18:09 ECG was reviewed by the Attending Physician. rn Vital Signs: 17:29 BP 95 / 63; Pulse 60; Resp 20; Temp 97.9; Pulse Ox 99% on R/A; Weight 90.72 kg; Height purcell 5 ft. 10 in. (177.80 cm); 18:21 BP 94 / 63; Pulse 66; Resp 17; Pulse Ox 99% on R/A; purcell 18:33 BP 90 / 53; Pulse 70; Resp 17; Pulse Ox 99% on R/A; purcell 18:35 BP 87 / 52; Pulse 71; Resp 16; Pulse Ox 99% on R/A; purcell 18:43 BP 104 / 68; Pulse 68; Resp 17; Pulse Ox 99% on R/A; purcell 19:44 BP 119 / 77; Pulse 80; Resp 17; Pulse Ox 99% on R/A; ll3 21:53 BP 125 / 81; Pulse 65; Resp 18; Pulse Ox 96% on R/A; ll3 22:45 BP 131 / 89; Pulse 72; Resp 19; Pulse Ox 99% on R/A; ll3 23:45 BP 119 / 83; Pulse 62; Resp 19; Pulse Ox 99% on R/A; ll3 08/09 00:35 BP 126 / 76; Pulse 80; Resp 20; Pulse Ox 99% on R/A; ll3 01:42 BP 125 / 92; Pulse 77; Resp 20; Pulse Ox 99% on R/A; ll3 03:30 BP 119 / 65; Pulse 70; Resp 18; Pulse Ox 100% on R/A; ll3 08:55 BP 121 / 78; Pulse 71; Resp 17; Pulse Ox 99% on R/A; purcell 10/25 17:29 Body Mass Index 28.70 (90.72 kg, 177.80 cm) purcell MDM: 10/25 17:29 Patient medically screened. 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 . 18:25 ED course: Pt still denies taking any medication in suicide attempt or gesture.. rn 19:42 Transition of care: Care assumed from Adonis De Paz MD. sd2 10/26 01:05 ED course: Case was discussed with Poison Control. Up to 8 hour observation time sd2 recommended from time of ingestion. Pt has been observed for over 12 hours from time of ingestion at this point. No further episodes of hypotension or bradycardia. Pt resting comfortably with stable VS and can be medically cleared at this point. [facility] will be contacted for mental health evaluation.. 03:36 ED course: Discussed case with [facility] associate sales representative who recommends inpatient sd2 psychiatric facility placement. Pt under BEATRICE and medically cleared pending placement at this time. . 06:36 ED course: Doc to doc report completed for patient at [facility] with Dr. Kuo..sd2 10/25 17:29 Order name: Acetaminophen; Complete Time: 19:41 rn 10/25 17:29 Order name: Basic Metabolic Panel; Complete Time: 19:41 rn 10/25 17:29 Order name: CBC with Diff; Complete Time: 18:37 rn 10/25 17:29 Order name: ETOH Level; Complete Time: 18:37 rn 10/25 17:29 Order name: Hepatic Function; Complete Time: 19:41 rn 10/25 17:29 Order name: PT-INR; Complete Time: 18:37 rn 10/25 17:29 Order name: Ptt, Activated; Complete Time: 18:37 rn 10/25 17:29 Order name: Salicylate; Complete Time: 19:41 rn 10/25 17:29 Order name: Urine Drug Screen; Complete Time: 19:41 rn 10/25 17:29 Order name: SARS-COV-2 Antigen Rapid; Complete Time: 18:19 rn 10/25 18:44 Order name: Urine Dipstick-Ancillary; Complete Time: 19:41 EDMS 10/25 17:29 Order name: EKG; Complete Time: 17:32 rn 10/25 17:29 Order name: EKG - Nurse/Tech; Complete Time: 18:13 rn 10/25 17:29 Order name: IV Saline Lock; Complete Time: 18:13 rn 10/25 17:29 Order name: Labs collected and sent; Complete Time: 18:13 rn 10/25 17:29 Order name: Suicide Precautions; Complete Time: 18:21 rn 10/25 17:29 Order name: Suicide Screening ([place]); Complete Time: 18:21 rn 10/26 07:08 Order name: Diet Finger Food; Complete Time: 07:25 ll3 10/26 11:02 Order name: Diet Finger Food; Complete Time: 11:04 purcell 10/25 17:29 Order name: Urine Dipstick-Ancillary (obtain specimen); Complete Time: 01:41 rn EC/08 18:09 Rate is 61 beats/min. Rhythm is regular. QRS [place] is Normal. IA interval is normal. QRS rn interval is normal. QT interval is normal. No Q waves. T waves are Normal. No ST changes noted. Clinical impression: Normal ECG. Interpreted by me. Reviewed by me. Administered Medications: 18:20 Drug: NS 0.9% 1000 ml Route: IV; Rate: 1000 ml; Site: left wrist; purcell 18:45 Drug: NS 0.9% 1000 ml Route: IV; Rate: 1000 ml; Site: left wrist; purcell 18:45 Drug: Glucagon 2 mg Route: IVP; Site: left wrist; purcell 18:45 Drug: Zofran (Ondansetron) 4 mg Route: IVP; Site: left wrist; purcell 23:35 Drug: hydrOXYzine 50 mg Route: PO; ll3 10/26 01:42 Follow up: Response: No adverse reaction ll3 01:41 Drug: Gabapentin 300 mg Route: PO; ll3 04:33 Follow up: Response: No adverse reaction ll3 10:10 Not Given (errorr): Effient 10 mg PO once purcell 10:11 Not Given (Patient Refused): Effexor XR (venlafaxine) 75 mg PO once purcell 10:16 Drug: Ativan (LORazepam) 1 mg Route: IVP; Site: left wrist; purcell 10:16 Drug: Gabapentin 300 mg Route: PO; purcell Disposition Summary: 10/26/21 03:37 Transfer Ordered Transfer Location: Psych Facility sd2 Reason: Higher level of care sd2 Condition: Stable sd2 Problem: new sd2 Symptoms: are unchanged sd2 Accepting Physician: Inpatient Psychiatric Facility(10/26/21 11:26) purcell Diagnosis - Suicide attempt sd2 Discharge Instructions: - Discharge Summary Sheet wm Forms: - SBAR form wm - Medication Reconciliation Form sd2 Signatures: Dispatcher [employer] EDRomel Dickson MD MD cha Nieto, Roman, MD MD rn Leal, Jahala RN RN jl7 Amarilis Kiran RN RN ll3 Mattie Garnett RN RN purcell Mable Ceron MD MD sd2 Corrections: (The following items were deleted from the chart) 11:26 03:37 Inpatient Psychiatric Facility sd2 purcell
--- NOTE | 2021-10-26 03:38 | ER ---
Nurse's Notes [facility] Name: Heriberot Duke Age: 31 yrs Sex: Male : 1990 Arrival Date: 10/25/2021 Time: 17:28 Bed 17 Private MD: Diagnosis: Suicide attempt Presentation: 10/25 17:29 Chief complaint: police reports being called out that pt need to be evaluate for mental [facility]. police stated that pt presented with slurred speech, mother reports that blood pressure medication had 90 beta blockers, 20 pill are missing. mother reports pt taking about 19 Motrin on 10-24-2021. pt has hx ot os SI and recent d/c [facility] x 2weeks ago. pt BEATRICE for SI/overdose. Coronavirus screen: Vaccine status: Patient reports being unvaccinated. Ebola Screen: Patient denies travel to an Ebola-affected area in the 21 days before illness onset. Initial Sepsis Screen: Does the patient meet any 2 criteria? RR > 20 per min. Does the patient have a suspected source of infection? No. Patient's initial sepsis screen is negative. Risk Assessment: Do you want to hurt yourself or someone else? Patient reports no desire to harm self or others. Onset of symptoms was October 25, 2021. 17:29 Method Of Arrival: EMS: [facility] 17:29 Acuity: JOSEFA 2 [place] Triage Assessment: 17:40 General: Appears in no apparent distress. Behavior is calm, cooperative. Pain: Denies purcell pain. Neuro: No deficits noted. Level of Consciousness is awake, alert, obeys commands, Oriented to person, place, time, situation. Historical: - Allergies: 18:05 No Known Allergies; jl7 - Home Meds: 17:40 Effexor 50 mg oral tab 1 tab 2 times per day [Active]; gabapentin 300 mg oral cap 1 cap purcell 3 times per day [Active]; Haldol Oral [Active]; propranolol 10 mg oral tab 1 tab BID [Active]; - PMHx: 17:40 Depression; Schizophrenia; suicidal thoughts; purcell - PSHx: 17:40 L arm SX; purcell - Immunization history:: Adult Immunizations up to date. - Social history:: Smoking status: Patient reports the use of cigarette tobacco products, smokes one pack cigarettes per day. - Family history:: not pertinent. - Hospitalizations: : No recent hospitalization is reported. Screenin:21 Abuse screen: Denies threats or abuse. Denies injuries from another. Nutritional purcell screening: No deficits noted. Tuberculosis screening: No symptoms or risk factors identified. Fall Risk None identified. Assessment: 18:01 Reassessment: Zaira with poison control reports watch for hypotension and bradycardia; jl7 IV fluids, atropine and vasopressors like dopamine. case # [id number]. 18:22 General: Appears in no apparent distress. Behavior is calm, cooperative. Pain: Denies [place]cell pain. Neuro: No deficits noted. Level of Consciousness is awake, alert, obeys commands, Oriented to person, place, time, situation. 19:44 Reassessment: No changes from previously documented assessment. Patient and/or family ll3 updated on plan of care and expected duration. Pain level reassessed. Patient is alert, oriented x 3, equal unlabored respirations, skin warm/dry/pink. 20:45 Reassessment: No changes from previously documented assessment. Patient and/or family ll3 updated on plan of care and expected duration. Pain level reassessed. Patient is alert, oriented x 3, equal unlabored respirations, skin warm/dry/pink. 21:45 Reassessment: No changes from previously documented assessment. Patient and/or family ll3 updated on plan of care and expected duration. Pain level reassessed. Patient is alert, oriented x 3, equal unlabored respirations, skin warm/dry/pink. 22:45 Reassessment: No changes from previously documented assessment. Patient and/or family ll3 updated on plan of care and expected duration. Pain level reassessed. Patient is alert, oriented x 3, equal unlabored respirations, skin warm/dry/pink. 10/26 00:34 Reassessment: No changes from previously documented assessment. Patient and/or family ll3 updated on plan of care and expected duration. Pain level reassessed. Patient is alert, oriented x 3, equal unlabored respirations, skin warm/dry/pink. 00:58 Reassessment: Pt requests gabapentin, states "I have restless leg syndrome", ERP ll3 notified. 01:07 Reassessment: Poison control recommends 6 hours of observation for regular metoprolol ll3 and 8 hours observation for extended release metoprolol. 01:42 Reassessment: No changes from previously documented assessment. Patient and/or family ll3 updated on plan of care and expected duration. Pain level reassessed. Patient is alert, oriented x 3, equal unlabored respirations, skin warm/dry/pink. 03:08 Reassessment: No changes from previously documented assessment. Patient and/or family ll3 updated on plan of care and expected duration. Pain level reassessed. Patient is alert, oriented x 3, equal unlabored respirations, skin warm/dry/pink. 04:47 Reassessment: Nurse to nurse with ALYSSA Jett at [facility]. ll3 05:25 Reassessment: Nurse to nurse with ALYSSA Liu at [facility]. ll3 Psych: 10/25 18:27 [place] Suicide Severity Screening: In the past month, have you wished you were pur[place] or wished you could go to sleep and not wake up? Patient responds "No." "In the past month, have you actually had any thoughts of killing yourself?" Patient responds "no." "In your lifetime, have you ever done anything, started to do anything, or prepared to do anything to end your life?" Patient responds "yes.". Subjective: Having thoughts of suicide. Plan for suicide is pt stated that he thought about SI by taking a bottle of pills this pass month but not currently. Objective: Patient is cooperative. Interventions: Removed personal items and placed in bag. Patient placed in hospital gown. Safety Checks: Pt denies substance abuse. Commitment: Patient will be an involuntary commitment. Vital Signs: 17:29 BP 95 / 63; Pulse 60; Resp 20; Temp 97.9; Pulse Ox 99% on R/A; Weight 90.72 kg; Height purcell 5 ft. 10 in. (177.80 cm); 18:21 BP 94 / 63; Pulse 66; Resp 17; Pulse Ox 99% on R/A; purcell 18:33 BP 90 / 53; Pulse 70; Resp 17; Pulse Ox 99% on R/A; purcell 18:35 BP 87 / 52; Pulse 71; Resp 16; Pulse Ox 99% on R/A; purcell 18:43 BP 104 / 68; Pulse 68; Resp 17; Pulse Ox 99% on R/A; purcell 19:44 BP 119 / 77; Pulse 80; Resp 17; Pulse Ox 99% on R/A; ll3 21:53 BP 125 / 81; Pulse 65; Resp 18; Pulse Ox 96% on R/A; ll3 22:45 BP 131 / 89; Pulse 72; Resp 19; Pulse Ox 99% on R/A; ll3 23:45 BP 119 / 83; Pulse 62; Resp 19; Pulse Ox 99% on R/A; ll3 08 00:35 BP 126 / 76; Pulse 80; Resp 20; Pulse Ox 99% on R/A; ll3 01:42 BP 125 / 92; Pulse 77; Resp 20; Pulse Ox 99% on R/A; ll3 03:30 BP 119 / 65; Pulse 70; Resp 18; Pulse Ox 100% on R/A; ll3 08:55 BP 121 / 78; Pulse 71; Resp 17; Pulse Ox 99% on R/A; purcell 10/25 17:29 Body Mass Index 28.70 (90.72 kg, 177.80 cm) purcell ED Course: 10/25 17:28 Patient arrived in ED. rn 17:29 Adonis De Paz MD is Attending Physician. rn 17:29 Mattie Garnett, RN is Primary Nurse. purcell 17:39 Triage completed. [facility]cell 17:42 Arm band placed on. purcell 17:50 EKG done, by ED staff, reviewed by Adonis De Paz MD. dh3 18:05 Initial lab(s) drawn, by pr, sent to lab. Inserted saline lock: 20 gauge in left wrist, 3 using aseptic technique. Blood collected. 18:21 Patient has correct armband on for positive identification. Bed in low position. purcell 18:25 No provider procedures requiring assistance completed. Inserted saline lock: 20 gauge hand, using aseptic technique. 10/26 01:05 Attending Physician role handed off by Adonis De Paz MD sd2 01:05 Mable Ceron MD is Attending Physician. sd2 02:30 Contacted [facility] to have Pt. screened, spoke with Kiley. wm 03:00 Dorian with [facility] called to speak with Pt. wm 04:00 Faxed required documents to the following facilities; [facility], [facility], [facility], [facility], [facility], [facility], [facility], [facility], [facility], [facility], [facility], [facility]. 04:32 Appears to be sleeping. ll3 07:25 No apparent distress. transfer. Patient requests food. breakfast ordered. Safety [place]cell Checks: The door is open or patient has been placed in a hallway bed/chair. Sitter present at this time. 08:00 pt accepted in transfer to [facility], admin approval given by scarlet crandall. bd 10:05 Pt. is pacing. Appears restless. purcell 11:26 IV discontinued, intact, Pressure dressing applied. purcell Administered Medications: 10/25 18:20 Drug: NS 0.9% 1000 ml Route: IV; Rate: 1000 ml; Site: left wrist; purcell 18:45 Drug: NS 0.9% 1000 ml Route: IV; Rate: 1000 ml; Site: left wrist; purcell 18:45 Drug: Glucagon 2 mg Route: IVP; Site: left wrist; purcell 18:45 Drug: Zofran (Ondansetron) 4 mg Route: IVP; Site: left wrist; purcell 23:35 Drug: hydrOXYzine 50 mg Route: PO; ll3 10/26 01:42 Follow up: Response: No adverse reaction ll3 01:41 Drug: Gabapentin 300 mg Route: PO; ll3 04:33 Follow up: Response: No adverse reaction ll3 10:10 Not Given (errorr): Effient 10 mg PO once purcell 10:11 Not Given (Patient Refused): Effexor XR (venlafaxine) 75 mg PO once purcell 10:16 Drug: Ativan (LORazepam) 1 mg Route: IVP; Site: left wrist; purcell 10:16 Drug: Gabapentin 300 mg Route: PO; purcell Medication: 10:05 VIS not applicable for this client. purcell Outcome: 03:37 ER care complete, transfer ordered by . sd2 11:25 Transferred Note: [facility] escorting pt to [facility] 11:25 Condition: good 11:25 Instructed on the need for transfer. 11:26 Patient left the ED. [place]cell Signatures: Lachelle Alberto Roman, MD MD rn Leal, Jahala, RN RN jl7 Maci Moffett 3 Angelique Cain Lynsea, RN RN ll3 Au-StagerMattie RN RN ha Dunlop, Stephanie, MD MD sd2 Corrections: (The following items were deleted from the chart) 10/25 21:53 20:45 BP 125 / 81; Pulse 65bpm; Resp 18bpm; Pulse Ox 96% RA; ll3 ll3 23:36 23:35 Reassessment: No changes from previously documented assessment. Patient and/or ll3 family updated on plan of care and expected duration. Pain level reassessed. Patient is alert, oriented x 3, equal unlabored respirations, skin warm/dry/pink. ll3
[2021-10-26] MEDS ORDERED: LORazepam 2 MG/ML VIAL ONE (10:21)
--- NOTE | 2021-10-26 10:39 | EKG ---
Test Date: 2021-10-25 Test Time: 17:48:27 Percher: RONALDO MEASUREMENT RESULTS: Intervals: Rate: 61 DC: 146 QRSD: 90 QT: 408 QTc: 410 [place]: P: 40 DC: 146 QRS: 79 T: 49 INTERPRETIVE STATEMENTS: Normal sinus rhythm Normal ECG Compared to ECG 09/30/2021 19:29:07 No significant changes Electronically Signed On 10-26-21 10:36:09 CDT by Devin Hui
[2021-10-26 11:55] VITALS: TEMP 97.9
[2021-10-26 16:05] VITALS: BP 121/78; O2SAT 99
== END 2021-10-26 11:26 ==
LOC: ER 17:23
DX: T44.7X2A Poisoning by beta-adrenoreceptor antagonists, intentional self-harm, initial encounter (principal); F20.9 Schizophrenia, unspecified; F17.210 Nicotine dependence, cigarettes, uncomplicated; Z20.822 Contact with and (suspected) exposure to COVID-19
CPT/HCPCS: 93005; 85025; 80048; 36415; 80320; 80329 ×2; 85610; 80076; 85730; 81003; 80307; 87811; J1610; J7030 ×2; J2405

== ENCOUNTER 2021-11-03 20:37 | Emergency (ER) | payer OTHER ==
--- OUTSIDE RECORDS SUMMARY | 2021-11-03 20:41 | XMS REPORT | Continuity of Care Document ---
:1990 Author Organization [facility] t Address [address] [place] [address] Care Team Providers Name Role Phone Yanni [...] Clinician No Known DA Active U 2019-03 [facility] Allergie 00:00: s [address] Known Drug [facility] No Known Drug [facility] No Known Drug [facility] No Known Drug [facility] No [facility] No [facility] No [facility] No [facility] No [facility] No [facility] No [facility] No Known Drug Active [facility] No Known Drug Active . [facility] Medications This patient has no known medications. [...] Temperature 2020-03-16 16:15:27 36.8\\S\\98.2 Weight 2020-03-16 16:15:27 21430.588\\S\\2960 Weight Measurement Method 2020-03-16 16:15:27 Estimated by Patient Respiratory 2020-03-16 16:09:15 No respiratory distress /min 02 Sat by Pulse Oximetry 2020-03-16 16:09:15 96 /min Body Mass Index 2020-03-16 16:09:15 26.5 Height 2020-03-16 16:09:15 177.8\\S\\70 Pulse Rate 2020-03-16 16:09:15 85 /min Respiratory Rate 2020-03-16 16:09:15 18 /min Temperature 2020-03-16 16:09:15 36.8\\S\\98.2 Weight 2020-03-16 16:09:15 36206.588\\S\\2960 Weight Measurement Method 2020-03-16 16:09:15 Estimated by Patient 02 Sat by Pulse Oximetry 2020-03-16 16:09:14 96 /min Body Mass Index 2020-03-16 16:09:14 26.5 Height 2020-03-16 16:09:14 177.8\\S\\70 Pulse Rate 2020-03-16 16:09:14 85 /min Respiratory Rate 2020-03-16 16:09:14 18 /min Temperature 2020-03-16 16:09:14 36.8\\S\\98.2 Weight 2020-03-16 16:09:14 70108.588\\S\\2960 Weight Measurement Method 2020-03-16 16:09:14 Estimated by Patient Respiratory 2020-03-16 16:09:14 No respiratory distress /min Respiratory 2020-03-16 14:02:46 No respiratory distress /min 02 Sat by Pulse Oximetry 2020-03-16 14:02:46 96 /min Body Mass Index 2020-03-16 14:02:46 26.5 Height 2020-03-16 14:02:46 177.8\\S\\70 Pulse Rate 2020-03-16 14:02:46 85 /min Respiratory Rate 2020-03-16 14:02:46 18 /min Temperature 2020-03-16 14:02:46 36.8\\S\\98.2 Weight 2020-03-16 14:02:46 03451.588\\S\\2960 Weight Measurement Method 2020-03-16 14:02:46 Estimated by Patient Respiratory 2020-03-16 14:02:15 No respiratory distress /min 02 Sat by Pulse Oximetry 2020-03-16 14:02:15 96 /min Body Mass Index 2020-03-16 14:02:15 26.5 Height 2020-03-16 14:02:15 177.8\\S\\70 Pulse Rate 2020-03-16 14:02:15 85 /min Respiratory Rate 2020-03-16 14:02:15 18 /min Temperature 2020-03-16 14:02:15 36.8\\S\\98.2 Weight 2020-03-16 14:02:15 59125.588\\S\\2960 Weight Measurement Method 2020-03-16 14:02:15 Estimated by Patient Respiratory 2020-03-16 14:01:43 No respiratory distress /min 02 Sat by Pulse Oximetry 2020-03-16 14:01:43 96 /min Body Mass Index 2020-03-16 14:01:43 26.5 Height 2020-03-16 14:01:43 177.8\\S\\70 Pulse Rate 2020-03-16 14:01:43 85 /min Respiratory Rate 2020-03-16 14:01:43 18 /min Temperature 2020-03-16 14:01:43 36.8\\S\\98.2 Weight 2020-03-16 14:01:43 24824.588\\S\\2960 Weight Measurement Method 2020-03-16 14:01:43 Estimated by Patient Respiratory 2020-03-16 14:01:12 No respiratory distress /min 02 Sat by Pulse Oximetry 2020-03-16 14:01:12 96 /min Body Mass Index 2020-03-16 14:01:12 26.5 Height 2020-03-16 14:01:12 177.8\\S\\70 Pulse Rate 2020-03-16 14:01:12 85 /min Respiratory Rate 2020-03-16 14:01:12 18 /min Temperature 2020-03-16 14:01:12 36.8\\S\\98.2 Weight 2020-03-16 14:01:12 50753.588\\S\\2960 Weight Measurement Method 2020-03-16 14:01:12 Estimated by Patient Respiratory 2020-03-15 16:13:25 No respiratory distress /min 02 Sat by Pulse Oximetry 2020-03-15 16:13:25 98 /min Body Mass Index 2020-03-15 16:13:25 26.5 Height 2020-03-15 16:13:25 177.8\\S\\70 Pulse Rate 2020-03-15 16:13:25 87 /min Respiratory Rate 2020-03-15 16:13:25 18 /min Temperature 2020-03-15 16:13:25 36.5\\S\\97.7 Weight 2020-03-15 16:13:25 10358.588\\S\\2960 Weight Measurement Method 2020-03-15 16:13:25 Estimated by Patient Respiratory 2020-03-15 15:57:27 No respiratory distress /min 02 Sat by Pulse Oximetry 2020-03-15 15:57:27 98 /min Body Mass Index 2020-03-15 15:57:27 26.5 Height 2020-03-15 15:57:27 177.8\\S\\70 Pulse Rate 2020-03-15 15:57:27 87 /min Respiratory Rate 2020-03-15 15:57:27 18 /min Temperature 2020-03-15 15:57:27 36.5\\S\\97.7 Weight 2020-03-15 15:57:27 87956.588\\S\\2960 Weight Measurement Method 2020-03-15 15:57:27 Estimated by Patient Respiratory 2020-03-15 14:35:13 No respiratory distress /min 02 Sat by Pulse Oximetry 2020-03-15 14:35:13 98 /min Body Mass Index 2020-03-15 14:35:13 26.5 Height 2020-03-15 14:35:13 177.8\\S\\70 Pulse Rate 2020-03-15 14:35:13 87 /min Respiratory Rate 2020-03-15 14:35:13 18 /min Temperature 2020-03-15 14:35:13 36.5\\S\\97.7 Weight 2020-03-15 14:35:13 58409.588\\S\\2960 Weight Measurement Method 2020-03-15 14:35:13 Estimated by Patient Respiratory 2020-03-15 14:28:03 No respiratory distress /min 02 Sat by Pulse Oximetry 2020-03-15 14:28:03 98 /min Body Mass Index 2020-03-15 14:28:03 26.5 Height 2020-03-15 14:28:03 177.8\\S\\70 Pulse Rate 2020-03-15 14:28:03 87 /min Respiratory Rate 2020-03-15 14:28:03 18 /min Temperature 2020-03-15 14:28:03 36.5\\S\\97.7 Weight 2020-03-15 14:28:03 73788.588\\S\\2960 Weight Measurement Method 2020-03-15 14:28:03 Estimated by Patient Respiratory 2020-03-15 14:27:02 No respiratory distress /min 02 Sat by Pulse Oximetry 2020-03-15 14:27:02 98 /min Body Mass Index 2020-03-15 14:27:02 26.5 Height 2020-03-15 14:27:02 177.8\\S\\70 Pulse Rate 2020-03-15 14:27:02 87 /min Respiratory Rate 2020-03-15 14:27:02 18 /min Temperature 2020-03-15 14:27:02 36.5\\S\\97.7 Weight 2020-03-15 14:27:02 56645.588\\S\\2960 Weight Measurement Method 2020-03-15 14:27:02 Estimated by Patient Respiratory 2020-03-15 10:42:59 No respiratory distress /min 02 Sat by Pulse Oximetry 2020-03-15 10:42:59 100 /min Body Mass Index 2020-03-15 10:42:59 26.5 Height 2020-03-15 10:42:59 177.8\\S\\70 Pulse Rate 2020-03-15 10:42:59 92 /min Respiratory Rate 2020-03-15 10:42:59 18 /min Temperature 2020-03-15 10:42:59 36.8\\S\\98.2 Weight 2020-03-15 10:42:59 85006.588\\S\\2960 Weight Measurement Method 2020-03-15 10:42:59 Estimated by Patient 02 Sat by Pulse Oximetry 2020-03-15 10:16:27 100 /min Body Mass Index 2020-03-15 10:16:27 26.5 Height 2020-03-15 10:16:27 177.8\\S\\70 Pulse Rate 2020-03-15 10:16:27 92 /min Respiratory Rate 2020-03-15 10:16:27 18 /min Temperature 2020-03-15 10:16:27 36.8\\S\\98.2 Weight 2020-03-15 10:16:27 15571.588\\S\\2960 Weight Measurement Method 2020-03-15 10:16:27 Estimated by Patient 02 Sat by Pulse Oximetry 2020-03-15 10:14:24 100 /min Body Mass Index 2020-03-15 10:14:24 26.5 Height 2020-03-15 10:14:24 177.8\\S\\70 Pulse Rate 2020-03-15 10:14:24 92 /min Respiratory Rate 2020-03-15 10:14:24 18 /min Temperature 2020-03-15 10:14:24 36.8\\S\\98.2 Weight 2020-03-15 10:14:24 93150.588\\S\\2960 Weight Measurement Method 2020-03-15 10:14:24 Estimated by Patient 02 Sat by Pulse Oximetry 2020-03-15 10:13:53 100 /min Body Mass Index 2020-03-15 10:13:53 26.5 Height 2020-03-15 10:13:53 177.8\\S\\70 Pulse Rate 2020-03-15 10:13:53 92 /min Respiratory Rate 2020-03-15 10:13:53 18 /min Temperature 2020-03-15 10:13:53 36.8\\S\\98.2 Weight 2020-03-15 10:13:53 68190.588\\S\\2960 Weight Measurement Method 2020-03-15 10:13:53 Estimated by Patient WEIGHT 2020-03-15 10:08:00 83.507338 kg HEIGHT 2020-03-15 10:08:00 177.8 cm Procedures This patient has no known procedures. Encounters Start End Encounter Admission Attending Care Care Encounter Source Date/Time Date/Time Type Type Clinicians Facility Department ID 2021-10-01 Outpatient [facility] [id number] [place] 00:32:38 [id number] [facility] 2021-08-03 Outpatient [facility] [id number] [place] 23:15:31 [id number] [facility] 2020-03-15 2020-03-15 Emergency Emergency [place] [id number] [facility] 09:59:00 09:59:00 Chrystan 80 2019-09-28 2019-10-30 Inpatient 1 Wellington Lewis [facility] PS[facility] [id number] 09:54:00 13:45:00 Wellington Lewis [facility] 2019-09-28 2019-09-28 Emergency 1 Ron Horowitz [facility] [place] [id number] 09:54:00 09:54:00 Ron Horowitz -[id number] [facility] Results Test Description Test Time Test Comments Results Result Comments Source Novel Coronavirus SARS-CoV-2, PCR 2019-10-08 23:02:04 Test Item Value Reference Range Interpretation Comme nts SARS-CoV-2 PCR (test code = NEGATIVE Negative Test performed by [place] SARS-CoV-2 PCR) Yazidism.Po sitive results are indicative [...] Drug Administration s Emergency Use Authorization." RPR [id number] 13:55:26 Test Item Value Reference Range Interpretation Comments RPR Qual (test code = RPR Qual) Non-Reactive Non-Reactive Reactive Control (test code = Reactive Reactive Control) Weak Reactive Control (test Weak Reactive code = Weak Reactive Control) Non-Reactive Control (test code Non-Reactive = Non-Reactive Control) Lot # (test code = Lot #) [id number] N Expiration Dt (test code = 9.30.21 N Expiration Dt) Hemoglobin [id number] 11:44:22 Test Item Value Reference Range Interpretation Comments Hemoglobin A1c (test code 4.9 % 4.0-5.8 Di abetic >=6.5 = Hemoglobin A1c) %Prediabet es 5.7-6.4 %Normal <5.7 % Lipid [id number] 11:38:42 Test Item Value Reference Range Interpretation [...] LDL/HDL Ratio=L DL Calc/HDL Chol Thyroid Stimulating [id number] 11:38:42 Test Item Value Reference Range Interpretation Comments TSH (test code = TSH) 2.039 mcIU/mL 0.550-4.780 Urine [id number] 14:30:34 Test Item Value Reference Range Interpretation [...] Confirmation wi thin 7 days. Comprehensive Metabolic [id number] 11:37:31 Test Item Value Reference Range Interpretation [...] = Lipemia) 0 g/dL 1-2 H Alcohol [id number] 11:37:31 Test Item Value Reference Range Interpretation Comments Ethanol Level 3.8 mg/dL N The pharmacolo gical (test code = response to blo od alcohol Ethanol Level) levels may va ry from individual to i ndividual. The fatal kashif ntration has been report ed to be >400 mg/dl. Comprehensive Metabolic [id number] 11:37:31 Test Item Value Reference Range Interpretation [...] 0 g/dL 1-2 H Lipemia) Comprehensive Metabolic [id number] 11:37:31 Test Item Value Reference Range Interpretation [...] ag e have not been validated by [facility] MDRD study and should be [...] ag e have not been validated by [facility] MDRD study and should be [...] 1-2 H Lipemia) Urinalysis with Culture, if [id number] 11:23:08 Test Item Value Reference Range Interpretation [...] Not Indicated Not Indicated Micro Ind?) Automated [id number] 11:14:51 Test Item Value Reference Range Interpretation Comments Neutro Auto (test code = Neutro 59.5 % 36.0-70.0 Auto) Lymph Auto (test code = Lymph Auto) 26.2 % 12.0-44.0 [place] Auto (test code = [place] Auto) 10.2 % 0.0-11.0 Eos, Auto (test code = Eos, Auto) 2.6 % 0.0-7.0 Basophil Auto (test code = Basophil 1.0 % 0.0-2.0 Auto) Neutro Absolute (test code = Neutro 4.5 x10 1.6-7.4 Absolute) Lymph Absolute (test code = Lymph 2.00 x10 .50-4.60 Absolute) [place] Absolute (test code = [place] .78 x10 .00-1.20 Absolute) Eos Absolute (test code = Eos 0.20 x10 0.00-0.74 Absolute) Baso Absolute (test code = Baso 0.08 x10 0.00-0.21 Absolute) IG [id number] 11:14:51 Test Item Value Reference Range Interpretation Comments IG (test code = IG) 0.5 % 0.0-5.0 IG Abs (test code = IG Abs) 0 x10 N Complete Blood Count with [id number] 11:14:50 Test Item Value Reference Range Interpretation [...] code = IPF) 0 % N RPR [id number] 13:47:36 Test Item Value Reference Range Interpretation [...] = 01-18-20 N Expiration Dt) Thyroid Stimulating [id number] 08:21:50 Test Item Value Reference Range Interpretation Comments TSH (test code = TSH) 2.100 mIU/mL 0.270-4.200 Lipid [id number] 07:23:30 Test Item Value Reference Range Interpretation Comments Cholesterol Total 179 mg/dL 0-200 RISK OF HE ART (test code = DISEASEPublishe d by Cholesterol Total) [place] [employer] Jacqueline lyte Optimal Borderl ine Increased RiskC HOL <200 200-239 >240TRI G <150 150-199 >200HDL Male >60 <40HDL Fema le >60 <50LDL <100 130 -159 >160LDL [facility]-129 Triglycerides (test 108 [...] LDL/HDL Ratio=L DL Calc/HDL Chol Comprehensive Metabolic [id number] 07:00:35 Test Item Value Reference Range Interpretation [...] A/G 1.8 ratio N Ratio) Comprehensive Metabolic [id number] 07:00:35 Test Item Value Reference Range Interpretation [...] National Kidney Foundation, http://nkdep.ni h.gov Comprehensive Metabolic [id number] 07:00:35 Test Item Value Reference Range Interpretation [...] Foundation, http://nkdep.ni h.gov Complete Blood Count with [id number] 06:45:37 Test Item Value Reference Range Interpretation [...] code = IPF) 0 % N Automated [id number] 06:45:37 Test Item Value Reference Range Interpretation Comments Neutro Auto (test code = Neutro 55.6 % 36.0-70.0 Auto) Lymph Auto (test code = Lymph Auto) 29.0 % 12.0-44.0 [place] Auto (test code = [place] Auto) 11.8 % 0.0-11.0 H Eos, Auto (test code = Eos, Auto) 2.7 % 0.0-7.0 Basophil Auto (test code = Basophil 0.7 % 0.0-2.0 Auto) Neutro Absolute (test code = Neutro 3.3 x10 1.6-7.4 Absolute) Lymph Absolute (test code = Lymph 1.70 x10 .50-4.60 Absolute) [place] Absolute (test code = [place] .69 x10 .00-1.20 Absolute) Eos Absolute (test code = Eos 0.16 x10 0.00-0.74 Absolute) Baso Absolute (test code = Baso 0.04 x10 0.00-0.21 Absolute) IG [id number] 06:45:37 Test Item Value Reference Range Interpretation Comments IG (test code = IG) 0.2 % 0.0-5.0 IG Abs (test code = IG Abs) 0 x10 N
--- NOTE | 2021-11-03 21:37 | ER ---
Nurse's Notes [facility] Name: Heriberto Duke Age: 31 yrs Sex: Male : 1990 Arrival Date: 11/03/2021 Time: 20:39 Bed Waiting Private MD: Diagnosis: Anxiety disorder, unspecified Presentation: 11/03 21:25 Chief complaint:. Chief complaint:. Coronavirus screen: Vaccine status: Patient reports kd3 receiving the 2nd dose of the covid vaccine. Ebola Screen: No symptoms or risks identified at this time. Initial Sepsis Screen: Does the patient meet any 2 criteria? No. Patient's initial sepsis screen is negative. Does the patient have a suspected source of infection? No. Patient's initial sepsis screen is negative. Risk Assessment: Do you want to hurt yourself or someone else? Patient reports no desire to harm self or others. Onset of symptoms was November 03, 2021. 21:25 Method Of Arrival: Ambulatory kd3 21:25 Acuity: JOSEFA 3 kd3 21:35 Chief complaint: Patient states: I think i just got a little anxious and i was told to kd3 come here and get checked out. Triage Assessment: 21:28 General: Appears uncomfortable, Behavior is anxious. Pain: Denies pain. kd3 Historical: - Home Meds: 21:28 Effexor 50 mg Oral tab 1 tab 2 times per day [Active]; gabapentin 300 mg Oral cap 1 cap kd3 3 times per day [Active]; Haldol Oral [Active]; propranolol 10 mg Oral tab 1 tab BID [Active]; - PMHx: 21:28 Depression; Schizophrenia; suicidal thoughts; kd3 - PSHx: 21:28 L arm SX; kd3 - Immunization history:: Adult Immunizations up to date. - Social history:: Smoking status: unknown. - Family history:: not pertinent. - Hospitalizations: : Patient was recently seen at. Screenin:29 Abuse screen: Denies threats or abuse. Denies injuries from another. Nutritional kd3 screening: No deficits noted. Tuberculosis screening: No symptoms or risk factors identified. Fall Risk None identified. Psych: 21:29 [place] Suicide Severity Screening: In the past month, have you wished you were kd3 or wished you could go to sleep and not wake up? Patient responds "No." "In the past month, have you actually had any thoughts of killing yourself?" Patient responds "no." "In your lifetime, have you ever done anything, started to do anything, or prepared to do anything to end your life?" Patient responds "no.". Subjective: Patient's mood is elevated, Delusions are denied, Hallucinations are denied. Objective: Patient is cooperative, restless, Speech is normal, Affect is appropriate. Vital Signs: 21:25 BP 119 / 96; Pulse 114; Resp 21; Temp 98.0; Pulse Ox 100% on R/A; kd3 21:30 Weight 92.99 kg; Height 5 ft. 10 in. (177.80 cm); Pain 0/10; kd3 21:30 Body Mass Index 29.41 (92.99 kg, 177.80 cm) kd3 ED Course: 20:39 Patient arrived in ED. ja2 21:18 Adonis De Paz MD is Attending Physician. rn 21:28 Triage completed. kd3 21:28 Arm band placed on right wrist. kd3 21:29 Patient has correct armband on for positive identification. kd3 21:29 No provider procedures requiring assistance completed. Patient did not have IV access kd3 during this emergency room visit. 21:46 Jazmin Cleaning, RN is Primary Nurse. kd3 Administered Medications: No medications were administered Medication: 21:31 VIS not applicable for this client. kd3 Outcome: 21:36 Discharge ordered by . rn 21:46 Discharged to home ambulatory. kd3 21:46 Condition: stable 21:46 Discharge instructions given to patient, Instructed on discharge instructions, follow up and referral plans. Demonstrated understanding of instructions, follow-up care. 21:47 Patient left the ED. kd3 Signatures: Adonis De Paz MD MD rn Chelsea Disla Jazmin Cleaning, RN RN kd3
--- NOTE | 2021-11-03 21:37 | EDPHYS ---
Physician Documentation [facility] Name: Heriberto Duke Age: 31 yrs Sex: Male : 1990 Arrival Date: 11/03/2021 Time: 20:39 Bed Waiting Private MD: ED Physician Adonis De Paz HPI: 11/03 21:31 This 31 yrs old Male presents to ER via Ambulatory with complaints of Psych Problem, rn Difficulty Sleeping. 21:31 The patient presents to the emergency department with anxiety. Onset: The rn symptoms/episode began/occurred at an unknown time. Associated signs and symptoms: Pertinent positives; anxiety, Pertinent negatives: delusions, fever, hallucinations, homicidal ideation, paranoia, suicide ideation. Severity of symptoms: At their worst the symptoms were moderate in the emergency department the symptoms have improved. The patient has experienced similar episodes in the past. The patient has been recently seen at the [facility] Emergency Department. Pt reports came in for mental health evaluation. Denies suicidal ideation/homicidal ideation/hallucinations. Recently seen for questionable suicidal ideations. 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 Pt reports feeling anxious but repeatedly denies suicidal or homicidal ideations. Denies taking drugs or overdosing.. Historical: - Home Meds: 21:28 Effexor 50 mg Oral tab 1 tab 2 times per day [Active]; gabapentin 300 mg Oral cap 1 cap kd3 3 times per day [Active]; Haldol Oral [Active]; propranolol 10 mg Oral tab 1 tab BID [Active]; - PMHx: 21:28 Depression; Schizophrenia; suicidal thoughts; kd3 - PSHx: 21:28 L arm SX; kd3 - Immunization history:: Adult Immunizations up to date. - Social history:: Smoking status: unknown. - Family history:: not pertinent. - Hospitalizations: : Patient was recently seen at. ROS: 21:31 Constitutional: Negative for fever, chills, and weight loss, Eyes: Negative for injury, rn pain, redness, and discharge, ENT: Negative for injury, pain, and discharge, Neck: Negative for injury, pain, and swelling, Cardiovascular: Negative for chest pain, palpitations, and edema, Respiratory: Negative for shortness of breath, cough, wheezing, and pleuritic chest pain, Abdomen/GI: Negative for abdominal pain, nausea, vomiting, diarrhea, and constipation, Back: Negative for injury and pain, MS/Extremity: Negative for injury and deformity, Skin: Negative for injury, rash, and discoloration, Neuro: Negative for headache, weakness, numbness, tingling, and seizure, Psych: Negative for depression, suicide ideation, homicidal ideation, and hallucinations. Exam: 21:31 Constitutional: This is a well developed, well nourished patient who is awake, alert, rn and in no acute distress. Head/Face: Normocephalic, atraumatic. Cardiovascular: Tachycardic, regular Respiratory: Speaking full sentences, unlabored. No increased work of breathing, no retractions or nasal flaring. Abdomen/GI: Soft, non-tender Skin: Warm, dry MS/ Extremity: Pulses equal, no cyanosis. Neuro: Awake and alert, GCS 15 Psych: Awake, alert, with orientation to person, place and time. Vital Signs: 21:25 BP 119 / 96; Pulse 114; Resp 21; Temp 98.0; Pulse Ox 100% on R/A; kd3 21:30 Weight 92.99 kg; Height 5 ft. 10 in. (177.80 cm); Pain 0/10; kd3 21:30 Body Mass Index 29.41 (92.99 kg, 177.80 cm) kd3 MDM: 21:18 Patient medically screened. rn 21:31 Differential diagnosis: anxiety, depression, schizophrenia. Data reviewed: vital signs, rn nurses notes, old medical records, and as a result, I will discharge patient. Counseling: I had a detailed discussion with the patient and/or guardian regarding: the historical points, exam findings, and any diagnostic results supporting the discharge/admit diagnosis, the need for outpatient follow up, to return to the emergency department if symptoms worsen or persist or if there are any questions or concerns that arise at home. Special discussion: I discussed with the patient/guardian in detail that at this point there is no indication for admission to the hospital. It is understood, however, that if the symptoms persist or worsen the patient needs to return immediately for re-evaluation. ED course: Pt declines help, repeatedly denies suicidal or homicidal ideations. Seems anxious, but does not want help or to be seen.. 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
[2021-11-03 23:21] VITALS: BP 119/96; TEMP 98; O2SAT 100
== END 2021-11-03 21:47 | disposition home or self-care (01) ==
LOC: ER 20:37
DX: F41.9 Anxiety disorder, unspecified (principal); F20.9 Schizophrenia, unspecified

== ENCOUNTER 2021-11-28 21:50 | Observation (INO) | payer OTHER ==
--- OUTSIDE RECORDS SUMMARY | 2021-11-28 21:55 | XMS REPORT | Continuity of Care Document ---
:1990 Author Organization [facility] t Address [address] [place] [address] Care Team Providers Name Role Phone Yanni [...] Clinician No Known DA [facility] Allergie 00:00: s [address] Known Drug [facility] No Known Drug [facility] No Known Drug [facility] No Known Drug [facility] No [facility] No [facility] No [facility] No [facility] No [facility] No [facility] No [facility] No Known Drug [facility] No Known Drug Active [facility] No Known Drug Active . [facility] Medications This patient has no known [...] Temperature 2020-03-16 16:15:27 36.8\\S\\98.2 Weight 2020-03-16 16:15:27 27204.588\\S\\2960 Weight Measurement Method 2020-03-16 16:15:27 Estimated by Patient Respiratory 2020-03-16 16:09:15 No respiratory distress /min 02 Sat by Pulse Oximetry 2020-03-16 16:09:15 96 /min Body Mass Index 2020-03-16 16:09:15 26.5 Height 2020-03-16 16:09:15 177.8\\S\\70 Pulse Rate 2020-03-16 16:09:15 85 /min Respiratory Rate 2020-03-16 16:09:15 18 /min Temperature 2020-03-16 16:09:15 36.8\\S\\98.2 Weight 2020-03-16 16:09:15 05043.588\\S\\2960 Weight Measurement Method 2020-03-16 16:09:15 Estimated by Patient 02 Sat by Pulse Oximetry 2020-03-16 16:09:14 96 /min Body Mass Index 2020-03-16 16:09:14 26.5 Height 2020-03-16 16:09:14 177.8\\S\\70 Pulse Rate 2020-03-16 16:09:14 85 /min Respiratory Rate 2020-03-16 16:09:14 18 /min Temperature 2020-03-16 16:09:14 36.8\\S\\98.2 Weight 2020-03-16 16:09:14 26451.588\\S\\2960 Weight Measurement Method 2020-03-16 16:09:14 Estimated by Patient Respiratory 2020-03-16 16:09:14 No respiratory distress /min Respiratory 2020-03-16 14:02:46 No respiratory distress /min 02 Sat by Pulse Oximetry 2020-03-16 14:02:46 96 /min Body Mass Index 2020-03-16 14:02:46 26.5 Height 2020-03-16 14:02:46 177.8\\S\\70 Pulse Rate 2020-03-16 14:02:46 85 /min Respiratory Rate 2020-03-16 14:02:46 18 /min Temperature 2020-03-16 14:02:46 36.8\\S\\98.2 Weight 2020-03-16 14:02:46 46597.588\\S\\2960 Weight Measurement Method 2020-03-16 14:02:46 Estimated by Patient Respiratory 2020-03-16 14:02:15 No respiratory distress /min 02 Sat by Pulse Oximetry 2020-03-16 14:02:15 96 /min Body Mass Index 2020-03-16 14:02:15 26.5 Height 2020-03-16 14:02:15 177.8\\S\\70 Pulse Rate 2020-03-16 14:02:15 85 /min Respiratory Rate 2020-03-16 14:02:15 18 /min Temperature 2020-03-16 14:02:15 36.8\\S\\98.2 Weight 2020-03-16 14:02:15 63828.588\\S\\2960 Weight Measurement Method 2020-03-16 14:02:15 Estimated by Patient Respiratory 2020-03-16 14:01:43 No respiratory distress /min 02 Sat by Pulse Oximetry 2020-03-16 14:01:43 96 /min Body Mass Index 2020-03-16 14:01:43 26.5 Height 2020-03-16 14:01:43 177.8\\S\\70 Pulse Rate 2020-03-16 14:01:43 85 /min Respiratory Rate 2020-03-16 14:01:43 18 /min Temperature 2020-03-16 14:01:43 36.8\\S\\98.2 Weight 2020-03-16 14:01:43 56831.588\\S\\2960 Weight Measurement Method 2020-03-16 14:01:43 Estimated by Patient Respiratory 2020-03-16 14:01:12 No respiratory distress /min 02 Sat by Pulse Oximetry 2020-03-16 14:01:12 96 /min Body Mass Index 2020-03-16 14:01:12 26.5 Height 2020-03-16 14:01:12 177.8\\S\\70 Pulse Rate 2020-03-16 14:01:12 85 /min Respiratory Rate 2020-03-16 14:01:12 18 /min Temperature 2020-03-16 14:01:12 36.8\\S\\98.2 Weight 2020-03-16 14:01:12 77886.588\\S\\2960 Weight Measurement Method 2020-03-16 14:01:12 Estimated by Patient Respiratory 2020-03-15 16:13:25 No respiratory distress /min 02 Sat by Pulse Oximetry 2020-03-15 16:13:25 98 /min Body Mass Index 2020-03-15 16:13:25 26.5 Height 2020-03-15 16:13:25 177.8\\S\\70 Pulse Rate 2020-03-15 16:13:25 87 /min Respiratory Rate 2020-03-15 16:13:25 18 /min Temperature 2020-03-15 16:13:25 36.5\\S\\97.7 Weight 2020-03-15 16:13:25 16191.588\\S\\2960 Weight Measurement Method 2020-03-15 16:13:25 Estimated by Patient Respiratory 2020-03-15 15:57:27 No respiratory distress /min 02 Sat by Pulse Oximetry 2020-03-15 15:57:27 98 /min Body Mass Index 2020-03-15 15:57:27 26.5 Height 2020-03-15 15:57:27 177.8\\S\\70 Pulse Rate 2020-03-15 15:57:27 87 /min Respiratory Rate 2020-03-15 15:57:27 18 /min Temperature 2020-03-15 15:57:27 36.5\\S\\97.7 Weight 2020-03-15 15:57:27 81383.588\\S\\2960 Weight Measurement Method 2020-03-15 15:57:27 Estimated by Patient Respiratory 2020-03-15 14:35:13 No respiratory distress /min 02 Sat by Pulse Oximetry 2020-03-15 14:35:13 98 /min Body Mass Index 2020-03-15 14:35:13 26.5 Height 2020-03-15 14:35:13 177.8\\S\\70 Pulse Rate 2020-03-15 14:35:13 87 /min Respiratory Rate 2020-03-15 14:35:13 18 /min Temperature 2020-03-15 14:35:13 36.5\\S\\97.7 Weight 2020-03-15 14:35:13 77930.588\\S\\2960 Weight Measurement Method 2020-03-15 14:35:13 Estimated by Patient Respiratory 2020-03-15 14:28:03 No respiratory distress /min 02 Sat by Pulse Oximetry 2020-03-15 14:28:03 98 /min Body Mass Index 2020-03-15 14:28:03 26.5 Height 2020-03-15 14:28:03 177.8\\S\\70 Pulse Rate 2020-03-15 14:28:03 87 /min Respiratory Rate 2020-03-15 14:28:03 18 /min Temperature 2020-03-15 14:28:03 36.5\\S\\97.7 Weight 2020-03-15 14:28:03 39077.588\\S\\2960 Weight Measurement Method 2020-03-15 14:28:03 Estimated by Patient Respiratory 2020-03-15 14:27:02 No respiratory distress /min 02 Sat by Pulse Oximetry 2020-03-15 14:27:02 98 /min Body Mass Index 2020-03-15 14:27:02 26.5 Height 2020-03-15 14:27:02 177.8\\S\\70 Pulse Rate 2020-03-15 14:27:02 87 /min Respiratory Rate 2020-03-15 14:27:02 18 /min Temperature 2020-03-15 14:27:02 36.5\\S\\97.7 Weight 2020-03-15 14:27:02 64135.588\\S\\2960 Weight Measurement Method 2020-03-15 14:27:02 Estimated by Patient Respiratory 2020-03-15 10:42:59 No respiratory distress /min 02 Sat by Pulse Oximetry 2020-03-15 10:42:59 100 /min Body Mass Index 2020-03-15 10:42:59 26.5 Height 2020-03-15 10:42:59 177.8\\S\\70 Pulse Rate 2020-03-15 10:42:59 92 /min Respiratory Rate 2020-03-15 10:42:59 18 /min Temperature 2020-03-15 10:42:59 36.8\\S\\98.2 Weight 2020-03-15 10:42:59 80723.588\\S\\2960 Weight Measurement Method 2020-03-15 10:42:59 Estimated by Patient 02 Sat by Pulse Oximetry 2020-03-15 10:16:27 100 /min Body Mass Index 2020-03-15 10:16:27 26.5 Height 2020-03-15 10:16:27 177.8\\S\\70 Pulse Rate 2020-03-15 10:16:27 92 /min Respiratory Rate 2020-03-15 10:16:27 18 /min Temperature 2020-03-15 10:16:27 36.8\\S\\98.2 Weight 2020-03-15 10:16:27 67290.588\\S\\2960 Weight Measurement Method 2020-03-15 10:16:27 Estimated by Patient 02 Sat by Pulse Oximetry 2020-03-15 10:14:24 100 /min Body Mass Index 2020-03-15 10:14:24 26.5 Height 2020-03-15 10:14:24 177.8\\S\\70 Pulse Rate 2020-03-15 10:14:24 92 /min Respiratory Rate 2020-03-15 10:14:24 18 /min Temperature 2020-03-15 10:14:24 36.8\\S\\98.2 Weight 2020-03-15 10:14:24 08047.588\\S\\2960 Weight Measurement Method 2020-03-15 10:14:24 Estimated by Patient 02 Sat by Pulse Oximetry 2020-03-15 10:13:53 100 /min Body Mass Index 2020-03-15 10:13:53 26.5 Height 2020-03-15 10:13:53 177.8\\S\\70 Pulse Rate 2020-03-15 10:13:53 92 /min Respiratory Rate 2020-03-15 10:13:53 18 /min Temperature 2020-03-15 10:13:53 36.8\\S\\98.2 Weight 2020-03-15 10:13:53 21837.588\\S\\2960 Weight Measurement Method 2020-03-15 10:13:53 Estimated by Patient WEIGHT 2020-03-15 10:08:00 83.326873 kg HEIGHT 2020-03-15 10:08:00 177.8 cm Procedures This patient has no known procedures. Encounters Start End Encounter Admission Attending Care Care Encounter Source Date/Time Date/Time Type Type Clinicians Facility Department ID 2021-10-01 Outpatient [facility] [id number] [place] 00:32:38 [id number] [facility] 2021-08-03 Outpatient [facility] [id number] [place] 23:15:31 [id number] [facility] 2020-03-15 2020-03-15 Emergency Emergency [facility], [facility] [id number] [facility] 09:59:00 09:59:00 Chrystan 80 2020-03-15 2020-03-15 Emergency [facility] [id number] [facility] 09:59:00 09:59:00 80 2019-09-28 2019-10-30 Inpatient 1 Wellington Lewis [facility] PSY [id number] 09:54:00 13:45:00 Wellington Lewis [facility] 2019-09-28 2019-09-28 Emergency 1 Ron Horowitz [facility] [place] [id number] 09:54:00 09:54:00 Ron Horowitz -[id number] [facility] Results Test Description Test Time Test Comments Results Result Comments Source Drug Screen,Urine 2020-03-15 11:29:00 Test Item Value Reference Range Interpretation Comme nts PCP Phencyclidine Screen,Urine (test code = PCPU) Negative Nega tive Amphetamine Screen,Urine (test code = AMPU) Negative Negative Methadone Screen,Urine (test code = METHU) Negative Negative Opiate Screen,Urine (test code = UOPIS) Negative Negative Barbituates Screen,Urine (test code = BARBU) Negative Negative Benzodiazepines Screen,Urine (test code = UBENZS) Negative Nega tive Cocaine Screen,Urine (test code = UCOCS) Negative Negative Cannabinoid Screen,Urine (test code = UTHCS) Negative Negative Propoxyphene Screen, Urine (test code = UPROP) Negative Negativ e Sars-CoV-2/FLU A/B RSV [id number] 10:50:00 Test Item Value Reference Range Interpretation Comments Sars-CoV-2/FLU A/B For use under Emergency RSV PCR (test code = Use Authorization (EUA) SARSFLURSVPCR) only. Sars-CoV-2/FLU A/B ical-devices/emergency-u RSV PCR (test code = se-authorizations. SARSFLURSVPCR1.1) Influenza A PCR: Negative by Nucleic Acid (test code = Amplification Influenza A PCR:) Influenza B PCR: Negative by Nucleic Acid (test code = Amplification Influenza B PCR:) RSV PCR Result: (test Negative by Nucleic Acid code = RSV PCR Amplification Result:) SARS-CoV-2 PCR Negative by Nucleic Acid Result: (test code = Amplification SARS-CoV-2 PCR Result:) Comprehensive Metabolic [id number] 10:30:00 Test Item Value Reference Range Interpretation Comments SODIUM (test code = NA) 139.0 mmol/L 136.0-145.0 N Potassium,K (test code = K) 4.4 mmol/L 3.0-5.1 N Chloride (test code = CL) 109 mmol/L 98-107 H Carbon Dioxide (test code = 24 mmol/L 20-31 N CO2) Anion Gap (test code = GAP) 6 mmol/L 5-15 N Blood Urea Nitrogen (test code 11 mg/dL 9-23 N = BUN) Creatinine (test code = CREATT) 0.84 mg/dL 0.55-1.02 N Creatinine Clr Calc Pharmacy 135.19 mL/min (test code = CRCLPHA) Estimated GFR ( Keira > 60 mL/min/1.73m2 (test code = EGFRAA) Estimated GFR (Non Afr Keira > 60 mL/min/1.73m2 (test code = EGFRNAA) BUN/Creatinine Ratio (test code 13 ratio 10-20 N = BCRATIO) Glucose (test code = GLU) 81 mg/dL 74-106 N Osmolality,Calculated (test 285.9 code = OSMOC) Calcium (test code = CA) 9.8 mg/dL 8.3-10.6 N Bilirubin,Total (test code = 0.4 mg/dL 0.2-1.1 N BILIT) Aspartate Amino Transferase 21 U/L 0-34 N (test code = AST) Alanine Aminotransferase (test 29 U/L 10-49 N code = ALT) Total Protein (test code = TP) 7.1 g/dL 5.7-8.2 N Albumin Level (test code = ALB) 5.3 g/dL 3.2-4.8 H Globulin (test code = GLOB) 1.8 mg/dL 2.3-3.5 L Albumin/Globulin Ratio (test 2.9 ratio 0.8-2.0 H code = AGRATIO) Alkaline Phosphatase (test code 179 U/L 46-116 H = ALP) Ethanol [id number] 10:30:00 Test Item Value Reference Range Interpretation Comments Ethanol (test code = ETOH) 6 mg/dL Complete Blood Count Auto [id number] 10:30:00 Test Item Value Reference Range Interpretation Comments White Blood Count (test code = 8.8 x10 3/uL 4.4-10.5 N WBCT) Red Blood Count (test code = 5.02 x10 6/uL 4.10-5.70 N RBC) Hemoglobin (test code = HGBT) 15.3 g/dL 13.4-17.4 N Hematocrit (test code = HCTT) 46.8 % 38.7-52.0 N Mean Corpuscular Volume (test 93.20 fL 80.00-100.00 N code = MCV) Mean Corpuscular Hemoglobin 30.5 pg 27.0-32.5 N (test code = MCH) Mean Corpuscular HGB Conc 32.70 g/dL 32.00-37.50 N (test code = MCHC) RDW Coefficient of Variation 13.0 % 11.5-14.5 N (test code = RDWCV) Platelet Count (test code = 358.0 x10 3/uL 140.0-440.0 N PLTT) Mean Platelet Volume (test 10.1 fL code = MPV) Immature Granulocytes % (Auto) 1.0 % 0.0-5.0 N (test code = IMMGRAN%) Neutrophils % (Auto) (test 52.7 % 36.0-70.0 N code = NE%) Lymphocytes % (Auto) (test 30.6 % 12.0-44.0 N code = LY%) Monocytes % (Auto) (test code 10.0 % 0.0-11.0 N = MO%) Eosinophils % (Auto) (test 4.2 % 0.0-7.0 N code = EO%) Basophils % (Auto) (test code 1.5 % 0.0-2.0 N = BA%) Immature Granulocytes # (Auto) 0.09 x10 3/uL (test code = IMMGRAN#) Neutrophils # (Auto) (test 4.7 x10 3/uL 1.6-7.4 N code = NE#) Lymphocytes # (Auto) (test 2.70 x10 3/uL 0.50-4.60 N code = LY#) Monocytes # (Auto) (test code 0.88 x10 3/uL 0.00-1.20 N = MO#) Eosinophils # (Auto) (test 0.37 x10 3/uL 0.00-0.74 N code = EO#) Basophils # (Auto) (test code 0.13 x10 3/uL 0.00-0.21 N = BA#) nRBC Abs (test code = NRBCA) 0 nRBC Pct (test code = NRBCP) 0 % Novel Coronavirus SARS-CoV-2, [id number] 23:02:04 Test Item Value Reference Range Interpretation Comments SARS-CoV-2 PCR NEGATIVE Negative Test performe d by Guillermo (test code = Mandaeism.Posit ajit results SARS-CoV-2 PCR) are indicati ve of active infection with SARS-CoV-2; clinical correl ation with patient history and other diagnostic info rmation is necessary to de termine patient infecti on status.Presumpt ajit positive results -I NTERPRET WITH CAUTION: Result may not reflect if ian ent is actually positi ve. Patient should be treat ed based on clinical suspic ions. Negative result s do not preclude SARS-C oV-2 infection and s hould not be used as the gómez e basis for treatment or ot her patient management deci sions. Negative result s must be combined with c linical observations, p atient history, and ep idemiological information.The Xpert Xpress SARS-CoV-2 test is only for use under the F ood and Drug Administration s Emergency Use Authorization." RPR [id number] 13:55:26 Test Item Value Reference Range Interpretation Comments RPR Qual (test code = RPR Qual) Non-Reactive Non-Reactive Reactive Control (test code = Reactive Reactive Control) Weak Reactive Control (test Weak Reactive code = Weak Reactive Control) Non-Reactive Control (test code Non-Reactive = Non-Reactive Control) Lot # (test code = Lot #) [id number] N Expiration Dt (test code = 9.30.21 N Expiration Dt) Hemoglobin [id number] 11:44:22 Test Item Value Reference Range Interpretation Comments Hemoglobin A1c (test code 4.9 % 4.0-5.8 Di abetic >=6.5 = Hemoglobin A1c) %Prediabet es 5.7-6.4 %Normal <5.7 % Lipid [id number] 11:38:42 Test Item Value Reference Range Interpretation [...] LDL/HDL Ratio=L DL Calc/HDL Chol Thyroid Stimulating [id number] 11:38:42 Test Item Value Reference Range Interpretation Comments TSH (test code = TSH) 2.039 mcIU/mL 0.550-4.780 Urine [id number] 14:30:34 Test Item Value Reference Range Interpretation [...] Confirmation wi thin 7 days. Comprehensive Metabolic [id number] 11:37:31 Test Item Value Reference Range Interpretation [...] = Lipemia) 0 g/dL 1-2 H Alcohol [id number] 11:37:31 Test Item Value Reference Range Interpretation Comments Ethanol Level 3.8 mg/dL N The pharmacolo gical (test code = response to blo od alcohol Ethanol Level) levels may va ry from individual to i ndividual. The fatal kashif ntration has been report ed to be >400 mg/dl. Comprehensive Metabolic [id number] 11:37:31 Test Item Value Reference Range Interpretation [...] 0 g/dL 1-2 H Lipemia) Comprehensive Metabolic [id number] 11:37:31 Test Item Value Reference Range Interpretation [...] ag e have not been validated by [facility] MDRD study and should be interpreted wit [...] ag e have not been validated by [facility] MDRD study and should be interpreted wit [...] 1-2 H Lipemia) Urinalysis with Culture, if [id number] 11:23:08 Test Item Value Reference Range Interpretation [...] Not Indicated Not Indicated Micro Ind?) Automated [id number] 11:14:51 Test Item Value Reference Range Interpretation Comments Neutro Auto (test code = Neutro 59.5 % 36.0-70.0 Auto) Lymph Auto (test code = Lymph Auto) 26.2 % 12.0-44.0 [place] Auto (test code = [place] Auto) 10.2 % 0.0-11.0 Eos, Auto (test code = Eos, Auto) 2.6 % 0.0-7.0 Basophil Auto (test code = Basophil 1.0 % 0.0-2.0 Auto) Neutro Absolute (test code = Neutro 4.5 x10 1.6-7.4 Absolute) Lymph Absolute (test code = Lymph 2.00 x10 .50-4.60 Absolute) [place] Absolute (test code = [place] .78 x10 .00-1.20 Absolute) Eos Absolute (test code = Eos 0.20 x10 0.00-0.74 Absolute) Baso Absolute (test code = Baso 0.08 x10 0.00-0.21 Absolute) IG [id number] 11:14:51 Test Item Value Reference Range Interpretation Comments IG (test code = IG) 0.5 % 0.0-5.0 IG Abs (test code = IG Abs) 0 x10 N Complete Blood Count with [id number] 11:14:50 Test Item Value Reference Range Interpretation [...] code = IPF) 0 % N RPR [id number] 13:47:36 Test Item Value Reference Range Interpretation [...] = 01-18-20 N Expiration Dt) Thyroid Stimulating [id number] 08:21:50 Test Item Value Reference Range Interpretation Comments TSH (test code = TSH) 2.100 mIU/mL 0.270-4.200 Lipid [id number] 07:23:30 Test Item Value Reference Range Interpretation Comments Cholesterol Total 179 mg/dL 0-200 RISK OF HE ART (test code = DISEASEPublishe d by Cholesterol Total) [employer] [employer] Jacqueline lyte Optimal Borderl ine Increased RiskC HOL <200 200-239 >240TRI G <150 150-199 >200HDL Male >60 <40HDL Fema le >60 <50LDL <100 130 -159 >160LDL Near op timal is 100-129 Triglycerides (test 108 mg/dL 9-200 [...] LDL/HDL Ratio=L DL Calc/HDL Chol Comprehensive Metabolic [id number] 07:00:35 Test Item Value Reference Range Interpretation [...] A/G 1.8 ratio N Ratio) Comprehensive Metabolic [id number] 07:00:35 Test Item Value Reference Range Interpretation [...] National Kidney Foundation, http://nkdep.ni h.gov Comprehensive Metabolic [id number] 07:00:35 Test Item Value Reference Range Interpretation [...] ag e have not been validated by [facility] MDRD study and should be interpreted wit [...] ag e have not been validated by [facility] MDRD study and should be interpreted wit h caution. eGFR R esult Interpretation: eGFR > or = 60 is in the Normal RangeeGF R < 60 may mean kid zach diseaseeGFR < 1 5 may mean kidney failure Rang es recommended by the National Kidney Foundation, http://nkdep.ni h.gov Complete Blood Count with [id number] 06:45:37 Test Item Value Reference Range Interpretation [...] code = IPF) 0 % N Automated [id number] 06:45:37 Test Item Value Reference Range Interpretation Comments Neutro Auto (test code = Neutro 55.6 % 36.0-70.0 Auto) Lymph Auto (test code = Lymph Auto) 29.0 % 12.0-44.0 [place] Auto (test code = [place] Auto) 11.8 % 0.0-11.0 H Eos, Auto (test code = Eos, Auto) 2.7 % 0.0-7.0 Basophil Auto (test code = Basophil 0.7 % 0.0-2.0 Auto) Neutro Absolute (test code = Neutro 3.3 x10 1.6-7.4 Absolute) Lymph Absolute (test code = Lymph 1.70 x10 .50-4.60 Absolute) [place] Absolute (test code = [place] .69 x10 .00-1.20 Absolute) Eos Absolute (test code = Eos 0.16 x10 0.00-0.74 Absolute) Baso Absolute (test code = Baso 0.04 x10 0.00-0.21 Absolute) IG [id number] 06:45:37 Test Item Value Reference Range Interpretation Comments IG (test code = IG) 0.2 % 0.0-5.0 IG Abs (test code = IG Abs) 0 x10 N
[2021-11-28 22:37] LABS: Absolute Lymphocytes (CBC) 2.3 K/uL (0.7-4.9); Hematocrit 35.8 % (39.6-49.0); Lymphocytes % 16.2 % (15.3-44.8); MCV 80.4 fL (80-100); MPV 7.4 fL (7.6-11.3); RBC Red Blood Cell Count 4.45 M/uL (4.33-5.43)
[2021-11-28 22:41] LABS: Protime INR 1.08
[2021-11-28 22:44] LABS: Urine Blood Negative (Negative); Urine Glucose Negative (Negative); Urine Protein 1+ (Negative); Urine Specific Gravity >=1.030 (1.005-1.030)
--- NOTE | 2021-11-28 22:45 | RAD REPORT ---
EXAM DESCRIPTION: CT - Head Brain Wo Cont - 11/28/2021 10:35 pm CLINICAL HISTORY: Altered mental status Headache, drowsiness COMPARISON: Head Brain Wo Cont dated 06/14/2019 TECHNIQUE: All CT scans are performed using dose optimization technique as appropriate and may inclu de automated exposure control or mA/KV adjustment according to patient size. FINDINGS: No intracranial hemorrhage, hydrocephalus or extra-axial fluid collection.No areas of brai n edema or evidence of midline shift. The paranasal sinuses and mastoids are clear. The calvarium is intact. IMPRESSION: No acute intracranial abnormality.
[2021-11-28 22:59] LABS: ALT/SGPT 23 U/L (12-78); AST/SGOT 15 U/L (15-37); Albumin 3.6 g/dL (3.4-5.0); Alkaline Phosphatase 161 U/L (45-117); BUN Blood Urea Nitrogen 9 mg/dL (7-18); Bicarbonate 25 mmol/L (21-32); Bilirubin Direct 0.1 mg/dL (0-0.2); Bilirubin Total 0.4 mg/dL (0.2-1.0); Glomerular Filtration Rate 119 ml/min (=/>90); Glucose Level 70 mg/dL (74-106); Protein, Total 6.9 g/dL (6.4-8.2); Sodium Level 139 mmol/L (136-145)
[2021-11-28 22:59] LABS: Barbiturates NEGATIVE (NEGATIVE); Benzodiazepines NEGATIVE (NEGATIVE); Cocaine NEGATIVE (NEGATIVE); METHAMPHETAM NEGATIVE (NEGATIVE); Methadone NEGATIVE (NEGATIVE); Opiates NEGATIVE (NEGATIVE); Phencyclidine NEGATIVE (NEGATIVE); THC Cannibis NEGATIVE (NEGATIVE)
[2021-11-28] MEDS ORDERED: NA CHLORIDE 0.9% 1,000 ML ONE (23:01)
[2021-11-28 23:02] LABS: Potassium 2.8 mmol/L (3.5-5.1)
[2021-11-28 23:15] LABS: SARS-CoV-2 Antigen Rapid Res Negative (Negative)
[2021-11-29] MEDS ORDERED: POTASSIUM CL SA 10 MEQ TAB PO ONE ×3 (00:22→08:35)
--- NOTE | 2021-11-29 00:59 | ER ---
Nurse's Notes [facility] Name: Heriberto Duke Age: 31 yrs Sex: Male : 1990 Arrival Date: 11/28/2021 Time: 21:53 Bed 20 Private MD: Diagnosis: Other seizures;Altered mental status, unspecified;Hypokalemia Presentation: 11/28 21:57 Chief complaint: EMS states: He had his haldol injection on and he was a bm7 little drowsy after that but today he became unresponsive and seizing. He had his propranolol and hydroxizine refilled on the and now all of the bottles are empty. Mom is not sure if he overdosed. Coronavirus screen: At this time, the client does not indicate any symptoms associated with coronavirus-19. Ebola Screen: No symptoms or risks identified at this time. Initial Sepsis Screen: Does the patient meet any 2 criteria? No. Patient's initial sepsis screen is negative. Does the patient have a suspected source of infection? No. Patient's initial sepsis screen is negative. Risk Assessment: Do you want to hurt yourself or someone else? Unable to obtain. Onset of symptoms was November 28, 2021. Care prior to arrival: Medication(s) given: Normal saline infusion, 500 mL, IV initiated. 20 GA, in the left hand. 21:57 Method Of Arrival: EMS: [facility] 21:57 Acuity: JOSEFA 2 bm7 Triage Assessment: 22:00 General: Appears distressed, unkempt, well developed, Behavior is agitated, anxious, bm7 drowsy, restless, uncooperative. Pain: Unable to use pain scale. Patient is disoriented. EENT: No deficits noted. No signs and/or symptoms were reported regarding the EENT system. Neuro: Sharp Agitation-Sedation Scale (RASS): +3 Very Agitated Level of Consciousness is awake, alert, confused, Oriented to none Dehydrogenation Supervisor are equal bilaterally Speech is slurred, Pupils are PERRLA. Cardiovascular: Rhythm is sinus tachycardia. Respiratory: No deficits noted. GI: No deficits noted. No signs and/or symptoms were reported involving the gastrointestinal system. : No deficits noted. No signs and/or symptoms were reported regarding the genitourinary system. Derm: No deficits noted. No signs and/or symptoms reported regarding the dermatologic system. Musculoskeletal: No deficits noted. No signs and/or symptoms reported regarding the musculoskeletal system. Historical: - Allergies: 22:00 No Known Allergies; bm7 - Home Meds: 22:00 gabapentin 300 mg Oral cap 1 cap 3 times per day [Active]; propranolol 10 mg Oral tab 1 bm7 tab BID [Active]; Effexor 50 mg Oral tab 1 tab 2 times per day [Active]; Haldol Oral [Active]; hydroxyzine HCl 50 mg Oral tab 2 tabs 4 times per day [Active]; - PMHx: 22:00 Depression; Schizophrenia; suicidal thoughts; bm7 - PSHx: 22:00 L arm SX; bm7 - Immunization history:: Adult Immunizations unknown. - Social history:: Smoking status: unknown. Screenin:44 Abuse screen: Denies threats or abuse. Nutritional screening: No deficits noted. bm7 Tuberculosis screening: No symptoms or risk factors identified. Fall Risk None identified. Assessment: 22:44 Reassessment: No changes from previously documented assessment. Patient and/or family bm7 updated on plan of care and expected duration. Pain level reassessed. Patient is alert, oriented x 3, equal unlabored respirations, skin warm/dry/pink. 11/29 00:17 Reassessment: Pt is now awake and alert x3. family at the bedside reports pt had a jb4 seizure prior to EMS arrival. Pt denies having a past history of seizures. 00:38 Reassessment: Pt is still intermittently confused, easily redirected. jb4 01:34 Reassessment: Pt continues to have shallow, tachypneic respirations. Continues to have jb4 periods of confusion and uses inappropriate words when trying to speak with staff. Admitting provider at the bedside. Vital Signs: 11/28 21:57 BP 139 / 94; Pulse 124; Resp 30; Temp 98.3(A); Pulse Ox 95% on R/A; Weight 113.4 kg; bm7 Height 5 ft. 8 in. (172.72 cm); Pain 0/10; 23:30 BP 154 / 96; Pulse 124; Resp 24 S; Pulse Ox 99% ; jb4 11/29 00:27 BP 159 / 102; Pulse 104; Resp 32 S; Pulse Ox 100% on R/A; jb4 01:34 BP 152 / 97; Pulse 82; Resp 32 S; Pulse Ox 100% on R/A; jb4 11/28 21:57 Body Mass Index 38.01 (113.40 kg, 172.72 cm) bm7 Vitals: 11/28 22:44 Cardiac Rhythm Assessment Sinus tach. bm7 ED Course: 21:53 Patient arrived in ED. mw2 21:55 Maria Dolores Vargas, RN is Primary Nurse. bm7 21:58 Barry Vann DO is Attending Physician. ms3 21:59 Triage completed. bm7 22:00 Arm band placed on right wrist. EKG completed in triage. Results shown to MD. bm7 22:44 Patient has correct armband on for positive identification. Placed in gown. Bed in low bm7 position. Call light in reach. Side rails up X2. Client placed on continuous cardiac and pulse oximetry monitoring. NIBP monitoring applied. air sampling and monitoring on. 22:44 Initial lab(s) drawn, by me, sent to lab. Urine collected: straight cath specimen, bm7 clear, Amount Returned: 300mL EKG done, by ED staff, reviewed by Barry Vann DO COVID swab sent to lab. X-ray(s) taken. Maintain EMS IV. Dressing intact. Good blood return noted. Site clean \T\ dry. Gauge \T\ site: 20g L hand . Patient maintains SpO2 saturation greater than 95% on room air. 23:04 Notified ED physician of a critical lab result(s). K 2.8 Md Vann notified. ke1 11/29 00:49 CT In Process Unspecified. EDMS 00:58 Telly Ivan MD is Hospitalizing Provider. ms3 04:54 Bina Mcmahon PA is PHCP. sb3 Administered Medications: 11/28 22:57 Drug: NS 0.9% 1000 ml Route: IV; Rate: 1000 ml; Site: left hand; bm7 23:18 CANCELLED (Physician Discretion): Potassium Chloride 40 mEq PO once ms3 11/29 00:08 Not Given (Other Intervention Used): Potassium Chloride 20 mEq IV at calculated rate jb4 once; administer over 1-2 hours 00:15 Drug: Potassium Chloride 40 mEq Route: PO; jb4 01:02 Drug: Keppra (levETIRAcetam) 1000 mg Route: PO; jb4 Medication: 11/28 22:44 VIS not applicable for this client. bm7 Outcome: 11/29 00:58 Decision to Hospitalize by Provider. ms3 11:27 Patient left the ED. mb8 Signatures: Dispatcher [employer] EDMS Kit Fleming, RN RN jb4 MichaelNirmal amarozoila mw2 Barry Vann, DO ms3 Maria Dolores Vargas, RN RN bm7 Liz Campbell, ALYSSA RN ke1 Bina Mcmahon PA PA sb3 Wellington Orourke, ALYSSA RN mb8 Corrections: (The following items were deleted from the chart) 00:27 11/28 23:30 BP 154 / 96; Pulse 124bpm; Resp 20bpm; Pulse Ox 99%; jb4 jb4 11/29 02:50 11/28 23:30 BP 154 / 96; Pulse 124bpm; Resp 24bpm; Pulse Ox 99%; jb4 jb4 11/29 02:50 01:34 BP 152 / 97; Pulse 82bpm; Resp 32bpm; Pulse Ox 100% RA; jb4 jb
--- NOTE | 2021-11-29 00:59 | EDPHYS ---
Physician Documentation [facility] Name: Heriberto Duke Age: 31 yrs Sex: Male : 1990 Arrival Date: 11/28/2021 Time: 21:53 Bed 20 Private MD: ED Physician Barry Vann HPI: 11/28 23:21 This 31 yrs old Male presents to ER via EMS with complaints of altered mental status. ms3 23:21 31-year-old male with past medical history of depression, schizophrenia, suicidal ms3 thoughts presents via [facility] for possible drug overdose and altered mental status. EMS states patient's hydroxyzine and propranolol were filled on the first of the month and are currently empty. EMS states patient's mother states patient sometimes takes additional medications to get high. Patient's mother states patient received his Haldol injection on and typically is sleepy after that. Patient had a seizure today and began vomiting. Patient's mother then found patient's empty bottles. HPI limited from patient as he is A\T\O x1.. Historical: - Allergies: 22:00 No Known Allergies; bm7 - Home Meds: 22:00 gabapentin 300 mg Oral cap 1 cap 3 times per day [Active]; propranolol 10 mg Oral tab 1 bm7 tab BID [Active]; Effexor 50 mg Oral tab 1 tab 2 times per day [Active]; Haldol Oral [Active]; hydroxyzine HCl 50 mg Oral tab 2 tabs 4 times per day [Active]; - PMHx: 22:00 Depression; Schizophrenia; suicidal thoughts; bm7 - PSHx: 22:00 L arm SX; bm7 - Immunization history:: Adult Immunizations unknown. - Social history:: Smoking status: unknown. ROS: 23:21 Unable to obtain ROS due to altered mental status. ms3 Exam: 22:44 ECG was reviewed by the Attending Physician. ms3 23:21 Constitutional: This is a well developed, well nourished patient who is awake, alert, ms3 and in no acute distress. Head/Face: Normocephalic, atraumatic. Neck: Trachea midline, no cervical lymphadenopathy. Supple, full range of motion without nuchal rigidity, or vertebral point tenderness. No Meningismus. Chest/axilla: Normal chest wall appearance and motion. Nontender with no deformity. 23:21 Cardiovascular: Rate: tachycardic, Rhythm: regular, Pulses: no pulse deficits are appreciated, Heart sounds: normal. Vital Signs: 21:57 BP 139 / 94; Pulse 124; Resp 30; Temp 98.3(A); Pulse Ox 95% on R/A; Weight 113.4 kg; bm7 Height 5 ft. 8 in. (172.72 cm); Pain 0/10; 23:30 BP 154 / 96; Pulse 124; Resp 24 S; Pulse Ox 99% ; jb4 11/29 00:27 BP 159 / 102; Pulse 104; Resp 32 S; Pulse Ox 100% on R/A; jb4 01:34 BP 152 / 97; Pulse 82; Resp 32 S; Pulse Ox 100% on R/A; jb4 11/28 21:57 Body Mass Index 38.01 (113.40 kg, 172.72 cm) bm7 MDM: 11/28 21:58 Patient medically screened. ms3 22:44 Differential Diagnosis: Overdose vs ICH vs Infection. ms3 11/29 00:57 Data reviewed: vital signs, nurses notes. ms3 04:05 Data interpreted: vehicle monitor technician: rate is 78 beats/min, rhythm is normal sinus rhythm, ms3 with no ectopy, Interpretation: normal rate, normal rhythm. Counseling: I had a detailed discussion with the patient and/or guardian regarding: the historical points, exam findings, and any diagnostic results supporting the discharge/admit diagnosis, lab results, radiology results, the need for further work-up and treatment in the hospital. ED course: Discussed case with FREDDIE Palencia, and she accepts patient on behalf of Dr. Ivan. Discussed plan for observation with patient and his mother. They understand and agree with plan. Patient has improved since arrival to the emergency department. 11/28 21:58 Order name: Acetaminophen ms3 11/28 21:58 Order name: BMP ms3 11/28 21:58 Order name: CBC with Diff ms3 11/28 21:58 Order name: Ethanol ms3 11/28 21:58 Order name: Hepatic Function ms3 11/28 21:58 Order name: Protime (+inr) ms3 11/28 21:58 Order name: Ptt, Activated ms3 11/28 21:58 Order name: Salicylate ms3 11/28 21:58 Order name: Urine Drug Screen ms3 11/28 22:13 Order name: SARS RAPID mw2 11/28 22:41 Order name: Alcohol Serum/Plasma EDMS 11/28 22:41 Order name: Protime (+INR) EDMS 11/28 22:41 Order name: PTT, Activated Partial Thromb EDMS 11/28 22:42 Order name: CBC with Automated Diff EDMS 11/28 22:44 Order name: Urine Dipstick-Ancillary; Complete Time: 23:04 EDMS 11/28 22:59 Order name: Urine Drug Screen EDMS 11/28 23:01 Order name: Salicylates Level EDMS 11/28 23:02 Order name: Basic Metabolic Panel EDMS 11/28 23:02 Order name: Liver (Hepatic) Function EDMS 11/28 23:02 Order name: Acetaminophen Level EDMS 11/28 23:15 Order name: SARS-COV-2 Antigen Rapid EDMS 11/29 02:55 Order name: Glucose, Ancillary Testing; Complete Time: 05:57 EDMS 11/29 04:11 Order name: Urinalysis; Complete Time: 05:57 EDMS 11/29 04:40 Order name: CBC with Automated Diff; Complete Time: 05:57 EDMS 11/29 05:00 Order name: Basic Metabolic Panel; Complete Time: 05:57 EDMS 11/29 05:00 Order name: Lipid Profile; Complete Time: 05:57 EDMS 11/29 05:00 Order name: T4 Free; Complete Time: 05:57 EDMS 11/29 05:00 Order name: Magnesium; Complete Time: 05:57 EDMS 11/29 05:00 Order name: Thyroid Stimulating Hormone; Complete Time: 05:57 EDMS 11/29 08:24 Order name: Glucose, Ancillary Testing EDMS 11/28 21:58 Order name: EKG; Complete Time: 21:59 ms3 11/28 21:58 Order name: EKG - Nurse/Tech; Complete Time: 22:03 ms3 11/28 21:58 Order name: IV Saline Lock; Complete Time: 22:03 ms3 11/28 21:58 Order name: Labs collected and sent; Complete Time: 22:03 ms3 11/28 21:58 Order name: O2 Per Protocol; Complete Time: 22:03 ms3 11/28 21:58 Order name: O2 Sat Monitoring; Complete Time: 22:03 ms3 11/28 21:58 Order name: Suicide Screening ([place]); Complete Time: 22:03 ms3 11/28 21:58 Order name: Urine Dipstick-Ancillary (obtain specimen); Complete Time: 22:57 ms3 11/28 21:58 Order name: CT Head Brain wo Cont ms3 11/28 22:45 Order name: CT EDMS 11/29 09:48 Order name: Glucose, Ancillary Testing EDMS 11/29 10:12 Order name: MRI EDMS EC/11 22:44 Rate is 126 beats/min. Rhythm is regular. QRS Lula is Normal. GA interval is normal. ms3 QRS interval is normal. Clinical impression: Sinus tachycardia. Interpreted by me. Reviewed by me. Administered Medications: 22:57 Drug: NS 0.9% 1000 ml Route: IV; Rate: 1000 ml; Site: left hand; bm7 23:18 CANCELLED (Physician Discretion): Potassium Chloride 40 mEq PO once ms3 11/29 00:08 Not Given (Other Intervention Used): Potassium Chloride 20 mEq IV at calculated rate jb4 once; administer over 1-2 hours 00:15 Drug: Potassium Chloride 40 mEq Route: PO; jb4 01:02 Drug: Keppra (levETIRAcetam) 1000 mg Route: PO; jb4 Disposition: 04:06 Chart complete. ms3 Disposition Summary: 11/29/21 00:58 Hospitalization Ordered Hospitalization Status: Observation ms3 Provider: Telly Ivan ms3 Condition: Stable ms3 Problem: new ms3 Symptoms: are unchanged ms3 Bed/Room Type: Standard ms3 Location: [facility] ER HOLD(11/29/21 01:32) Room Assignment: ERHOLD-(11/29/21 01:32) Diagnosis - Other seizures ms3 - Altered mental status, unspecified ms3 - Hypokalemia ms3 Discharge Instructions: - Discharge Summary Sheet iw Forms: - Medication Reconciliation Form ms3 - SBAR form ms3 Signatures: Dispatcher [employer] Sophie Azar RN RN mw Bryson, James, RN RN jb4 Barry Vann DO DO ms3 Maria Dolores Vargas RN RN bm7 Corrections: (The following items were deleted from the chart) 11/28 23:18 23:04 Potassium Chloride 40 mEq PO once ordered. ms3 ms3 11/29 01:32 00:58 Telemetry/MedSurg (observation) ms3 01:32 00:58 ms3 mw
[2021-11-29] MEDS ORDERED: levETIRAcetam 500 MG TAB ONE ×2 (01:08→08:34)
--- NOTE | 2021-11-29 01:54 | P.HP ---
Certification for Inpatient Patient admitted to: Observation With expected LOS: <2 Midnights Patient will require the following post-hospital care: None Practitioner: I am a practitioner with admitting privileges, knowledge of patient current condition, hospital course, and medical plan of care. Services: Services provided to patient in accordance with Admission requirements found in Title 42 Section 412.3 of the Code of Federal Regulations <Bina Mcmahon - Last Filed: 11/29/21 02:06> Patient History Date of Service: 11/29/21 Reason for admission: New onset seizure History of Present Illness: Patient is a 31 year-old male with history of DVT, schizophrenia, and depression who presented to the ED via EMS for AMS. Patient has been evaluated several times for suicidal ideations and drug overdoses. Today, his mother thought that he took an entire bottle of his propranolol and hydroxyzine, but patient denies. The bottles were empty, but patient states that he threw them away. Mother reports that patient started to vomit and seize for a few minutes and was only oriented to self following, which is when she called EMS. Tox screen negative, head CT negative. Patient has been tachycardic and tachypneic. WBC elevated at 14, potassium 2.8. He was given 1L fluid, supplemental potassium, and 1g keppra in ED. Patient remains confused and tachypneic. ED provider wishes to admit patient for observation. - Past Medical/Surgical History Diabetic: No -: DVT -: Schizophrenia -: Depression -: Left forearm ORIF Psychosocial/ Personal History: Patient lives at home with his mom. - Family History Father -: Stroke - Social History Smoking Status: Current every day smoker Alcohol use: No CD- Drugs: No Caffeine use: Yes Place of Residence: Home <Bina Mcmahon - Last Filed: 11/29/21 02:06> Date of Service: 11/29/21 <Telly Ivan - Last Filed: 11/29/21 10:56> Review of Systems Neurological: Confusion <Bina Mcmahon - Last Filed: 11/29/21 02:06> Physical Examination - Physical Exam General: Alert, In no apparent distress HEENT: Atraumatic, PERRLA, EOMI, Sclerae nonicteric Neck: Supple, 2+ carotid pulse no bruit, No LAD, Without JVD or thyroid abnormality Respiratory: Clear to auscultation bilaterally, Normal air movement Cardiovascular: Regular rate/rhythm, Normal S1 S2 Gastrointestinal: Normal bowel sounds, No tenderness Musculoskeletal: No tenderness Integumentary: No rashes Neurological: Normal strength at 5/5 x4 extr, Normal tone, Sensation intact, Abnormal affect (flat) Lymphatics: No axilla or inguinal lymphadenopathy - Studies Laboratory Data (last 24 hrs) 11/28/21 22:10: PT 11.9, INR 1.08, APTT 32.5 11/28/21 22:10: WBC 14.50 H, Hgb 12.4 L, Hct 35.8 L, Plt Count 375 11/28/21 22:10: Sodium 139, Potassium 2.8 L*, BUN 9, Creatinine 0.89, Glucose 70 L, Total Bilirubin 0.4, AST 15, ALT 23, Alkaline Phosphatase 161 H <Bina Mcmahon - Last Filed: 11/29/21 02:06> - Studies Laboratory Data (last 24 hrs) 11/28/21 22:10: PT 11.9, INR 1.08, APTT 32.5 11/28/21 22:10: WBC 14.50 H, Hgb 12.4 L, Hct 35.8 L, Plt Count 375 11/28/21 22:10: Sodium 139, Potassium 2.8 L*, BUN 9, Creatinine 0.89, Glucose 70 L, Total Bilirubin 0.4, AST 15, ALT 23, Alkaline Phosphatase 161 H <Telly Ivan - Last Filed: 11/29/21 10:56> Assessment and Plan - Problems (Diagnosis) (1) New onset seizure Current Visit: Yes Status: Acute (2) Hypokalemia Current Visit: Yes Status: Acute (3) Altered mental status Current Visit: Yes Status: Acute Qualifiers: Altered mental status type: unspecified Qualified Code(s): R41.82 - Altered mental status, unspecified (4) Schizophrenia Current Visit: Yes Status: Acute Qualifiers: Schizophrenia type: unspecified Qualified Code(s): F20.9 - Schizophrenia, unspecified - Plan -Monitor patient on telemetry overnight -Repeat CBC and CMP in morning -Neurology consult -Lipid panel and TSH in morning -Gentle IV hydration -Monitor and replete electrolytes per protocol -Reconcile and continue home medications -Lovenox for VTE prophylaxis -Full code Discharge Plan: Home Plan to discharge in: 24 Hours - Advance Directives Does patient have a Living Will: No Does patient have a Durable POA for Healthcare: No - Code Status/Comfort Care Code Status Assessed: Yes (Full) Critical Care: No Time Spent Managing Pts Care (In Minutes): 50 <Bina Mcmahon - Last Filed: 11/29/21 02:06> Physician Review: Patient Assessed, Agree with Above Assessment and Plan <Telly Ivan - Last Filed: 11/29/21 10:56>
[2021-11-29 02:56] VITALS: BMI 29.5
[2021-11-29] MEDS ORDERED: ACETAMINOPHEN 500 MG TAB PO PRN (03:05)
[2021-11-29] MEDS ORDERED: D5.45NS W/KCL 20MEQ 20 MEQ/1,000 ML BAG IV SCH (03:05)
[2021-11-29] MEDS ORDERED: ONDANSETRON 4 MG/2 ML VIAL IV PRN (03:05)
[2021-11-29] MEDS: NICOTINE 21 MG/PAT TD SCH ×2 (03:05→08:27)
[2021-11-29] MEDS ORDERED: D5.45NS W/KCL 20MEQ 1,000 ML IV ONE (03:23)
[2021-11-29] MEDS ORDERED: NICOTINE 21 MG/PAT TD ONE ×2 (03:42→08:34)
[2021-11-29 04:11] LABS: Specific Gravity < 1.005 (1.005-1.030); Urine Bilirubin NEGATIVE (Negative); Urine Blood Negative (Negative); Urine Clarity Clear (Clear); Urine Color Colorless (Yellow); Urine Glucose NEGATIVE (Negative); Urine Protein NEGATIVE (Negative); Urine RBC <5 /HPF (None Seen); Urine Urobilinogen Normal (Normal); Urine pH 6.5 (5.0-7.0)
[2021-11-29 04:24] LABS: Absolute Lymphocytes (CBC) 2.2 K/uL (0.7-4.9); Hematocrit 34.5 % (39.6-49.0); Lymphocytes % 17.9 % (15.3-44.8); MCV 79.3 fL (80-100); MPV 7.2 fL (7.6-11.3); RBC Red Blood Cell Count 4.35 M/uL (4.33-5.43)
[2021-11-29 05:00] LABS: Magnesium 2.3 mg/dL (1.8-2.4); Potassium 3.2 mmol/L (3.5-5.1); Thyroid Stimulating Hormone 1.61 uIU/mL (0.360-3.740)
[2021-11-29] MEDS: THIAMINE 200 MG/2 ML INJ IVP SCH ×2 (07:14→08:33)
[2021-11-29] MEDS ORDERED: GABAPENTIN 300 MG CAP ONE (08:34)
[2021-11-29] MEDS ORDERED: THIAMINE 200 MG/2 ML INJ ONE (08:34)
[2021-11-29] MEDS ORDERED: ENOXAPARIN 40 MG/0.4 ML SQ SCH (09:00)
[2021-11-29] MEDS ORDERED: GABAPENTIN 300 MG CAP PO SCH (09:00)
[2021-11-29] MEDS ORDERED: levETIRAcetam 500 MG TAB PO SCH (09:00)
--- NOTE | 2021-11-29 10:12 | RAD REPORT ---
EXAM DESCRIPTION: MRI - Brain W/Wo Cont - 11/29/2021 9:12 am CLINICAL HISTORY: new-onset seizure Headache, drowsiness, seizure COMPARISON: Head Brain Wo Cont dated 11/28/2021 TECHNIQUE: Multi-sequence, multiplanar MR imaging of the brain was performed with contrast. FINDINGS: No intracranial hemorrhage, hydrocephalus, or extra-axial fluid collection. No edema or sh ift of midline structures. No intracranial mass. DWI is negative for acute CVA. The midline structures are normally formed. Mastoid air cells and paranasal sinuses are clear. Post-contrast images show no abnormal enhancement to suggest tumor or infection. IMPRESSION: No acute or concerning intracranial abnormalities. No pathologic post-contrast enhancement suspected.
--- NOTE | 2021-11-29 10:56 | P.DS ---
Admission Date: 11/29/21 Discharge Date: 11/29/21 Disposition: ROUTINE DISCHARGE Discharge Condition: GOOD Reason for Admission: New onset seizure Hospital Course: DIAGNOSES: # Seizure-Like Episode - possibly secondary to Gabapentin Withdrawal # Schizophrenia # History of Deep Venous Thrombosis HOSPITAL COURSE: Mr. Heriberto Duke is a 31 year old male with a past medical history significant for schizophrenia who was admitted to the [facility] on 11/29/2021 for a seizure-like episode. He was admitted to the Medicine service for further evaluation. During my evaluation, his mother was at bedside. She endorsed concern that he may have intentionally overdosed on his propanolol as she found his prescription bottle empty in his room. He stated that he wanted to stop all of his medications as his symptoms have been improving, so he threw all of his pills in the garbage. He denies taking any of his medications for the last several weeks, which may have resulted in a gabapentin-withdrawal seizure. He is alert and oriented x4 to person, place, time, and situation. He denies that he took the pills in an attempt to overdose. He reports that he is doing well from a psychiatric standpoint, and he specifically denies any suicidal or homicidal ideation, intention, or plan. Given that this was his first seizure-like episode, a neurologic evaluation was conducted. His CT head revealed, "no acute intracranial abnormality." An MRI head revealed, "No acute or concerning intracranial abnormalities. No pathologic post-contrast enhancement suspected." He was eager to be discharged home, and Dr. Mejia will not be available to see him until after clinic today. I called Dr. Mejia and reviewed his case. Dr. Mejia agreed that he can be discharged with an outpatient EEG in the next 1-2 days. He advised that Mr. Duke or his mother call his office today and schedule an appointment. Additionally, he agrees with resuming his gabapentin and starting levetiracetam for now. On 11/29/2021, he was seen on morning rounds and deemed medically stable for discharge. He was discharged with instructions to schedule follow-up appointments with his PCP in 3-5 days and with Neurology (Dr. Mejia) in 1-2 days. He was provided prescriptions for gabapentin and levetiracetam. He and his mother were given the opportunity to ask questions and reported no further questions. Furthermore, all questions were answered to the best of my ability. Today, I personally spent 25 minutes on his case, of which greater than 50% of the time was spent in patient education, counseling, and coordination of care as described above. Vital Signs/Physical Exam: Temp Pulse Resp BP Pulse Ox 98.6 F 77 18 140/101 H 100 11/29/21 08:00 11/29/21 08:00 11/29/21 08:00 11/29/21 08:00 11/29/21 08:00 General: Alert, In no apparent distress, Oriented x3 HEENT: Atraumatic, PERRLA, Mucous membr. moist/pink, EOMI, Sclerae nonicteric Neck: Supple Respiratory: Clear to auscultation bilaterally, Normal air movement Cardiovascular: No edema, Regular rate/rhythm, Normal S1 S2, No gallops, No rubs, No murmurs Gastrointestinal: Normal bowel sounds, Soft and benign, Non-distended, No tenderness, No rebound, No guarding Musculoskeletal: No clubbing Integumentary: No rashes Neurological: Normal speech, Cranial nerves 3-12 intact, Normal affect Laboratory Data at Discharge: WBC 12.00 K/uL (4.3-10.9) H D 11/29/21 03:50 Hgb 12.0 g/dL (13.6-17.9) L 11/29/21 03:50 Hct 34.5 % (39.6-49.0) L 11/29/21 03:50 Plt Count 393 K/uL (152-406) 11/29/21 03:50 PT 11.9 SECONDS (9.5-12.5) 11/28/21 22:10 INR 1.08 11/28/21 22:10 APTT 32.5 SECONDS (24.3-36.9) 11/28/21 22:10 Sodium 142 mmol/L (136-145) 11/29/21 03:50 Potassium 3.2 mmol/L (3.5-5.1) L 11/29/21 03:50 BUN 6 mg/dL (7-18) L 11/29/21 03:50 Creatinine 0.84 mg/dL (0.55-1.3) 11/29/21 03:50 Glucose 85 mg/dL (74-106) 11/29/21 03:50 Magnesium 2.3 mg/dL (1.8-2.4) 11/29/21 03:50 Total Bilirubin 0.4 mg/dL (0.2-1.0) 11/28/21 22:10 AST 15 U/L (15-37) 11/28/21 22:10 ALT 23 U/L (12-78) 11/28/21 22:10 Alkaline Phosphatase 161 U/L (45-117) H 11/28/21 22:10 Triglycerides 105 mg/dL (<150) 11/29/21 03:50 Cholesterol 158 mg/dL (<200) 11/29/21 03:50 HDL Cholesterol 33 mg/dL (40-60) L 11/29/21 03:50 Cholesterol/HDL Ratio 4.79 11/29/21 03:50 Home Medications: RX: Gabapentin 300 mg PO BID #60 cap 11/29/21 RX: levETIRAcetam [Keppra*] 500 mg PO BID #60 tab 11/29/21 New Medications: RX: Gabapentin 300 mg PO BID #60 cap RX: levETIRAcetam [Keppra*] 500 mg PO BID #60 tab Physician Discharge Instructions: 1. Please schedule a follow-up with your PCP in 3-5 days 2. Please schedule a follow-up with Dr. Mejia in 1-2 days - Please call [phone] to make an appointment Diet: Regular Activity: Ad john Followup: Unknown,U [Primary Care Provider] - Liasndro Mejia MD [ASSOCIATE-ACTIVE - CAN ADMIT] - Time spent managing pt's care (in minutes): 25
[2021-11-29 11:51] VITALS: TEMP 98.3
[2021-11-29 11:56] VITALS: O2SAT 100
[2021-11-29 11:59] VITALS: BP 152/97
--- NOTE | 2021-11-29 15:07 | EKG ---
Test Date: 2021-11-28 Test Time: 22:44:13 Commissary Assistant: ED MEASUREMENT RESULTS: Intervals: Rate: 126 AR: 104 QRSD: 84 QT: 408 QTc: 590 [place]: P: AR: 104 QRS: 113 T: 6 INTERPRETIVE STATEMENTS: Sinus tachycardia with short AR Right axis deviation Abnormal ECG Compared to ECG 10/25/2021 17:48:27 Short AR interval now present Right-axis deviation now present Sinus rhythm no longer present Electronically Signed On 11-29-21 15:06:09 CDT by Harlan Pierce
== END 2021-11-29 11:26 | disposition home or self-care (01) ==
LOC: ER 21:50 → ERHOLD 11-29 01:47
PROVIDERS: ADMIT Internal Medicine; ATTEND Internal Medicine
DX: R56.9 Unspecified convulsions (principal); E87.6 Hypokalemia; F17.210 Nicotine dependence, cigarettes, uncomplicated; R41.82 Altered mental status, unspecified; F20.9 Schizophrenia, unspecified; T42.6X6A Underdosing of other antiepileptic and sedative-hypnotic drugs, initial encounter; Z91.128 Patient's intentional underdosing of medication regimen for other reason; Y92.019 Unspecified place in single-family (private) house as the place of occurrence of the external cause; Z86.718 Personal history of other venous thrombosis and embolism; F32.A Depression, unspecified; Z91.51 Personal history of suicidal behavior; Z20.822 Contact with and (suspected) exposure to COVID-19
CPT/HCPCS: 93005; 85025 ×2; 81001; 80048 ×2; 36415; 80320; 83735; 80329 ×2; 85610; 80061; 82947 ×3; 80076; 85730; 84443; 81003; 84439; 80307; 70450; 70553; 99285; 87811; A9577; J3411; J7030; G0378 ×2

== ENCOUNTER 2021-12-16 18:39 | Emergency (ER) | payer OTHER ==
--- OUTSIDE RECORDS SUMMARY | 2021-12-16 18:42 | XMS REPORT | Continuity of Care Document ---
:1990 Author Organization [facility] t Address [address] [place] [address] Care Team Providers Name Role Phone Yanni [...] Clinician No Known [facility] 00:00: s 00 No Known Drug [facility] No Known Drug [facility] No Known Drug [facility] No Known Drug [facility] No [facility] No [facility] No [facility] No [facility] No Known [facility] No Known [facility] No [facility] No [facility] No Known Drug Active [facility] No Known Drug Active . [facility] Medications This patient has no known [...] Temperature 2020-03-16 16:15:27 36.8\\S\\98.2 Weight 2020-03-16 16:15:27 02172.588\\S\\2960 Weight Measurement Method 2020-03-16 16:15:27 Estimated by Patient Respiratory 2020-03-16 16:09:15 No respiratory distress /min 02 Sat by Pulse Oximetry 2020-03-16 16:09:15 96 /min Body Mass Index 2020-03-16 16:09:15 26.5 Height 2020-03-16 16:09:15 177.8\\S\\70 Pulse Rate 2020-03-16 16:09:15 85 /min Respiratory Rate 2020-03-16 16:09:15 18 /min Temperature 2020-03-16 16:09:15 36.8\\S\\98.2 Weight 2020-03-16 16:09:15 68254.588\\S\\2960 Weight Measurement Method 2020-03-16 16:09:15 Estimated by Patient 02 Sat by Pulse Oximetry 2020-03-16 16:09:14 96 /min Body Mass Index 2020-03-16 16:09:14 26.5 Height 2020-03-16 16:09:14 177.8\\S\\70 Pulse Rate 2020-03-16 16:09:14 85 /min Respiratory Rate 2020-03-16 16:09:14 18 /min Temperature 2020-03-16 16:09:14 36.8\\S\\98.2 Weight 2020-03-16 16:09:14 12328.588\\S\\2960 Weight Measurement Method 2020-03-16 16:09:14 Estimated by Patient Respiratory 2020-03-16 16:09:14 No respiratory distress /min Respiratory 2020-03-16 14:02:46 No respiratory distress /min 02 Sat by Pulse Oximetry 2020-03-16 14:02:46 96 /min Body Mass Index 2020-03-16 14:02:46 26.5 Height 2020-03-16 14:02:46 177.8\\S\\70 Pulse Rate 2020-03-16 14:02:46 85 /min Respiratory Rate 2020-03-16 14:02:46 18 /min Temperature 2020-03-16 14:02:46 36.8\\S\\98.2 Weight 2020-03-16 14:02:46 95166.588\\S\\2960 Weight Measurement Method 2020-03-16 14:02:46 Estimated by Patient Respiratory 2020-03-16 14:02:15 No respiratory distress /min 02 Sat by Pulse Oximetry 2020-03-16 14:02:15 96 /min Body Mass Index 2020-03-16 14:02:15 26.5 Height 2020-03-16 14:02:15 177.8\\S\\70 Pulse Rate 2020-03-16 14:02:15 85 /min Respiratory Rate 2020-03-16 14:02:15 18 /min Temperature 2020-03-16 14:02:15 36.8\\S\\98.2 Weight 2020-03-16 14:02:15 70297.588\\S\\2960 Weight Measurement Method 2020-03-16 14:02:15 Estimated by Patient Respiratory 2020-03-16 14:01:43 No respiratory distress /min 02 Sat by Pulse Oximetry 2020-03-16 14:01:43 96 /min Body Mass Index 2020-03-16 14:01:43 26.5 Height 2020-03-16 14:01:43 177.8\\S\\70 Pulse Rate 2020-03-16 14:01:43 85 /min Respiratory Rate 2020-03-16 14:01:43 18 /min Temperature 2020-03-16 14:01:43 36.8\\S\\98.2 Weight 2020-03-16 14:01:43 25694.588\\S\\2960 Weight Measurement Method 2020-03-16 14:01:43 Estimated by Patient Respiratory 2020-03-16 14:01:12 No respiratory distress /min 02 Sat by Pulse Oximetry 2020-03-16 14:01:12 96 /min Body Mass Index 2020-03-16 14:01:12 26.5 Height 2020-03-16 14:01:12 177.8\\S\\70 Pulse Rate 2020-03-16 14:01:12 85 /min Respiratory Rate 2020-03-16 14:01:12 18 /min Temperature 2020-03-16 14:01:12 36.8\\S\\98.2 Weight 2020-03-16 14:01:12 08432.588\\S\\2960 Weight Measurement Method 2020-03-16 14:01:12 Estimated by Patient Respiratory 2020-03-15 16:13:25 No respiratory distress /min 02 Sat by Pulse Oximetry 2020-03-15 16:13:25 98 /min Body Mass Index 2020-03-15 16:13:25 26.5 Height 2020-03-15 16:13:25 177.8\\S\\70 Pulse Rate 2020-03-15 16:13:25 87 /min Respiratory Rate 2020-03-15 16:13:25 18 /min Temperature 2020-03-15 16:13:25 36.5\\S\\97.7 Weight 2020-03-15 16:13:25 30258.588\\S\\2960 Weight Measurement Method 2020-03-15 16:13:25 Estimated by Patient Respiratory 2020-03-15 15:57:27 No respiratory distress /min 02 Sat by Pulse Oximetry 2020-03-15 15:57:27 98 /min Body Mass Index 2020-03-15 15:57:27 26.5 Height 2020-03-15 15:57:27 177.8\\S\\70 Pulse Rate 2020-03-15 15:57:27 87 /min Respiratory Rate 2020-03-15 15:57:27 18 /min Temperature 2020-03-15 15:57:27 36.5\\S\\97.7 Weight 2020-03-15 15:57:27 35546.588\\S\\2960 Weight Measurement Method 2020-03-15 15:57:27 Estimated by Patient Respiratory 2020-03-15 14:35:13 No respiratory distress /min 02 Sat by Pulse Oximetry 2020-03-15 14:35:13 98 /min Body Mass Index 2020-03-15 14:35:13 26.5 Height 2020-03-15 14:35:13 177.8\\S\\70 Pulse Rate 2020-03-15 14:35:13 87 /min Respiratory Rate 2020-03-15 14:35:13 18 /min Temperature 2020-03-15 14:35:13 36.5\\S\\97.7 Weight 2020-03-15 14:35:13 77920.588\\S\\2960 Weight Measurement Method 2020-03-15 14:35:13 Estimated by Patient Respiratory 2020-03-15 14:28:03 No respiratory distress /min 02 Sat by Pulse Oximetry 2020-03-15 14:28:03 98 /min Body Mass Index 2020-03-15 14:28:03 26.5 Height 2020-03-15 14:28:03 177.8\\S\\70 Pulse Rate 2020-03-15 14:28:03 87 /min Respiratory Rate 2020-03-15 14:28:03 18 /min Temperature 2020-03-15 14:28:03 36.5\\S\\97.7 Weight 2020-03-15 14:28:03 83339.588\\S\\2960 Weight Measurement Method 2020-03-15 14:28:03 Estimated by Patient Respiratory 2020-03-15 14:27:02 No respiratory distress /min 02 Sat by Pulse Oximetry 2020-03-15 14:27:02 98 /min Body Mass Index 2020-03-15 14:27:02 26.5 Height 2020-03-15 14:27:02 177.8\\S\\70 Pulse Rate 2020-03-15 14:27:02 87 /min Respiratory Rate 2020-03-15 14:27:02 18 /min Temperature 2020-03-15 14:27:02 36.5\\S\\97.7 Weight 2020-03-15 14:27:02 02891.588\\S\\2960 Weight Measurement Method 2020-03-15 14:27:02 Estimated by Patient Respiratory 2020-03-15 10:42:59 No respiratory distress /min 02 Sat by Pulse Oximetry 2020-03-15 10:42:59 100 /min Body Mass Index 2020-03-15 10:42:59 26.5 Height 2020-03-15 10:42:59 177.8\\S\\70 Pulse Rate 2020-03-15 10:42:59 92 /min Respiratory Rate 2020-03-15 10:42:59 18 /min Temperature 2020-03-15 10:42:59 36.8\\S\\98.2 Weight 2020-03-15 10:42:59 36085.588\\S\\2960 Weight Measurement Method 2020-03-15 10:42:59 Estimated by Patient 02 Sat by Pulse Oximetry 2020-03-15 10:16:27 100 /min Body Mass Index 2020-03-15 10:16:27 26.5 Height 2020-03-15 10:16:27 177.8\\S\\70 Pulse Rate 2020-03-15 10:16:27 92 /min Respiratory Rate 2020-03-15 10:16:27 18 /min Temperature 2020-03-15 10:16:27 36.8\\S\\98.2 Weight 2020-03-15 10:16:27 63563.588\\S\\2960 Weight Measurement Method 2020-03-15 10:16:27 Estimated by Patient 02 Sat by Pulse Oximetry 2020-03-15 10:14:24 100 /min Body Mass Index 2020-03-15 10:14:24 26.5 Height 2020-03-15 10:14:24 177.8\\S\\70 Pulse Rate 2020-03-15 10:14:24 92 /min Respiratory Rate 2020-03-15 10:14:24 18 /min Temperature 2020-03-15 10:14:24 36.8\\S\\98.2 Weight 2020-03-15 10:14:24 51251.588\\S\\2960 Weight Measurement Method 2020-03-15 10:14:24 Estimated by Patient 02 Sat by Pulse Oximetry 2020-03-15 10:13:53 100 /min Body Mass Index 2020-03-15 10:13:53 26.5 Height 2020-03-15 10:13:53 177.8\\S\\70 Pulse Rate 2020-03-15 10:13:53 92 /min Respiratory Rate 2020-03-15 10:13:53 18 /min Temperature 2020-03-15 10:13:53 36.8\\S\\98.2 Weight 2020-03-15 10:13:53 12947.588\\S\\2960 Weight Measurement Method 2020-03-15 10:13:53 Estimated by Patient WEIGHT 2020-03-15 10:08:00 83.445219 kg HEIGHT 2020-03-15 10:08:00 177.8 cm Procedures This patient has no known procedures. Encounters Start End Encounter Admission Attending Care Care Encounter Source Date/Time Date/Time Type Type Clinicians Facility Department ID 2021-10-01 Outpatient [facility] [id number] [place] 00:32:38 [id number] [facility] 2021-08-03 Outpatient [facility] [id number] [place] 23:15:31 [id number] [facility] 2020-03-15 2020-03-15 Emergency Emergency [facility], [facility] [id number] [facility] 09:59:00 09:59:00 Chrystan 80 2020-03-15 2020-03-15 Emergency [facility] [id number] [facility] 09:59:00 09:59:00 80 2019-09-28 2019-10-30 Inpatient 1 Wellington Lewis [facility] PS[facility] [id number] 09:54:00 13:45:[address] [facility] 2019-09-28 2019-09-28 Emergency 1 Ron Horowitz [facility] [id number] 09:54:00 09:54:00 Ron Horowitz -[id number] [facility] Results Test Description Test Time Test Comments [...] UPROP) Negative Negativ e Sars-CoV-2/FLU A/B RSV [id number] 10:50:00 Test Item Value Reference Range Interpretation [...] = Amplification SARS-CoV-2 PCR Result:) Comprehensive Metabolic [id number] 10:30:00 Test Item Value Reference Range Interpretation [...] 179 U/L 46-116 H = ALP) Ethanol [id number] 10:30:00 Test Item Value Reference Range Interpretation Comments Ethanol (test code = ETOH) 6 mg/dL Complete Blood Count Auto [id number] 10:30:00 Test Item Value Reference Range Interpretation [...] = NRBCP) 0 % Novel Coronavirus SARS-CoV-2, [id number] 23:02:04 Test Item Value Reference Range Interpretation Comments SARS-CoV-2 PCR NEGATIVE Negative Test performe d by Guillermo (test code = Lutheran.Posit ajit results SARS-CoV-2 PCR) are indicati ve [...] Drug Administration s Emergency Use Authorization." RPR [id number] 13:55:26 Test Item Value Reference Range Interpretation Comments RPR Qual (test code = RPR Qual) Non-Reactive Non-Reactive Reactive Control (test code = Reactive Reactive Control) Weak Reactive Control (test Weak Reactive code = Weak Reactive Control) Non-Reactive Control (test code Non-Reactive = Non-Reactive Control) Lot # (test code = Lot #) [id number] N Expiration Dt (test code = 9.30.21 N Expiration Dt) Hemoglobin [id number] 11:44:22 Test Item Value Reference Range Interpretation Comments Hemoglobin A1c (test code 4.9 % 4.0-5.8 Di abetic >=6.5 = Hemoglobin A1c) %Prediabet es 5.7-6.4 %Normal <5.7 % Lipid [id number] 11:38:42 Test Item Value Reference Range Interpretation [...] LDL/HDL Ratio=L DL Calc/HDL Chol Thyroid Stimulating [id number] 11:38:42 Test Item Value Reference Range Interpretation Comments TSH (test code = TSH) 2.039 mcIU/mL 0.550-4.780 Urine [id number] [id number] 14:30:34 Test Item Value Reference Range Interpretation [...] Confirmation wi thin 7 days. Comprehensive Metabolic [id number] 11:37:31 Test Item Value Reference Range Interpretation [...] = Lipemia) 0 g/dL 1-2 H Alcohol [id number] 11:37:31 Test Item Value Reference Range Interpretation Comments Ethanol Level 3.8 mg/dL N The pharmacolo gical (test code = response to blo od alcohol Ethanol Level) levels may va ry from individual to i ndividual. The fatal kashif ntration has been report ed to be >400 mg/dl. Comprehensive Metabolic [id number] 11:37:31 Test Item Value Reference Range Interpretation [...] 0 g/dL 1-2 H Lipemia) Comprehensive Metabolic [id number] 11:37:31 Test Item Value Reference Range Interpretation [...] ag e have not been validated by [facility] MDRD study and should be interpreted wit [...] ag e have not been validated by [facility] MDRD study and should be interpreted wit [...] 1-2 H Lipemia) Urinalysis with Culture, if [id number] 11:23:08 Test Item Value Reference Range Interpretation [...] Not Indicated Not Indicated Micro Ind?) Automated [id number] 11:14:51 Test Item Value Reference Range Interpretation Comments Neutro Auto (test code = Neutro 59.5 % 36.0-70.0 Auto) Lymph Auto (test code = Lymph Auto) 26.2 % 12.0-44.0 [place] Auto (test code = [place] Auto) 10.2 % 0.0-11.0 Eos, Auto (test code = Eos, Auto) 2.6 % 0.0-7.0 Basophil Auto (test code = Basophil 1.0 % 0.0-2.0 Auto) Neutro Absolute (test code = Neutro 4.5 x10 1.6-7.4 Absolute) Lymph Absolute (test code = Lymph 2.00 x10 .50-4.60 Absolute) [place] Absolute (test code = [place] .78 x10 .00-1.20 Absolute) Eos Absolute (test code = Eos 0.20 x10 0.00-0.74 Absolute) Baso Absolute (test code = Baso 0.08 x10 0.00-0.21 Absolute) IG [id number] 11:14:51 Test Item Value Reference Range Interpretation Comments IG (test code = IG) 0.5 % 0.0-5.0 IG Abs (test code = IG Abs) 0 x10 N Complete Blood Count with [id number] 11:14:50 Test Item Value Reference Range Interpretation [...] code = IPF) 0 % N RPR [id number] 13:47:36 Test Item Value Reference Range Interpretation [...] = 01-18-20 N Expiration Dt) Thyroid Stimulating [id number] 08:21:50 Test Item Value Reference Range Interpretation Comments TSH (test code = TSH) 2.100 mIU/mL 0.270-4.200 Lipid [id number] 07:23:30 Test Item Value Reference Range Interpretation Comments Cholesterol Total 179 mg/dL 0-200 RISK OF HE ART (test code = DISEASEPublishe d by Cholesterol Total) [place] [employer] Jacqueline lyte Optimal Borderl ine [...] LDL/HDL Ratio=L DL Calc/HDL Chol Comprehensive Metabolic [id number] 07:00:35 Test Item Value Reference Range Interpretation [...] A/G 1.8 ratio N Ratio) Comprehensive Metabolic [id number] 07:00:35 Test Item Value Reference Range Interpretation [...] National Kidney Foundation, http://nkdep.ni h.gov Comprehensive Metabolic [id number] 07:00:35 Test Item Value Reference Range Interpretation [...] ag e have not been validated by [facility] MDRD study and should be interpreted wit [...] ag e have not been validated by [facility] MDRD study and should be interpreted wit h caution. eGFR R esult Interpretation: eGFR > or = 60 is in the Normal RangeeGF R < 60 may mean kid zach diseaseeGFR < 1 5 may mean kidney failure Rang es recommended by the National Kidney Foundation, http://nkdep.ni h.gov Complete Blood Count with [id number] 06:45:37 Test Item Value Reference Range Interpretation [...] code = IPF) 0 % N Automated [id number] 06:45:37 Test Item Value Reference Range Interpretation Comments Neutro Auto (test code = Neutro 55.6 % 36.0-70.0 Auto) Lymph Auto (test code = Lymph Auto) 29.0 % 12.0-44.0 [place] Auto (test code = [place] Auto) 11.8 % 0.0-11.0 H Eos, Auto (test code = Eos, Auto) 2.7 % 0.0-7.0 Basophil Auto (test code = Basophil 0.7 % 0.0-2.0 Auto) Neutro Absolute (test code = Neutro 3.3 x10 1.6-7.4 Absolute) Lymph Absolute (test code = Lymph 1.70 x10 .50-4.60 Absolute) [place] Absolute (test code = [place] .69 x10 .00-1.20 Absolute) Eos Absolute (test code = Eos 0.16 x10 0.00-0.74 Absolute) Baso Absolute (test code = Baso 0.04 x10 0.00-0.21 Absolute) IG [id number] 06:45:37 Test Item Value Reference Range Interpretation Comments IG (test code = IG) 0.2 % 0.0-5.0 IG Abs (test code = IG Abs) 0 x10 N
[2021-12-16 19:07] LABS: Absolute Lymphocytes (CBC) 2.4 K/uL (0.7-4.9); Hematocrit 36.7 % (39.6-49.0); Lymphocytes % 26.1 % (15.3-44.8); MCV 79.6 fL (80-100); MPV 7.8 fL (7.6-11.3); RBC Red Blood Cell Count 4.61 M/uL (4.33-5.43)
[2021-12-16 19:12] LABS: Protime INR 0.97
[2021-12-16 19:29] LABS: Urine Blood Negative (Negative); Urine Glucose Negative (Negative); Urine Protein 1+ (Negative); Urine pH 6.5 (5.0-7.0)
[2021-12-16 19:29] LABS: ALT/SGPT 20 U/L (12-78); AST/SGOT 16 U/L (15-37); Albumin 3.3 g/dL (3.4-5.0); Alkaline Phosphatase 143 U/L (45-117); BUN Blood Urea Nitrogen 4 mg/dL (7-18); Bicarbonate 24 mmol/L (21-32); Bilirubin Direct 0.1 mg/dL (0-0.2); Bilirubin Total 0.3 mg/dL (0.2-1.0); Glomerular Filtration Rate 106 ml/min (=/>90); Glucose Level 74 mg/dL (74-106); Potassium 3.2 mmol/L (3.5-5.1); Protein, Total 6.6 g/dL (6.4-8.2); Sodium Level 139 mmol/L (136-145)
[2021-12-16 20:02] LABS: Barbiturates NEGATIVE (NEGATIVE); Benzodiazepines NEGATIVE (NEGATIVE); Cocaine NEGATIVE (NEGATIVE); METHAMPHETAM POSITIVE (NEGATIVE); Methadone NEGATIVE (NEGATIVE); Opiates NEGATIVE (NEGATIVE); Phencyclidine NEGATIVE (NEGATIVE); THC Cannibis POSITIVE (NEGATIVE)
--- NOTE | 2021-12-16 23:59 | ER ---
Nurse's Notes [facility] Name: Heriberto Duke Age: 31 yrs Sex: Male : 1990 Arrival Date: 12/16/2021 Time: 18:40 Bed 17 Private MD: Diagnosis: Unintentional overdose of a Beta Daquan Presentation: 12/16 18:40 Chief complaint: EMS states: Pt reportedly ingested 60 tablets of Propanolol 4 hours ss ago. Pt has previous suicide attempts. Pt is A\\T\\O x4, VS 108/65 pulse 75. Coronavirus screen: Client denies travel out of the [place] in the last 14 days. Ebola Screen: Patient denies exposure to infectious person. Patient denies travel to an Ebola-affected area in the 21 days before illness onset. Initial Sepsis Screen: Does the patient have a suspected source of infection? No. Patient's initial sepsis screen is negative. Onset of symptoms was December 16, 2021. 18:40 Method Of Arrival: EMS: [facility] 18:40 Acuity: JOSEFA 2 19:00 Initial Sepsis Screen: Does the patient meet any 2 criteria? No. Patient's initial mb8 sepsis screen is negative. Risk Assessment: Do you want to hurt yourself or someone else? Patient reports desire/thoughts of hurting themselves or someone else. Provider notified. Triage Assessment: 18:48 General: Appears in no apparent distress. Behavior is calm, cooperative, appropriate mb8 for age. Pain: Denies pain. Historical: - PMHx: 18:41 Depression; Schizophrenia; suicidal thoughts; ss - PSHx: 18:41 L arm SX; ss - Immunization history:: Adult Immunizations up to date. - Social history:: Smoking status: Patient reports the use of cigarette tobacco products. Screenin:49 Abuse screen: Denies threats or abuse. Denies injuries from another. Nutritional mb8 screening: No deficits noted. Tuberculosis screening: No symptoms or risk factors identified. Fall Risk None identified. Assessment: 18:42 Reassessment: Contacted poison control. Spoke with Karen poison control rep at [facility]. Recommendation to obtain tox work up. Give Supportive care. Administer IV fluids and Atropine for hypotension and bradycardia. Minimum of 6 hour obs. CASE # [id number]. 18:48 Cardiovascular: Denies chest pain, shortness of breath, Heart tones S1 S2 Capillary mb8 refill < 3 seconds JVD is absent Pulses are 2+ in right radial artery and left radial artery Rhythm is sinus rhythm. Respiratory: No deficits noted. Breath sounds are clear bilaterally. 19:21 General: Appears uncomfortable, Behavior is cooperative, quiet. Pain: Denies pain. aa9 Neuro: Level of Consciousness is awake, alert, obeys commands, Oriented to person, place, time, situation. Cardiovascular: Patient's skin is warm and dry. Respiratory: Airway is patent Respiratory effort is even, unlabored. 21:02 General: PT expressing anxiety related to monitor. PT educated regarding continuous kd3 monitoring. Pt still refuses continuous monitoring. will round hourly to retake vitals and reassess. . 23:02 General: Pt reeducated regarding continuous monitoring. now on monitor and feeling less kd3 anxious. . 23:15 General: updated poison control regarding patient status. continue observation . kd3 Psych: 18:59 [place] Suicide Severity Screening: In the past month, have you wished you were mb8 or wished you could go to sleep and not wake up? Patient responds "No." "In the past month, have you actually had any thoughts of killing yourself?" Patient responds "no." "In your lifetime, have you ever done anything, started to do anything, or prepared to do anything to end your life?" Patient responds "no.". Subjective: Patient's mood is sad, Delusions are denied, Hallucinations are denied. Objective: Patient is cooperative, Speech is slurred, Affect is flat. Interventions: Removed personal items and placed in bag. Patient placed in hospital gown. Searched person for dangerous items. Pt denies substance abuse. 19:01 Safety Checks: Personal items have not been removed. need to monitor patient. mb8 12/17 00:06 Commitment: pt discharged. kd3 Overdose: 12/16 18:50 [place] Suicide Severity Screening: "In the past month, have you wished you were mb8 or wished you could go to sleep and not wake up?" Patient responds "no." "In the past month, have you actually had any thoughts of killing yourself?" Patient responds "no." "In your lifetime, have you ever done anything, started to do anything, or prepared to do anything to end your life?" Patient responds "no.". 18:50 [place] Suicide Severity Screening: "In the past month, have you wished you were mb8 or wished you could go to sleep and not wake up?" Patient responds "no." "In the past month, have you actually had any thoughts of killing yourself?" Patient responds "no." "In your lifetime, have you ever done anything, started to do anything, or prepared to do anything to end your life?" Patient responds "no.". 19:00 [place] Suicide Severity Screening: "In the past month, have you actually had any mb8 thoughts of killing yourself?" Patient responds "yes." Based off client's responses, additional C-SSRS screening questions required. 12/17 00:06 [place] Suicide Severity Screening: "In the past month, have you wished you were kd3 or wished you could go to sleep and not wake up?" Patient responds "yes." Based off client's responses, additional C-SSRS screening questions required. Vital Signs: 12/16 18:46 BP 102 / 68; Pulse 70; Pulse Ox 95% ; ss 19:17 BP 113 / 64; Pulse 68; Resp 20 S; Temp 97.9(O); Pulse Ox 95% on R/A; Pain 0/10; aa9 21:03 BP 101 / 67; Pulse 75; Resp 19; Pulse Ox 100% on R/A; kd3 21:25 BP 110 / 67; Pulse 75; Resp 17; Weight 90.72 kg; kd3 23:02 BP 122 / 78; Pulse 70; Resp 16; Pulse Ox 98% on R/A; kd3 12/17 00:03 BP 110 / 72; Pulse 66; Resp 16; Pulse Ox 99% on R/A; kd3 ED Course: 12/16 18:40 Patient arrived in ED. ss 18:41 Triage completed. ss 18:41 Arm band placed on right wrist. ss 18:45 Radames Orellana PA is PHCP. jmm 18:45 Daniel Santoro MD is Attending Physician. jmm 18:48 Wellington Orourke RN is Primary Nurse. mb8 18:49 Patient has correct armband on for positive identification. Placed in gown. Bed in low mb8 position. Call light in reach. Side rails up X2. Client placed on continuous cardiac and pulse oximetry monitoring. NIBP monitoring applied. library monitor on. Warm blanket given. 18:49 No provider procedures requiring assistance completed. Inserted saline lock: 18 gauge mb8 in right antecubital area, using aseptic technique. Blood collected. 19:12 Primary Nurse role handed off by Wellington Orourke, RN mw2 19:13 Candy Christensen, RN is Primary Nurse. aa9 21:44 Adonis De Paz MD is Attending Physician. [facility] 12/17 00:07 IV discontinued, intact, bleeding controlled, No redness/swelling at site. Pressure kd3 dressing applied. Administered Medications: No medications were administered Medication: 12/16 18:49 VIS not applicable for this client. mb8 Outcome: 23:58 Discharge ordered by . rn 12/17 00:07 Discharged to home ambulatory. kd3 Condition: stable Discharge instructions given to patient, Instructed on discharge instructions, follow up and referral plans. Demonstrated understanding of instructions, follow-up care. 00:15 Patient left the ED. kd3 Signatures: Radames Orellana PA PA [facility] Adonis De Paz MD MD rn Smirch, Shelby, RN RN ss [place], MyKena mw2 Jazmin Cleaning RN RN kd3 Candy Christensen, ALYSSA SHAH aa9 Wellington Orourke, ALYSSA RN mb8 Corrections: (The following items were deleted from the chart) 12/16 19:21 19:17 BP 113 / 64; Pulse 68bpm; Resp 20bpm; Spontaneous; Pulse Ox 95% RA; aa9 aa9
--- NOTE | 2021-12-16 23:59 | EDPHYS ---
Physician Documentation [facility] Name: Heriberto Duke Age: 31 yrs Sex: Male : 1990 Arrival Date: 12/16/2021 Time: 18:40 Bed 17 Private MD: ED Physician Adonis De Paz HPI: 12/16 18:46 This 31 yrs old Male presents to ER via EMS with complaints of Possible Overdose. jmm 18:46 The patient presents to the emergency department with a possible overdose. Associated jmm signs and symptoms: Pertinent negatives: anxiety, apnea, auditory hallucinations, burning of skin, decreased level of consciousness, depression, diaphoresis, diarrhea, dizziness, incontinence, palpitations, shortness of breath, tearfulness, visual hallucinations, vomiting. This is a 31 year old male with a history of schizophrenia that presents to the ED after ingesting 60 10 mg propanolol tablets approx 4 hours prior to arrival. EMS was called when the patient went to fruit or nut picker his mother and was acting altered. Patient states he did not intend to harm himself but only wanted to get high an had done so with propanolol before. . Historical: - PMHx: 18:41 Depression; Schizophrenia; suicidal thoughts; ss - PSHx: 18:41 L arm SX; ss - Immunization history:: Adult Immunizations up to date. - Social history:: Smoking status: Patient reports the use of cigarette tobacco products. ROS: 18:46 Constitutional: Negative for fever, chills, and weight loss, Cardiovascular: Negative jmm for chest pain, palpitations, and edema, Respiratory: Negative for shortness of breath, cough, wheezing, and pleuritic chest pain, Abdomen/GI: Negative for abdominal pain, nausea, vomiting, diarrhea, and constipation. 18:46 All other systems are negative. Exam: 18:46 Constitutional: This is a well developed, well nourished patient who is awake, alert, jmm and in no acute distress. Head/Face: atraumatic. Eyes: EOMI, no conjunctival erythema appreciated ENT: Moist Mucus Membranes Neck: Trachea midline, Supple Chest/axilla: Normal chest wall appearance and motion. Cardiovascular: Regular rate and rhythm. No edema appreciated Respiratory: Normal respirations, no respiratory distress appreciated Abdomen/GI: Non distended Back: Normal ROM Skin: General appearance color normal MS/ Extremity: Moves all extremities, no obvious deformities appreciated, no edema noted to the lower extremities Neuro: Awake and alert Psych: Behavior is normal, Mood is normal, Patient is cooperative and pleasant Vital Signs: 18:46 BP 102 / 68; Pulse 70; Pulse Ox 95% ; ss 19:17 BP 113 / 64; Pulse 68; Resp 20 S; Temp 97.9(O); Pulse Ox 95% on R/A; Pain 0/10; aa9 21:03 BP 101 / 67; Pulse 75; Resp 19; Pulse Ox 100% on R/A; kd3 21:25 BP 110 / 67; Pulse 75; Resp 17; Weight 90.72 kg; kd3 23:02 BP 122 / 78; Pulse 70; Resp 16; Pulse Ox 98% on R/A; kd3 12/17 00:03 BP 110 / 72; Pulse 66; Resp 16; Pulse Ox 99% on R/A; kd3 MDM: 12/16 18:46 Patient medically screened. [facility] 21:31 Data reviewed: vital signs, nurses notes. ED course: Poison control recommended 6 hour [facility] observation from arrival to the ED. . 23:56 Differential diagnosis: Ingestion/exposure to beta-blockers. Counseling: I had a rn detailed discussion with the patient and/or guardian regarding: the historical points, exam findings, and any diagnostic results supporting the discharge/admit diagnosis, lab results, the need for outpatient follow up, to return to the emergency department if symptoms worsen or persist or if there are any questions or concerns that arise at home. Medical screen evaluation completed. [facility] emergency medical condition absent. Response to treatment: the patient's symptoms have markedly improved after treatment, the patient's symptoms have resolved after treatment, the patient's condition has returned to base line, the patient is now symptom free, and as a result, I will discharge patient. Special discussion: I discussed with the patient/guardian in detail that at this point there is no indication for admission to the hospital. It is understood, however, that if the symptoms persist or worsen the patient needs to return immediately for re-evaluation. ED course: Pt observed for 5.5 hours in ER without hypotension or bradycardia, denies suicide attempt or suicidal thoughts, meds taken 4 hours prior to arrival, is medically cleared, will dc home. . 12/16 18:46 Order name: Acetaminophen; Complete Time: 20:06 [facility] 12/16 18:46 Order name: Basic Metabolic Panel; Complete Time: 20:06 [facility] 12/16 18:46 Order name: CBC with Diff; Complete Time: 19:21 [facility] 12/16 18:46 Order name: ETOH Level; Complete Time: 19:21 [facility] 12/16 18:46 Order name: Hepatic Function; Complete Time: 20:06 [facility] 12/16 18:46 Order name: PT-INR; Complete Time: 19:21 [facility] 12/16 18:46 Order name: Ptt, Activated; Complete Time: 19:21 [facility] 12/16 18:46 Order name: Salicylate; Complete Time: 20:06 [facility] 12/16 18:46 Order name: Urine Drug Screen; Complete Time: 20:06 [facility] 12/16 18:46 Order name: EKG; Complete Time: 18:47 [facility] 12/16 18:46 Order name: EKG - Nurse/Tech; Complete Time: 18:59 [facility] 12/16 18:46 Order name: IV Saline Lock; Complete Time: 18:59 [facility] 12/16 18:46 Order name: Labs collected and sent; Complete Time: 18:59 [facility] 12/16 19:29 Order name: Urine Dipstick-Ancillary; Complete Time: 20:06 [facility] 12/16 18:46 Order name: Suicide Screening ([place]); Complete Time: 18:59 [facility] 12/16 18:46 Order name: Urine Dipstick-Ancillary (obtain specimen); Complete Time: 19:29 [facility] Administered Medications: No medications were administered Disposition: 12/17 00:18 Co-signature as Attending Physician, Adonis De Paz MD. rn Disposition Summary: 12/16/21 23:58 Discharge Ordered Location: Home rn Condition: Stable rn Diagnosis - Unintentional overdose of a Beta Daquan rn Followup: [facility] - With: Private Physician - When: 2 - 3 days - Reason: Recheck today's complaints, Continuance of care, Re-evaluation by your physician Discharge Instructions: - Discharge Summary Sheet [facility] - Intentional Drug Overdose [facility] Forms: - Medication Reconciliation Form rn - Thank You Letter rn - Antibiotic furniture mover - Prescription Opioid Use rn Signatures: Dispatcher [employer] [facility] Radames Orellana PA PA jmm Nieto, Roman, MD MD rn Smirch, Shelby, RN RN ss Doucette, Jazmin, RN RN kd3 Wellington Orourke, RN RN [id number]
[2021-12-17 22:56] VITALS: TEMP 97.9
[2021-12-17 23:00] VITALS: BP 110/72; O2SAT 99
--- NOTE | 2021-12-19 07:48 | EKG ---
Test Date: 2021-12-16 Test Time: 18:53:48 Res Counselor: MEASUREMENT RESULTS: Intervals: Rate: 68 IA: 182 QRSD: 102 QT: 406 QTc: 431 [place]: P: 28 IA: 182 QRS: 80 T: 52 INTERPRETIVE STATEMENTS: Normal sinus rhythm Normal ECG Compared to ECG 11/28/2021 22:44:13 Sinus tachycardia no longer present Short IA interval no longer present Right-axis deviation no longer present Electronically Signed On 12-19-21 07:44:44 CDT by Devin Hui
== END 2021-12-17 00:15 | disposition home or self-care (01) ==
LOC: ER 18:39
DX: T44.7X1A Poisoning by beta-adrenoreceptor antagonists, accidental (unintentional), initial encounter (principal); F20.9 Schizophrenia, unspecified; Z72.0 Tobacco use
CPT/HCPCS: 36415; 80048; 80076; 80307; 80320; 80329; 81003; 85025; 85610; 85730; 93005; 99284

== ENCOUNTER 2022-02-23 15:15 | Emergency (ER) | payer OTHER ==
--- OUTSIDE RECORDS SUMMARY | 2022-02-23 15:20 | XMS REPORT | Continuity of Care Document ---
:1990 Author Organization [facility] t Address [address] [place] [address] Care Team Providers Name Role Phone Yanni [...] Clinician No Known [facility] 00:00: s [address] Known Drug [facility] No Known Drug [facility] No Known Drug [facility] No Known Drug [facility] No [facility] No [facility] No [facility] No Known [facility] No [facility] No [facility] No Known [facility] No [facility] No Known Drug Active [facility] No Known Drug Active . [facility] Medications This patient has no known [...] Temperature 2020-03-16 16:15:27 36.8\\S\\98.2 Weight 2020-03-16 16:15:27 29263.588\\S\\2960 Weight Measurement Method 2020-03-16 16:15:27 Estimated by Patient Respiratory 2020-03-16 16:09:15 No respiratory distress /min 02 Sat by Pulse Oximetry 2020-03-16 16:09:15 96 /min Body Mass Index 2020-03-16 16:09:15 26.5 Height 2020-03-16 16:09:15 177.8\\S\\70 Pulse Rate 2020-03-16 16:09:15 85 /min Respiratory Rate 2020-03-16 16:09:15 18 /min Temperature 2020-03-16 16:09:15 36.8\\S\\98.2 Weight 2020-03-16 16:09:15 23024.588\\S\\2960 Weight Measurement Method 2020-03-16 16:09:15 Estimated by Patient 02 Sat by Pulse Oximetry 2020-03-16 16:09:14 96 /min Body Mass Index 2020-03-16 16:09:14 26.5 Height 2020-03-16 16:09:14 177.8\\S\\70 Pulse Rate 2020-03-16 16:09:14 85 /min Respiratory Rate 2020-03-16 16:09:14 18 /min Temperature 2020-03-16 16:09:14 36.8\\S\\98.2 Weight 2020-03-16 16:09:14 42333.588\\S\\2960 Weight Measurement Method 2020-03-16 16:09:14 Estimated by Patient Respiratory 2020-03-16 16:09:14 No respiratory distress /min Respiratory 2020-03-16 14:02:46 No respiratory distress /min 02 Sat by Pulse Oximetry 2020-03-16 14:02:46 96 /min Body Mass Index 2020-03-16 14:02:46 26.5 Height 2020-03-16 14:02:46 177.8\\S\\70 Pulse Rate 2020-03-16 14:02:46 85 /min Respiratory Rate 2020-03-16 14:02:46 18 /min Temperature 2020-03-16 14:02:46 36.8\\S\\98.2 Weight 2020-03-16 14:02:46 37775.588\\S\\2960 Weight Measurement Method 2020-03-16 14:02:46 Estimated by Patient Respiratory 2020-03-16 14:02:15 No respiratory distress /min 02 Sat by Pulse Oximetry 2020-03-16 14:02:15 96 /min Body Mass Index 2020-03-16 14:02:15 26.5 Height 2020-03-16 14:02:15 177.8\\S\\70 Pulse Rate 2020-03-16 14:02:15 85 /min Respiratory Rate 2020-03-16 14:02:15 18 /min Temperature 2020-03-16 14:02:15 36.8\\S\\98.2 Weight 2020-03-16 14:02:15 73659.588\\S\\2960 Weight Measurement Method 2020-03-16 14:02:15 Estimated by Patient Respiratory 2020-03-16 14:01:43 No respiratory distress /min 02 Sat by Pulse Oximetry 2020-03-16 14:01:43 96 /min Body Mass Index 2020-03-16 14:01:43 26.5 Height 2020-03-16 14:01:43 177.8\\S\\70 Pulse Rate 2020-03-16 14:01:43 85 /min Respiratory Rate 2020-03-16 14:01:43 18 /min Temperature 2020-03-16 14:01:43 36.8\\S\\98.2 Weight 2020-03-16 14:01:43 07746.588\\S\\2960 Weight Measurement Method 2020-03-16 14:01:43 Estimated by Patient Respiratory 2020-03-16 14:01:12 No respiratory distress /min 02 Sat by Pulse Oximetry 2020-03-16 14:01:12 96 /min Body Mass Index 2020-03-16 14:01:12 26.5 Height 2020-03-16 14:01:12 177.8\\S\\70 Pulse Rate 2020-03-16 14:01:12 85 /min Respiratory Rate 2020-03-16 14:01:12 18 /min Temperature 2020-03-16 14:01:12 36.8\\S\\98.2 Weight 2020-03-16 14:01:12 02695.588\\S\\2960 Weight Measurement Method 2020-03-16 14:01:12 Estimated by Patient Respiratory 2020-03-15 16:13:25 No respiratory distress /min 02 Sat by Pulse Oximetry 2020-03-15 16:13:25 98 /min Body Mass Index 2020-03-15 16:13:25 26.5 Height 2020-03-15 16:13:25 177.8\\S\\70 Pulse Rate 2020-03-15 16:13:25 87 /min Respiratory Rate 2020-03-15 16:13:25 18 /min Temperature 2020-03-15 16:13:25 36.5\\S\\97.7 Weight 2020-03-15 16:13:25 63002.588\\S\\2960 Weight Measurement Method 2020-03-15 16:13:25 Estimated by Patient Respiratory 2020-03-15 15:57:27 No respiratory distress /min 02 Sat by Pulse Oximetry 2020-03-15 15:57:27 98 /min Body Mass Index 2020-03-15 15:57:27 26.5 Height 2020-03-15 15:57:27 177.8\\S\\70 Pulse Rate 2020-03-15 15:57:27 87 /min Respiratory Rate 2020-03-15 15:57:27 18 /min Temperature 2020-03-15 15:57:27 36.5\\S\\97.7 Weight 2020-03-15 15:57:27 68127.588\\S\\2960 Weight Measurement Method 2020-03-15 15:57:27 Estimated by Patient Respiratory 2020-03-15 14:35:13 No respiratory distress /min 02 Sat by Pulse Oximetry 2020-03-15 14:35:13 98 /min Body Mass Index 2020-03-15 14:35:13 26.5 Height 2020-03-15 14:35:13 177.8\\S\\70 Pulse Rate 2020-03-15 14:35:13 87 /min Respiratory Rate 2020-03-15 14:35:13 18 /min Temperature 2020-03-15 14:35:13 36.5\\S\\97.7 Weight 2020-03-15 14:35:13 64151.588\\S\\2960 Weight Measurement Method 2020-03-15 14:35:13 Estimated by Patient Respiratory 2020-03-15 14:28:03 No respiratory distress /min 02 Sat by Pulse Oximetry 2020-03-15 14:28:03 98 /min Body Mass Index 2020-03-15 14:28:03 26.5 Height 2020-03-15 14:28:03 177.8\\S\\70 Pulse Rate 2020-03-15 14:28:03 87 /min Respiratory Rate 2020-03-15 14:28:03 18 /min Temperature 2020-03-15 14:28:03 36.5\\S\\97.7 Weight 2020-03-15 14:28:03 10742.588\\S\\2960 Weight Measurement Method 2020-03-15 14:28:03 Estimated by Patient Respiratory 2020-03-15 14:27:02 No respiratory distress /min 02 Sat by Pulse Oximetry 2020-03-15 14:27:02 98 /min Body Mass Index 2020-03-15 14:27:02 26.5 Height 2020-03-15 14:27:02 177.8\\S\\70 Pulse Rate 2020-03-15 14:27:02 87 /min Respiratory Rate 2020-03-15 14:27:02 18 /min Temperature 2020-03-15 14:27:02 36.5\\S\\97.7 Weight 2020-03-15 14:27:02 77059.588\\S\\2960 Weight Measurement Method 2020-03-15 14:27:02 Estimated by Patient Respiratory 2020-03-15 10:42:59 No respiratory distress /min 02 Sat by Pulse Oximetry 2020-03-15 10:42:59 100 /min Body Mass Index 2020-03-15 10:42:59 26.5 Height 2020-03-15 10:42:59 177.8\\S\\70 Pulse Rate 2020-03-15 10:42:59 92 /min Respiratory Rate 2020-03-15 10:42:59 18 /min Temperature 2020-03-15 10:42:59 36.8\\S\\98.2 Weight 2020-03-15 10:42:59 64196.588\\S\\2960 Weight Measurement Method 2020-03-15 10:42:59 Estimated by Patient 02 Sat by Pulse Oximetry 2020-03-15 10:16:27 100 /min Body Mass Index 2020-03-15 10:16:27 26.5 Height 2020-03-15 10:16:27 177.8\\S\\70 Pulse Rate 2020-03-15 10:16:27 92 /min Respiratory Rate 2020-03-15 10:16:27 18 /min Temperature 2020-03-15 10:16:27 36.8\\S\\98.2 Weight 2020-03-15 10:16:27 37368.588\\S\\2960 Weight Measurement Method 2020-03-15 10:16:27 Estimated by Patient 02 Sat by Pulse Oximetry 2020-03-15 10:14:24 100 /min Body Mass Index 2020-03-15 10:14:24 26.5 Height 2020-03-15 10:14:24 177.8\\S\\70 Pulse Rate 2020-03-15 10:14:24 92 /min Respiratory Rate 2020-03-15 10:14:24 18 /min Temperature 2020-03-15 10:14:24 36.8\\S\\98.2 Weight 2020-03-15 10:14:24 15644.588\\S\\2960 Weight Measurement Method 2020-03-15 10:14:24 Estimated by Patient 02 Sat by Pulse Oximetry 2020-03-15 10:13:53 100 /min Body Mass Index 2020-03-15 10:13:53 26.5 Height 2020-03-15 10:13:53 177.8\\S\\70 Pulse Rate 2020-03-15 10:13:53 92 /min Respiratory Rate 2020-03-15 10:13:53 18 /min Temperature 2020-03-15 10:13:53 36.8\\S\\98.2 Weight 2020-03-15 10:13:53 17939.588\\S\\2960 Weight Measurement Method 2020-03-15 10:13:53 Estimated by Patient WEIGHT 2020-03-15 10:08:00 83.874630 kg HEIGHT 2020-03-15 10:08:00 177.8 cm Procedures This patient has no known procedures. Encounters Start End Encounter Admission Attending Care Care Encounter Source Date/Time Date/Time Type Type Clinicians Facility Department ID 2021-10-01 Outpatient [facility] [id number] [place] 00:32:38 [id number] [facility] 2021-08-03 Outpatient [facility] [id number] [place] 23:15:31 [id number] [facility] 2020-03-15 2020-03-15 Emergency [facility] [id number] [facility] 09:59:00 09:59:00 Chrystan 80 2020-03-15 2020-03-15 Emergency [facility] [id number] [facility] 09:59:00 09:59:00 80 2019-09-28 2019-10-30 Inpatient 1 Wellington Lewis [facility] [address] [id number] 09:54:00 13:45:00 Wellington Lewis [facility] 2019-09-28 2019-09-28 Emergency 1 Ron Horowitz [facility] [place] [id number] 09:54:00 09:54:00 Ron Horowitz -[id number] [facility] Results Test Description Test Time Test [...] UPROP) Negative Negativ e Sars-CoV-2/FLU A/B RSV [id number] 10:50:00 Test Item Value Reference Range Interpretation [...] = Amplification SARS-CoV-2 PCR Result:) Comprehensive Metabolic [id number] 10:30:00 Test Item Value Reference Range Interpretation [...] 179 U/L 46-116 H = ALP) Ethanol [id number] 10:30:00 Test Item Value Reference Range Interpretation Comments Ethanol (test code = ETOH) 6 mg/dL Complete Blood Count Auto [id number] 10:30:00 Test Item Value Reference Range Interpretation [...] = NRBCP) 0 % Novel Coronavirus SARS-CoV-2, [id number] 23:02:04 Test Item Value Reference Range Interpretation Comments SARS-CoV-2 PCR NEGATIVE Negative Test performe d by Guillermo (test code = Religious.Posit ajit results SARS-CoV-2 PCR) are indicati ve [...] Drug Administration s Emergency Use Authorization." RPR [id number] 13:55:26 Test Item Value Reference Range Interpretation Comments RPR Qual (test code = RPR Qual) Non-Reactive Non-Reactive Reactive Control (test code = Reactive Reactive Control) Weak Reactive Control (test Weak Reactive code = Weak Reactive Control) Non-Reactive Control (test code Non-Reactive = Non-Reactive Control) Lot # (test code = Lot #) [id number] Expiration Dt (test code = 9.30.21 N Expiration Dt) Hemoglobin [id number] 11:44:22 Test Item Value Reference Range Interpretation Comments Hemoglobin A1c (test code 4.9 % 4.0-5.8 Di abetic >=6.5 = Hemoglobin A1c) %Prediabet es 5.7-6.4 %Normal <5.7 % Lipid [id number] 11:38:42 Test Item Value Reference Range Interpretation [...] LDL/HDL Ratio=L DL Calc/HDL Chol Thyroid Stimulating [id number] 11:38:42 Test Item Value Reference Range Interpretation Comments TSH (test code = TSH) 2.039 mcIU/mL 0.550-4.780 Urine [id number] 14:30:34 Test Item Value Reference Range Interpretation [...] Confirmation wi thin 7 days. Comprehensive Metabolic [id number] 11:37:31 Test Item Value Reference Range Interpretation [...] = Lipemia) 0 g/dL 1-2 H Alcohol [id number] 11:37:31 Test Item Value Reference Range Interpretation Comments Ethanol Level 3.8 mg/dL N The pharmacolo gical (test code = response to blo od alcohol Ethanol Level) levels may va ry from individual to i ndividual. The fatal kashif ntration has been report ed to be >400 mg/dl. Comprehensive Metabolic [id number] 11:37:31 Test Item Value Reference Range Interpretation [...] 0 g/dL 1-2 H Lipemia) Comprehensive Metabolic [id number] 11:37:31 Test Item Value Reference Range Interpretation [...] ag e have not been validated by [facility] MDRD study and should be [...] ag e have not been validated by [facility] MDRD study and should be [...] 1-2 H Lipemia) Urinalysis with Culture, if [id number] 11:23:08 Test Item Value Reference Range Interpretation [...] Not Indicated Not Indicated Micro Ind?) Automated [id number] 11:14:51 Test Item Value Reference Range Interpretation Comments Neutro Auto (test code = Neutro 59.5 % 36.0-70.0 Auto) Lymph Auto (test code = Lymph Auto) 26.2 % 12.0-44.0 Ponce Auto (test code = Ponce Auto) 10.2 % 0.0-11.0 Eos, Auto (test code = Eos, Auto) 2.6 % 0.0-7.0 Basophil Auto (test code = Basophil 1.0 % 0.0-2.0 Auto) Neutro Absolute (test code = Neutro 4.5 x10 1.6-7.4 Absolute) Lymph Absolute (test code = Lymph 2.00 x10 .50-4.60 Absolute) Ponce Absolute (test code = Ponce .78 x10 .00-1.20 Absolute) Eos Absolute (test code = Eos 0.20 x10 0.00-0.74 Absolute) Baso Absolute (test code = Baso 0.08 x10 0.00-0.21 Absolute) IG [id number] 11:14:51 Test Item Value Reference Range Interpretation Comments IG (test code = IG) 0.5 % 0.0-5.0 IG Abs (test code = IG Abs) 0 x10 N Complete Blood Count with [id number] 11:14:50 Test Item Value Reference Range Interpretation [...] code = IPF) 0 % N RPR [id number] 13:47:36 Test Item Value Reference Range Interpretation [...] = 01-18-20 N Expiration Dt) Thyroid Stimulating [id number] 08:21:50 Test Item Value Reference Range Interpretation Comments TSH (test code = TSH) 2.100 mIU/mL 0.270-4.200 Lipid [id number] 07:23:30 Test Item Value Reference Range Interpretation Comments Cholesterol Total 179 mg/dL 0-200 RISK OF HE ART (test code = DISEASEPublishe d by Cholesterol Total) [employer] Jacqueline lyte Optimal Borderl ine [...] LDL/HDL Ratio=L DL Calc/HDL Chol Comprehensive Metabolic [id number] 07:00:35 Test Item Value Reference Range Interpretation [...] A/G 1.8 ratio N Ratio) Comprehensive Metabolic [id number] 07:00:35 Test Item Value Reference Range Interpretation [...] National Kidney Foundation, http://nkdep.ni h.gov Comprehensive Metabolic [id number] 07:00:35 Test Item Value Reference Range Interpretation [...] ag e have not been validated by [facility] MDRD study and should be [...] ag e have not been validated by [facility] MDRD study and should be interpreted wit h caution. eGFR R esult Interpretation: eGFR > or = 60 is in the Normal RangeeGF R < 60 may mean kid zach diseaseeGFR < 1 5 may mean kidney failure Rang es recommended by the National Kidney Foundation, http://nkdep.ni h.gov Complete Blood Count with [id number] 06:45:37 Test Item Value Reference Range Interpretation [...] code = IPF) 0 % N Automated [id number] 06:45:37 Test Item Value Reference Range Interpretation Comments Neutro Auto (test code = Neutro 55.6 % 36.0-70.0 Auto) Lymph Auto (test code = Lymph Auto) 29.0 % 12.0-44.0 Ponce Auto (test code = Ponce Auto) 11.8 % 0.0-11.0 H Eos, Auto (test code = Eos, Auto) 2.7 % 0.0-7.0 Basophil Auto (test code = Basophil 0.7 % 0.0-2.0 Auto) Neutro Absolute (test code = Neutro 3.3 x10 1.6-7.4 Absolute) Lymph Absolute (test code = Lymph 1.70 x10 .50-4.60 Absolute) Ponce Absolute (test code = Ponce .69 x10 .00-1.20 Absolute) Eos Absolute (test code = Eos 0.16 x10 0.00-0.74 Absolute) Baso Absolute (test code = Baso 0.04 x10 0.00-0.21 Absolute) IG [id number] 06:45:37 Test Item Value Reference Range Interpretation Comments IG (test code = IG) 0.2 % 0.0-5.0 IG Abs (test code = IG Abs) 0 x10 N
--- NOTE | 2022-02-23 16:23 | RAD REPORT ---
EXAM DESCRIPTION: RAD - Chest Pa And Lat (2 Views) - 02/23/2022 4:13 pm CLINICAL HISTORY: CHEST PAIN COMPARISON: None TECHNIQUE: Frontal and lateral views of the chest were obtained. FINDINGS: The lungs are underinflated on the frontal projection. No acute lung parenchymal process i dentifiable. No failure or volume overload. Heart size is normal and central vasculature is within normal limits. No pleural effusion or pneu mothorax seen. No acute bony finding noted. No aortic abnormality. IMPRESSION: No acute cardiopulmonary process.
[2022-02-23] MEDS ORDERED: KETOROLAC 30 MG/ML INJ ONE (16:35)
[2022-02-23] MEDS ORDERED: HYDROCODONE/APAP 10/325 TAB ONE (16:35)
[2022-02-23 16:58] LABS: Absolute Lymphocytes (CBC) 3.6 K/uL (0.7-4.9); Hematocrit 39.3 % (39.6-49.0); Lymphocytes % 35.3 % (15.3-44.8); MPV 7.2 fL (7.6-11.3); RBC Red Blood Cell Count 4.98 M/uL (4.33-5.43)
[2022-02-23 17:22] LABS: Potassium 3.1 mmol/L (3.5-5.1); Troponin High Sensitivity 7.3 pg/mL (<58.9)
--- NOTE | 2022-02-23 17:33 | ER ---
Nurse's Notes [facility] Name: Heriberto Duke Age: 32 yrs Sex: Male : 1990 Arrival Date: 02/23/2022 Time: 15:17 Bed 10 Private MD: Diagnosis: Chest pain, unspecified Presentation: 02/23 15:52 Chief complaint: Patient states: CP that began last night with deep inhalation and vg1 palpitation. Also states facial numbness. Coronavirus screen: Vaccine status: Patient reports being unvaccinated. Client denies travel out of the [place] in the last 14 days. Ebola Screen: Patient negative for fever greater than or equal to 101.5 degrees Fahrenheit, and additional compatible Ebola Virus Disease symptoms. Initial Sepsis Screen: Does the patient meet any 2 criteria? HR > 90 bpm. Does the patient have a suspected source of infection? No. Patient's initial sepsis screen is negative. Risk Assessment: Do you want to hurt yourself or someone else? Patient reports no desire to harm self or others. Onset of symptoms was February 22, 2022. 15:52 Method Of Arrival: Ambulatory vg1 15:52 Acuity: JOSEFA 3 vg1 Triage Assessment: 15:54 General: Appears uncomfortable, Behavior is cooperative. Pain: Complains of pain in vg1 chest Pain currently is 10 out of 10 on a pain scale. Cardiovascular: Patient's skin is warm and dry. Historical: - Allergies: 15:54 No Known Allergies; vg1 - PMHx: 15:54 Depression; Schizophrenia; suicidal thoughts; vg1 - PSHx: 15:54 L arm SX; vg1 - Immunization history:: Client reports having NOT received the Covid vaccine. - Social history:: Smoking status: Patient reports the use of cigarette tobacco products, smokes one pack cigarettes per day. - Family history:: not pertinent. - Hospitalizations: : No recent hospitalization is reported. Screenin:43 Abuse screen: Denies threats or abuse. Denies injuries from another. Nutritional ld1 screening: No deficits noted. Tuberculosis screening: No symptoms or risk factors identified. Fall Risk None identified. Assessment: 17:42 Reassessment: See triage assessment. ld1 17:44 Pain: Pain does not radiate. Pain began suddenly. ld1 Vital Signs: 15:52 BP 125 / 86; Pulse 110; Resp 20; Temp 98.7; Pulse Ox 100% ; Weight 90.72 kg; Height 5 vg1 ft. 10 in. (177.80 cm); Pain 10/10; 17:42 BP 131 / 84; Pulse 102; Resp 18; Pulse Ox 100% on R/A; Pain 2/10; ld1 15:52 Body Mass Index 28.70 (90.72 kg, 177.80 cm) vg1 ED Course: 15:17 Patient arrived in ED. rg4 15:50 Adonis De Paz MD is Attending Physician. rn 15:54 Triage completed. vg1 15:54 Arm band placed on. vg1 16:15 XRAY Chest Pa And Lat (2 Views) In Process Unspecified. EDMS 16:51 No provider procedures requiring assistance completed. Inserted saline lock: 20 gauge ld1 in right antecubital area, using aseptic technique. Blood collected. Patient maintains SpO2 saturation greater than 95% on room air. 17:42 Nita Valerio RN is Primary Nurse. ld1 17:43 Patient has correct armband on for positive identification. Placed in gown. Bed in low ld1 position. Call light in reach. Side rails up X2. manufacturing development engineer on. Pulse ox on. NIBP on. Door closed. Noise minimized. Warm blanket given. 17:43 IV discontinued, intact, bleeding controlled, No redness/swelling at site. ld1 Administered Medications: 16:51 Drug: Ketorolac 30 mg Route: IVP; Site: right antecubital; ld1 17:44 Follow up: Response: No adverse reaction ld1 16:51 Drug: [place] (HYDROcodone-acetaminophen) 10 mg-325 mg 1 tabs Route: PO; ld1 17:44 Follow up: Response: No adverse reaction ld1 Medication: 17:44 VIS not applicable for this client. ld1 Outcome: 17:33 Discharge ordered by . rn 17:44 Discharged to home ambulatory, with family. ld1 17:44 Condition: stable 17:44 Discharge instructions given to patient, family, Instructed on discharge instructions, follow up and referral plans. medication usage, Demonstrated understanding of instructions, follow-up care, medications, Prescriptions given X 1. 17:45 Patient left the ED. ld1 Signatures: Dispatcher [employer] EDMS Adonis De Paz MD MD rn Garcia, Rubi rg4 Hilary Ovalle, RN RN vg1 Nita Valerio, RN RN ld1
--- NOTE | 2022-02-23 17:33 | EDPHYS ---
Physician Documentation [facility] Name: Heriberto Duke Age: 32 yrs Sex: Male : 1990 Arrival Date: 02/23/2022 Time: 15:17 Bed 10 Private MD: ED Physician Adonis De Paz HPI: 02/23 16:18 This 32 yrs old Male presents to ER via Ambulatory with complaints of Chest Pain, rn Numbness Of Face. 16:18 The patient or guardian reports chest pain that is located primarily in the anterior rn chest wall. The pain does not radiate. Associated signs and symptoms: Pertinent negatives: abdominal pain, cough, near syncope, recent travel, syncope. The chest pain is described as sharp, stabbing. Duration: The patient or guardian reports multiple episodes, that are intermittent. Modifying factors: The symptoms are alleviated by nothing. the symptoms are aggravated by deep breath, movement, palpation of area. Severity of pain: At its worst the pain was moderate in the emergency department the pain is unchanged. The patient has not experienced similar symptoms in the past. The patient has not recently seen a physician. Pt reports anterior chest pain, non-radiating, worse with movement/deep breath/palpation. No fever. No cough. + smoker. No abd pain. Does not feel ill. . Historical: - Allergies: 15:54 No Known Allergies; vg1 - PMHx: 15:54 Depression; Schizophrenia; suicidal thoughts; vg1 - PSHx: 15:54 L arm SX; vg1 - Immunization history:: Client reports having NOT received the Covid vaccine. - Social history:: Smoking status: Patient reports the use of cigarette tobacco products, smokes one pack cigarettes per day. - Family history:: not pertinent. - Hospitalizations: : No recent hospitalization is reported. ROS: 16:18 Constitutional: Negative for fever, chills, and weight loss, Eyes: Negative for injury, rn pain, redness, and discharge, Neck: Negative for injury, pain, and swelling, Cardiovascular: Negative for palpitations, and edema, Respiratory: Negative for shortness of breath, cough, wheezing Abdomen/GI: Negative for abdominal pain, nausea, vomiting, diarrhea, and constipation, Back: Negative for injury and pain, MS/Extremity: Negative for injury and deformity, Skin: Negative for injury, rash, and discoloration, Neuro: Negative for headache, weakness and seizure. Exam: 16:18 Constitutional: This is a well developed, well nourished patient who is awake, alert, rn and in no acute distress. Head/Face: Normocephalic, atraumatic. Eyes: Periorbital areas with no swelling, redness, or edema. Chest/axilla: + reproducible anterior chest wall tenderness, no lesions Cardiovascular: tachycardic, regular Respiratory: + mild tachypnea, clear breath sounds Abdomen/GI: soft, non-tender Skin: Warm, dry MS/ Extremity: Pulses equal, no cyanosis. Neuro: Awake and alert, GCS 15 17:31 ECG was reviewed by the Attending Physician. rn Vital Signs: 15:52 BP 125 / 86; Pulse 110; Resp 20; Temp 98.7; Pulse Ox 100% ; Weight 90.72 kg; Height 5 vg1 ft. 10 in. (177.80 cm); Pain 10/10; 17:42 BP 131 / 84; Pulse 102; Resp 18; Pulse Ox 100% on R/A; Pain 2/10; ld1 15:52 Body Mass Index 28.70 (90.72 kg, 177.80 cm) vg1 MDM: 15:50 Patient medically screened. rn 17:31 Differential diagnosis: acute myocardial infarction, acute pericarditis, anxiety, chest rn wall pain, costochondritis, pleurisy, pneumonia, pneumothorax, pulmonary embolus. Data reviewed: vital signs, nurses notes, lab test result(s), EKG, radiologic studies, plain films, and as a result, I will discharge patient. Counseling: I had a detailed discussion with the patient and/or guardian regarding: the historical points, exam findings, and any diagnostic results supporting the discharge/admit diagnosis, lab results, radiology results, the need for outpatient follow up, to return to the emergency department if symptoms worsen or persist or if there are any questions or concerns that arise at home. Response to treatment: the patient's symptoms have mildly improved after treatment, and as a result, I will discharge patient. Special discussion: Based on the patient's history, exam, and Dx evaluation, there is no indication for emergent intervention or inpatient Tx. It is understood by the patient/guardian that if the Sx's persist or worsen they need to return immediately for re-evaluation. I discussed with the patient/guardian in detail that at this point there is no indication for admission to the hospital. It is understood, however, that if the symptoms persist or worsen the patient needs to return immediately for re-evaluation. ED course: No acute findings in blood, neg trop, neg d-dimer, cxr clear, no oxygen requirement. Will dc home with return precautions and counseled about smoking cessation.. 02/23 15:54 Order name: CBC with Diff; Complete Time: 17:31 rn 02/23 15:54 Order name: Basic Metabolic Panel; Complete Time: 17:31 rn 02/23 15:54 Order name: XRAY Chest Pa And Lat (2 Views); Complete Time: 17:02 rn 02/23 15:54 Order name: Troponin High Sensitivity; Complete Time: 17:31 rn 02/23 15:54 Order name: D-Dimer; Complete Time: 17:31 rn 02/23 15:54 Order name: EKG; Complete Time: 15:55 rn 02/23 15:54 Order name: EKG - Nurse/Tech; Complete Time: 16:51 rn 02/23 15:54 Order name: IV Start; Complete Time: 16:51 rn EC:31 Rate is 99 beats/min. Rhythm is regular. QRS [place] is Normal. SD interval is normal. QRS rn interval is normal. QT interval is normal. No Q waves. T waves are Normal. No ST changes noted. Clinical impression: Normal ECG. Interpreted by me. Reviewed by me. Administered Medications: 16:51 Drug: Ketorolac 30 mg Route: IVP; Site: right antecubital; ld1 17:44 Follow up: Response: No adverse reaction ld1 16:51 Drug: [place] (HYDROcodone-acetaminophen) 10 mg-325 mg 1 tabs Route: PO; ld1 17:44 Follow up: Response: No adverse reaction ld1 Disposition Summary: 02/23/22 17:33 Discharge Ordered Location: Home rn Problem: new rn Symptoms: have improved rn Condition: Stable rn Diagnosis - Chest pain, unspecified rn Followup: rn - With: Private Physician - When: As needed - Reason: Recheck today's complaints, Re-evaluation by your physician Discharge Instructions: - Discharge Summary Sheet rn - Nonspecific Chest Pain, Adult rn - Pain Without a Known Cause rn - Steps to Quit Smoking rn Forms: - Medication Reconciliation Form rn - Thank You Letter rn - Antibiotic wood furniture assembler - Prescription Opioid Use rn Prescriptions: - Tramadol 50 mg Oral Tablet - take 1 tablet by ORAL route every 8 hours as needed; 12 tablet; Refills: 0, rn Product Selection Permitted Signatures: Dispatcher [employer] Adonis Mccormick MD MD rn Garcia, Victoria RN RN vg1 Nita Valerio RN RN ld1
[2022-02-23 21:48] VITALS: TEMP 98.7; O2SAT 100
[2022-02-23 21:54] VITALS: BP 131/84
--- NOTE | 2022-02-24 16:01 | EKG ---
Test Date: 2022-02-23 Test Time: 16:35:41 Envelope Stamping Machine Operator: DEB MEASUREMENT RESULTS: Intervals: Rate: 99 WV: 136 QRSD: 88 QT: 344 QTc: 441 [place]: P: 34 WV: 136 QRS: 81 T: 33 INTERPRETIVE STATEMENTS: Normal sinus rhythm Normal ECG Compared to ECG 12/16/2021 18:53:48 No significant changes Electronically Signed On 02-24-22 16:00:06 ADMINISTRATION MANAGER by Harlan Pierce
== END 2022-02-23 17:45 | disposition home or self-care (01) ==
LOC: ER 15:15
DX: R07.89 Other chest pain (principal); F17.210 Nicotine dependence, cigarettes, uncomplicated
CPT/HCPCS: 36415; 71046; 80048; 84484; 85025; 85379; 93005; 96374; 99285

== ENCOUNTER 2022-07-13 20:11 | Observation (INO) | payer OTHER ==
--- OUTSIDE RECORDS SUMMARY | 2022-07-13 20:15 | XMS REPORT | Continuity of Care Document ---
:1990 Author Organization [facility] t Address [address] [place] [address] Care Team Providers Name Role Phone SEVERE, JESS P Attending Clinician Unavailable Yanni Pavon Attending Clinician Unavailable Wellington Lewis Attending Clinician Unavailable Wellington Lewis Attending Clinician Unavailable Ron Horowitz Attending Clinician Unavailable Ron Horowitz Attending Clinician Unavailable Wellington Lewis Admitting Clinician Unavailable Payers Payer Name Policy Type Policy Number Effective Date Expiration Date Jordon rajan [facility] [id number] 2022 2023 PLAN SSI 00:00:00 00:00:00 Problems This patient has no known problems. Allergies, Adverse Reactions, Alerts Allergy Allergy Status Severity Reaction(s) Onset Inactive Treating Comm ents Source Name Type Date Date Clinician No Known DA Active U 2019-03 [facility] Drug 2- Allergie 00:00: s 00 No Known Drug [facility] No Known Drug [facility] No Known Drug [facility] No Known Drug [facility] No [facility] No [facility] No [facility] No Known Drug [facility] No Known Drug [facility] No Known Drug Active [facility] Medications This patient has no known [...] Temperature 2020-03-16 16:15:27 36.8\\S\\98.2 Weight 2020-03-16 16:15:27 19902.588\\S\\2960 Weight Measurement Method 2020-03-16 16:15:27 Estimated by Patient Respiratory 2020-03-16 16:09:15 No respiratory distress /min 02 Sat by Pulse Oximetry 2020-03-16 16:09:15 96 /min Body Mass Index 2020-03-16 16:09:15 26.5 Height 2020-03-16 16:09:15 177.8\\S\\70 Pulse Rate 2020-03-16 16:09:15 85 /min Respiratory Rate 2020-03-16 16:09:15 18 /min Temperature 2020-03-16 16:09:15 36.8\\S\\98.2 Weight 2020-03-16 16:09:15 73347.588\\S\\2960 Weight Measurement Method 2020-03-16 16:09:15 Estimated by Patient Respiratory 2020-03-16 16:09:14 No respiratory distress /min 02 Sat by Pulse Oximetry 2020-03-16 16:09:14 96 /min Body Mass Index 2020-03-16 16:09:14 26.5 Height 2020-03-16 16:09:14 177.8\\S\\70 Pulse Rate 2020-03-16 16:09:14 85 /min Respiratory Rate 2020-03-16 16:09:14 18 /min Temperature 2020-03-16 16:09:14 36.8\\S\\98.2 Weight 2020-03-16 16:09:14 14238.588\\S\\2960 Weight Measurement Method 2020-03-16 16:09:14 Estimated by Patient Respiratory 2020-03-16 14:02:46 No respiratory distress /min 02 Sat by Pulse Oximetry 2020-03-16 14:02:46 96 /min Body Mass Index 2020-03-16 14:02:46 26.5 Height 2020-03-16 14:02:46 177.8\\S\\70 Pulse Rate 2020-03-16 14:02:46 85 /min Respiratory Rate 2020-03-16 14:02:46 18 /min Temperature 2020-03-16 14:02:46 36.8\\S\\98.2 Weight 2020-03-16 14:02:46 24310.588\\S\\2960 Weight Measurement Method 2020-03-16 14:02:46 Estimated by Patient Respiratory 2020-03-16 14:02:15 No respiratory distress /min 02 Sat by Pulse Oximetry 2020-03-16 14:02:15 96 /min Body Mass Index 2020-03-16 14:02:15 26.5 Height 2020-03-16 14:02:15 177.8\\S\\70 Pulse Rate 2020-03-16 14:02:15 85 /min Respiratory Rate 2020-03-16 14:02:15 18 /min Temperature 2020-03-16 14:02:15 36.8\\S\\98.2 Weight 2020-03-16 14:02:15 62713.588\\S\\2960 Weight Measurement Method 2020-03-16 14:02:15 Estimated by Patient Respiratory 2020-03-16 14:01:43 No respiratory distress /min 02 Sat by Pulse Oximetry 2020-03-16 14:01:43 96 /min Body Mass Index 2020-03-16 14:01:43 26.5 Height 2020-03-16 14:01:43 177.8\\S\\70 Pulse Rate 2020-03-16 14:01:43 85 /min Respiratory Rate 2020-03-16 14:01:43 18 /min Temperature 2020-03-16 14:01:43 36.8\\S\\98.2 Weight 2020-03-16 14:01:43 35031.588\\S\\2960 Weight Measurement Method 2020-03-16 14:01:43 Estimated by Patient Respiratory 2020-03-16 14:01:12 No respiratory distress /min 02 Sat by Pulse Oximetry 2020-03-16 14:01:12 96 /min Body Mass Index 2020-03-16 14:01:12 26.5 Height 2020-03-16 14:01:12 177.8\\S\\70 Pulse Rate 2020-03-16 14:01:12 85 /min Respiratory Rate 2020-03-16 14:01:12 18 /min Temperature 2020-03-16 14:01:12 36.8\\S\\98.2 Weight 2020-03-16 14:01:12 84711.588\\S\\2960 Weight Measurement Method 2020-03-16 14:01:12 Estimated by Patient Respiratory 2020-03-15 16:13:25 No respiratory distress /min 02 Sat by Pulse Oximetry 2020-03-15 16:13:25 98 /min Body Mass Index 2020-03-15 16:13:25 26.5 Height 2020-03-15 16:13:25 177.8\\S\\70 Pulse Rate 2020-03-15 16:13:25 87 /min Respiratory Rate 2020-03-15 16:13:25 18 /min Temperature 2020-03-15 16:13:25 36.5\\S\\97.7 Weight 2020-03-15 16:13:25 72852.588\\S\\2960 Weight Measurement Method 2020-03-15 16:13:25 Estimated by Patient Respiratory 2020-03-15 15:57:27 No respiratory distress /min 02 Sat by Pulse Oximetry 2020-03-15 15:57:27 98 /min Body Mass Index 2020-03-15 15:57:27 26.5 Height 2020-03-15 15:57:27 177.8\\S\\70 Pulse Rate 2020-03-15 15:57:27 87 /min Respiratory Rate 2020-03-15 15:57:27 18 /min Temperature 2020-03-15 15:57:27 36.5\\S\\97.7 Weight 2020-03-15 15:57:27 85080.588\\S\\2960 Weight Measurement Method 2020-03-15 15:57:27 Estimated by Patient Respiratory 2020-03-15 14:35:13 No respiratory distress /min 02 Sat by Pulse Oximetry 2020-03-15 14:35:13 98 /min Body Mass Index 2020-03-15 14:35:13 26.5 Height 2020-03-15 14:35:13 177.8\\S\\70 Pulse Rate 2020-03-15 14:35:13 87 /min Respiratory Rate 2020-03-15 14:35:13 18 /min Temperature 2020-03-15 14:35:13 36.5\\S\\97.7 Weight 2020-03-15 14:35:13 15577.588\\S\\2960 Weight Measurement Method 2020-03-15 14:35:13 Estimated by Patient Respiratory 2020-03-15 14:28:03 No respiratory distress /min 02 Sat by Pulse Oximetry 2020-03-15 14:28:03 98 /min Body Mass Index 2020-03-15 14:28:03 26.5 Height 2020-03-15 14:28:03 177.8\\S\\70 Pulse Rate 2020-03-15 14:28:03 87 /min Respiratory Rate 2020-03-15 14:28:03 18 /min Temperature 2020-03-15 14:28:03 36.5\\S\\97.7 Weight 2020-03-15 14:28:03 99626.588\\S\\2960 Weight Measurement Method 2020-03-15 14:28:03 Estimated by Patient Respiratory 2020-03-15 14:27:02 No respiratory distress /min 02 Sat by Pulse Oximetry 2020-03-15 14:27:02 98 /min Body Mass Index 2020-03-15 14:27:02 26.5 Height 2020-03-15 14:27:02 177.8\\S\\70 Pulse Rate 2020-03-15 14:27:02 87 /min Respiratory Rate 2020-03-15 14:27:02 18 /min Temperature 2020-03-15 14:27:02 36.5\\S\\97.7 Weight 2020-03-15 14:27:02 53711.588\\S\\2960 Weight Measurement Method 2020-03-15 14:27:02 Estimated by Patient Respiratory 2020-03-15 10:42:59 No respiratory distress /min 02 Sat by Pulse Oximetry 2020-03-15 10:42:59 100 /min Body Mass Index 2020-03-15 10:42:59 26.5 Height 2020-03-15 10:42:59 177.8\\S\\70 Pulse Rate 2020-03-15 10:42:59 92 /min Respiratory Rate 2020-03-15 10:42:59 18 /min Temperature 2020-03-15 10:42:59 36.8\\S\\98.2 Weight 2020-03-15 10:42:59 22852.588\\S\\2960 Weight Measurement Method 2020-03-15 10:42:59 Estimated by Patient 02 Sat by Pulse Oximetry 2020-03-15 10:16:27 100 /min Body Mass Index 2020-03-15 10:16:27 26.5 Height 2020-03-15 10:16:27 177.8\\S\\70 Pulse Rate 2020-03-15 10:16:27 92 /min Respiratory Rate 2020-03-15 10:16:27 18 /min Temperature 2020-03-15 10:16:27 36.8\\S\\98.2 Weight 2020-03-15 10:16:27 21431.588\\S\\2960 Weight Measurement Method 2020-03-15 10:16:27 Estimated by Patient 02 Sat by Pulse Oximetry 2020-03-15 10:14:24 100 /min Body Mass Index 2020-03-15 10:14:24 26.5 Height 2020-03-15 10:14:24 177.8\\S\\70 Pulse Rate 2020-03-15 10:14:24 92 /min Respiratory Rate 2020-03-15 10:14:24 18 /min Temperature 2020-03-15 10:14:24 36.8\\S\\98.2 Weight 2020-03-15 10:14:24 95266.588\\S\\2960 Weight Measurement Method 2020-03-15 10:14:24 Estimated by Patient 02 Sat by Pulse Oximetry 2020-03-15 10:13:53 100 /min Body Mass Index 2020-03-15 10:13:53 26.5 Height 2020-03-15 10:13:53 177.8\\S\\70 Pulse Rate 2020-03-15 10:13:53 92 /min Respiratory Rate 2020-03-15 10:13:53 18 /min Temperature 2020-03-15 10:13:53 36.8\\S\\98.2 Weight 2020-03-15 10:13:53 92161.588\\S\\2960 Weight Measurement Method 2020-03-15 10:13:53 Estimated by Patient WEIGHT 2020-03-15 10:08:00 83.082650 kg HEIGHT 2020-03-15 10:08:00 177.8 cm Procedures This patient has no known procedures. Encounters Start End Encounter Admission Attending Care Care Encounter Source Date/Time Date/Time Type Type Clinicians Facility Department ID 2021-10-01 Outpatient [facility] [id number] [place] 00:32:38 [id number] [facility] 2021-08-03 Outpatient [facility] [id number] [place] 23:15:31 [id number] [facility] 2022-04-24 2022-04-25 Emergency 1 SEVERE, [facility] [id number] [place] 23:07:00 20:40:00 JESS [facility] 2020-03-15 2020-03-15 Emergency [facility] [id number] [facility] 09:59:00 09:59:00 80 2020-03-15 2020-03-15 Emergency Emergency Skshannan, [facility] [id number] [facility] 09:59:00 09:59:00 Chrystan 80 2019-09-28 2019-10-30 Inpatient 1 Wellington Lewis [facility] [address] [id number] 09:54:00 13:45:00 Wellington Lewis [facility] 2019-09-28 2019-09-28 Emergency 1 Carlos Manuel Ron [facility] [id number] 09:54:00 09:54:00 Ron Horowitz -[id number] J [facility] Results Test Description Test Time Test Comments Results Result Comments Source SARS-CoV-2 RNA Resp Ql SIMRAN+probe 2022-04-25 04:10:54 Test Item Value Reference Range Interpretation Comme nts Hospitalized? (test code = No 47463-9) ICU? (test code = 30603-6) No Symptomatic as defined by CDC? 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 (test No code = 64942-0) Resident in a congregate care No setting (including nursing homes, residential care for people with intellectual and developmental disabilities, psychiatric treatment facilities, group homes, board and care homes, homeless long term, foster care or other): (test code = 46922-3) SARS-CoV-2 RNA Resp Ql NOT DETECTED Not Detected INTER PRETATION: No SIMRAN+probe (test code = [place] [address]-9) SARS-CoV-2 Jyoti navirus (COVID-19) were present in this patient's sample by this test. A no t detected result does not exclude the possibility of active infection with this virus due to other fa ctors that may affect the results such as a poorly col lected sample, viral t iters below the limit of de tection of the assay, and the infrequent poss ibility of inhibitors in t he sample. This result kim uld be interpreted in conjunction with clinical, radiographic, a nd other laboratory find ings and should not be u sed as the sole indicator of active infection with SARS-CoV-2 Coronavirus ([place] VID-19). COMMENT: This eventuosityert Xpress SARS-CoV-2 real-time PCR test was developed, and its performance characteristics determined by the [facility] molecular diagnostic Laboratory and is acceptablefor patient testing. It has been approved for patient testing by the FDA under the Emergency Use Auth orization pathway. This laboratory is certified under federal CLIA regulations to perform this type of high complexity testing.HHSHIV 1+2 Ab+HIV1 p24 Ag SerPl Ql [id number] 00:29:01 Test Item Value Reference Range Interpretation Comments HIV 1+2 Ab+HIV1 p24 Ag SerPl Ql [place] NEGATIVE Negative (test code = 06568-2) HHSDrug Screen,[id number] 11:29:00 Test Item Value Reference Range Interpretation Comments PCP Phencyclidine Screen,Urine (test Negative Negative code = PCPU) Amphetamine Screen,Urine (test code Negative Negative = AMPU) Methadone Screen,Urine (test code = Negative Negative METHU) Opiate Screen,Urine (test code = Negative Negative UOPIS) Barbituates Screen,Urine (test code Negative Negative = BARBU) Benzodiazepines Screen,Urine (test Negative Negative code = UBENZS) Cocaine Screen,Urine (test code = Negative Negative UCOCS) Cannabinoid Screen,Urine (test code Negative Negative = UTHCS) Propoxyphene Screen, Urine (test Negative Negative code = UPROP) Sars-CoV-2/FLU A/B RSV [id number] 10:50:00 Test Item Value Reference Range Interpretation [...] (test code = Amplification SARS-CoV-2 PCR Result:) Complete Blood Count Auto [id number] 10:30:00 Test Item Value Reference Range Interpretation [...] Pct (test code = NRBCP) 0 % Comprehensive Metabolic [id number] 10:30:00 Test Item Value Reference Range Interpretation [...] 179 U/L 46-116 H = ALP) Ethanol [id number] 10:30:00 Test Item Value Reference Range Interpretation Comments Ethanol (test code = ETOH) 6 mg/dL Novel Coronavirus SARS-CoV-2, [id number] 23:02:04 Test Item Value Reference Range Interpretation Comments SARS-CoV-2 PCR NEGATIVE Negative Test performe d by Guillermo (test code = Evangel[employer].Posit ajit results SARS-CoV-2 PCR) are indicati ve [...] Drug Administration s Emergency Use Authorization." RPR [id number] 13:55:26 Test Item Value Reference Range Interpretation Comments RPR Qual (test code = RPR Qual) Non-Reactive Non-Reactive Reactive Control (test code = Reactive Reactive Control) Weak Reactive Control (test Weak Reactive code = Weak Reactive Control) Non-Reactive Control (test code Non-Reactive = Non-Reactive Control) Lot # (test code = Lot #) [id number] N Expiration Dt (test code = 9.30.21 N Expiration Dt) Hemoglobin [id number] 11:44:22 Test Item Value Reference Range Interpretation Comments Hemoglobin A1c (test code 4.9 % 4.0-5.8 Di abetic >=6.5 = Hemoglobin A1c) %Prediabet es 5.7-6.4 %Normal <5.7 % Lipid [id number] 11:38:42 Test Item Value Reference Range Interpretation [...] LDL/HDL Ratio=L DL Calc/HDL Chol Thyroid Stimulating [id number] 11:38:42 Test Item Value Reference Range Interpretation Comments TSH (test code = TSH) 2.039 mcIU/mL 0.550-4.780 Urine DOA [id number] 14:30:34 Test Item Value Reference Range Interpretation [...] Confirmation wi thin 7 days. Comprehensive Metabolic [id number] 11:37:31 Test Item Value Reference Range Interpretation [...] = Lipemia) 0 g/dL 1-2 H Alcohol [id number] 11:37:31 Test Item Value Reference Range Interpretation Comments Ethanol Level 3.8 mg/dL N The pharmacolo gical (test code = response to blo od alcohol Ethanol Level) levels may va ry from individual to i ndividual. The fatal kashif ntration has been report ed to be >400 mg/dl. Comprehensive Metabolic [id number] 11:37:31 Test Item Value Reference Range Interpretation [...] 0 g/dL 1-2 H Lipemia) Comprehensive Metabolic [id number] 11:37:31 Test Item Value Reference Range Interpretation [...] ag e have not been validated by [facility] MDRD study and should be interpreted [...] ag e have not been validated by [facility] MDRD study and should be interpreted [...] 1-2 H Lipemia) Urinalysis with Culture, if [id number] 11:23:08 Test Item Value Reference Range Interpretation [...] Not Indicated Not Indicated Micro Ind?) Automated [id number] 11:14:51 Test Item Value Reference Range Interpretation Comments Neutro Auto (test code = Neutro 59.5 % 36.0-70.0 Auto) Lymph Auto (test code = Lymph Auto) 26.2 % 12.0-44.0 Independence Auto (test code = Independence Auto) 10.2 % 0.0-11.0 Eos, Auto (test code = Eos, Auto) 2.6 % 0.0-7.0 Basophil Auto (test code = Basophil 1.0 % 0.0-2.0 Auto) Neutro Absolute (test code = Neutro 4.5 x10 1.6-7.4 Absolute) Lymph Absolute (test code = Lymph 2.00 x10 .50-4.60 Absolute) Independence Absolute (test code = Independence .78 x10 .00-1.20 Absolute) Eos Absolute (test code = Eos 0.20 x10 0.00-0.74 Absolute) Baso Absolute (test code = Baso 0.08 x10 0.00-0.21 Absolute) IG [id number] 11:14:51 Test Item Value Reference Range Interpretation Comments IG (test code = IG) 0.5 % 0.0-5.0 IG Abs (test code = IG Abs) 0 x10 N Complete Blood Count with [id number] 11:14:50 Test Item Value Reference Range Interpretation [...] code = IPF) 0 % N RPR [id number] 13:47:36 Test Item Value Reference Range Interpretation [...] = 01-18-20 N Expiration Dt) Thyroid Stimulating [id number] 08:21:50 Test Item Value Reference Range Interpretation Comments TSH (test code = TSH) 2.100 mIU/mL 0.270-4.200 Lipid [id number] 07:23:30 Test Item Value Reference Range Interpretation Comments Cholesterol Total 179 mg/dL 0-200 RISK OF HE ART (test code = DISEASEPublishe d by Cholesterol Total) [employer] Jacqueline lyte Optimal Borderl ine [...] LDL/HDL Ratio=L DL Calc/HDL Chol Comprehensive Metabolic [id number] 07:00:35 Test Item Value Reference Range Interpretation [...] A/G 1.8 ratio N Ratio) Comprehensive Metabolic [id number] 07:00:35 Test Item Value Reference Range Interpretation [...] RangeeGF R < 60 may mean kid azch diseaseeGFR < 1 5 may mean kidney failure Rang es recommended by the National Kidney Foundation, http://nkdep.ni h.gov Comprehensive Metabolic [id number] 07:00:35 Test Item Value Reference Range Interpretation [...] Foundation, http://nkdep.ni h.gov Complete Blood Count with [id number] 06:45:37 Test Item Value Reference Range Interpretation [...] code = IPF) 0 % N Automated [id number] 06:45:37 Test Item Value Reference Range Interpretation Comments Neutro Auto (test code = Neutro 55.6 % 36.0-70.0 Auto) Lymph Auto (test code = Lymph Auto) 29.0 % 12.0-44.0 Independence Auto (test code = Independence Auto) 11.8 % 0.0-11.0 H Eos, Auto (test code = Eos, Auto) 2.7 % 0.0-7.0 Basophil Auto (test code = Basophil 0.7 % 0.0-2.0 Auto) Neutro Absolute (test code = Neutro 3.3 x10 1.6-7.4 Absolute) Lymph Absolute (test code = Lymph 1.70 x10 .50-4.60 Absolute) Independence Absolute (test code = Independence .69 x10 .00-1.20 Absolute) Eos Absolute (test code = Eos 0.16 x10 0.00-0.74 Absolute) Baso Absolute (test code = Baso 0.04 x10 0.00-0.21 Absolute) IG [id number] 06:45:37 Test Item Value Reference Range Interpretation Comments IG (test code = IG) 0.2 % 0.0-5.0 IG Abs (test code = IG Abs) 0 x10 N
--- NOTE | 2022-07-13 21:23 | RAD REPORT ---
EXAM DESCRIPTION: RADChest Single View07/13/2022 9:12 pm CLINICAL HISTORY: CHEST PAIN COMPARISON: Chest Single View dated 07/11/2022; Chest Pa And Lat (2 Views) dated 02/23/2022 TECHNIQUE: Portable AP view of the chest. FINDINGS: The lungs are clear. No pneumothorax or effusion. The cardiomediastinal contours are unrem arkable. IMPRESSION: No acute cardiopulmonary process.
[2022-07-13 21:33] LABS: Absolute Lymphocytes (CBC) 2.3 K/uL (0.7-4.9); Hematocrit 35.4 % (39.6-49.0); Lymphocytes % 28.4 % (15.3-44.8); MCV 79.3 fL (80-100); MPV 7.3 fL (7.6-11.3); Protime INR 0.93; RBC Red Blood Cell Count 4.47 M/uL (4.33-5.43)
[2022-07-13 21:34] LABS: Barbiturates NEGATIVE (NEGATIVE); Benzodiazepines NEGATIVE (NEGATIVE); Cocaine NEGATIVE (NEGATIVE); METHAMPHETAM POSITIVE (NEGATIVE); Methadone NEGATIVE (NEGATIVE); Opiates NEGATIVE (NEGATIVE); Phencyclidine NEGATIVE (NEGATIVE); THC Cannibis POSITIVE (NEGATIVE)
[2022-07-13] MEDS ORDERED: MORPHINE 2 MG/ML SYR ONE (21:44)
[2022-07-13] MEDS ORDERED: ASPIRIN 81 MG CHEWABLE TABLET ONE ×2 (21:44→23:51)
[2022-07-13 21:45] LABS: Potassium 2.9 mEq/L (3.5-5.1)
[2022-07-13 22:01] LABS: Troponin High Sensitivity 156.3 pg/mL (<58.9)
[2022-07-13] MEDS ORDERED: NA CHLORIDE 0.9% 1,000 ML ONE (23:51)
[2022-07-13] MEDS ORDERED: POTASSIUM 25 MEQ EFFERV TAB ONE (23:51)
[2022-07-13] MEDS ORDERED: KCL 20 MEQ/100 mL IVPB 100 ML IV ONE (23:51)
[2022-07-13] MEDS ORDERED: ONDANSETRON 4 MG/2 ML VIAL ONE (23:57)
[2022-07-14] MEDS ORDERED: MORPHINE 2 MG/ML SYR ONE (00:14)
[2022-07-14] MEDS ORDERED: NA CHLORIDE 0.9% 1,000 ML ONE (01:28)
--- NOTE | 2022-07-14 02:32 | ER ---
[facility] Name: Heriberto Duke Age: 32 yrs Sex: Male : 1990 Arrival Date: 07/13/2022 Time: 20:11 Bed 2 Private MD: Diagnosis: Subsequent non-ST elevation (NSTEMI) myocardial infarction;Adverse effect of amphetamines Presentation: 07/13 20:16 Chief complaint: Patient states: here for chest pain Left AMA yesterday after NSTEMI kl reports chest pain again today. Coronavirus screen: Vaccine status: Patient reports being unvaccinated. Ebola Screen: Patient negative for fever greater than or equal to 101.5 degrees Fahrenheit, and additional compatible Ebola Virus Disease symptoms. Initial Sepsis Screen: Does the patient meet any 2 criteria? No. Patient's initial sepsis screen is negative. Does the patient have a suspected source of infection? No. Patient's initial sepsis screen is negative. Risk Assessment: Do you want to hurt yourself or someone else? Patient reports no desire to harm self or others. 20:16 Method Of Arrival: Wheelchair kl 20:16 Acuity: JOSEFA 2 kl Triage Assessment: 20:20 General: Appears distressed, unkempt, Behavior is cooperative. Pain: Complains of pain kl in chest Pain currently is 10 out of 10 on a pain scale. Historical: - Allergies: 20:20 No Known Allergies; kl - Home Meds: 20:18 gabapentin oral [Active]; haldol injeciton [Active]; kl - PMHx: 20:18 Depression; Schizophrenia; kl - PSHx: 20:18 L arm SX; kl - Immunization history:: Adult Immunizations not up to date. - Social history:: Smoking status: Patient reports the use of cigarette tobacco products. Screenin/27 00:02 [facility] ED Fall Risk Assessment (Adult) History of falling in the last 3 months, lg3 including since admission No falls in past 3 months (0 pts). Abuse screen: Denies threats or abuse. Denies injuries from another. Nutritional screening: No deficits noted. Tuberculosis screening: No symptoms or risk factors identified. Assessment: 00:02 General: Appears in no apparent distress. uncomfortable, Behavior is calm, cooperative. lg3 Pain: Complains of pain in chest Pain does not radiate. Pain currently is 7 out of 10 on a pain scale. Quality of pain is described as heavy, pressure, squeezing, Also complains of nausea. Neuro: No deficits noted. Sharp Agitation-Sedation Scale (RASS): 0 - Alert and Calm Level of Consciousness is awake, alert, obeys commands, Oriented to person, place, time, situation. Cardiovascular: No deficits noted. Reports chest pain, nausea, Capillary refill < 3 seconds Clubbing of nail beds is absent JVD is absent Patient's skin is warm and dry. Respiratory: No deficits noted. Airway is patent Trachea midline Respiratory effort is even, unlabored, Respiratory pattern is regular, symmetrical. GI: No deficits noted. Abdomen is round non-distended, Bowel sounds present X 4 quads. Abd is soft and non tender X 4 quads. Reports nausea. : No deficits noted. No signs and/or symptoms were reported regarding the genitourinary system. EENT: No deficits noted. No signs and/or symptoms were reported regarding the EENT system. Derm: No deficits noted. No signs and/or symptoms reported regarding the dermatologic system. Skin is intact, is healthy with good turgor, Skin is dry, Skin is normal, Skin temperature is warm. Musculoskeletal: No deficits noted. No signs and/or symptoms reported regarding the musculoskeletal system. Circulation, motion, and sensation intact. Range of motion: intact in all extremities. 01:47 Reassessment: Patient appears in no apparent distress at this time. No changes from lg3 previously documented assessment. Patient and/or family updated on plan of care and expected duration. Pain level reassessed. Patient is alert, oriented x 3, equal unlabored respirations, skin warm/dry/pink. Patient states feeling better. Vital Signs: 07/13 20:16 BP 156 / 99; Pulse 99; Resp 18; Temp 98.1(TE); Pulse Ox 99% ; Weight 87.54 kg (R); kl Height 5 ft. 10 in. ; Pain 12/27; 07/14 00:02 BP 151 / 104; Pulse 70; Resp 16; Pulse Ox 99% on R/A; lg3 01:47 BP 145 / 84; Pulse 87; Pulse Ox 97% on R/A; lg3 07/13 20:16 Body Mass Index 27.69 (87.54 kg, 177.8 cm) kl 07/13 20:16 Pain Scale: Adult kl ED Course: 07/13 20:16 Patient arrived in ED. 20:18 Triage completed. 20:22 Romel Gonzalez PA is PHCP. cp 20:22 Romel Castro MD is Attending Physician. cp 21:07 ETOH Level Sent. bc6 21:07 UDS Sent. bc6 21:07 Basic Metabolic Panel Sent. bc6 21:07 CBC with Diff Sent. bc6 21:07 Magnesium Sent. bc6 21:07 NT PRO-BNP Sent. bc6 21:07 PT-INR Sent. bc6 21:07 Troponin HS Sent. bc6 21:07 Initial lab(s) drawn, by me, sent to lab. Inserted saline lock: 20 gauge in right bc6 antecubital area, using aseptic technique. 21:14 XRAY Chest (1 view) In Process Unspecified. EDMS 23:11 CT Aorta for Dissection In Process Unspecified. EDMS 07/14 00:02 Patient has correct armband on for positive identification. Placed in gown. Bed in low lg3 position. Call light in reach. Side rails up X 1. Client placed on continuous cardiac and pulse oximetry monitoring. NIBP monitoring applied. youth nutritional monitor on. Door closed. Noise minimized. Warm blanket given. 00:07 Lynda Sweet, ALYSSA is Primary Nurse. lg3 01:29 Troponin High Sensitivity Sent. aa9 02:30 Telly Ivan MD is Hospitalizing Provider. cp Administered Medications: 07/13 21:50 Drug: morphine IVP or IV 2 mg Route: IVP; Infused Over: 4 mins; Site: right antecubital;aa9 07/14 00:01 Drug: Potassium Chloride IV 20 mEq Route: IV; Rate: calculated rate; Site: right lg3 antecubital; 01:29 Follow up: Response: No adverse reaction; IV Status: Completed infusion aa9 00:01 Drug: Potassium PO Effervescent Tablet 50 mEq Route: PO; lg3 00:01 Drug: NS 0.9% IV 1000 ml Route: IV; Rate: 1000 ml/hr; Site: right antecubital; lg3 01:29 Follow up: Response: No adverse reaction; IV Status: Completed infusion; IV Intake: aa9 1000ml 00:01 Drug: Ondansetron IVP 4 mg Route: IVP; Site: right antecubital; lg3 00:02 Drug: Aspirin PO Chewable Tablet 324 mg Route: PO; lg3 00:10 Drug: morphine IVP or IV 2 mg Route: IVP; Infused Over: 4 mins; Site: right antecubital;lg3 01:29 Drug: NS 0.9% IV 1000 ml Route: IV; Rate: 125 ml/hr; Site: right antecubital; aa9 03:09 Drug: morphine IVP or IV 4 mg Route: IVP; Infused Over: 4 mins; Site: right antecubital;aa9 Intake: 01:29 IV: 1000ml; Total: 1000ml. aa9 Outcome: 02:31 Decision to Hospitalize by Provider. cp 09:42 Patient left the ED. [email or web address] Signatures: Dispatcher [employer] EDMS Radha Razo RN RN Romel Au PA PA cp Jackson, Kandis kj1 Lynda Sweet RN RN lg3 Candy Christensen RN RN aa9 Joselyn Velasquez [facility]
--- NOTE | 2022-07-14 02:32 | EDPHYS ---
Physician Documentation [facility] Name: Heriberto Duke Age: 32 yrs Sex: Male : 1990 Arrival Date: 07/13/2022 Time: 20:11 Bed 2 Private MD: ED Physician Romel Castro HPI: 07/13 20:30 This 32 yrs old Male presents to ER via Wheelchair with complaints of Chest Pain. cp 20:30 The patient or guardian reports chest pain that is located primarily in the substernal cp area. 20:30 The pain does not radiate. The chest pain is described as a pressure, squeezing. cp 20:30 Associated signs and symptoms: Pertinent positives: nausea, shortness of breath, cp Pertinent negatives: abdominal pain, syncope. Duration: The patient or guardian reports a single episode, that is still ongoing, and unchanged. 20:30 Patient admits to taking what he believes was Vyvanse given to aden at a constitution party earlier cp today. 20:30 The patient has been recently seen at the [facility] Emergency cp Department, this week, for similar complaints labs were performed, admitted for non-STEMI after reportedly consuming "8 stackers", patient admits to leaving this hospital AMA so he could f/u with his psychiatrist for his monthly Haldol injection. admits he did not f/u for injection. Historical: - Allergies: 20:20 No Known Allergies; kl - Home Meds: 20:18 gabapentin oral [Active]; haldol injeciton [Active]; kl - PMHx: 20:18 Depression; Schizophrenia; kl - PSHx: 20:18 L arm SX; kl - Immunization history:: Adult Immunizations not up to date. - Social history:: Smoking status: Patient reports the use of cigarette tobacco products. ROS: 20:35 Constitutional: Negative for body aches, chills, fever, poor PO intake. cp 20:35 Eyes: Negative for injury, pain, redness, and discharge. cp 20:35 ENT: Negative for drainage from ear(s), ear pain, sore throat, difficulty swallowing, difficulty handling secretions. 20:35 Cardiovascular: Positive for chest pain, Negative for edema, palpitations. 20:35 Respiratory: Negative for cough, shortness of breath, wheezing. 20:35 Abdomen/GI: Negative for abdominal pain, nausea, vomiting, and diarrhea. 20:35 : Negative for urinary symptoms. 20:35 Skin: Negative for rash. 20:35 Neuro: Negative for altered mental status, dizziness, headache, syncope, weakness. 20:35 All other systems are negative. Exam: 20:25 ECG was reviewed by the Attending Physician. cp 20:40 Constitutional: The patient appears in no acute distress, alert, awake, cp non-diaphoretic, non-toxic, well developed, well nourished, uncomfortable. 20:40 Head/Face: Normocephalic, atraumatic. cp 20:40 Eyes: Periorbital structures: appear normal, Conjunctiva: normal, no exudate, no injection, Sclera: no appreciated abnormality, Lids and lashes: appear normal, bilaterally. 20:40 ENT: External ear(s): are unremarkable, Nose: is normal, Mouth: Lips: moist, Oral mucosa: pink and intact, moist, Posterior pharynx: is normal, airway is patent, no erythema, no exudate. 20:40 Neck: ROM/movement: is normal, is supple, without pain, no range of motions limitations, no meningismus, no nuchal rigidity. 20:40 Chest/axilla: Inspection: normal. 20:40 Cardiovascular: Rate: normal, Rhythm: regular, Edema: is not appreciated, JVD: is not appreciated. 20:40 Respiratory: the patient does not display signs of respiratory distress, Respirations: normal, no use of accessory muscles, no retractions, labored breathing, is not present, Breath sounds: are clear throughout, no decreased breath sounds, no stridor, no wheezing. 20:40 Abdomen/GI: Inspection: abdomen appears normal, Palpation: abdomen is soft and non-tender, in all quadrants. 20:40 Back: pain, is absent, ROM is normal. 20:40 Neuro: Orientation: to person, place \\T\\ time. Mentation: is normal, Motor: moves all fours, strength is normal, Sensation: is normal. Vital Signs: 20:16 BP 156 / 99; Pulse 99; Resp 18; Temp 98.1(TE); Pulse Ox 99% ; Weight 87.54 kg (R); kl Height 5 ft. 10 in. ; Pain 12/27; 07/14 00:02 BP 151 / 104; Pulse 70; Resp 16; Pulse Ox 99% on R/A; lg3 01:47 BP 145 / 84; Pulse 87; Pulse Ox 97% on R/A; lg3 07/13 20:16 Body Mass Index 27.69 (87.54 kg, 177.8 cm) 07/13 20:16 Pain Scale: Adult kl MDM: 07/13 20:24 Patient medically screened. cp 21:00 Differential diagnosis: abnormal EKG, acute myocardial infarction, acute pericarditis, cp pericarditis, pleurisy, pneumonia, pneumothorax, pulmonary embolus, stable angina, thoracic aortic disection, unstable angina. 07/14 02:30 Data reviewed: vital signs, nurses notes, lab test result(s), EKG, radiologic studies, cp CT scan. 02:30 Management of patient was discussed with the following: Hospitalist: Brendon Navarrete, cp hospitalist, will admit for observation after discussion. I considered the following discharge prescriptions or medication management in the emergency department Medications were administered in the Emergency Department. See MAR. Care significantly affected by the following chronic conditions: schizophrenia. Counseling: I had a detailed discussion with the patient and/or guardian regarding: the historical points, exam findings, and any diagnostic results supporting the discharge/admit diagnosis, lab results, radiology results. Response to treatment: the patient's symptoms have mildly improved after treatment. 07/13 20:25 Order name: Basic Metabolic Panel; Complete Time: 22:30 cp 07/13 22:30 Interpretation: Normal except: K 2.9; CL 108; BUN 5. cp 07/13 20:25 Order name: CBC with Diff; Complete Time: 21:37 cp 07/13 22:31 Interpretation: Normal except: HGB 11.9; HCT 35.4; MCV 79.3; MCH 26.7; PLT 479; RDW cp 15.4; MPV 7.3. 07/13 20:25 Order name: Magnesium; Complete Time: 22:30 cp 07/13 20:25 Order name: NT PRO-BNP; Complete Time: 22:30 cp 07/13 20:25 Order name: PT-INR; Complete Time: 21:37 cp 07/13 20:25 Order name: Troponin HS; Complete Time: 22:30 cp 07/13 22:30 Interpretation: Abnormal: Troponin HS 156.3. cp 07/13 20:25 Order name: UDS; Complete Time: 21:37 cp 07/13 21:37 Interpretation: Normal except: METHAMPHETAMINE POSITIVE; THC POSITIVE. cp 07/13 20:32 Order name: ETOH Level; Complete Time: 22:30 cp 07/14 00:57 Order name: Troponin High Sensitivity; Complete Time: 02:24 cp 07/13 20:25 Order name: XRAY Chest (1 view); Complete Time: 21:37 cp 07/13 22:33 Order name: CT Aorta for Dissection cp 07/13 20:25 Order name: EKG; Complete Time: 20:26 cp 07/13 20:25 Order name: Cardiac monitoring; Complete Time: 00:07 cp 07/13 20:25 Order name: EKG - Nurse/Tech; Complete Time: 21:07 cp 07/13 20:25 Order name: IV Saline Lock; Complete Time: 21:07 cp 07/13 20:25 Order name: Labs collected and sent; Complete Time: 21:07 07/13 20:25 Order name: O2 Per Protocol; Complete Time: 00:02 cp 07/13 20:25 Order name: O2 Sat Monitoring; Complete Time: 00:02 cp EC/26 20:25 Rate is 103 beats/min. Rhythm is regular. NE interval is normal. QRS interval is cp normal. QT interval is normal. Interpreted by me. Reviewed by me. Administered Medications: 21:50 Drug: morphine IVP or IV 2 mg Route: IVP; Infused Over: 4 mins; Site: right antecubital;aa9 07/14 00:01 Drug: Potassium Chloride IV 20 mEq Route: IV; Rate: calculated rate; Site: right lg3 antecubital; Follow up: Response: No adverse reaction; IV Status: Completed infusion aa9 00:01 Drug: Potassium PO Effervescent Tablet 50 mEq Route: PO; lg3 00:01 Drug: NS 0.9% IV 1000 ml Route: IV; Rate: 1000 ml/hr; Site: right antecubital; lg3 01:29 Follow up: Response: No adverse reaction; IV Status: Completed infusion; IV Intake: aa9 1000ml 00:01 Drug: Ondansetron IVP 4 mg Route: IVP; Site: right antecubital; lg3 00:02 Drug: Aspirin PO Chewable Tablet 324 mg Route: PO; lg3 00:10 Drug: morphine IVP or IV 2 mg Route: IVP; Infused Over: 4 mins; Site: right antecubital;lg3 01:29 Drug: NS 0.9% IV 1000 ml Route: IV; Rate: 125 ml/hr; Site: right antecubital; aa9 03:09 Drug: morphine IVP or IV 4 mg Route: IVP; Infused Over: 4 mins; Site: right antecubital;aa9 Disposition Summary: 07/14/22 02:31 Hospitalization Ordered Hospitalization Status: Observation cp Provider: Telly Ivan cp Condition: Stable cp Problem: an ongoing problem cp Symptoms: have improved cp Bed/Room Type: Standard cp Location: Telemetry/MedSurg (observation)(07/14/22 05:55) eb1 Room Assignment: [facility](07/14/22 05:55) eb1 Diagnosis - Subsequent non-ST elevation (NSTEMI) myocardial infarction cp - Adverse effect of amphetamines cp Forms: - Medication Reconciliation Form cp - SBAR form cp Signatures: Dispatcher [employer] EDMS Radha Razo RN RN kl Attema, Lee, [employer]1 Romel Gonzalez PA PA cp Kinjal Miller RN RN eb1 Lynda Sweet RN RN lg3 Candy Christensen RN RN aa9 Corrections: (The following items were deleted from the chart) 07/13 22:31 21:37 Normal except: HGB 11.9; HCT 35.4; MCV 79.3; MCH 26.7; PLT 479; RDW 15.4. cp cp 07/14 03:17 02:31 Telemetry/MedSurg (observation) cp eb1 03:17 02:31 cp eb1 05:55 03:17 [facility] ER HOLD eb1 eb1 05:55 03:17 ERHOLD- eb1 eb1 07/15 03:48 04 20:30 The chest pain is described as a pressure, cp cp 07/15 04:53 03:47 Duration: The patient or guardian reports a single episode, that is still cp ongoing, and unchanged, cp 04:53 03:47 Associated signs and symptoms: Pertinent positives: nausea, shortness of breath, cp Pertinent negatives: abdominal pain, syncope, cp
[2022-07-14] MEDS ORDERED: MORPHINE 4 MG/ML SYR ONE (03:10)
--- NOTE | 2022-07-14 03:48 | P.HP ---
Certification for Inpatient Patient admitted to: Observation With expected LOS: <2 Midnights Patient will require the following post-hospital care: None Practitioner: I am a practitioner with admitting privileges, knowledge of patient current condition, hospital course, and medical plan of care. Services: Services provided to patient in accordance with Admission requirements found in Title 42 Section 412.3 of the Code of Federal Regulations Patient History Date of Service: 07/14/22 Reason for admission: Chest pain History of Present Illness: 32-year-old male with history of depression, schizophrenia who recently left the hospital AMA after being admitted for NSTEMI, unintentional caffeine overdose, hypokalemia presents to the emergency department with chief complaint of chest pain. He reports during the day today while at rest he developed severe substernal chest pain described as pressure nonradiating with no associated signs or symptoms. He also reports feeling "generally weak". His labs were significant for initial high-sensitivity troponin of 156.3 which trended down to 146.2, when he left AMA his troponin was 821 on 07/12/2022. Also noted his UDS was positive for amphetamines, THC. He admits to taking a friend's Vyvanse earlier this week and smoking THC, he was counseled on the need for cessation especially of stimulants. He had a CT angio for dissection performed which was negative for acute findings. Initial plan was to repeat troponin and discharge patient although he was still having significant chest pain and had not gotten his echo during previous admission as he left AMA. ED requesting observation for ACS rule out. On exam chest pain is reproducible with palpation. Will admit under observation, obtain echocardiogram. Allergies No Known Allergies Allergy (Unverified 11/29/21 03:04) Home Medications: Gabapentin 300 mg PO TID 07/12/22 Haloperidol Decanoate [Haldol Decanoate 100] 100 mg IM UD 07/12/22 - Past Medical/Surgical History Diabetic: No -: DVT -: Schizophrenia -: Depression -: Left forearm ORIF Psychosocial/ Personal History: Patient lives at home with his mom. - Family History Father -: Stroke - Social History Smoking Status: Current every day smoker Alcohol use: Yes CD- Drugs: Yes Caffeine use: Yes Place of Residence: Home Review of Systems 10-point ROS is otherwise unremarkable Cardiovascular: Chest Pain Physical Examination - Physical Exam General: Alert, In no apparent distress, Oriented x3 HEENT: Atraumatic, PERRLA, Mucous membr. moist/pink, EOMI, Sclerae nonicteric Neck: Supple, 2+ carotid pulse no bruit, No LAD, Without JVD or thyroid abnormality Respiratory: Clear to auscultation bilaterally, Normal air movement Cardiovascular: Regular rate/rhythm, Normal S1 S2, Other (Chest wall tenderness to palpation) Capillary refill: <2 Seconds Gastrointestinal: Normal bowel sounds, No tenderness Musculoskeletal: No tenderness Integumentary: No rashes Neurological: Normal speech, Normal strength at 5/5 x4 extr, Normal tone, Normal affect - Studies Laboratory Data (last 24 hrs) 07/13/22 21:02: PT 10.2, INR 0.93 07/13/22 21:02: WBC 8.20, Hgb 11.9 L, Hct 35.4 L, Plt Count 479 H 07/13/22 21:02: Sodium 142, Potassium 2.9 L, BUN 5 L, Creatinine 0.80, Glucose 98, Magnesium 2.0 Assessment and Plan - Plan Assessment: Chest pain rule out ACS Depression/schizophrenia Tobacco use disorder Amphetamine abuse/THC abuse Plan: Chest pain rule out ACS Troponins mildly elevated although downtrending from previous admission. Pain reproducible with palpation. Echocardiogram ordered as it was not completed during recent admission as patient left AMA. Daily aspirin. Counseled on need for cessation of all stimulants, excess caffeine. Depression/schizophrenia He did go to his appointment after leaving AMA and is scheduled to receive his Haldol injection early next month. Tobacco use disorder Amphetamine abuse/THC abuse Counseled on need for cessation of tobacco, recreational drugs. DVT PPX: Lovenox Code status: Full Discharge Plan: Home Plan to discharge in: 24 Hours - Advance Directives Does patient have a Living Will: No Does patient have a Durable POA for Healthcare: No - Code Status/Comfort Care Code Status Assessed: Yes (Full code) Critical Care: No Time Spent Managing Pts Care (In Minutes): 55
[2022-07-14] MEDS: NS KCL 20MEQ 20 MEQ/1,000 ML BAG IV SCH ×3 (04:05→14:05)
[2022-07-14] MEDS ORDERED: ONDANSETRON 4 MG/2 ML VIAL IV PRN (04:05)
[2022-07-14] MEDS ORDERED: NS KCL 20MEQ 1,000 ML IV ONE (04:31)
[2022-07-14 05:30] VITALS: BMI 27.6
[2022-07-14] MEDS ORDERED: ENOXAPARIN 40 MG/0.4 ML SQ SCH (09:00)
[2022-07-14] MEDS ORDERED: REGADENOSON 0.4 MG/5 ML SYR IV ONE (09:13)
[2022-07-14 10:25] LABS: Specific Gravity 1.023 (1.005-1.030); Urine Bilirubin NEGATIVE (Negative); Urine Blood Negative (Negative); Urine Clarity Clear (Clear); Urine Color Light-Yellow (Yellow); Urine Glucose NEGATIVE (Negative); Urine Protein NEGATIVE (Negative); Urine Urobilinogen Normal (Normal)
[2022-07-14] MEDS: KETOROLAC 30 MG/ML INJ IV PRN ×2 (10:32→15:51)
[2022-07-14 11:15] LABS: Potassium 3.4 mEq/L (3.5-5.1)
[2022-07-14 11:16] LABS: Troponin High Sensitivity 96.2 pg/mL (<58.9)
[2022-07-14 12:07] VITALS: O2SAT 81
--- NOTE | 2022-07-14 12:23 | RAD REPORT ---
EXAM DESCRIPTION: NM - Rest Stress Cardiac Imaging - 07/14/2022 12:15 pm CLINICAL HISTORY: CP Chest pain. COMPARISON: No comparisons TECHNIQUE: The patient was administered approximately 10mCi of Tc 99m Sestamibi prior to resting SPE CT imaging of the heart. The patient was then administered approximately 30 mCi of Tc 99m Sestamibi f ollowing exercise or pharmacologic stress. Multiplanar SPECT images were reviewed. FINDINGS: No stress induced ischemic defect is seen to suggest stress induced ischemia. No fixed def ect is seen to suggest hibernating myocardium or scarred myocardium. The end diastolic volume is 110 ml, the end systolic volume is 40 ml, and the ejection fraction is 63 %. IMPRESSION: No stress induced ischemia.
[2022-07-14 17:10] VITALS: BP 155/96; TEMP 98.5
--- NOTE | 2022-07-14 17:27 | RAD REPORT ---
EXAM DESCRIPTION: Angio Aorta For Dissection 07/13/2022 11:37 PM CDT CLINICAL HISTORY: 32 years, Male, chest pain COMPARISON: None. TECHNIQUE: Multiple transaxial tomograms of the thoracic and abdominal aorta from the lung apex to t he ischial tuberosities utilizing 3 mm slice thickness at 3 mm interval reconstruction after the admi nistration of large bolus of IV contrast for complete opacification of the thoracic, abdominal aorta and iliac arteries. 2-D and 3-D multiplanar reformats, volume rendering technique and maximum intensity projection images were generated and reviewed. This exam was performed according to our departmental dose-optimization protocol, which includes auto mated exposure control, adjustment of the mA and/or kV according to patient size and/or use of iterat ajit reconstruction technique. FINDINGS: Thoracic aorta: The thoracic aorta demonstrate to be within normal limits. There is no evidence for dissection/or ane urysm. There is normal branching pattern of the great vessels. No evidence for significant stenosis/o r occlusion within the proximal aspect. Abdominal aorta: The abdominal aorta demonstrate to be within normal limits. There is no evidence for dissection/or an eurysm. The iliac arteries demonstrate to be patent with no evidence for significant stenosis and/or occlusio n. Celiac trunk, superior mesenteric artery, inferior mesenteric artery and bilateral single renal arter ies demonstrate to be patent with no stenosis/or occlusion. Chest: The lung parenchyma demonstrate to be clear. No significant pulmonary nodules/or masses are identifie d. There is no evidence for pneumothorax. The trachea mainstem bronchus demonstrate to be unremarkable. There is no pleural/or pericardial effu sions. The heart is normal in size. The central portions of the pulmonary arteries demonstrate normal opacif ication with no evidence for significant filling defects that will suggest pulmonary embolus. There is no significant mediastinal and/or hilar lymphadenopathy. The axillary regions demonstrate to be clear. The bone windows demonstrate no significant skeletal lesions. Noted is the presence of mucosal thickening distal esophagus with a prominent posterior paraesophagea l lymph node distal portion perhaps corresponding to esophagitis/or related to gastroesophageal reflu x disease. Abdomen and pelvis: The liver demonstrate decreased diffusion corresponding to fatty infiltration. Otherwise the liver, g allbladder, spleen pancreas and adrenal glands demonstrate to be unremarkable. The kidneys demonstrate normal uptake of contrast media. No evidence for nephrolithiasis and/or hydro nephrosis. The unopacified stomach, small bowel demonstrate to be within normal limits. Minimally fluid-filled l arge bowel could correspond to imminent diarrhea. Minimal scattered diverticuli within the sigmoid si gmoid colon. The urinary bladder demonstrate to be unremarkable. The prostate gland is unremarkable. There is no r etroperitoneal lymphadenopathy. There is no evidence for ascites. The bone windows demonstrate to be unremarkable. IMPRESSION: No evidence for dissection and/or aneurysm involving the thoracic or abdominal aorta. No evidence for significant pulmonary embolus. Noted is the presence of mucosal thickening distal esophagus with a prominent posterior paraesophagea l lymph node distal portion perhaps corresponding to esophagitis/or related to gastroesophageal reflu x disease. Minimally fluid-filled large bowel could correspond to imminent diarrhea. Minimal scattered diverticuli within the sigmoid colon. Electronically signed by: Jac Bravo MD 07/13/2022 11:43 PM CDT Due to temporary technical issues with the PACS/Fluency reporting system, reports are being signed by the in house radiologists without review as a courtesy to insure prompt reporting. The interpreting radiologist is fully responsible for the content of the report.
--- NOTE | 2022-07-15 07:04 | EKG ---
Test Date: 2022-07-13 Test Time: 20:19:46 Telemarketing Supervisor: UZAIR MEASUREMENT RESULTS: Intervals: Rate: 103 NM: 142 QRSD: 76 QT: 328 QTc: 429 [place]: P: 48 NM: 142 QRS: 69 T: 27 INTERPRETIVE STATEMENTS: Sinus tachycardia Otherwise normal ECG Compared to ECG 07/12/2022 03:06:39 Sinus rhythm no longer present T-wave abnormality no longer present Electronically Signed On 07-15-22 07:00:19 CDT by Devin Hui
--- NOTE | 2022-07-15 07:06 | ECHO ---
HEIGHT: 5 ft 10 in WEIGHT: 192 lb 15.883 oz DATE OF STUDY: 07/14/[address]: Brendon Navarrete NP 2-DIMENSIONAL: YES M.MODE: YES DOPPLER: YES COLOR FLOW: YES TDS: NO PORTABLE: YES DEFINITY: NO BUBBLE STUDY: NO DIAGNOSIS: CHEST PAIN, ELEVATED TROPONIN CARDIAC HISTORY: CATHERIZATION: NO SURGERY: NO PROSTHETIC VALVE: NO PACEMAKER: NO MEASUREMENTS (cm) DIASTOLIC (NORMALS) SYSTOLIC (NORMALS) IVSd 1.2 (0.6-1.2) LA Diam 2.9 (1.9-4.0) LVEF 63% LVIDd 4.0 (3.5-5.7) LVIDs 2.7 (2.0-3.5) %FS 33% LVPWd 1.0 (0.6-1.2) Ao Diam 2.0 (2.0-3.7) 2 DIMENSIONAL ASSESSMENT: RIGHT ATRIUM: NORMAL LEFT ATRIUM: NORMAL RIGHT VENTRICLE: NORMAL LEFT VENTRICLE: NORMAL TRICUSPID VALVE: NORMAL MITRAL VALVE: NORMAL PULMONIC VALVE: NORMAL AORTIC VALVE: NORMAL PERICARDIAL EFFUSION: NONE AORTIC ROOT: NORMAL LEFT VENTRICULAR WALL MOTION: NORMAL DOPPLER/COLOR FLOW: NORMAL COMMENTS: 1. NORMAL 2D ECHOCARDIOGRAM WITH DOPPLER. 2. NO EFFUSION. 3. NO WALL MOTION ABNORMALITY. TECHNOLOGIST: Linnette REYES
--- NOTE | 2022-07-15 07:13 | TREADPHA ---
DX: CHEST PAIN Date of Study: 07/14/2022 Ht: 5' 10 " Wt: 192 lb 15.883 oz Consulting Physician: PAULO MEDICATIONS: ASPIRIN, LOVENOX, ZOFRAN HISTORY: 32 YEAR OLD MALE WITH RECURRENT CHEST PAIN. PHYSICIAL EXAMINATION: RESTING B.P.: 146/76 RESTING H.R.: 73 RESTING EKG: NORMAL PROTOCOL: LEXISCAN EXERCISE TIME: 3:30 B.P. AT PEAK STRESS: 166/89 IMPRESSION: LEXISCAN INJECTED. CARDIOLITE INJECTED. SEE NUCLEAR MEDICINE REPORT. COMPLAINTS OF CHEST PAIN PRIOR AND DURING TEST. NO VENTRICULAR OR SUPRAVENTRICULAR TACHYCARDIA. NO ARRHYTHMNIAS.
[2022-07-15] MEDS ORDERED: ASPIRIN EC 81 MG TAB PO SCH (09:00)
--- NOTE | 2022-07-15 11:24 | P.DS ---
Admission Date: 07/14/22 Discharge Date: 07/14/22 Disposition: ROUTINE DISCHARGE Discharge Condition: GOOD Reason for Admission: Chest pain Consultations: Cardiology - Dr. Hui Brief History of Present Illness: 32yo M, PMH: depression, schizophrenia Patient who recently left the hospital AMA after being admitted for NSTEMI, unintentional caffeine overdose, hypokalemia [facility] with chief complaint of chest pain. He reports during the day today while at rest he developed severe substernal chest pain described as pressure nonradiating with no associated signs or symptoms. He also reports feeling "generally weak". His labs were significant for initial high-sensitivity troponin of 156.3 which trended down to 146.2, when he left AMA his troponin was 821 on 07/12/2022. Also noted his UDS was positive for amphetamines, THC. He admits to taking a friend's Vyvanse earlier this week and smoking THC, he was counseled on the need for cessation especially of stimulants. He had a CT angio for dissection performed which was negative for acute findings. Initial plan was to repeat troponin and discharge patient although he was still having significant chest pain and had not gotten his echo during previous admission as he left AMA. ED requesting observation for ACS rule out. On exam chest pain is reproducible with palpation. Will admit under observation, obtain echocardiogram. Hospital Course: Problem List: Chest pain rule out ACS Depression/schizophrenia Tobacco use disorder Amphetamine abuse/THC abuse Presented with chest pain. Patient left AMA after initial presentation due to NSTEMI after caffeine overdose. On admission this time, urine tox positive for amphetamines and THC. Patient reported taking vyvanse a few days earlier. Troponin were improved compared to prior levels. Cardiology consulted. Stress test was negative. Chest pain was reproducible on exam with palpation and improved with toradol. Recommend ibuprofen 600mg q8hr as needed for pain over the next week. This is musculoskeletal in nature, possibly some costochondritis. Patient deemed stable for discharge home. Avoid caffeine and vyvanse / amphetamine based medications. Follow up with PCP within 1 week. Physical Exam: GEN: Alert, oriented, NAD HEENT: Normal conjunctiva, sclera anicteric CV: Regular rate and rhythm, no edema Pulm: Nonlabored respirations on room air ABD: Soft, nontender, nondistended MSK: No joint tenderness Integumentary: No rashes Neuro: Normal speech, normal affect Vital Signs/Physical Exam: Temp Pulse Resp BP Pulse Ox 98.5 F 76 16 155/96 H 99 07/14/22 16:00 07/14/22 16:00 07/14/22 16:00 07/14/22 16:00 07/14/22 16:00 Laboratory Data at Discharge: WBC 8.20 thou/uL (4.3-10.9) 07/13/22 21:02 Hgb 11.9 g/dL (13.6-17.9) L 07/13/22 21:02 Hct 35.4 % (39.6-49.0) L 07/13/22 21:02 Plt Count 479 thou/uL (152-406) H 07/13/22 21:02 PT 10.2 SECONDS (9.5-12.5) 07/13/22 21:02 INR 0.93 07/13/22 21:02 Sodium 138 mEq/L (136-145) 07/14/22 10:29 Potassium 3.4 mEq/L (3.5-5.1) L D 07/14/22 10:29 BUN 5 mg/dL (7-18) L 07/14/22 10:29 Creatinine 0.68 mg/dL (0.70-1.30) L 07/14/22 10:29 Glucose 101 mg/dL (74-106) 07/14/22 10:29 Magnesium 2.0 mg/dL (1.6-2.4) 07/14/22 10:29 Home Medications: Gabapentin 300 mg PO TID 07/12/22 Haloperidol Decanoate [Haldol Decanoate 100] 100 mg IM UD 07/12/22 Physician Discharge Instructions: Presented with chest pain. Patient left AMA after initial presentation due to NSTEMI after caffeine overdose. On admission this time, urine tox positive for amphetamines and THC. Patient reported taking vyvanse a few days earlier. Troponin were improved compared to prior levels. Cardiology consulted. Stress test was negative. Chest pain was reproducible on exam with palpation and improved with toradol. Recommend ibuprofen 600mg q8hr as needed for pain over the next week. This is musculoskeletal in nature, possibly some costochondritis. Patient deemed stable for discharge home. Avoid caffeine and vyvanse / amphetamine based medications. Follow up with PCP within 1 week. Followup: NONE,NONE [Primary Care Provider] - Time spent managing pt's care (in minutes): 45
== END 2022-07-14 18:04 | disposition home or self-care (01) ==
LOC: ER 20:11 → ERHOLD 07-14 02:51 → 4TH 07-14 06:01
PROVIDERS: ADMIT Hospitalist; ATTEND Hospitalist
DX: R07.9 Chest pain, unspecified (principal); F17.210 Nicotine dependence, cigarettes, uncomplicated; F32.A Depression, unspecified; F20.9 Schizophrenia, unspecified; F15.90 Other stimulant use, unspecified, uncomplicated; F12.90 Cannabis use, unspecified, uncomplicated; Z71.6 Tobacco abuse counseling; Z71.51 Drug abuse counseling and surveillance of drug abuser
CPT/HCPCS: 93005; 93017; 93306; 85025; 80048 ×2; 36415; 83735 ×2; 82550; 85610; 81003; 84484 ×3; 83880; 80307; 71275; 74175; 71045; 78452; Q9967; J3480 ×3; J2785; J1650; J2270 ×2; J2405; J7030 ×2; A9500; G0378 ×3; G0480

== ENCOUNTER 2022-08-05 22:43 | Emergency (ER) | payer OTHER ==
--- OUTSIDE RECORDS SUMMARY | 2022-08-05 22:47 | XMS REPORT | Continuity of Care Document ---
:[address] [facility] t Address [address] [place] [address] Care Team Providers Name Role Phone SEVERE, JESS P Attending Clinician Unavailable Yanni Pavon Attending Clinician Unavailable Wellington Lewis Attending Clinician Unavailable Wellington Lewis Attending Clinician Unavailable Ron Horowitz Attending Clinician Unavailable Ron Horowitz Attending Clinician Unavailable Wellington Lewis Admitting Clinician Unavailable Payers Payer Name Policy Type Policy Number Effective Date Expiration Date Jordon rajan [facility] [id number] 2022 2023 PLAN SSI 00:00:00 00:00:00 Problems This patient has no known problems. Allergies, Adverse Reactions, Alerts Allergy Allergy Status Severity Reaction(s) Onset Inactive Treating Comm ents Source Name Type Date Date Clinician No Known DA Active U 2019-03 [facility] Drug 2- Allergie 00:00: s [address] No Known Drug Active [facility] No Known Drug Active [facility] No Known Drug [facility] No Known Drug Active [facility] No Known [facility] No Known [facility] No Known [facility] No Known [facility] No Known [facility] No Known [facility] No Known [facility] No Known [facility] No [facility] No Known Drug Active [facility] No Known Drug Active [facility] Medications This patient has no known medications. [...] Temperature 2020-03-16 16:15:27 36.8\\S\\98.2 Weight 2020-03-16 16:15:27 30304.588\\S\\2960 Weight Measurement Method 2020-03-16 16:15:27 Estimated by Patient Respiratory 2020-03-16 16:09:15 No respiratory distress /min 02 Sat by Pulse Oximetry 2020-03-16 16:09:15 96 /min Body Mass Index 2020-03-16 16:09:15 26.5 Height 2020-03-16 16:09:15 177.8\\S\\70 Pulse Rate 2020-03-16 16:09:15 85 /min Respiratory Rate 2020-03-16 16:09:15 18 /min Temperature 2020-03-16 16:09:15 36.8\\S\\98.2 Weight 2020-03-16 16:09:15 91069.588\\S\\2960 Weight Measurement Method 2020-03-16 16:09:15 Estimated by Patient Respiratory 2020-03-16 16:09:14 No respiratory distress /min 02 Sat by Pulse Oximetry 2020-03-16 16:09:14 96 /min Body Mass Index 2020-03-16 16:09:14 26.5 Height 2020-03-16 16:09:14 177.8\\S\\70 Pulse Rate 2020-03-16 16:09:14 85 /min Respiratory Rate 2020-03-16 16:09:14 18 /min Temperature 2020-03-16 16:09:14 36.8\\S\\98.2 Weight 2020-03-16 16:09:14 34297.588\\S\\2960 Weight Measurement Method 2020-03-16 16:09:14 Estimated by Patient Respiratory 2020-03-16 14:02:46 No respiratory distress /min 02 Sat by Pulse Oximetry 2020-03-16 14:02:46 96 /min Body Mass Index 2020-03-16 14:02:46 26.5 Height 2020-03-16 14:02:46 177.8\\S\\70 Pulse Rate 2020-03-16 14:02:46 85 /min Respiratory Rate 2020-03-16 14:02:46 18 /min Temperature 2020-03-16 14:02:46 36.8\\S\\98.2 Weight 2020-03-16 14:02:46 78487.588\\S\\2960 Weight Measurement Method 2020-03-16 14:02:46 Estimated by Patient Respiratory 2020-03-16 14:02:15 No respiratory distress /min 02 Sat by Pulse Oximetry 2020-03-16 14:02:15 96 /min Body Mass Index 2020-03-16 14:02:15 26.5 Height 2020-03-16 14:02:15 177.8\\S\\70 Pulse Rate 2020-03-16 14:02:15 85 /min Respiratory Rate 2020-03-16 14:02:15 18 /min Temperature 2020-03-16 14:02:15 36.8\\S\\98.2 Weight 2020-03-16 14:02:15 72009.588\\S\\2960 Weight Measurement Method 2020-03-16 14:02:15 Estimated by Patient Respiratory 2020-03-16 14:01:43 No respiratory distress /min 02 Sat by Pulse Oximetry 2020-03-16 14:01:43 96 /min Body Mass Index 2020-03-16 14:01:43 26.5 Height 2020-03-16 14:01:43 177.8\\S\\70 Pulse Rate 2020-03-16 14:01:43 85 /min Respiratory Rate 2020-03-16 14:01:43 18 /min Temperature 2020-03-16 14:01:43 36.8\\S\\98.2 Weight 2020-03-16 14:01:43 98609.588\\S\\2960 Weight Measurement Method 2020-03-16 14:01:43 Estimated by Patient Respiratory 2020-03-16 14:01:12 No respiratory distress /min 02 Sat by Pulse Oximetry 2020-03-16 14:01:12 96 /min Body Mass Index 2020-03-16 14:01:12 26.5 Height 2020-03-16 14:01:12 177.8\\S\\70 Pulse Rate 2020-03-16 14:01:12 85 /min Respiratory Rate 2020-03-16 14:01:12 18 /min Temperature 2020-03-16 14:01:12 36.8\\S\\98.2 Weight 2020-03-16 14:01:12 18492.588\\S\\2960 Weight Measurement Method 2020-03-16 14:01:12 Estimated by Patient Respiratory 2020-03-15 16:13:25 No respiratory distress /min 02 Sat by Pulse Oximetry 2020-03-15 16:13:25 98 /min Body Mass Index 2020-03-15 16:13:25 26.5 Height 2020-03-15 16:13:25 177.8\\S\\70 Pulse Rate 2020-03-15 16:13:25 87 /min Respiratory Rate 2020-03-15 16:13:25 18 /min Temperature 2020-03-15 16:13:25 36.5\\S\\97.7 Weight 2020-03-15 16:13:25 63331.588\\S\\2960 Weight Measurement Method 2020-03-15 16:13:25 Estimated by Patient Respiratory 2020-03-15 15:57:27 No respiratory distress /min 02 Sat by Pulse Oximetry 2020-03-15 15:57:27 98 /min Body Mass Index 2020-03-15 15:57:27 26.5 Height 2020-03-15 15:57:27 177.8\\S\\70 Pulse Rate 2020-03-15 15:57:27 87 /min Respiratory Rate 2020-03-15 15:57:27 18 /min Temperature 2020-03-15 15:57:27 36.5\\S\\97.7 Weight 2020-03-15 15:57:27 18140.588\\S\\2960 Weight Measurement Method 2020-03-15 15:57:27 Estimated by Patient Respiratory 2020-03-15 14:35:13 No respiratory distress /min 02 Sat by Pulse Oximetry 2020-03-15 14:35:13 98 /min Body Mass Index 2020-03-15 14:35:13 26.5 Height 2020-03-15 14:35:13 177.8\\S\\70 Pulse Rate 2020-03-15 14:35:13 87 /min Respiratory Rate 2020-03-15 14:35:13 18 /min Temperature 2020-03-15 14:35:13 36.5\\S\\97.7 Weight 2020-03-15 14:35:13 88067.588\\S\\2960 Weight Measurement Method 2020-03-15 14:35:13 Estimated by Patient Respiratory 2020-03-15 14:28:03 No respiratory distress /min 02 Sat by Pulse Oximetry 2020-03-15 14:28:03 98 /min Body Mass Index 2020-03-15 14:28:03 26.5 Height 2020-03-15 14:28:03 177.8\\S\\70 Pulse Rate 2020-03-15 14:28:03 87 /min Respiratory Rate 2020-03-15 14:28:03 18 /min Temperature 2020-03-15 14:28:03 36.5\\S\\97.7 Weight 2020-03-15 14:28:03 94935.588\\S\\2960 Weight Measurement Method 2020-03-15 14:28:03 Estimated by Patient Respiratory 2020-03-15 14:27:02 No respiratory distress /min 02 Sat by Pulse Oximetry 2020-03-15 14:27:02 98 /min Body Mass Index 2020-03-15 14:27:02 26.5 Height 2020-03-15 14:27:02 177.8\\S\\70 Pulse Rate 2020-03-15 14:27:02 87 /min Respiratory Rate 2020-03-15 14:27:02 18 /min Temperature 2020-03-15 14:27:02 36.5\\S\\97.7 Weight 2020-03-15 14:27:02 41406.588\\S\\2960 Weight Measurement Method 2020-03-15 14:27:02 Estimated by Patient Respiratory 2020-03-15 10:42:59 No respiratory distress /min 02 Sat by Pulse Oximetry 2020-03-15 10:42:59 100 /min Body Mass Index 2020-03-15 10:42:59 26.5 Height 2020-03-15 10:42:59 177.8\\S\\70 Pulse Rate 2020-03-15 10:42:59 92 /min Respiratory Rate 2020-03-15 10:42:59 18 /min Temperature 2020-03-15 10:42:59 36.8\\S\\98.2 Weight 2020-03-15 10:42:59 76192.588\\S\\2960 Weight Measurement Method 2020-03-15 10:42:59 Estimated by Patient 02 Sat by Pulse Oximetry 2020-03-15 10:16:27 100 /min Body Mass Index 2020-03-15 10:16:27 26.5 Height 2020-03-15 10:16:27 177.8\\S\\70 Pulse Rate 2020-03-15 10:16:27 92 /min Respiratory Rate 2020-03-15 10:16:27 18 /min Temperature 2020-03-15 10:16:27 36.8\\S\\98.2 Weight 2020-03-15 10:16:27 31916.588\\S\\2960 Weight Measurement Method 2020-03-15 10:16:27 Estimated by Patient 02 Sat by Pulse Oximetry 2020-03-15 10:14:24 100 /min Body Mass Index 2020-03-15 10:14:24 26.5 Height 2020-03-15 10:14:24 177.8\\S\\70 Pulse Rate 2020-03-15 10:14:24 92 /min Respiratory Rate 2020-03-15 10:14:24 18 /min Temperature 2020-03-15 10:14:24 36.8\\S\\98.2 Weight 2020-03-15 10:14:24 23427.588\\S\\2960 Weight Measurement Method 2020-03-15 10:14:24 Estimated by Patient 02 Sat by Pulse Oximetry 2020-03-15 10:13:53 100 /min Body Mass Index 2020-03-15 10:13:53 26.5 Height 2020-03-15 10:13:53 177.8\\S\\70 Pulse Rate 2020-03-15 10:13:53 92 /min Respiratory Rate 2020-03-15 10:13:53 18 /min Temperature 2020-03-15 10:13:53 36.8\\S\\98.2 Weight 2020-03-15 10:13:53 06242.588\\S\\2960 Weight Measurement Method 2020-03-15 10:13:53 Estimated by Patient WEIGHT 2020-03-15 10:08:00 83.023943 kg HEIGHT 2020-03-15 10:08:00 177.8 cm Procedures This patient has no known procedures. Encounters Start End Encounter Admission Attending Care Care Encounter Source Date/Time Date/Time Type Type Clinicians Facility Department ID 2021-10-01 Outpatient [facility] [id number] [place] 00:32:38 [id number] [facility] 2021-08-03 Outpatient [facility] [id number] [place] 23:15:31 [id number] [facility] 2022-04-24 2022-04-25 Emergency 1 SEVERE, [facility] [id number] [place] 23:07:00 20:40:00 JESS Healt [facility] 2020-03-15 2020-03-15 Emergency [facility] [id number] [facility] 09:59:00 09:59:00 80 2020-03-15 2020-03-15 Emergency Emergency Skshannan, [facility] [id number] [facility] 09:59:00 09:59:00 Chrystan 80 2019-09-28 2019-10-30 Inpatient 1 Wellington Lewis [facility] [id number] 09:54:00 13:45:00 Wellington Lewis [facility] 2019-09-28 2019-09-28 Emergency 1 Carlos Manuel Ron [id number] 09:54:00 09:54:00 Ron Horowitz -[id number] J [facility] Results Test Description Test Time Test Comments Results Result Comments Source SARS-CoV-2 RNA Resp Ql SIMRAN+probe 2022-04-25 04:10:54 Test Item Value Reference Range Interpretation Comme nts Hospitalized? (test code = No 14679-2) ICU? (test code = 79765-8) No Symptomatic as defined by CDC? 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 (test No code = 44895-0) Resident in a congregate care No setting (including nursing homes, residential care for people with intellectual and developmental disabilities, psychiatric treatment facilities, group homes, board and care homes, homeless jail, foster care or other): (test code = 20387-8) SARS-CoV-2 RNA Resp Ql NOT DETECTED Not Detected INTER PRETATION: No SIMRAN+probe (test [place] = [place] [address]-5) SARS-CoV-2 Jyoti navirus (COVID-19) were present in [...] with SARS-CoV-2 Coronavirus ([place] VID-19). COMMENT: This [employer] X[employer] SARS-CoV-2 real-time PCR test was developed, and its performance characteristics determined by the [facility] molecular diagnostic Laboratory and is acceptablefor patient testing. It has been approved for patient testing by the FDA under the Emergency Use Auth orization pathway. This laboratory is certified under federal CLIA regulations to perform this type of high complexity testing.HHSHIV 1+2 Ab+HIV1 p24 Ag SerPl Ql [id number] 00:29:01 Test Item Value Reference Range Interpretation Comments HIV 1+2 Ab+HIV1 p24 Ag SerPl Ql IA NEGATIVE Negative (test code = 49411-3) HHSDrug Screen,[id number] 11:29:00 Test Item Value Reference Range Interpretation [...] Negative code = UPROP) Sars-CoV-2/FLU A/B RSV [id number] 10:50:00 Test Item Value Reference Range Interpretation [...] SARS-CoV-2 PCR Result:) Complete Blood Count Auto [id number] 10:30:00 Test Item Value Reference Range Interpretation [...] code = NRBCP) 0 % Comprehensive Metabolic [id number] 10:30:00 Test Item Value Reference Range Interpretation [...] 179 U/L 46-116 H = ALP) Ethanol [id number] 10:30:00 Test Item Value Reference Range Interpretation Comments Ethanol (test code = ETOH) 6 mg/dL Novel Coronavirus SARS-CoV-2, [id number] 23:02:04 Test Item Value Reference Range Interpretation Comments SARS-CoV-2 PCR NEGATIVE Negative Test performe d by Guillermo (test code = Amish.Posit ajit results SARS-CoV-2 PCR) are indicati ve [...] Drug Administration s Emergency Use Authorization." RPR [id number] 13:55:26 Test Item Value Reference Range Interpretation Comments RPR Qual (test code = RPR Qual) Non-Reactive Non-Reactive Reactive Control (test code = Reactive Reactive Control) Weak Reactive Control (test Weak Reactive code = Weak Reactive Control) Non-Reactive Control (test code Non-Reactive = Non-Reactive Control) Lot # (test code = Lot #) [id number] N Expiration Dt (test code = 9.30.21 N Expiration Dt) Hemoglobin [id number] 11:44:22 Test Item Value Reference Range Interpretation Comments Hemoglobin A1c (test code 4.9 % 4.0-5.8 Di abetic >=6.5 = Hemoglobin A1c) %Prediabet es 5.7-6.4 %Normal <5.7 % Lipid [id number] 11:38:42 Test Item Value Reference Range Interpretation [...] LDL/HDL Ratio=L DL Calc/HDL Chol Thyroid Stimulating [id number] 11:38:42 Test Item Value Reference Range Interpretation Comments TSH (test code = TSH) 2.039 mcIU/mL 0.550-4.780 Urine DOA [id number] 14:30:34 Test Item Value Reference Range Interpretation [...] Confirmation wi thin 7 days. Comprehensive Metabolic [id number] 11:37:31 Test Item Value Reference Range Interpretation [...] = Lipemia) 0 g/dL 1-2 H Alcohol [id number] 11:37:31 Test Item Value Reference Range Interpretation Comments Ethanol Level 3.8 mg/dL N The pharmacolo gical (test code = response to blo od alcohol Ethanol Level) levels may va ry from individual to i ndividual. The fatal kashif ntration has been report ed to be >400 mg/dl. Comprehensive Metabolic [id number] 11:37:31 Test Item Value Reference Range Interpretation [...] 0 g/dL 1-2 H Lipemia) Comprehensive Metabolic [id number] 11:37:31 Test Item Value Reference Range Interpretation [...] ag e have not been validated by [facility] MDRD study and should be [...] ag e have not been validated by [facility] MDRD study and should be [...] 1-2 H Lipemia) Urinalysis with Culture, if [id number] 11:23:08 Test Item Value Reference Range Interpretation [...] Not Indicated Not Indicated Micro Ind?) Automated [id number] 11:14:51 Test Item Value Reference Range Interpretation Comments Neutro Auto (test code = Neutro 59.5 % 36.0-70.0 Auto) Lymph Auto (test code = Lymph Auto) 26.2 % 12.0-44.0 Grayson Auto (test code = Grayson Auto) 10.2 % 0.0-11.0 Eos, Auto (test code = Eos, Auto) 2.6 % 0.0-7.0 Basophil Auto (test code = Basophil 1.0 % 0.0-2.0 Auto) Neutro Absolute (test code = Neutro 4.5 x10 1.6-7.4 Absolute) Lymph Absolute (test code = Lymph 2.00 x10 .50-4.60 Absolute) Grayson Absolute (test code = Grayson .78 x10 .00-1.20 Absolute) Eos Absolute (test code = Eos 0.20 x10 0.00-0.74 Absolute) Baso Absolute (test code = Baso 0.08 x10 0.00-0.21 Absolute) IG [id number] 11:14:51 Test Item Value Reference Range Interpretation Comments IG (test code = IG) 0.5 % 0.0-5.0 IG Abs (test code = IG Abs) 0 x10 N Complete Blood Count with [id number] 11:14:50 Test Item Value Reference Range Interpretation [...] code = IPF) 0 % N RPR [id number] 13:47:36 Test Item Value Reference Range Interpretation [...] = 01-18-20 N Expiration Dt) Thyroid Stimulating [id number] 08:21:50 Test Item Value Reference Range Interpretation Comments TSH (test code = TSH) 2.100 mIU/mL 0.270-4.200 Lipid [id number] 07:23:30 Test Item Value Reference Range Interpretation Comments Cholesterol Total 179 mg/dL 0-200 RISK OF HE ART (test code = DISEASEPublishe d by Cholesterol Total) [place] Jacqueline lyte Optimal Borderl ine [...] LDL/HDL Ratio=L DL Calc/HDL Chol Comprehensive Metabolic [id number] 07:00:35 Test Item Value Reference Range Interpretation [...] A/G 1.8 ratio N Ratio) Comprehensive Metabolic [id number] 07:00:35 Test Item Value Reference Range Interpretation [...] National Kidney Foundation, [email or web address] h.gov Comprehensive Metabolic [id number] 07:00:35 Test Item Value Reference Range Interpretation [...] Foundation, [email or web address] h.gov Complete Blood Count with [id number] 06:45:37 Test Item Value Reference Range Interpretation [...] code = IPF) 0 % N Automated [id number] 06:45:37 Test Item Value Reference Range Interpretation Comments Neutro Auto (test code = Neutro 55.6 % 36.0-70.0 Auto) Lymph Auto (test code = Lymph Auto) 29.0 % 12.0-44.0 Grayson Auto (test code = Grayson Auto) 11.8 % 0.0-11.0 H Eos, Auto (test code = Eos, Auto) 2.7 % 0.0-7.0 Basophil Auto (test code = Basophil 0.7 % 0.0-2.0 Auto) Neutro Absolute (test code = Neutro 3.3 x10 1.6-7.4 Absolute) Lymph Absolute (test code = Lymph 1.70 x10 .50-4.60 Absolute) Grayson Absolute (test code = Grayson .69 x10 .00-1.20 Absolute) Eos Absolute (test code = Eos 0.16 x10 0.00-0.74 Absolute) Baso Absolute (test code = Baso 0.04 x10 0.00-0.21 Absolute) IG [id number] 06:45:37 Test Item Value Reference Range Interpretation Comments IG (test code = IG) 0.2 % 0.0-5.0 IG Abs (test code = IG Abs) 0 x10 N
[2022-08-05 23:50] LABS: Absolute Lymphocytes (CBC) 1.3 K/uL (0.7-4.9); Hematocrit 34.8 % (39.6-49.0); Lymphocytes % 9.7 % (15.3-44.8); MCV 78.6 fL (80-100); MPV 7.1 fL (7.6-11.3); RBC Red Blood Cell Count 4.43 M/uL (4.33-5.43)
[2022-08-05 23:53] LABS: Protime INR 1.05
[2022-08-06 00:08] LABS: ALT/SGPT 22 U/L (16-61); AST/SGOT 44 U/L (15-37); Albumin 4.3 g/dL (3.4-5.0); Alkaline Phosphatase 144 U/L (45-117); BUN Blood Urea Nitrogen 7 mg/dL (7-18); Bicarbonate 26 mEq/L (21-32); Bilirubin Direct 0.2 mg/dL (0-0.2); Bilirubin Indirect, Calculated 0.3 mg/dL (0.2-0.8); Bilirubin Total 0.5 mg/dL (0.2-1.0); Glomerular Filtration Rate 84 ml/min (=/>90); Glucose Level 75 mg/dL (74-106); Potassium 2.7 mEq/L (3.5-5.1); Protein, Total 7.4 g/dL (6.4-8.2); Sodium Level 136 mEq/L (136-145)
[2022-08-06] MEDS ORDERED: POTASSIUM 25 MEQ EFFERV TAB ONE (00:27)
[2022-08-06] MEDS ORDERED: POTASSIUM CL SA 10 MEQ TAB PO ONE (00:27)
[2022-08-06 01:07] LABS: Barbiturates NEGATIVE (NEGATIVE); Benzodiazepines NEGATIVE (NEGATIVE); Cocaine NEGATIVE (NEGATIVE); METHAMPHETAM NEGATIVE (NEGATIVE); Methadone NEGATIVE (NEGATIVE); Opiates NEGATIVE (NEGATIVE); Phencyclidine NEGATIVE (NEGATIVE); THC Cannibis POSITIVE (NEGATIVE)
--- NOTE | 2022-08-06 01:53 | ER ---
Nurse's Notes [facility] Name: Heriberto Duke Age: 32 yrs Sex: Male : 1990 Arrival Date: 08/05/2022 Time: 22:43 Bed 3 Private MD: Diagnosis: Hypokalemia;Other psychoactive substance abuse;Unspecified injury of head, initial encounter Presentation: 08/05 22:50 Chief complaint: EMS states: found wandering in apartment complex trying to enter other 3 peoples apartments. pt altered/confused. oriented to self. Coronavirus screen: Client denies travel out of the [place] in the last 14 days. At this time, the client does not indicate any symptoms associated with coronavirus-19. Ebola Screen: No symptoms or risks identified at this time. Initial Sepsis Screen: Does the patient meet any 2 criteria? No. Patient's initial sepsis screen is negative. Does the patient have a suspected source of infection? No. Patient's initial sepsis screen is negative. Risk Assessment: Do you want to hurt yourself or someone else? Patient reports no desire to harm self or others. Onset of symptoms is unknown. 22:50 Method Of Arrival: EMS: [facility] 3 22:50 Acuity: JOSEFA 3 lg3 Triage Assessment: 22:52 General: Appears in no apparent distress. comfortable, Behavior is flat. Pain: Denies lg3 pain. EENT: No deficits noted. No signs and/or symptoms were reported regarding the EENT system. Neuro: No deficits noted. Sharp Agitation-Sedation Scale (RASS): 0 - Alert and Calm Level of Consciousness is awake, confused, Oriented to person. Cardiovascular: No deficits noted. Capillary refill < 3 seconds Clubbing of nail beds is absent JVD is absent Patient's skin is warm and dry. Respiratory: No deficits noted. Airway is patent Respiratory effort is even, unlabored, Respiratory pattern is regular, symmetrical. GI: No deficits noted. No signs and/or symptoms were reported involving the gastrointestinal system. Abdomen is round non-distended. : No deficits noted. No signs and/or symptoms were reported regarding the genitourinary system. Derm: No deficits noted. No signs and/or symptoms reported regarding the dermatologic system. Skin is intact, is healthy with good turgor, Skin is dry, Skin is normal, Skin temperature is warm. Musculoskeletal: No deficits noted. No signs and/or symptoms reported regarding the musculoskeletal system. Circulation, motion, and sensation intact. Range of motion: intact in all extremities. Historical: - Allergies: 22:52 Unable to obtain; lg3 - Home Meds: 22:52 gabapentin oral [Active]; haldol injeciton [Active]; lg3 - PMHx: 22:52 Depression; Schizophrenia; PR; lg3 - PSHx: 22:52 L arm SX; lg3 - Immunization history:: Adult Immunizations unknown. - Social history:: Smoking status: unknown. Screenin:55 [facility] ED Fall Risk Assessment (Adult) History of falling in the last 3 months, lg3 including since admission No falls in past 3 months (0 pts). Abuse screen: Denies threats or abuse. Denies injuries from another. Nutritional screening: No deficits noted. Nutritional screening: No deficits noted. 08/06 02:01 Tuberculosis screening: No symptoms or risk factors identified. jb4 Assessment: 08/05 22:55 General: see triage assessment. lg3 22:57 Reassessment: Felicia luevano, . vc1 23:30 Reassessment: Patient appears in no apparent distress at this time. Patient and/or jb4 family updated on plan of care and expected duration. Pain level reassessed. Patient is alert, oriented x 3, equal unlabored respirations, skin warm/dry/pink. 08/06 00:08 Reassessment: Patient appears in no apparent distress at this time. General: Appears lg3 comfortable. Pain: Denies pain. Neuro: Level of Consciousness is awake, obeys commands, Oriented to person. 01:08 Reassessment: Patient appears in no apparent distress at this time. Patient and/or jb4 family updated on plan of care and expected duration. Pain level reassessed. Patient is alert, oriented x 3, equal unlabored respirations, skin warm/dry/pink. 01:08 Neuro: Level of Consciousness is awake, alert, obeys commands, Oriented to person, jb4 place, time, situation. 02:01 Reassessment: Patient appears in no apparent distress at this time. Patient and/or jb4 family updated on plan of care and expected duration. Pain level reassessed. Patient is alert, oriented x 3, equal unlabored respirations, skin warm/dry/pink. Pt verbalized understanding of d/c and follow up instructions. Waiting for ride home. 03:34 Reassessment: attempted to call mother, no answer. jb4 03:44 Reassessment: tried to call pt's mother again, no answer. jb4 03:52 Reassessment: Patient appears in no apparent distress at this time. Patient and/or jb4 family updated on plan of care and expected duration. Pain level reassessed. Patient is alert, oriented x 3, equal unlabored respirations, skin warm/dry/pink. Pt no longer willing to wait for ride home, told pt multiple attempts were made to contact his mother. Pt is adamant he wants to leave now and not wait. Neuro: Level of Consciousness is awake, alert, Oriented to person, place, time, situation. Vital Signs: 08/05 22:50 BP 146 / 90; Pulse 112; Resp 19 S; Temp 98.2(TE); Pulse Ox 99% on R/A; Weight 77.11 kg lg3 (R); Height 5 ft. 11 in. (R); 08/06 00:06 BP 137 / 94; Pulse 93; Resp 16; Pulse Ox 100% ; jb4 00:09 BP 137 / 94; Pulse 96; Resp 21 S; Pulse Ox 99% on R/A; lg3 01:00 BP 144 / 97; Pulse 89; Resp 16; Pulse Ox 100% on R/A; jb4 08/05 22:50 Body Mass Index 23.71 (77.11 kg, 180.34 cm) lg3 ED Course: 08/05 22:46 Patient arrived in ED. lg3 22:47 Thai Naylor MD is Attending Physician. bs3 22:50 Lynda Sweet, ALYSSA is Primary Nurse. lg3 22:52 Triage completed. lg3 22:52 Arm band placed on right wrist. lg3 22:55 Patient has correct armband on for positive identification. Placed in gown. Bed in low lg3 position. Call light in reach. Side rails up X 1. Client placed on continuous cardiac and pulse oximetry monitoring. NIBP monitoring applied. greenkeeper on. Door closed. Noise minimized. Warm blanket given. 22:55 Patient maintains SpO2 saturation greater than 95% on room air. lg3 23:26 CT Facial Bones W/O Con In Process Unspecified. EDMS 23:26 CT Head C Spine In Process Unspecified. EDMS 23:30 Initial lab(s) drawn, by me, sent to lab. Inserted saline lock: 18 gauge in right jb4 antecubital area, using aseptic technique. Blood collected. 23:42 Acetaminophen Sent. jb4 23:42 Basic Metabolic Panel Sent. jb4 23:42 CBC with Diff Sent. jb4 23:42 ETOH Level Sent. jb4 23:42 Hepatic Function Sent. jb4 23:42 PT-INR Sent. jb4 23:42 Ptt, Activated Sent. jb4 23:42 Salicylate Sent. jb4 08/06 02:01 No provider procedures requiring assistance completed. IV discontinued, intact, jb4 bleeding controlled, No redness/swelling at site. Pressure dressing applied. Administered Medications: 00:25 Drug: Potassium Chloride PO 40 mEq Route: PO; jb4 00:25 Drug: Potassium PO Effervescent Tablet 50 mEq Route: PO; jb4 Medication: 02:01 VIS not applicable for this client. jb4 Outcome: 01:52 Discharge ordered by . bs3 03:52 Discharged to home ambulatory. jb4 03:52 Condition: stable 03:52 Discharge instructions given to patient, Instructed on discharge instructions, follow up and referral plans. Demonstrated understanding of instructions, follow-up care. 03:53 Patient left the ED. jb4 Signatures: Dispatcher [employer] EDMS Kit Fleming RN RN jb4 Lynda Sweet RN RN lg3 Lyssa Hdez RN RN vc1 Thai Naylor MD MD bs3 Corrections: (The following items were deleted from the chart) 00:11 00:09 BP 137 / 94; Pulse 96bpm; Resp 18bpm; Spontaneous; Pulse Ox 99% RA; lg3 lg3 01:06 00:06 Reassessment: Patient appears in no apparent distress at this time. Patient jb4 and/or family updated on plan of care and expected duration. Pain level reassessed. Patient is alert, oriented x 3, equal unlabored respirations, skin warm/dry/pink. jb4 02:02 02:01 Reassessment: Patient appears in no apparent distress at this time. Patient jb4 and/or family updated on plan of care and expected duration. Pain level reassessed. Patient is alert, oriented x 3, equal unlabored respirations, skin warm/dry/pink. Pt verbalized understanding of d/c and follow up instructions. jb4 03:53 03:52 Reassessment: Patient appears in no apparent distress at this time. Patient jb4 and/or family updated on plan of care and expected duration. Pain level reassessed. Patient is alert, oriented x 3, equal unlabored respirations, skin warm/dry/pink. jb4
--- NOTE | 2022-08-06 01:53 | EDPHYS ---
Physician Documentation [facility] Name: Heriberto Duke Age: 32 yrs Sex: Male : 1990 Arrival Date: 08/05/2022 Time: 22:43 Bed 3 Private MD: ED Physician Thai Naylor HPI: 08/06 01:48 This 32 yrs old Male presents to ER via EMS with complaints of Facial injury. bs3 01:48 The patient or guardian reports abrasion, tenderness. 32-year-old male history of bs3 depression, schizophrenia presents via EMS after a unwitnessed fall per EMS the patient has a longstanding history of schizophrenia and was wandering around apartment complex which is not atypical for him his mom found him and he had a bloody nose and therefore was advised to go to the emergency department EMS was called and they brought him in history is limited secondary to his schizophrenia but the patient has disorganized thoughts and does not recall exactly what happened. Historical: - Allergies: 08/05 22:52 Unable to obtain; lg3 - Home Meds: 22:52 gabapentin oral [Active]; haldol injeciton [Active]; lg3 - PMHx: 22:52 Depression; Schizophrenia; [place]; lg3 - PSHx: 22:52 L arm SX; lg3 - Immunization history:: Adult Immunizations unknown. - Social history:: Smoking status: unknown. ROS: 08/06 01:48 Constitutional: Negative for fever, chills bs3 Unable to obtain ROS due to patient being uncooperative. Exam: 01:48 Constitutional: This is a well developed, well nourished patient who is awake, alert, bs3 and in no acute distress. Head/Face: Dried blood in nares, no septal hematoma Eyes: Pupils slightly dilated, eom intact ENT: mmm, no posterior phyarngeal erythema Chest/axilla: Normal chest wall appearance and motion. Nontender with no deformity. No lesions are appreciated. Cardiovascular: Regular rate and rhythm with a normal S1 and S2. symmetric pulses in upper extremities Respiratory: Lungs have equal breath sounds bilaterally, clear to auscultation, no respiratory distress Abdomen/GI: Soft, non-tender, no rebound or guarding MS/ Extremity: Pulses equal, no cyanosis. Neurovascular intact. Full, normal range of motion. Neuro: Awake and alert, GCS 15, oriented to person, place, time, and situation. Cranial nerves II-XII grossly intact. Motor strength 5/5 in all extremities. Sensory grossly intact. Psych: disorganized thoughts Vital Signs: 08/05 22:50 BP 146 / 90; Pulse 112; Resp 19 S; Temp 98.2(TE); Pulse Ox 99% on R/A; Weight 77.11 kg lg3 (R); Height 5 ft. 11 in. (R); 08/06 00:06 BP 137 / 94; Pulse 93; Resp 16; Pulse Ox 100% ; jb4 00:09 BP 137 / 94; Pulse 96; Resp 21 S; Pulse Ox 99% on R/A; lg3 01:00 BP 144 / 97; Pulse 89; Resp 16; Pulse Ox 100% on R/A; jb4 08/05 22:50 Body Mass Index 23.71 (77.11 kg, 180.34 cm) lg3 MDM: 08/05 22:47 Patient medically screened. bs3 08/06 01:48 Data reviewed: vital signs, nurses notes. ED course: Will evaluate for intercranial bs3 hemorrhage will evaluate for facial fractures will evaluate for C-spine fractures we will check labs His work-up was notable for slight hypokalemia his EKG was normal sinus rhythm at [address] elevations or depressions his QTc was 472 as interpreted by myself his potassium was repleted his CT scans were negative given no significant EKG changes patient tolerating potassium discussed with mother at bedside who notes the patient is not a danger of hurting himself or others will discharge into the custody of his mother. 08/05 22:48 Order name: Acetaminophen; Complete Time: 00:15 [facility] 08/05 22:48 Order name: Basic Metabolic Panel; Complete Time: 00:15 [facility] 08/05 22:48 Order name: CBC with Diff; Complete Time: 00:05 [facility] 08/05 22:48 Order name: ETOH Level; Complete Time: 00:15 [facility] 08/05 22:48 Order name: Hepatic Function; Complete Time: 00:15 3 08/05 22:48 Order name: PT-INR; Complete Time: 00:05 [facility] 08/05 22:48 Order name: Ptt, Activated; Complete Time: 00:05 3 08/05 22:48 Order name: Salicylate; Complete Time: 01:33 bs3 08/05 22:48 Order name: Urine Drug Screen; Complete Time: 01:33 bs3 08/05 22:48 Order name: CT Facial Bones W/O Con bs3 08/05 22:48 Order name: CT Head C Spine bs3 08/05 22:48 Order name: EKG; Complete Time: 22:49 bs3 08/05 22:48 Order name: EKG - Nurse/Tech; Complete Time: 23:42 bs3 08/05 22:48 Order name: IV Saline Lock; Complete Time: 23:42 bs3 08/05 22:48 Order name: Labs collected and sent; Complete Time: 23:42 bs3 08/05 22:48 Order name: Suicide Screening ([place]); Complete Time: 23:42 bs3 Administered Medications: 00:25 Drug: Potassium Chloride PO 40 mEq Route: PO; jb4 00:25 Drug: Potassium PO Effervescent Tablet 50 mEq Route: PO; jb4 Disposition Summary: 08/06/22 01:52 Discharge Ordered Location: Home bs3 Problem: new bs3 Symptoms: have improved bs3 Condition: Stable bs3 Diagnosis - Hypokalemia bs3 - Other psychoactive substance abuse bs3 - Unspecified injury of head, initial encounter bs3 Followup: bs3 - With: Private Physician - When: 5 - 6 days - Reason: Re-evaluation by your physician Discharge Instructions: - Discharge Summary Sheet bs3 - Head Injury, Adult bs3 - Hypokalemia bs3 Forms: - Medication Reconciliation Form bs3 - Thank You Letter bs3 Signatures: Dispatcher [employer] Kit Cristina RN RN jb4 Lynda Sweet RN RN lg3 Thai Naylor MD MD bs3
[2022-08-06 03:58] VITALS: TEMP 98.2
[2022-08-06 04:03] VITALS: BP 144/97; O2SAT 100
--- NOTE | 2022-08-06 21:06 | RAD REPORT ---
EXAM DESCRIPTION: CT - Facial Bones W/ Mpr - 08/06/2022 6:00 am CLINICAL HISTORY: CONFUSED TECHNIQUE: Axial computed tomography images of the head/brain and cervical spine without intravenous contrast. Sagittal and coronal reformatted images were created and reviewed. This CT exam was pe rformed using one or more of the following dose reduction techniques: automated exposure control, a djustment of the mA and/or kV according to patient size, and/or use of iterative reconstruction techn ique. COMPARISON: Head CT dated 11/28/2021, Cervical spine CT dated 10/11/2018 FINDINGS: Brain: Unremarkable. No hemorrhage. No significant white matter disease. No edema. Ventricles: Unremarkable. No ventriculomegaly. Skull: Moderate to severe degenerative changes at the left temporomandibular joint which were not p resent on the prior. No acute fracture. Sinuses: Unremarkable as visualized. No acute sinusitis. Mastoid air cells: Unremarkable as visualized. No mastoid effusion. Vertebrae: Unremarkable. No acute fracture. Normal alignment. Discs/spinal canal/neural foramina: Mild to moderate multilevel degenerative changes most pronounce d at C4-C5 through C6-C7, progressed from the prior. No critical canal stenosis. Soft tissues: Unremarkable. * A single impression for all exams can be found at the end of this report EXAM DESCRIPTION: CT Maxillofacial Without Intravenous Contrast CLINICAL HISTORY: CONFUSED TECHNIQUE: Axial computed tomography images of the face without intravenous contrast. Sagittal and coronal reformatted images were created and reviewed. This CT exam was performed using one or more of the following dose reduction techniques: automated exposure control, adjustment of the mA and/o r kV according to patient size, and/or use of iterative reconstruction technique. COMPARISON: No relevant prior studies available. FINDINGS: Artifacts: Motion artifact degrades image quality. Bones/joints: Moderate to severe degenerative changes at the left temporomandibular joint. No acu te fracture. Soft tissues: Unremarkable. Orbits: Unremarkable. Sinuses: Mild bilateral maxillary sinus polypoid mucosal thickening, left greater than right. No air-fluid levels. * A single impression for all exams can be found at the end of this report IMPRESSION: CT Head and Cervical Spine Without Intravenous Contrast: 1. No acute intracranial or extra-axial abnormality. 2. No acute cervical spine injury. CT Maxillofacial Without Intravenous Contrast: No acute injury. Electronically signed by: Randy Smith MD 08/06/2022 12:16 AM CDT Due to temporary technical issues with the PACS/Fluency reporting system, reports are being signed by the in house radiologists without review as a courtesy to insure prompt reporting. The interpreting radiologist is fully responsible for the content of the report.
--- NOTE | 2022-08-06 21:12 | RAD REPORT ---
EXAM DESCRIPTION: CT - Head C Spine Mpr Wo Con - 08/06/2022 6:00 am CLINICAL HISTORY: CONFUSED TECHNIQUE: Axial computed tomography images of the head/brain and cervical spine without intravenous contrast. Sagittal and coronal reformatted images were created and reviewed. This CT exam was pe rformed using one or more of the following dose reduction techniques: automated exposure control, a djustment of the mA and/or kV according to patient size, and/or use of iterative reconstruction techn ique. COMPARISON: Head CT dated 11/28/2021, Cervical spine CT dated 10/11/2018 FINDINGS: Brain: Unremarkable. No hemorrhage. No significant white matter disease. No edema. Ventricles: Unremarkable. No ventriculomegaly. Skull: Moderate to severe degenerative changes at the left temporomandibular joint which were not p resent on the prior. No acute fracture. Sinuses: Unremarkable as visualized. No acute sinusitis. Mastoid air cells: Unremarkable as visualized. No mastoid effusion. Vertebrae: Unremarkable. No acute fracture. Normal alignment. Discs/spinal canal/neural foramina: Mild to moderate multilevel degenerative changes most pronounce d at C4-C5 through C6-C7, progressed from the prior. No critical canal stenosis. Soft tissues: Unremarkable. * A single impression for all exams can be found at the end of this report EXAM DESCRIPTION: CT Maxillofacial Without Intravenous Contrast CLINICAL HISTORY: CONFUSED TECHNIQUE: Axial computed tomography images of the face without intravenous contrast. Sagittal and coronal reformatted images were created and reviewed. This CT exam was performed using one or more of the following dose reduction techniques: automated exposure control, adjustment of the mA and/o r kV according to patient size, and/or use of iterative reconstruction technique. COMPARISON: No relevant prior studies available. FINDINGS: Artifacts: Motion artifact degrades image quality. Bones/joints: Moderate to severe degenerative changes at the left temporomandibular joint. No acu te fracture. Soft tissues: Unremarkable. Orbits: Unremarkable. Sinuses: Mild bilateral maxillary sinus polypoid mucosal thickening, left greater than right. No air-fluid levels. * A single impression for all exams can be found at the end of this report IMPRESSION: CT Head and Cervical Spine Without Intravenous Contrast: 1. No acute intracranial or extra-axial abnormality. 2. No acute cervical spine injury. CT Maxillofacial Without Intravenous Contrast: No acute injury. Electronically signed by: Randy Smith MD 08/06/2022 12:16 AM CDT Due to temporary technical issues with the PACS/Fluency reporting system, reports are being signed by the in house radiologists without review as a courtesy to insure prompt reporting. The interpreting radiologist is fully responsible for the content of the report.
--- NOTE | 2022-08-07 17:34 | EKG ---
Test Date: 2022-08-05 Test Time: 23:40:55 Heel Seam Rubber: MEASUREMENT RESULTS: Intervals: Rate: 96 DC: 154 QRSD: 94 QT: 374 QTc: 472 [place]: P: 7 DC: 154 QRS: 51 T: 10 INTERPRETIVE STATEMENTS: Normal sinus rhythm Normal ECG Compared to ECG 07/13/2022 20:19:46 Sinus tachycardia no longer present Electronically Signed On 08-07-22 17:33:39 CDT by Harlan Pierce
== END 2022-08-06 03:53 | disposition home or self-care (01) ==
LOC: ER 22:43
DX: S00.81XA Abrasion of other part of head, initial encounter (principal); F19.10 Other psychoactive substance abuse, uncomplicated; E87.6 Hypokalemia; F20.9 Schizophrenia, unspecified
CPT/HCPCS: 93005; 85025; 80048; 36415; 85610; 80076; 85730; 80307; 70450; 72125; 70486; 76377; G0480 ×3